=== PATIENT | female | born 1960 | race Native Hawaiian/Other Pacific Islander ===

== ENCOUNTER 2018-04-18 20:35 | Inpatient (IN) | payer OTHER ==
[2018-04-18 20:40] VITALS: BMI 22.4
--- NOTE | 2018-04-18 21:00 | ED PDOC ---
Arrival/HPI - General Chief Complaint: Abdominal Pain Time Seen by Provider: 04/18/18 20:40 Historian: Patient - History of Present Illness Narrative History of Present Illness (Text): 04/18/18 21:00 Yuliya Caicedo is a 57 year old female, whose past medical history includes hypertension and fibroids, who presents to the Emergency department complaining of abdominal distention. Patient states she has been experiencing worsening ascites and jaundice. Patient was referred to the Emergency department by her PMD for further evaluation. Patient also complaining of some bilateral lower extremity swelling. Patient denies any fever, chills, chest pain, shortness of breath, nausea, vomiting, diarrhea, urinary symptoms, back pain, neck pain, headache, dizziness, or any other complaints. Symptom Onset: Gradual Symptom Course: Unchanged Activities at Onset: Light Context: Home Past Medical History - Provider Review Nursing Documentation Reviewed: Yes - Cardiac Hx Cardiac Disorders: Yes (PALPITATIONS) Hx Hypertension: Yes - Musculoskeletal/Rheumatological Hx Falls: No - Genitourinary/Gynecological Hx Genitourinary Disorders: Yes (MYOMECTOMY) - Psychiatric Hx Depression: No Hx Emotional Abuse: No Hx Physical Abuse: No Hx Substance Use: No - Surgical History Other/Comment: Fibroids - Anesthesia Hx Anesthesia: Yes Hx Anesthesia Reactions: No Hx Malignant Hyperthermia: No - Suicidal Assessment Feels Threatened In Home Enviroment: No Family/Social History - Physician Review Nursing Documentation Reviewed: Yes Family/Social History: Unknown Family HX Smoking Status: Never Smoked Hx Alcohol Use: No Hx Substance Use: No Allergies/Home Meds Allergies/Adverse Reactions: Allergies No Known Allergies Allergy (Verified 07/16/16 18:22) Home Medications: Home Meds Medication Instructions Recorded Confirmed Lisinopril [Zestril] 1 tab PO DAILY 07/15/16 04/18/18 Metoprolol Tartrate [Lopressor] 10 mg PO DAILY 07/16/16 04/18/18 Review of Systems - Physician Review All systems were reviewed & negative as marked: Yes - Review of Systems Constitutional: Normal. absent: Fevers Eyes: Normal ENT: Normal Respiratory: Normal. absent: SOB, Cough Cardiovascular: Normal. absent: Chest Pain Gastrointestinal: Other (+ascites) Genitourinary Female: Normal. absent: Dysuria, Frequency, Hematuria, Urine Output Changes Musculoskeletal: Other (+bilateral lower extremity swelling). absent: Back Pain , Neck Pain Skin: Normal. absent: Rash Neurological: Normal. absent: Headache, Dizziness Endocrine: Normal Hemo/Lymphatic: Normal Psychiatric: Normal Physical Exam Vital Signs Reviewed: Yes Vital Signs Temp Pulse Resp BP Pulse Ox 04/19/18 04:07 87 16 117/71 100 04/19/18 02:58 99 H 18 98 04/19/18 00:05 90 18 123/80 98 04/18/18 20:40 98.2 F 77 18 104/69 96 Temperature: Afebrile Blood Pressure: Normal Pulse: Regular Respiratory Rate: Normal Appearance: Positive for: Well-Appearing, Non-Toxic, Comfortable Pain Distress: None Mental Status: Positive for: Alert and Oriented X 3 - Systems Exam Head: Present: Atraumatic, Normocephalic Pupils: Present: PERRL Extroacular Muscles: Present: EOMI Conjunctiva: Present: Normal Mouth: Present: Moist Mucous Membranes Neck: Present: Normal Range of Motion Respiratory/Chest: Present: Clear to Auscultation, Good Air Exchange. No: Respiratory Distress, Accessory Muscle Use Cardiovascular: Present: Regular Rate and Rhythm, Normal S1, S2. No: Murmurs Abdomen: Present: Distention (Ascites). No: Tenderness, Peritoneal Signs Back: Present: Normal Inspection Upper Extremity: Present: Normal Inspection. No: Cyanosis, Edema Lower Extremity: Present: Normal Inspection. No: Edema Neurological: Present: GCS=15, CN II-XII Intact, Speech Normal Skin: Present: Warm, Dry, Normal Color. No: Rashes Psychiatric: Present: Alert, Oriented x 3, Normal Insight, Normal Concentration Medical Decision Making ED Course and Treatment: 04/18/18 21:00 Impression: 57 year old female complaining of ascites and jaundice. Plan: -- EKG -- CXR -- Labs, cardiac enzymes, amylase, lipase, blood cultures -- UA, urine cultures -- Reassess and disposition Prior Visits: Notes and results from previous visits were reviewed. On 07/16/2016, pt was seen in the Emergency department for lower/mid abdominal pain and nausea. Pt was admitted to the hospital for further evaluation. Progress Notes: Reviewed EKG, NSR at [address]-segment elevations or depressions, no T-wave inversions, normal intervals. 04/19/18 22:00 Chest X-ray reviewed, shows no acute processes. 04/19/18 00:[address] Baptiste, who is aware and agrees with plan. Accepts pt in to her service. Pt will be admitted to [facility] for abdominal pain. - Lab Interpretations Microbiology Results: Microbiology Results 04/18/18 21:31 Blood-Venous Blood Culture - Preliminary NO GROWTH AFTER 48 HOURS 04/18/18 21:27 Blood-Venous Blood Culture - Preliminary NO GROWTH AFTER 48 HOURS 04/18/18 22:40 Urine,Clean Catch Urine Culture - Final No Growth (<1,000 CFU/ML) Lab Results: 04/18/18 21:27 04/18/18 21:27 Lab Results 04/18/18 22:40: Urine Color Yellow, Urine Appearance Clear, Urine pH 6.5, Ur Specific [place] <= 1.005, Urine Protein Negative, Urine Glucose (UA) Negative, Urine Ketones Negative, Urine Blood Negative, Urine Nitrate Negative, Urine Bilirubin Negative, Urine Urobilinogen 0.2, Ur Leukocyte Esterase Negative 04/18/18 21:35: Ammonia 56 H 04/18/18 21:27: Sodium 136, Potassium 5.5 H, Chloride 101, Carbon Dioxide 21, Anion Gap 21 H, BUN 6 L, Creatinine 0.9, Est GFR ( Amer) > 60, Est GFR ( Non-Af Amer) > 60, Random Glucose 92, Calcium 9.2, Total Bilirubin 7.7 H, AST 138 H, ALT 41, Alkaline Phosphatase 202 H, Lactate Dehydrogenase 575, Total Creatine Kinase 33 L, Troponin I < 0.01, Total Protein 8.3, Albumin 3.3, Globulin 5.1, Albumin/Globulin Ratio 0.6 L, Amylase 75, Lipase 379 H 04/18/18 21:27: PT 18.8 H, INR 1.63 H, APTT 40.8 H 04/18/18 21:27: WBC 11.3 H D, RBC 3.22 L, Hgb 10.8 L, Hct 29.6 L, MCV 91.9, MCH 33.5, MCHC 36.5, RDW 17.0 H, Plt Count 95 L, MPV 12.0 H, Gran % 69.4 H, Lymph % (Auto) 15.9 L, [place] % (Auto) 7.7 H, Eos % (Auto) 5.8 H, Baso % (Auto) 1.2, Gran # 7.83 H, Lymph # (Auto) 1.8, [place] # (Auto) 0.9 H, Eos # (Auto) 0.7, Baso # ( Auto) 0.14 I have reviewed the lab results: Yes - RAD Interpretation Radiology Orders: 04/18/18 21:11 CHEST PORTABLE [RAD] Stat 04/19/18 00:52 ABD & PELVIS IV CONTRAST ONLY [CT] Stat Tile Sprayer: ED Physician - EKG Interpretation Interpreted by ED Physician: Yes Type: 12 lead EKG - Medication Orders Current Medication Orders: Discontinued Medications Betamethasone/Clotrimazole (Lotrisone) 1 gm TOP BID ANETA Diphenhydramine HCl (Benadryl) 25 mg PO ONCE ONE Stop: 04/19/18 20:59 Last Admin: 04/19/18 21:55 Dose: 25 mg Furosemide (Lasix) 40 mg PO DAILY ANETA Last Admin: 04/20/18 10:59 Dose: 40 mg MAR Blood Pressure Document 04/20/18 10:59 SES (Rec: 04/20/18 11:00 SES [id number]) Blood Pressure Blood Pressure (100/60-150/90) 127/79 Sodium Chloride (Sodium Chloride 0.9%) 1,000 mls @ 100 mls/hr IV .Q10H STA Stop: 04/19/18 11:59 Last Admin: 04/19/18 03:07 Dose: 100 mls/hr eMAR Start Stop Document 04/19/18 03:07 SS (Rec: 04/19/18 03:07 SS [id number]) Intravenous Solution Start Date 04/19/18 Start Time 03:07 Metronidazole (Flagyl) 500 mg in 100 mls @ 100 mls/hr IVPB STAT STA PRN Reason: Protocol Stop: 04/19/18 03:01 Last Admin: 04/19/18 03:07 Dose: 100 mls/hr eMAR Start Stop Document 04/19/18 03:07 SS (Rec: 04/19/18 03:07 SS [id number]) Intravenous Solution Start Date 04/19/18 Start Time 03:07 End Date 04/19/18 End time 04:07 Total Infusion Time 60 Ceftriaxone Sodium (Rocephin 1 Gram Ivpb) 1 gm in 100 mls @ 100 mls/hr IVPB DAILY ANETA PRN Reason: Protocol Stop: 04/23/18 10:59 Last Admin: 04/20/18 13:10 Dose: 100 mls/hr eMAR Start Stop Document 04/20/18 13:10 SES (Rec: 04/20/18 13:10 [id number]) Intravenous Solution Start Date 04/20/18 Start Time 13:10 End Date 04/20/18 End time 14:10 Total Infusion Time 60 Lactulose (Enulose) 20 gm PO ONCE STA Stop: 04/19/18 01:04 Last Admin: 04/19/18 01:41 Dose: 20 gm Ondansetron HCl (Zofran Inj) 4 mg IVP Q6H PRN PRN Reason: Nausea/Vomiting Pantoprazole Sodium (Protonix Inj) 40 mg IVP DAILY [facility] Last Admin: 04/20/18 13:10 Dose: 40 mg IVP Administration Document 04/20/18 13:10 SES (Rec: 04/20/18 13:10 [id number]) Charges for Administration # of IVP Administrations 1 Rifaximin (Xifaxan) 550 mg PO BID ANETA PRN Reason: Protocol Last Admin: 04/20/18 18:02 Dose: 550 mg Thiamine HCl (Vitamin B1 Inj) 100 mg IM DAILY [facility] Last Admin: 04/20/18 11:00 Dose: 100 mg IM Administration Charges Document 04/20/18 11:00 SES (Rec: 04/20/18 11:00 [id number]) Injection Site MAR Injection Site Right Deltoid Charges for Administration # of IM Administrations 1 - Scribe Statement The provider has reviewed the documentation as recorded by the Scribe Deisy Lamas All medical record entries made by the Scribe were at my direction and personally dictated by me. I have reviewed the chart and agree that the record accurately reflects my personal performance of the history, physical exam, medical decision making, and the department course for this patient. I have also personally directed, reviewed, and agree with the discharge instructions and disposition. Disposition/Present on Arrival - Present on Arrival Any Indicators Present on Arrival: No History of DVT/PE: No History of Uncontrolled Diabetes: No Urinary Catheter: No History of Decub. Ulcer: No History Surgical Site Infection Following: None - Disposition Have Diagnosis and Disposition been Completed?: Yes Diagnosis: Abdominal pain, Elevated LFTs Disposition: HOSPITALIZED Disposition Time: 00:30 Condition: FAIR
[2018-04-18 21:33] LABS: BASO # 0.14 K/mm3 (0.0-2.0); BASO % 1.2 % (0.0-3.0); EOS # 0.7 (0.0-0.7); EOS % 5.8 % (1.5-5.0); GRAN # 7.83 (1.4-6.5); GRAN % 69.4 % (50.0-68.0); HEMOGLOBIN 10.8 g/dL (12.0-16.0); LYMPH # 1.8 (1.2-3.4); LYMPH % 15.9 % (22.0-35.0); MEAN CELL VOLUME 91.9 fl (80.0-105.0); MEAN CORPUSCULAR HEMOGLOBIN 33.5 pg (25.0-35.0); MEAN CORPUSCULAR HGB CONC 36.5 g/dl (31.0-37.0); MONO # 0.9 (0.1-0.6); MONO % 7.7 % (1.0-6.0); RBC 3.22 10^6/uL (3.5-6.1); WHITE BLOOD COUNT 11.3 10^3/ul (4.5-11.0)
[2018-04-18 21:43] LABS: INR 1.63 (0.93-1.08); PARTIAL THROMBOPLASTIN TIME 40.8 Seconds (25.1-36.5); PROTHROMBIN TIME 18.8 SECONDS (9.4-12.5)
[2018-04-18 21:52] LABS: ALB/GLOB RATIO 0.6 (1.1-1.8); ALBUMIN 3.3 g/dL (3.0-4.8); ALT/SGPT 41 U/L (7-56); AMYLASE 75 U/L (35-125); AST/SGOT 138 U/L (14-36); BLOOD UREA NITROGEN 6 mg/dL (7-21); CALCIUM 9.2 mg/dL (8.4-10.5); GFR AFRICAN-AMERICAN > 60; GFR NON-AFRICAN AMERICAN > 60; LIPASE 379 U/L (23-300)
[2018-04-18 22:02] LABS: TROPONIN I < 0.01 ng/mL
[2018-04-18 22:49] LABS: PH,URINE 6.5 (4.7-8.0); URINE BILIRUBIN NEGATIVE (NEGATIVE); URINE BLOOD NEGATIVE (NEGATIVE); URINE GLUCOSE (UA) NEGATIVE (NEGATIVE); URINE LEUKOCYTE ESTERASE NEGATIVE Leu/uL (NEGATIVE); URINE PROTEIN NEGATIVE mg/dL (<30 mg/dL); URINE UROBILINOGEN 0.2 E.U./dL (<1 E.U./dL)
[2018-04-18 22:51] LABS: URINE APPEARANCE CLEAR (CLEAR); URINE COLOR YELLOW (YELLOW)
[2018-04-19] MEDS ORDERED: Iohexol 350 MG/100 ML VIAL ONE (00:59)
[2018-04-19] MEDS ORDERED: Sodium Chloride 0.9% 1,000 ML IV STA (02:00)
[2018-04-19] MEDS ORDERED: metroNIDAZOLE IV 500 mg/100 ml 500 MG/100 ML BAG IVPB STA (02:02)
--- NOTE | 2018-04-19 07:27 | RAD ---
HISTORY: abd pain COMPARISON: Portable chest 07/16/2016. FINDINGS: LUNGS: Crowding of the bronchovascular markings in the right greater than left lung bases likely as a function of low pulmonary volume. No definitive alveolitis appreciable bilaterally. PLEURA: No significant pleural effusion identified, no pneumothorax apparent. CARDIOVASCULAR: Normal. OSSEOUS STRUCTURES: No significant abnormalities. VISUALIZED UPPER ABDOMEN: Normal. OTHER FINDINGS: None. IMPRESSION: Crowding of the bronchovascular markings is seen at the right greater than left lung bases likely is a function of diminished pulmonary volume. Clinically correlate further.
--- NOTE | 2018-04-19 09:02 | CT ---
PROCEDURE: CT Abdomen and Pelvis with contrast HISTORY: Abdominal pain COMPARISON: None. TECHNIQUE: CT scan of the abdomen and pelvis was performed after administration of intravenous contrast. Oral contrast was not administered. Coronal and sagittal reformatted images were obtained. Contrast dose: 100 mL Omnipaque 350 Radiation dose: Total exam DLP = 487.73 mGy-cm. This CT exam was performed using one or more of the following dose reduction techniques: Automated exposure control, adjustment of the mA and/or kV according to patient size, and/or use of iterative reconstruction technique. FINDINGS: LOWER THORAX: There is a small right pleural effusion with compressive atelectasis of the lung bases. The visualized left lung is clear. LIVER: Mild hepatomegaly and diffuse fatty infiltration in the liver. No gross lesion or ductal dilatation. GALLBLADDER AND BILE DUCTS: No calcified gallstones. There is layering sludge within the gallbladder. PANCREAS: Normal in size with homogeneous enhancement. No gross lesion or ductal dilatation. SPLEEN: Normal in size. There is redemonstration of a large 4.0 cm calcified mass in the upper pole of the spleen. ADRENALS: No discrete nodule. KIDNEYS AND URETERS: Normal in size with homogeneous enhancement. No hydronephrosis. No solid mass. There are small simple cysts in both kidneys. VASCULATURE: No aortic aneurysm. BOWEL: The small bowel loops are normal in caliber. The colon is decompressed. No bowel dilatation or obstruction APPENDIX: Normal appendix. PERITONEUM: There is moderate abdominal and pelvic ascites. No free air. LYMPH NODES: No enlarged lymph nodes. BLADDER: Partially decompressed. REPRODUCTIVE: The uterus is normal in size. BONES: No acute fracture. Diffuse bone demineralization OTHER FINDINGS: There is a small sliding hiatal hernia. IMPRESSION: 1. Mild hepatomegaly and fatty liver. Moderate abdominal and pelvic ascites. 2. Small right pleural effusion. 3. Redemonstration of known large calcified mass in the upper pole of the spleen. A preliminary report was provided by [employer].
[2018-04-19] MEDS: cefTRIAXone 1 gm 1 GM/100 ML BAG IVPB SCH (10:33)
--- NOTE | 2018-04-19 12:53 | CARD ---
APPROVED REPORT EKG Measurement Heart [id number] <Conclusion> Normal sinus rhythm Small q in lll Normal ECG
[2018-04-19 15:41] LABS: HEPATITIS B SURFACE AG Negative (NEGATIVE)
[2018-04-19 15:47] LABS: HEPATITIS A IGM NEGATIVE (NEGATIVE); HEPATITIS B CORE AB NEGATIVE (NEGATIVE)
[2018-04-19 15:59] LABS: HEPATITIS C ANTIBODY NEGATIVE (NEGATIVE)
[2018-04-19 16:01] LABS: BODY FLUID TYPE PERITONEAL/ASCITES
[2018-04-19 16:12] LABS: BF GROSS APPEARANCE CLEAR (CLEAR)
[2018-04-19 16:13] LABS: BODY FLUID TOTAL COUNT 100 (0-0)
--- NOTE | 2018-04-19 16:19 | US ---
PROCEDURE: Ultrasound guided paracentesis. HISTORY: New onset ascites. Abdominal pain and distension. Needs diagnostic and therapeutic paracentesis PHYSICIAN(S): Jonathan Monet MD. TECHNIQUE: The relative risks and indications for the procedure were explained to the patient and informed written consent obtained. Sonography of the abdomen was performed in a supine position. This revealed a small to moderate amount of non-loculated ascites, greatest in the right lower abdomen. A puncture site was selected and the area was prepped and draped in the usual sterile fashion. 1% Xylocaine was used to anesthetize the skin and soft tissues. A 7 [place] paracentesis catheter was trocared into the right lower abdomenand 1000 cc of clear, straw-colored fluid aspirated. The appropriate labs were sent. IMPRESSION: Ultrasound-guided paracentesis in the right lower abdomen. 1000 Cc of fluid were aspirated. Labs were sent
[2018-04-19] MEDS: Thiamine 100 mg/ml Inj IM SCH (19:24)
--- NOTE | 2018-04-20 00:30 | HP ---
HISTORY OF PRESENT ILLNESS: The patient is 57 years old, came to emergency room because of increasing abdominal girth. She also complained of having poor appetite. Vomits after she eat and not able to eat full meal. After few bites, she feels full. No history of hemoptysis. No hematemesis. No history of diarrhea. Complained of decreased appetite. PAST MEDICAL HISTORY: Significant for, 1. Hypertension. 2. Gastritis. 3. History of fibroid uterus. ALLERGIES: SHE IS NOT ALLERGIC TO ANY MEDICATION. MEDICATIONS AT HOME: She is on metoprolol 10 mg daily, lisinopril 10 mg twice a day. SOCIAL HISTORY: Denies smoking. Does eat that has tobacco in it, chews on that. According to son, she does drink almost everyday. Sometime when he come back from work, he finds mom drunk. PHYSICAL EXAMINATION: GENERAL: She is awake and alert, tremulous. VITAL SIGNS: She is afebrile, pulse 108, respirations 18, blood pressure 125/72. LUNGS: Bilateral fair airflow. No rhonchi or crackle. HEART: S1 and S2 audible. ABDOMEN: Soft, but distended. Positive fluid thrill. EXTREMITIES: Bilateral leg, no edema. LABORATORY EXAM: WBC 11.3, hemoglobin 10.8, hematocrit 39.6, platelet of 95. PT 18.8, INR 1.63. Chemistry: Sodium 136, potassium 5.5, chloride 101, CO2 of 21, BUN 6, creatinine 0.9, blood sugar of 92, her AST 130, ALT 41, alk phos 202, ammonia level is 56, lipase 379. ASSESSMENT: 1. Alcohol withdrawal. 2. Alcoholic hepatitis. 3. Cirrhotic ascites. 4. Cirrhosis of liver. 5. Hypertension. PLAN: We will continue the patient on IV fluids. She is on Rocephin. Start her on thiamine. Start her on liquid diet. The patient has paracentesis done earlier and 1 L fluid was removed. Her ammonia level is also found to be 56 and has been started on lactulose. We will follow up this patient in the a.m. Beryl Baptiste MD
--- NOTE | 2018-04-20 00:43 | CON ---
DATE: 04/19/2018 LOCATION: The patient is in bed. The patient was seen earlier today in 571, bed 2. CHIEF COMPLAINT: Abdominal distention times several days. HISTORY OF PRESENT ILLNESS: This is a 57-year-old female, originally from [place], history of fibroids and hypertension, who initially denied alcohol use; however, admits significant alcohol use, who was admitted with abdominal distention, found to have liver disease. Infectious Disease consultation requested. Review of systems reveals the patient has low-grade fevers. No chills. Mild abdominal discomfort. No nausea or vomiting at this time. No dysuria or frequency. No headaches or blurred vision. PAST MEDICAL HISTORY: Significant for hypertension and fibroids. PAST SURGICAL HISTORY: Significant for myomectomy. ALLERGIES: THE PATIENT HAS NO KNOWN ALLERGIES. MEDICATIONS AT HOME: Reveals the patient to be on Zestril, metoprolol. PHYSICAL EXAMINATION: GENERAL: The patient is in bed. VITAL SIGNS: Temperature of 98, blood pressure is 125/70, respiratory rate of 20, heart rate of 108. HEENT: Examination of HEENT is unremarkable. NECK: Supple. LUNGS: Have decreased breath sounds. HEART: Normal S1 and S2. ABDOMEN: Soft, nontender. Minimal tenderness. No rebound or guarding. It is distended. LABORATORY DATA: Laboratory examination reveals the patient's white count is 11,300 and hemoglobin is noted. Coagulation is elevated. The peritoneal ascitic fluid shows 61 wbc's with 100% polys. Urinalysis is unremarkable. Microbiology is pending. CAT scan is noted. ASSESSMENT AND PLAN: A 57-year-old [place] female, hypertension and fibroids and history of alcohol abuse, now presenting with liver cirrhosis, ascites secondary to alcohol abuse. I doubt spontaneous bacterial peritonitis. We will continue Rocephin pending the paracentesis, Gram-stain and cultures and workup as far as the hepatitis is pending. The patient's CAT scan does show a calcified lesion in the spleen. Workup for that is ordered. Case was discussed with Dr. Baptiste at length. We will follow with you. Donovan Rodriguez MD
[2018-04-20 08:26] LABS: ALB/GLOB RATIO 0.6 (1.1-1.8); ALBUMIN 3.2 g/dL (3.0-4.8); ALT/SGPT 45 U/L (7-56); AST/SGOT 128 U/L (14-36); BLOOD UREA NITROGEN 8 mg/dL (7-21); CALCIUM 9.2 mg/dL (8.4-10.5); GFR AFRICAN-AMERICAN > 60; GFR NON-AFRICAN AMERICAN > 60
[2018-04-20] MEDS ORDERED: Furosemide 40 mg/5 mL Oral Soln UD PO SCH (10:15)
[2018-04-20] MEDS: Thiamine 100 mg/ml Inj IM SCH (11:00)
[2018-04-20] MEDS: cefTRIAXone 1 gm 1 GM/100 ML BAG IVPB SCH (13:10)
[2018-04-20 16:19] VITALS: BP 143/90; PULSE 96; RESP 20; TEMP 98.2; O2SAT 98
--- NOTE | 2018-04-20 16:41 | CON ---
DATE: 04/19/2018 GASTROENTEROLOGY CONSULTATION REQUESTING PHYSICIAN: Beryl Baptiste MD REASON FOR CONSULTATION AND HISTORY OF PRESENT ILLNESS: I have been asked to see this 57-year-old female admitted to the hospital with increasing abdominal girth and mid abdominal pain for several weeks. The patient states that she has had no appetite and gets full after eating. She has had intermittent vomiting over the last several days. She denies any hematemesis or rectal bleeding. The patient was recently noted to be jaundiced. She also admits to drinking alcohol on a daily basis for the last several years. She drinks up to two drinks a day, mostly vodka or gin. Recent CT scan of the abdomen and pelvis performed as an outpatient revealed hepatomegaly with fatty appearing liver and a fine nodularity to the liver border consistent with cirrhosis. There was also ascites without any evidence of thrombus in the portal vein. No mass was seen in the liver. She does have a 4-5 cm mass in the spleen which has been present for over one year. The patient had an endoscopy and colonoscopy approximately five months ago, which revealed multiple benign colon polyps as well as gastritis without any varices in the stomach or esophagus. PAST MEDICAL HISTORY: Notable for hypertension, fibroid uterus, gastritis, small bowel obstruction which resolved with conservative treatment. PAST SURGICAL HISTORY: Notable for myomectomy. SOCIAL HISTORY: She denies cigarette smoking. 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 She consumes alcohol on a daily basis for many years. REVIEW OF SYSTEMS: A 14-point review of systems is notable for increasing abdominal girth, abdominal pain, early satiety and vomiting. MEDICATIONS AT HOME: Include lisinopril and metoprolol. PHYSICAL EXAMINATION GENERAL: Middle-aged female appearing jaundiced, lying in bed, in no acute distress. VITAL SIGNS: Reveal temperature of 97.7, blood pressure 135/71, heart rate is 70. HEENT: Reveals sclerae to be icteric. Conjunctivae pale. NECK: Supple. CHEST: Reveals lungs to be clear. HEART: Reveals regular rate and rhythm. ABDOMEN: Soft, mildly distended with ascites. She does have an enlarged liver which is palpable 3 cm below the right costal margin. EXTREMITIES: Show no edema. There is no evidence of asterixis. LABORATORY DATA: Reveals white blood cell count 11.3, hemoglobin 10.8, platelet count 95,000. Chemistries reveal potassium of 5.4, BUN 8, creatinine 0.9. AST 128, ALT 45, alkaline phosphatase of 193, ammonia 56. Paracentesis results show clear fluid, 144 rbc's, 100 total cell count with 6.6% neutrophils and 93.4% lymphocytes. IMPRESSION: A 57-year-old female with hepatomegaly, ascites, alcohol abuse, jaundice, low platelet count all consistent with decompensated cirrhosis from alcoholism. RECOMMENDATIONS: 1. I will start the patient on Lasix 40 mg once a day. She does have high potassium level, so we will stop Aldactone. 2. We will request a duplex scan of the portal vein to rule out portal vein thrombus. There is no mass seen on CAT scan of the abdomen with IV contrast. 3. We will start the patient on Xifaxan 550 mg p.o. b.i.d. as her serum ammonia level was elevated. 4. Follow liver enzymes. The patient will need referral to a tertiary liver center as she appears to be having deteriorating liver function. Shon Turner MD [facility] # [id number]
--- NOTE | 2018-04-20 17:18 | US ---
PROCEDURE: Portal vein duplex ultrasound. CLINICAL HISTORY: Cirrhosis. Deteriorating liver function. Evaluate for portal vein thrombosis. PHYSICIAN(S): Jonathan Monet M.D. FINDINGS: The visualized liver parenchyma is echogenic and heterogeneous with a nodular contour, consistent with cirrhosis. No obvious parenchymal mass is appreciated on these limited images. The extrahepatic portal vein is patent with hepatopetal flow. No thrombus is noted in the portal vein. The filling defects noted on recent CT scan with contrast are not appreciated on the duplex evaluation. Hepatic artery is patent and hypertrophied. Limited images of the central patent veins are patent. There is a small amount of fluid in the upper abdomen. IMPRESSION: 1. Patent portal vein with hepatopetal flow. The filling defect appreciated on the recent CT scan with contrast is not noted on the duplex evaluation
[2018-04-20] MEDS ORDERED: Clotrimazole/Betamethasone Cream(15 gm) TOP SCH (18:45)
--- NOTE | 2018-04-20 22:52 | PN ---
DATE: 04/20/2018 SUBJECTIVE: The patient is in bed, in no acute distress. Was seen early this morning. No fevers. No chills. PHYSICAL EXAMINATION: VITAL SIGNS: Temperature is 98, blood pressure is 120/70, respiratory rate of 16. HEENT: Examination of HEENT is unremarkable. NECK: Supple. LUNGS: Have decreased breath sounds. HEART: Normal S1 and S2. ABDOMEN: Soft, nontender. LABORATORY DATA: Laboratory examination reveals the patient with white count of 11,300. Chemistries are noted. Urinalysis noted. Ascitic fluid shows 61 wbc's. Serology is negative. Microbiology reveals the blood cultures are no growth. Ascitic cultures are no growth. Urine cultures are no growth. No ova and parasites are seen. Blood cultures, no growth, initial one. Gram-stain to follow in the ascitic fluid. ASSESSMENT AND PLAN: A 57-year-old female with hypertension, fibroid, history of alcohol abuse, who is presenting with liver cirrhosis secondary to alcohol abuse. May be able to discontinue the antibiotics if there is no gastrointestinal bleed. Donovan Rodriguez MD
[2018-04-20 23:23] LABS: TB ANTIGEN MINUS NIL <0.00 IU/mL
[2018-04-21 10:29] LABS: CERULOPLASMIN 23 mg/dL (18-53)
[2018-04-22 22:23] LABS: SOURCE: PLASMA
--- NOTE | 2018-04-23 08:11 | DS ---
HOSPITAL COURSE: The patient is 57 years old, seen and examined, seems to be doing better. Complaining of abdominal discomfort and fullness, has no tremors today. PHYSICAL EXAMINATION: VITAL SIGNS: She is afebrile, pulse 70, respirations 20, blood pressure 135/71. LUNGS: Bilateral fair airflow. No rhonchi or crackle. HEART: S1 and S2 audible. ABDOMEN: Soft,nontender. No rebound. No guarding. Abdominal distention has improved significantly. NEUROLOGICAL: The patient is awake and alert and communicative. EXTREMITIES: Bilateral legs, no edema. LABORATORY EXAM: WBC is , hemoglobin , hematocrit . Today's sodium 139, potassium 5.4, chloride 104, CO2 23, BUN 8, creatinine 0.9, blood sugar of 99, AST 128, ALT 45, alkaline phosphatase 193. Alcohol level is less than 10. RPR nonreactive. HIV test is negative. ASSESSMENT: 1. Cirrhotic ascites. 2. Alcohol dependence. 3. Coagulopathy. 4. Cirrhosis of liver. 5. History of hypertension. PLAN: We will start the patient on Lasix, Protonix, thiamine, Xifaxan. The patient is going for Doppler study to rule out portal vein thrombosis and based on that, if it is negative, she will be discharged today after abdominal Doppler study. She will be discharged home on Lasix 40 daily, Xifaxan 550 twice a day and she will resume her other medications including lisinopril and I will follow up the patient in the office. Beryl Baptiste MD
== END 2018-04-20 19:15 | disposition home or self-care (01) | DRG 433 ==
LOC: ED 20:35 → ERH 04-19 01:29 → 5RSO 04-19 04:28
PROVIDERS: ADMIT Internal Medicine; ATTEND Internal Medicine
PROC: 0W9G3ZZ Drainage of Peritoneal Cavity, Percutaneous Approach (ICD-10-PCS; principal; 2018-04-19 15:00)
DX: K70.31 Alcoholic cirrhosis of liver with ascites (principal); D68.9 Coagulation defect, unspecified; F10.239 Alcohol dependence with withdrawal, unspecified; K70.11 Alcoholic hepatitis with ascites; I10 Essential (primary) hypertension; K29.70 Gastritis, unspecified, without bleeding; D25.9 Leiomyoma of uterus, unspecified; Y90.0 Blood alcohol level of less than 20 mg/100 ml

== ENCOUNTER 2018-05-17 23:55 | Observation (INO) | payer SELFPAY ==
[2018-05-18] VITALS: BMI 22.9
--- NOTE | 2018-05-18 00:25 | ED PDOC ---
Arrival/HPI - General Chief Complaint: Abdominal Pain Time Seen by Provider: 05/18/18 00:10 Historian: Patient - History of Present Illness Narrative History of Present Illness (Text): 05/18/18 00:25 Yuliya Caicedo is a 57 year old female, whose past medical history includes hypertension, gastritis, uterine fibroids, small bowel obstruction, ascites, and alcoholic liver cirrhosis, who presents to the Emergency department complaining of abdominal pain. Patient states she has been experiencing worsening diffuse abdominal pain tonight after eating bread. Son states patient has been non-compliant with her Xifaxan. Patient denies any fever, chills, chest pain, shortness of breath, nausea, vomiting, diarrhea, back pain, neck pain, headache, dizziness, or any other complaints. Symptom Onset: Gradual Symptom Course: Worsening Activities at Onset: Light Context: Home Past Medical History - Provider Review Nursing Documentation Reviewed: Yes - Cardiac Hx Cardiac Disorders: Yes (PALPITATIONS) Hx Hypertension: Yes - Musculoskeletal/Rheumatological Hx Falls: No - Genitourinary/Gynecological Hx Genitourinary Disorders: Yes (MYOMECTOMY) - Psychiatric Hx Depression: No Hx Emotional Abuse: No Hx Physical Abuse: No Hx Substance Use: No - Surgical History Other/Comment: Fibroids - Anesthesia Hx Anesthesia: Yes Hx Anesthesia Reactions: No Hx Malignant Hyperthermia: No - Suicidal Assessment Feels Threatened In Home Enviroment: No Family/Social History - Physician Review Nursing Documentation Reviewed: Yes Family/Social History: Unknown Family HX Smoking Status: Never Smoked Hx Alcohol Use: No Hx Substance Use: No Allergies/Home Meds Allergies/Adverse Reactions: Allergies No Known Allergies Allergy (Verified 07/16/16 18:22) Home Medications: Home Meds Medication Instructions Recorded Confirmed Lisinopril [Zestril] 1 tab PO DAILY 07/15/16 05/18/18 Metoprolol Tartrate [Lopressor] 10 mg PO DAILY 07/16/16 05/18/18 Review of Systems - Physician Review All systems were reviewed & negative as marked: Yes - Review of Systems Constitutional: Normal. absent: Fevers Eyes: Normal ENT: Normal Respiratory: Normal. absent: SOB, Cough Cardiovascular: Normal. absent: Chest Pain Gastrointestinal: Abdominal Pain. absent: Diarrhea Genitourinary Female: Normal Musculoskeletal: Normal Skin: Normal Neurological: Normal Endocrine: Normal Hemo/Lymphatic: Normal Psychiatric: Normal Physical Exam Vital Signs Reviewed: Yes Vital Signs Temp Pulse Resp BP Pulse Ox 05/18/18 05:59 98.2 F 54 L 18 127/68 100 05/18/18 04:35 88 18 132/85 100 05/18/18 03:09 98.5 F 88 16 119/77 100 05/18/18 00:01 98.1 F 85 19 115/73 100 Temperature: Afebrile Blood Pressure: Normal Pulse: Regular Respiratory Rate: Normal Appearance: Positive for: Well-Appearing, Non-Toxic, Comfortable Pain Distress: None Mental Status: Positive for: Alert and Oriented X 3 - Systems Exam Head: Present: Atraumatic, Normocephalic Pupils: Present: PERRL Extroacular Muscles: Present: EOMI Conjunctiva: Present: Normal Mouth: Present: Moist Mucous Membranes Neck: Present: Normal Range of Motion Respiratory/Chest: Present: Clear to Auscultation, Good Air Exchange. No: Respiratory Distress, Accessory Muscle Use Cardiovascular: Present: Regular Rate and Rhythm, Normal S1, S2. No: Murmurs Abdomen: Present: Tenderness (Mild diffuse tenderness). No: Distention, Peritoneal Signs Back: Present: Normal Inspection Upper Extremity: Present: Normal Inspection. No: Cyanosis, Edema Lower Extremity: Present: Normal Inspection. No: Edema Neurological: Present: GCS=15, CN II-XII Intact, Speech Normal Skin: Present: Warm, Dry, Normal Color. No: Rashes Psychiatric: Present: Alert, Oriented x 3, Normal Insight, Normal Concentration Medical Decision Making ED Course and Treatment: 05/18/18 00:25 Impression: 57 year old female complaining of diffuse abdominal pain tonight. Plan: -- CT Abdomen and Pelvis with IV contrast -- EKG -- Chest X-ray -- Labs, lipase, ammonia -- IV fluids -- Morphine -- Zofran -- Reassess and disposition Prior Visits: Notes and results from previous visits were reviewed. On 04/18/2018, pt was seen in the Emergency department for worsening ascites and jaundice. Pt was admitted to the hospital for further evaluation. Progress Notes: 05/18/18 01:48 Reviewed EKG, NSR at 89 bpm. Inferior infarct. Non acute changes. 05/18/18 05:44 CT Abdomen and Pelvis reviewed, shows: 1. Small right pleural effusion. Right lower lobe consolidation and patchy infiltrate and minimal infiltrate at the left lung base. Correlation with clinical data is recommended if pneumonia is clinically suspected. 2. Endstage liver disease with interval progression of the ascites. Indeterminant gallbladder. 3. Multiple indeterminant findings as described could be sequela of hepatocellular disease unless a focal process is clinically suspected. Correlation with internal medicine evaluation and further workup or followup as recommended by patient's clinical data. 05/18/18 06:[address] Baptiste, who is aware and agrees with plan. Accepts pt in to her service. Pt will go to [facility] for abdominal pain. Requests Dr. Rodriguez and Dr. Turner on consult. - Lab Interpretations Lab Results: 05/18/18 00:46 05/18/18 00:46 Lab Results 05/18/18 02:03: Urine Color Yellow, Urine Appearance Clear, Urine pH 6.0, Ur Specific [place] 1.010, Urine Protein Negative, Urine Glucose (UA) Negative, Urine Ketones Negative, Urine Blood Negative, Urine Nitrate Negative, Urine Bilirubin Negative, Urine Urobilinogen 0.2, Ur Leukocyte Esterase Trace H, Urine RBC 0 - 2, Urine WBC 1 - 3, Ur Epithelial Cells 3 - 4, Urine Bacteria Rare 05/18/18 00:46: Ammonia 23 05/18/18 00:46: WBC 13.6 H D, RBC 2.89 L, Hgb 9.1 L, Hct 25.9 L, MCV 89.6, MCH 31.5, MCHC 35.1, RDW 15.2 H, Plt Count 127, MPV 11.9 H 05/18/18 00:46: Sodium 137, Potassium 4.9, Chloride 102, Carbon Dioxide 22, Anion Gap 17, BUN 7, Creatinine 1.0, Est GFR ( Amer) > 60, Est GFR (Non- Af Amer) 57, Random Glucose 140 H, Calcium 9.5, Total Bilirubin 6.4 H, AST 71 H D, ALT 22, Alkaline Phosphatase 183 H, Total Protein 8.9 H, Albumin 3.2, Globulin 5.6, Albumin/Globulin Ratio 0.6 L, Lipase 612 H 05/18/18 00:46: PT 19.6 H, INR 1.70, APTT 40.0 H I have reviewed the lab results: Yes - RAD Interpretation Radiology Orders: 05/18/18 00:25 CHEST PORTABLE [RAD] Stat 05/18/18 00:27 ABD & PELVIS IV CONTRAST ONLY [CT] Stat Gallery Manager: ED Physician, Radiologist - EKG Interpretation Interpreted by ED Physician: Yes Type: 12 lead EKG - Medication Orders Current Medication Orders: Discontinued Medications Sodium Chloride (Sodium Chloride 0.9%) 1,000 mls @ 999 mls/hr IV .Q1H1M STA Stop: 05/18/18 01:34 Last Admin: 05/18/18 01:01 Dose: 999 mls/hr eMAR Start Stop Document 05/18/18 01:01 RG (Rec: 05/18/18 01:15 FIDELIA [id number]) Intravenous Solution Start Date 05/18/18 Start Time 01:01 Ceftriaxone Sodium (Rocephin 1 Gram Ivpb) 1 gm in 100 mls @ 200 mls/hr IV ONCE STA PRN Reason: Protocol Stop: 05/18/18 05:57 Last Admin: 05/18/18 05:56 Dose: 200 mls/hr eMAR Start Stop Document 05/18/18 05:56 RG (Rec: 05/18/18 05:57 [id number][facility] Intravenous Solution Start Date 05/18/18 Start Time 05:56 Metronidazole (Flagyl) 500 mg in 100 mls @ 100 mls/hr IVPB STAT STA PRN Reason: Protocol Stop: 05/18/18 06:27 Morphine Sulfate (Morphine) 2 mg IVP STAT STA Stop: 05/18/18 00:35 Last Admin: 05/18/18 01:11 Dose: 2 mg MAR Pain Assessment Document 05/18/18 01:11 FIDELIA (Rec: 05/18/18 01:11 [id number]) Pain Reassessment Is this a pain reassessment? Yes Location Pain Location Body Site Abdomen Generalized Description Description Constant IVP Administration Document 05/18/18 01:11 FIDELIA (Rec: 05/18/18 01:11 FIDELIA [id number]) Charges for Administration # of IVP Administrations 1 Ondansetron HCl (Zofran Inj) 4 mg IVP ONCE ONE Stop: 05/18/18 00:35 Last Admin: 05/18/18 01:11 Dose: 4 mg IVP Administration Document 05/18/18 01:11 FIDELIA (Rec: 05/18/18 01:11 RG [id number]) Charges for Administration # of IVP Administrations 1 - Scribe Statement The provider has reviewed the documentation as recorded by the Cadeibmackenzie Lamas All medical record entries made by the Cadeibmackenzie were at my direction and personally dictated by me. I have reviewed the chart and agree that the record accurately reflects my personal performance of the history, physical exam, medical decision making, and the department course for this patient. I have also personally directed, reviewed, and agree with the discharge instructions and disposition. Disposition/Present on Arrival - Present on Arrival Any Indicators Present on Arrival: No History of DVT/PE: No History of Uncontrolled Diabetes: No Urinary Catheter: No History of Decub. Ulcer: No History Surgical Site Infection Following: None - Disposition Have Diagnosis and Disposition been Completed?: Yes Diagnosis: Abdominal pain, Leukocytosis Disposition: HOSPITALIZED Disposition Time: 06:00 Patient Plan: Observation Patient Problems: Current Active Problems Problem Status Onset Abdominal pain Acute Leukocytosis Acute Condition: STABLE
[2018-05-18] MEDS ORDERED: Sodium Chloride 0.9% 1,000 ML IV STA ×2 (00:34→06:33)
[2018-05-18] MEDS ORDERED: Morphine 2 mg/ml ISec IVP STA (00:34)
[2018-05-18 01:11] LABS: INR 1.7; PROTHROMBIN TIME 19.6 SECONDS (9.4-12.5)
[2018-05-18 01:15] LABS: HEMOGLOBIN 9.1 g/dL (12.0-16.0); MEAN CELL VOLUME 89.6 fl (80.0-105.0); MEAN CORPUSCULAR HEMOGLOBIN 31.5 pg (25.0-35.0); MEAN CORPUSCULAR HGB CONC 35.1 g/dl (31.0-37.0); MEAN PLATELET VOLUME 11.9 fl (7.0-11.0); RBC 2.89 10^6/uL (3.5-6.1); RED CELL DISTRIBUTION WIDTH 15.2 % (11.5-14.5); WHITE BLOOD COUNT 13.6 10^3/ul (4.5-11.0)
[2018-05-18 01:32] LABS: ALB/GLOB RATIO 0.6 (1.1-1.8); ALBUMIN 3.2 g/dL (3.0-4.8); ALT/SGPT 22 U/L (7-56); AST/SGOT 71 U/L (14-36); BLOOD UREA NITROGEN 7 mg/dL (7-21); CALCIUM 9.5 mg/dL (8.4-10.5); GFR AFRICAN-AMERICAN > 60; GFR NON-AFRICAN AMERICAN 57; LIPASE 612 U/L (23-300)
[2018-05-18] MEDS ORDERED: Iohexol 350 MG/100 ML VIAL ONE (02:09)
[2018-05-18 05:01] LABS: URINE BILIRUBIN NEGATIVE (NEGATIVE); URINE BLOOD NEGATIVE (NEGATIVE); URINE GLUCOSE (UA) NEGATIVE (NEGATIVE); URINE LEUKOCYTE ESTERASE TRACE Leu/uL (NEGATIVE); URINE PROTEIN NEGATIVE mg/dL (<30 mg/dL); URINE UROBILINOGEN 0.2 E.U./dL (<1 E.U./dL)
[2018-05-18 05:03] LABS: URINE APPEARANCE CLEAR (CLEAR); URINE COLOR YELLOW (YELLOW)
[2018-05-18 05:20] LABS: URINE RBC 0 - 2 /hpf (0-2)
[2018-05-18 05:21] LABS: URINE BACTERIA RARE (NEG)
[2018-05-18] MEDS ORDERED: cefTRIAXone 1 gm 1 GM/100 ML BAG IV STA (05:28)
[2018-05-18] MEDS ORDERED: metroNIDAZOLE IV 500 mg/100 ml 500 MG/100 ML BAG IVPB STA (05:28)
--- NOTE | 2018-05-18 08:07 | RAD ---
Date of service: 05/18/2018 HISTORY: abdominal pain COMPARISON: 04/18/2018 FINDINGS: LUNGS: No active pulmonary disease. PLEURA: No significant pleural effusion identified, no pneumothorax apparent. CARDIOVASCULAR: Mild vascular congestion. The heart is normal in size OSSEOUS STRUCTURES: No significant abnormalities. VISUALIZED UPPER ABDOMEN: Normal. OTHER FINDINGS: None. IMPRESSION: Mild vascular congestion
--- NOTE | 2018-05-18 09:19 | CARD ---
APPROVED REPORT Date of service: 05/18/2018 EKG Measurement Heart [id number] <Conclusion> Normal sinus rhythm Inferior infarct, age undetermined Abnormal ECG
--- NOTE | 2018-05-18 09:44 | CT ---
Date of service: 05/18/2018 PROCEDURE: CT Abdomen and Pelvis without intravenous contrast HISTORY: abdominal pain COMPARISON: 07/19/2016. TECHNIQUE: Technique. Contrast dose: Radiation dose: Total exam DLP = mGy-cm. This CT exam was performed using one or more of the following dose reduction techniques: Automated exposure control, adjustment of the mA and/or kV according to patient size, and/or use of iterative reconstruction technique. FINDINGS: LOWER THORAX: Right pleural effusion with minimal atelectasis at the right base. LIVER: Cirrhotic liver with abundant ascites. GALLBLADDER AND BILE DUCTS: Unremarkable. PANCREAS: Unremarkable. No gross lesion or ductal dilatation. SPLEEN: Stable calcified splenic mass measuring 4.5 centimeters. . ADRENALS: Unremarkable. No mass. KIDNEYS AND URETERS: Unremarkable. No hydronephrosis. No solid mass. VASCULATURE: Unremarkable. No aortic aneurysm. BOWEL: Unremarkable. No obstruction. No gross mural thickening. APPENDIX: Unremarkable. Normal appendix. PERITONEUM: Unremarkable. No free fluid. No free air. LYMPH NODES: Unremarkable. No enlarged lymph nodes. BLADDER: Unremarkable. REPRODUCTIVE: Unremarkable. BONES: No acute fracture. OTHER FINDINGS: None. IMPRESSION: Cirrhosis. Ascites. Small right pleural effusion.
--- NOTE | 2018-05-18 12:25 | CON ---
Copied To: Shon Turner MD Attending MD: Shon Turner MD DATE: 05/18/2018 REQUESTING PHYSICIAN: Dr. Baptiste. REASON FOR CONSULT: I have been asked to see this 57-year-old female with recently diagnosed cirrhosis of the liver secondary to alcoholism, history of ascites, history of chronic recurrent abdominal pain who developed abdominal pain yesterday described as mild, which became worse overnight prompting the patient to come to the Emergency Room. The patient was discharged from the hospital approximately one month ago after an admission for similar complaints of abdominal pain. She denies any recent alcohol intake. The patient has been noncompliant with her Xifaxan. She denies any confusion, nausea, vomiting, diarrhea, hematemesis or rectal bleeding. PAST MEDICAL HISTORY: Notable for hypertension, uterine fibroids, gastritis, colon polyps. Note, the patient had an endoscopy and colonoscopy earlier this year. PAST SURGICAL HISTORY: Notable for myomectomy. SOCIAL HISTORY: Patient is an alcoholic, last drink was over one month ago. She denies cigarette smoking. PHYSICAL EXAMINATION: GENERAL: Middle-aged female lying in bed in no acute distress. VITAL SIGNS: Reveal temperature of 98.3, blood pressure 124/79, heart rate 78. HEENT: Reveal sclerae to be icteric. Conjunctivae pink. NECK: Supple. CHEST: Reveal lungs to be clear. HEART: Reveals regular rate and rhythm. ABDOMEN: Distended with ascites. Liver edge is palpable 2 cm below the right costal margin. There is a positive fluid shift. There is no tenderness at this time. EXTREMITIES: Show no edema. There is no asterixis. DATA: Laboratory data reveal white blood cell count 13.6, hemoglobin 9.1, platelet count of 127,000. Chemistries reveal blood sugar 140, total bilirubin 6.4, AST 71, ALT 22, alkaline phosphatase 183, total protein 8.9, lipase of 612. PT/INR is 19.6 and 1.7 with a PTT of 40. IMPRESSION: This is a 57-year-old female with decompensated cirrhosis secondary to alcoholism with ascites and one day of abdominal pain. The patient did have a paracentesis 1 month ago, which was negative for elevated polymorphonuclear cells. However, the patient may have developed spontaneous bacterial peritonitis in the interval. I would treat the patient for spontaneous bacterial peritonitis. RECOMMENDATIONS: 1. Await blood cultures. 2. I will start the patient on Rocephin 1 g daily. 3. Clear liquid diet and advance as tolerated. 4. Xifaxan 550 mg p.o. b.i.d. Shon Turner MD
[2018-05-18] MEDS ORDERED: Pneumococcal 23-Valent Vaccine IM ONE (13:19)
--- NOTE | 2018-05-18 14:56 | CP.PCM.CON ---
<Tena Ryan - Last Filed: 05/18/18 15:05> History of Present Illness - History of Present Illness History of Present Illness: PGY-2 infectious disease consult note for Dr. Crum's service 57 year old female with past medical history of hypertension, gastritis, uterine fibroids, small bowel obstruction, ascites, and alcoholic liver cirrhosis, who presents to the Emergency department complaining of abdominal pain. Patient states her abdominal pain began yesterday after eating some bread. She describes the pain as diffuse crampy pain, not radiating. She states that the pain has improved. She denies any fever, chills, n/v, diarrhea or constipation. Son states patient has been non-compliant with her Xifaxan. Patient was recently in the hospital for abd pain, at that time she had paracentesis that did not show SBP. She denies any alcohol consumption. She denies any sick contacts. Patient denies any fever, chills, chest pain, shortness of breath, nausea, vomiting, diarrhea, back pain, neck pain, headache , dizziness, or any other complaints. PMH: hypertension, gastritis, uterine fibroids, small bowel obstruction, ascites , and alcoholic liver cirrhosis PSH: fibroid surgery social history: denies current alcohol use( former user), denies smoking or illicit drug use allergy: NKDA family history: denies Review of Systems - Review of Systems All systems: reviewed and no additional remarkable complaints except - Constitutional Constitutional: absent: Chills, Fever, Headache - EENT Eyes: absent: Change in Vision Nose/Mouth/Throat: absent: Sore Throat - Cardiovascular Cardiovascular: absent: Chest Pain, Diaphoresis, Dyspnea - Respiratory Respiratory: absent: Cough, Dyspnea - Gastrointestinal Gastrointestinal: Abdominal Pain. absent: Constipation, Diarrhea, Nausea, Vomiting - Genitourinary Genitourinary: absent: Difficulty Urinating, Dysuria - Musculoskeletal Musculoskeletal: absent: Arthralgias, Muscle Weakness - Integumentary Integumentary: Pruritus. absent: Rash, Skin Pain, Skin Ulcer, Sores - Neurological Neurological: absent: Dizziness, Headaches, Syncope, Weakness Past Patient History - Past Social History Smoking Status: Never Smoked - CARDIAC Hx Cardiac Disorders: Yes (PALPITATIONS) Hx Hypertension: Yes - PULMONARY Hx Respiratory Disorders: No - NEUROLOGICAL Hx Neurological Disorder: No - HEENT Hx HEENT Problems: No - RENAL Hx Chronic Kidney Disease: No - ENDOCRINE/METABOLIC Hx Endocrine Disorders: No - HEMATOLOGICAL/ONCOLOGICAL Hx Blood Disorders: No - INTEGUMENTARY Hx Dermatological Problems: Yes (GENERALIZED JAUNDICED) - MUSCULOSKELETAL/RHEUMATOLOGICAL Hx Musculoskeletal Disorders: Yes (RIGHT KNEE PAIN,BACK PAIN) Hx Falls: No - GASTROINTESTINAL Hx Gastrointestinal Disorders: Yes (GASTRITIS,ASCITES-H/O OF TAPPING,BOWEL OBSTRUCTION) Hx Liver Failure: Yes (ALCOHOLIC LIVER CIRRHOSIS) - GENITOURINARY/GYNECOLOGICAL Hx Genitourinary Disorders: Yes (MYOMECTOMY-FIBROID) - PSYCHIATRIC Hx Psychophysiologic Disorder: Yes (H/O ETOH ABUSE. DRANK HALF A LITER OF VODKA FOR 6-7 YRS. QUIT 15 JANUARY 2018) Hx Depression: No Hx Emotional Abuse: No Hx Physical Abuse: No Hx Substance Use: No - SURGICAL HISTORY Hx Surgeries: Yes Other/Comment: Fibroids-MYOMECTOMY - ANESTHESIA Hx Anesthesia: Yes Hx Anesthesia Reactions: No Hx Malignant Hyperthermia: No Meds Allergies/Adverse Reactions: Allergies Allergy/AdvReac Type Severity Reaction Status Date / Time No Known Allergies Allergy Verified 05/18/18 12:42 - Medications Medications: Current Medications Sodium Chloride (Sodium Chloride 0.9%) 1,000 mls @ 100 mls/hr IV .Q10H STA Stop: 05/18/18 16:32 Last Admin: 05/18/18 07:19 Dose: 100 mls/hr Ceftriaxone Sodium (Rocephin 1 Gram Ivpb) 1 gm in 100 mls @ 100 mls/hr IVPB DAILY ANETA PRN Reason: Protocol Rifaximin (Xifaxan) 550 mg PO BID ANETA PRN Reason: Protocol Last Admin: 05/18/18 10:42 Dose: 550 mg Physical Exam - Constitutional Appears: No Acute Distress - Head Exam Head Exam: ATRAUMATIC, NORMOCEPHALIC - Eye Exam Eye Exam: EOMI, Scleral icterus - ENT Exam ENT Exam: Mucous Membranes Moist - Respiratory Exam Respiratory Exam: Clear to Auscultation Bilateral, NORMAL BREATHING PATTERN - Cardiovascular Exam Cardiovascular Exam: REGULAR RHYTHM. absent: Bradycardia, Tachycardia - GI/Abdominal Exam GI & Abdominal Exam: Normal Bowel Sounds, Soft. absent: Tenderness - Extremities Exam Extremities exam: Positive for: normal inspection. Negative for: pedal edema, tenderness - Neurological Exam Neurological exam: Alert, Oriented x3 - Skin Skin Exam: Dry, Intact, Normal Color, Warm Results - Vital Signs Recent Vital Signs: Last Vital Signs Temp 98.3 F 05/18/18 12:44 Pulse 78 05/18/18 12:44 Resp 18 05/18/18 12:44 BP 124/79 05/18/18 12:44 Pulse Ox 99 05/18/18 08:23 - Labs Result Diagrams: 05/18/18 00:46 05/18/18 00:46 Assessment & Plan - Assessment and Plan (Free Text) Assessment: 57 year old female with past medical history of hypertension, gastritis, uterine fibroids, small bowel obstruction, ascites, and alcoholic liver cirrhosis, who presents to the Emergency department complaining of abdominal pain with leukocytosis. Abd CT showed cirrhosis, ascites and small right sided pleural effusion. Patient had paracentesis 1 month ago, at the time did not show SBP, however need to consider SBP. Consider repeat paracentesis. Will treat for SBP, continue ceftriaxone. Will follow up blood cultures and urine cultures. case reviewed and discussed with Dr. Crum <Luis Crum - Last Filed: 05/18/18 16:33> Meds - Medications Medications: Current Medications Ceftriaxone Sodium (Rocephin 1 Gram Ivpb) 1 gm in 100 mls @ 100 mls/hr IVPB DAILY ANETA PRN Reason: Protocol Rifaximin (Xifaxan) 550 mg PO BID ANETA PRN Reason: Protocol Last Admin: 05/18/18 10:42 Dose: 550 mg Results - Vital Signs Recent Vital Signs: Last Vital Signs Temp 98.2 F 05/18/18 14:00 Pulse 81 05/18/18 14:00 Resp 18 05/18/18 14:00 BP 104/65 05/18/18 14:00 Pulse Ox 100 05/18/18 14:00 - Labs Result Diagrams: 05/18/18 00:46 05/18/18 00:46 Assessment & Plan - Assessment and Plan (Free Text) Assessment: Infectious Diseases Attending Physician Attestation and Addendum Patient seen and examined, discussed with certified medical technician assistant. I have the pertinent clinical information, HPI, past medical, social and personal histories , review of systems, physical exam and laboratory information. I agree with the above findings, assessment and plan. In addition, we will continue Rocephin for this patient with possible spontaneous bacterial peritonitis who has alcoholic liver cirrhosis. Would recommend paracentesis if feasible for ascitic fluid analysis. Follow blood cx.
[2018-05-18 21:18] VITALS: O2SAT 98
--- NOTE | 2018-05-18 23:31 | HP ---
Copied To: Beryl Baptiste MD Attending MD: Beryl Baptiste MD HISTORY OF PRESENT ILLNESS: The patient is a 57-year-old, came to emergency room because of intermittent abdominal pain. Complained of feeling nauseous. The patient claimed she has been compliant with medications. She had similar pain 2-3 days ago, but it subsided, but last night pain got worse, so she came to emergency room for further evaluation. Complained of abdominal swelling. PAST MEDICAL HISTORY: She has significant past medical history of: 1. Hypertension. 2. History of gastritis. 3. Colonic polyp. 4. Fibroid. 5. Cirrhosis of liver secondary to alcohol abuse. 6. Significant weight loss. PAST SURGICAL HISTORY: Significant for myomectomy. SOCIAL HISTORY: She drinks alcohol almost on everyday basis, has cut down since last admission. Denies cigarette smoking. PHYSICAL EXAMINATION GENERAL: She is awake, alert, oriented. VITAL SIGNS: She is afebrile, pulse 81, respiration 18, blood pressure 104/65. HEENT: She has pale conjunctivae, icteric sclerae. LUNGS: Bilateral good airflow. No rhonchi or crackle. HEART: S1 and S2 audible. ABDOMEN: Soft, nontender. No rebound, no guarding. She has some fluid, but no significant fluid thrill. EXTREMITIES: Bilateral legs, no edema. LABORATORY DATA: WBC 13.6, hemoglobin 9.1, hematocrit 25.9, platelet of 127. PT 19.6, INR 1.7. Chemistry: Sodium 137, potassium 4.9, chloride 102, CO2 of 22, BUN 7, creatinine 1, blood sugar of 140. AST 71, calcium 9.5, alkaline phosphatase 183. Total protein 8.9, lipase 612. Urinalysis is unremarkable. CT scan of the abdomen and pelvis was done that shows cirrhosis of liver and ascites, small right pleural effusion. ASSESSMENT: 1. Abdominal pain, etiology unknown, questionable spontaneous bacterial peritonitis. 2. Cirrhosis of liver. 3. History of hypertension. 4. History of myomectomy and history of uterine fibroids. PLAN: The patient is being treated for SBP. She is on Rocephin and awaiting blood culture and urine culture and follow up her CBC and electrolyte in a.m. Beryl Baptiste MD [facility] # [id number]
[2018-05-19 07:07] LABS: BASO # 0.07 K/mm3 (0.0-2.0); BASO % 1.2 % (0.0-3.0); EOS # 0.5 (0.0-0.7); EOS % 7.4 % (1.5-5.0); GRAN # 3.57 (1.4-6.5); GRAN % 58.8 % (50.0-68.0); HEMOGLOBIN 7.3 g/dL (12.0-16.0); LYMPH # 1.5 (1.2-3.4); LYMPH % 24.8 % (22.0-35.0); MEAN CELL VOLUME 88.5 fl (80.0-105.0); MEAN CORPUSCULAR HEMOGLOBIN 31.1 pg (25.0-35.0); MEAN CORPUSCULAR HGB CONC 35.1 g/dl (31.0-37.0); MEAN PLATELET VOLUME 10.6 fl (7.0-11.0); MONO # 0.5 (0.1-0.6); MONO % 7.8 % (1.0-6.0); RBC 2.35 10^6/uL (3.5-6.1); RED CELL DISTRIBUTION WIDTH 15.3 % (11.5-14.5); WHITE BLOOD COUNT 6.1 10^3/ul (4.5-11.0)
[2018-05-19 08:01] VITALS: RESP 20
[2018-05-19 09:19] LABS: BASO # 0.06 K/mm3 (0.0-2.0); BASO % 0.8 % (0.0-3.0); EOS # 0.4 (0.0-0.7); EOS % 5.9 % (1.5-5.0); GRAN # 4.66 (1.4-6.5); GRAN % 62.5 % (50.0-68.0); HEMOGLOBIN 8.2 g/dL (12.0-16.0); LYMPH % 26.6 % (22.0-35.0); MEAN CELL VOLUME 89.8 fl (80.0-105.0); MEAN CORPUSCULAR HEMOGLOBIN 30.8 pg (25.0-35.0); MEAN CORPUSCULAR HGB CONC 34.3 g/dl (31.0-37.0); MEAN PLATELET VOLUME 10.8 fl (7.0-11.0); MONO # 0.3 (0.1-0.6); MONO % 4.2 % (1.0-6.0); RBC 2.66 10^6/uL (3.5-6.1); RED CELL DISTRIBUTION WIDTH 15.3 % (11.5-14.5); WHITE BLOOD COUNT 7.5 10^3/ul (4.5-11.0)
[2018-05-19] MEDS ORDERED: Magnesium Oxide 400 mg Tab UD PO SCH (10:00)
[2018-05-19] MEDS ORDERED: cefTRIAXone 1 gm 1 GM/100 ML BAG IVPB SCH (10:00)
--- NOTE | 2018-05-19 10:31 | PN ---
Copied To: Donovan Rodriguez MD Attending MD: Donovan Rodriguez MD DATE: 05/19/2018 SUBJECTIVE: The patient is in bed, in no acute distress, nontoxic. PHYSICAL EXAMINATION: VITAL SIGNS: Temperature is 98, blood pressure is 100/60, respiratory rate of 18. HEENT: Examination of HEENT is unremarkable. NECK: Supple. LUNGS: Have decreased breath sounds. HEART: Normal S1, S2. ABDOMEN: Soft, nontender. LABORATORY DATA: Laboratory examination reveals the white count of 7.5, hemoglobin of 8, platelets of 99. Chemistries are noted. Lipase is 612. Urinalysis is unremarkable. Microbiology reveals the blood cultures are negative. Review of orders reveals the patient to be on ceftriaxone. The patient had a CAT scan of the abdomen and pelvis. Cirrhosis, ascites, small right pleural effusion. ASSESSMENT AND PLAN: A 57-year-old female with past medical history of hypertension, gastritis, uterine fibroids, small bowel obstruction, ascites, alcoholic liver cirrhosis, admitted with abdominal pain and leukocytosis. Concerned about spontaneous bacterial peritonitis, currently on ceftriaxone in this patient who did not have any fevers initially and no tachycardia. No dyspnea. Just the abdominal pain. Did have white count of 13,600, which appears to be improved. No ascitic fluid results. May be able to switch to p.o. Augmentin 875 p.o. b.i.d. Blood cultures are negative. The patient should be on Cipro 750 mg p.o. once weekly for spontaneous bacterial peritonitis prophylaxis. Donovan Rodriguez MD
--- NOTE | 2018-05-19 13:50 | PN ---
Copied To: Shon Turner MD Attending MD: Shon Turner MD DATE: 05/19/2018 SUBJECTIVE: The patient is lying in bed. She feels better. Her abdominal pain is less. She is complaining about her liquid diet. She would like to try solid foods. She denies any nausea, vomiting. She denies any fevers or chills. She denies any rectal bleeding or melena. PHYSICAL EXAMINATION: VITAL SIGNS: Reveal temperature of 98.5, blood pressure 99/66, heart rate of 83. HEENT: Reveal sclerae to be white. Conjunctivae pale. NECK: Supple. CHEST: Reveal lungs to be clear. HEART: Reveals regular rate and rhythm. ABDOMEN: Distended with ascites. EXTREMITIES: Show no edema. LABORATORY DATA: Reveal hemoglobin this morning of 7.3. Repeat hemoglobin is 8.2. Her CBC on admission was 9.1. I suspect that her drop in hemoglobin is partly dilutional. IMPRESSION: 1. Abdominal pain, most likely secondary to spontaneous bacterial peritonitis. 2. Cirrhosis secondary to long-term alcohol use. 3. Anemia, most likely chronic disease. 4. Thrombocytopenia secondary to her cirrhosis. RECOMMENDATIONS: 1. We will advance to a soft vegan diet. 2. Follow serial hematocrits. 3. Continue IV Rocephin. If the patient tolerates diet, she is stable for discharge with outpatient followup. Shon Turner MD
[2018-05-19 15:03] VITALS: PULSE 66
[2018-05-19 15:53] VITALS: BP 115/72; TEMP 98.3
--- NOTE | 2018-05-21 09:22 | DS ---
Copied To: Beryl Baptiste MD Attending MD: Beryl Baptiste MD. HISTORY OF PRESENT ILLNESS: Patient is 67 years old, seen and examined, doing lot better, intermittent abdominal pain, complaining of mild shortness of breath. PHYSICAL EXAMINATION: VITAL SIGNS: She is afebrile, pulse 66, respirations 20, blood pressure 110/68. LUNGS: Bilateral fair airflow. No rhonchi or crackle. HEART: S1 and S2 audible. ABDOMEN: Soft, nontender. No rebound, no guarding. NEUROLOGICAL: She is awake, alert, oriented, communicative, and ambulatory. LABORATORY DATA: WBC 7.5, hemoglobin 8.2, hematocrit 23.9, platelet of 99. Chemistry: Ammonia level is 23. Urinalysis is unremarkable. ASSESSMENT: 1. Doubt spontaneous bacterial peritonitis. 2. Cirrhosis of liver. 3. Symptomatic anemia. PLAN: Patient will receive 1 packed RBCs and she will be given prescription of Xifaxan, nadolol, Lasix, and Aldactone. She will be followed by Dr. Turner as outpatient. She also has appointment with monument stonecutter on 05/22/2018 . Beryl Baptiste MD
== END 2018-05-19 18:01 | disposition home or self-care (01) ==
LOC: ED 23:55 → ERH 05-18 06:00 → 5RNO 05-18 08:31
PROVIDERS: ADMIT Internal Medicine; ATTEND Internal Medicine
DX: K70.31 Alcoholic cirrhosis of liver with ascites (principal); D63.8 Anemia in other chronic diseases classified elsewhere; D69.59 Other secondary thrombocytopenia; F10.20 Alcohol dependence, uncomplicated; I10 Essential (primary) hypertension; J90 Pleural effusion, not elsewhere classified; Z86.010 Personal history of colon polyps; Z91.19 Patient's noncompliance with other medical treatment and regimen
CPT/HCPCS: 36415; 36430; 71045; 74177; 80053; 81001; 82140; 83690; 85025; 85027; 85610; 85730; 86850; 86900; 86920; 87040; 87086; 93005; 96365; 96375; 96376; 99284; G0378; J0696; J1940; J2270; J2405; J7030; P9016; Q9967

== ENCOUNTER 2018-05-22 18:54 | Observation (INO) | payer OTHER ==
--- NOTE | 2018-05-22 19:36 | ED PDOC ---
Arrival/HPI - General Historian: Patient, Family - History of Present Illness Time/Duration: 1 hour Symptom Onset: Sudden Symptom Course: Unchanged, Worsening Quality: Pressure, Stabbing Severity Level: 10 Activities at Onset: Rest Context: Sitting - General Chief Complaint: Abdominal Pain Time Seen by Provider: 05/22/18 18:56 - History of Present Illness Narrative History of Present Illness (Text): 05/22/18 19:30 Patient is a 57 year old female with PMH of cirrhosis (recently discharged for suspected SBP) and HTN who presents to ED with worsening abdominal pain that started an hour ago. She was admitted for a similar complaint last week. She describes the pain as a sharp, burning type pain that is 10/10. She states that her current pain is worse than the prior episode. She saw the consumer advocate today who states that she will be placed on the liver transplant list. (Tevin Yost) Past Medical History - Provider Review Nursing Documentation Reviewed: Yes - Travel History Have you recently traveled outside [place] w/in the past 3 mons?: No - Infectious Disease Hx of Infectious Diseases: None - Cardiac Hx Cardiac Disorders: Yes (PALPITATIONS) Hx Hypertension: Yes - Pulmonary Hx Respiratory Disorders: No - Neurological Hx Neurological Disorder: No - HEENT Hx HEENT Disorder: No - Renal Hx Renal Disorder: No - Endocrine/Metabolic Hx Endocrine Disorders: No - Hematological/Oncological Hx Blood Disorders: No - Integumentary Hx Dermatological Disorder: Yes (GENERALIZED JAUNDICED) - Musculoskeletal/Rheumatological Hx Musculoskeletal Disorders: Yes (RIGHT KNEE PAIN,BACK PAIN) Hx Falls: Yes - Gastrointestinal Hx Gastrointestinal Disorders: Yes (GASTRITIS,ASCITES-H/O OF TAPPING,BOWEL OBSTRUCTION) Hx Liver Failure: Yes (ALCOHOLIC LIVER CIRRHOSIS) - Genitourinary/Gynecological Hx Genitourinary Disorders: Yes (MYOMECTOMY-FIBROID) - Psychiatric Hx Psychophysiologic Disorder: Yes (H/O ETOH ABUSE. DRANK HALF A LITER OF VODKA FOR 6-7 YRS. QUIT 15 JANUARY 2018) Hx Substance Use: No - Surgical History Other/Comment: Fibroids-MYOMECTOMY - Anesthesia Hx Anesthesia: Yes Hx Anesthesia Reactions: No Hx Malignant Hyperthermia: No - Suicidal Assessment Feels Threatened In Home Enviroment: No Family/Social History - Physician Review Nursing Documentation Reviewed: Yes Family/Social History: No Known Family HX Smoking Status: Never Smoked Hx Alcohol Use: Yes (QUIT DRINKING 2 MONS AGO.ANK 1/2 A LITER OF ABDOLUT VODKA ) Hx Substance Use: No Allergies/Home Meds Allergies/Adverse Reactions: Allergies No Known Allergies Allergy (Verified 05/22/18 19:22) Home Medications: Home Meds Medication Instructions Recorded Confirmed Lisinopril [Zestril] 1 tab PO DAILY 07/15/16 05/22/18 Metoprolol Tartrate [Lopressor] 10 mg PO DAILY 07/16/16 05/22/18 Review of Systems - Review of Systems Constitutional: absent: Weight Change, Fevers Eyes: absent: Vision Changes, Photophobia ENT: absent: Sore Throat, Rhinorrhea Respiratory: absent: SOB, Cough Cardiovascular: absent: Chest Pain, FRANCO Gastrointestinal: Abdominal Pain. absent: Diarrhea, Nausea, Vomiting, Hematochezia, Hematemesis Genitourinary Female: absent: Dysuria, Frequency Musculoskeletal: absent: Arthralgias Skin: absent: Rash, Pruritis Neurological: absent: Headache, Dizziness Endocrine: absent: Diaphoresis Hemo/Lymphatic: absent: Adenopathy Psychiatric: absent: Anxiety, Depression Physical Exam Vital Signs Reviewed: Yes Temperature: Afebrile Blood Pressure: Normal Pulse: Regular Respiratory Rate: Normal Appearance: Positive for: Ill-Appearing, Uncomfortable, Other (jaundiced) Pain Distress: Severe Mental Status: Positive for: Alert and Oriented X 3 - Systems Exam Head: Present: Atraumatic, Normocephalic Pupils: Present: PERRL Extroacular Muscles: Present: EOMI Conjunctiva: Present: Icteric Ears: Present: Normal Mouth: Present: Dry Pharnyx: Present: Normal. No: ERYTHEMA, EXUDATE Nose (External): Present: Atraumatic Neck: Present: Normal Range of Motion. No: JVD Respiratory/Chest: Present: Clear to Auscultation. No: Wheezes, Rales, Rhonchi Cardiovascular: Present: Regular Rate and Rhythm, Normal S1, S2. No: Murmurs, Rub, Gallop Abdomen: Present: Tenderness (when patient is thinking or speaking, no tenderness to palpation), Distention. No: Peritoneal Signs, Rebound, Guarding, Mass/Organomegaly Back: Present: Normal Inspection Upper Extremity: Present: Normal Inspection. No: Cyanosis, Edema Lower Extremity: Present: Normal Inspection. No: Edema Neurological: Present: Speech Normal Skin: Present: Warm, Dry Psychiatric: Present: Alert, Oriented x 3 Vital Signs Temp Pulse Resp BP Pulse Ox 05/22/18 19:21 98.1 F 74 18 118/57 L 99 Medical Decision Making ED Course and Treatment: 05/22/18 21:10 Seen and examined with the resident. Our history and physical exam reveals a woman complaining of severe abdominal pain. She was discharged from the hospital 2 days ago after admission for similar complaints. She was seen today by the consumer advocate at [facility] and she will be placed on the liver transplant list.. (Roni Pritchett) 05/22/18 19:41 -Will get basic labs, CBC, CMP, UA -Toradol 30 mg IVP 05/22/18 19:59 -Spoke with Dr. Baptiste who agrees to admission -Will order ammonia level and consults for Dr. Rodriguez and Dr. Turner ([facility]) - Lab Interpretations Lab Results: 05/22/18 20:11 05/22/18 20:11 Lab Results 05/22/18 20:23: Ammonia 30 05/22/18 20:11: WBC 12.3 H D, RBC 3.29 L, Hgb 10.1 L, Hct 29.2 L, MCV 88.8, MCH 30.7, MCHC 34.6, RDW 15.7 H, Plt Count 123, MPV 12.1 H, Gran % 80.9 H, Lymph % ( Auto) 12.7 L, [facility] % (Auto) 3.6, Eos % (Auto) 2.4, Baso % (Auto) 0.4, Gran # 9.90 H, Lymph # (Auto) 1.6, [facility] # (Auto) 0.4, Eos # (Auto) 0.3, Baso # (Auto) 0.05 05/22/18 20:11: Sodium 142, Potassium 5.0, Chloride 107, Carbon Dioxide 22, Anion Gap 18, BUN 6 L, Creatinine 1.0, Est GFR ( Amer) > 60, Est GFR (Non -Af Amer) 57, Random Glucose 159 H, Calcium 9.5, Phosphorus 4.1, Magnesium 1.7, Total Bilirubin 5.6 H, AST 76 H, ALT 22, Alkaline Phosphatase 180 H, Total Protein 9.2 H, Albumin 3.3, Globulin 5.9, Albumin/Globulin Ratio 0.6 L - Medication Orders Current Medication Orders: Ceftriaxone Sodium (Rocephin 1 Gram Ivpb) 1 gm in 100 mls @ 100 mls/hr IVPB DAILY ANETA PRN Reason: Protocol Discontinued Medications Ketorolac Tromethamine (Toradol) 30 mg IVP STAT STA Stop: 05/22/18 19:29 Last Admin: 05/22/18 20:11 Dose: 30 mg MAR Pain Assessment Document 05/22/18 20:11 HI (Rec: 05/22/18 20:15 [place] [id number]) Pain Reassessment Is this a pain reassessment? No Sleep Is patient sleeping during reassessment? No Presence of Pain Presence of Pain Yes Location Pain Location Body Site Abdomen IVP Administration Document 05/22/18 20:11 HI (Rec: 05/22/18 20:15 [email or web address] Charges for Administration # of IVP Administrations 1 Disposition/Present on Arrival - Present on Arrival Any Indicators Present on Arrival: No History of DVT/PE: No History of Uncontrolled Diabetes: No Urinary Catheter: No History of Decub. Ulcer: No History Surgical Site Infection Following: None - Disposition Have Diagnosis and Disposition been Completed?: Yes Disposition Time: 21:41 Patient Plan: Admission - Disposition Diagnosis: Cirrhosis of liver with ascites, High risk for sepsis Disposition: HOSPITALIZED Condition: FAIR
[2018-05-22 19:40] VITALS: BMI 20.9
[2018-05-22 20:21] LABS: BASO # 0.05 K/mm3 (0.0-2.0); BASO % 0.4 % (0.0-3.0); EOS # 0.3 (0.0-0.7); EOS % 2.4 % (1.5-5.0); GRAN # 9.9 (1.4-6.5); GRAN % 80.9 % (50.0-68.0); HEMOGLOBIN 10.1 g/dL (12.0-16.0); LYMPH # 1.6 (1.2-3.4); LYMPH % 12.7 % (22.0-35.0); MEAN CELL VOLUME 88.8 fl (80.0-105.0); MEAN CORPUSCULAR HEMOGLOBIN 30.7 pg (25.0-35.0); MEAN CORPUSCULAR HGB CONC 34.6 g/dl (31.0-37.0); MEAN PLATELET VOLUME 12.1 fl (7.0-11.0); MONO # 0.4 (0.1-0.6); MONO % 3.6 % (1.0-6.0); RBC 3.29 10^6/uL (3.5-6.1); RED CELL DISTRIBUTION WIDTH 15.7 % (11.5-14.5); WHITE BLOOD COUNT 12.3 10^3/ul (4.5-11.0)
[2018-05-22 21:04] LABS: BLOOD UREA NITROGEN 6 mg/dL (7-21); CALCIUM 9.5 mg/dL (8.4-10.5); GFR AFRICAN-AMERICAN > 60; GFR NON-AFRICAN AMERICAN 57
[2018-05-22 21:05] LABS: ALB/GLOB RATIO 0.6 (1.1-1.8); ALBUMIN 3.3 g/dL (3.0-4.8); ALT/SGPT 22 U/L (7-56); AST/SGOT 76 U/L (14-36)
[2018-05-22] MEDS ORDERED: Morphine 2 mg/ml ISec IVP PRN (22:19)
[2018-05-22 23:02] LABS: URINE BILIRUBIN SMALL (NEGATIVE); URINE BLOOD NEGATIVE (NEGATIVE); URINE GLUCOSE (UA) NEGATIVE (NEGATIVE); URINE LEUKOCYTE ESTERASE NEGATIVE Leu/uL (NEGATIVE); URINE PROTEIN NEGATIVE mg/dL (<30 mg/dL); URINE UROBILINOGEN 0.2 E.U./dL (<1 E.U./dL)
[2018-05-22 23:03] LABS: URINE APPEARANCE SL CLOUDY (CLEAR); URINE COLOR DARK YELLOW (YELLOW)
[2018-05-22] MEDS: metroNIDAZOLE IV 500 mg/100 ml 500 MG/100 ML BAG IVPB SCH (23:59)
[2018-05-23] MEDS: metroNIDAZOLE IV 500 mg/100 ml 500 MG/100 ML BAG IVPB SCH ×3 (06:05→21:56)
[2018-05-23] MEDS: Pantoprazole 40 mg EC Tab PO SCH (09:20)
[2018-05-23] MEDS: cefTRIAXone 1 gm 1 GM/100 ML BAG IVPB SCH (09:21)
--- NOTE | 2018-05-23 09:48 | HP ---
Copied To: Beryl Baptiste MD Attending MD: Beryl Baptiste MD HISTORY OF PRESENT ILLNESS: The patient is 57 years old, who was recently discharged after she was admitted for abdominal pain. The patient was recently admitted, was treated for SBP, but she was found to be anemic, was given blood transfusion, did well and was discharged because she has appointment with the making machine operator today, Mauricio , for possible liver transplant, so she saw a making machine operator and was told that she is on . PAST MEDICAL HISTORY: Significant for, 1. Hypertension. 2. Cirrhosis of liver secondary to alcohol abuse. 3. History of fibroid uterus. 4. History of significant weight loss. 5. Gastritis. 6. Anemia, recent blood transfusion. PAST SURGICAL HISTORY: Significant for myomectomy. SOCIAL HISTORY: She drinks, but has not been drinking for the last month she was diagnosed with cirrhosis of liver. She does chew rubio that has tobacco in it. She is . Lives with her . Has 2 grown up children. PHYSICAL EXAMINATION: GENERAL: She is awake, alert, oriented, communicative. VITAL SIGNS: She is afebrile, pulse 74, respirations 18, blood pressure 114/62. LUNGS: Bilateral fair airflow. No rhonchi or crackle. HEART: S1 and S2 audible. ABDOMEN: Soft. Nontender. No rebound. No guarding. NEUROLOGICAL: The patient is awake, alert, oriented, able to communicate. LABORATORY EXAM: WBC is 12.3, hemoglobin 10, hematocrit 29, platelet of 123. Chemistry: Sodium 142, potassium 5, chloride 107, CO2 of 22, BUN , creatinine 1, blood sugar of 159. LFTs are within normal limit. Total bili 5.6, AST 76, ALT 22, alk phos 180. ASSESSMENT: 1. Abdominal pain, etiology still unclear. Empirically treats for spontaneous bacterial peritonitis. 2. Cirrhosis of liver secondary to alcohol abuse. 3. Hypertension. 4. Gastritis. PLAN: We will start the patient on and Rocephin. Start her on Protonix. We will start her on nadolol. GI consult, Dr. Turner and ID consult, Dr. Rodriguez has been consulted.. Beryl Baptiste MD [facility] # [id number]
[2018-05-23] MEDS ORDERED: cefTRIAXone 1 gm 1 GM/100 ML BAG IVPB SCH (10:00)
--- NOTE | 2018-05-23 12:49 | CON ---
Copied To: Shon Turner MD Attending MD: Shon Turner MD DATE: 05/23/2018 REQUESTING PHYSICIAN: Beryl Baptiste MD. HISTORY OF PRESENT ILLNESS: I have been asked to see this 57-year-old Beninese female with a known history of cirrhosis of the liver secondary to long-term alcohol use with multiple [facility] admissions for chronic recurrent abdominal pain. Just recently hospitalized 5 days ago and discharged the following day with recurrent abdominal pain. The patient apparently had an episode of "severe mid abdominal pain yesterday." She denies any fevers or chills. The patient was treated empirically for spontaneous bacterial peritonitis on her last admission; however, she did not take any antibiotics upon discharge from the hospital. She also was not taking her Xifaxan at home. The patient did have paracentesis approximately 6 weeks ago when this did not show any increase in polymorphonuclear cells. She did not have a paracentesis last visit.. She denies any fevers, chills, nausea, vomiting, hematemesis or rectal bleeding. She did have an endoscopy and colonoscopy several months ago, which revealed gastritis. No varices and multiple colon polyps with diverticulosis. Infectious Disease recommended that the patient take oral Augmentin 875 mg twice a day. She did not take this upon discharge from the hospital. The patient was recently referred to [facility], liver transplant center in [place]. She was awaiting an appointment for liver transplant evaluation. PAST MEDICAL HISTORY: As above. She also has a history of hypertension. Again, she has a history of cirrhosis of liver secondary to alcoholism, history of gastritis, colon polyps, anemia, uterine myoma. PAST SURGICAL HISTORY: Notable for myomectomy. SOCIAL HISTORY: The patient used to consume several shots of vodka daily for many years. She states that she has not drank in over a month. The patient chews tobacco. FAMILY HISTORY: Noncontributory. REVIEW OF SYSTEMS: A 14-point review of systems is notable for abdominal pain. MEDICATIONS AT HOME: Include pantoprazole, metoprolol, lisinopril and furosemide. PHYSICAL EXAMINATION: GENERAL: Well-developed female, lying in bed, in no acute distress. VITAL SIGNS: Reveal temperature of 97.7, blood pressure 115/68, heart rate is 69. HEENT: Reveal sclerae to be white. Conjunctivae pink. NECK: Supple. CHEST: Lungs are clear. HEART: Reveals regular rate and rhythm. ABDOMEN: Soft, mildly distended, nontender. She does have an enlarged liver. EXTREMITIES: Show no edema. There is no asterixis. LABORATORY DATA: Reveal white blood cell count 12.3, hemoglobin 10.1, platelet count of 123,000. Chemistries reveal normal electrolytes. Her total bilirubin is down to 5.6 from 6.4 last visit. AST 76, ALT 22, alkaline phosphatase of 122. IMPRESSION: Probable spontaneous bacterial peritonitis, not completely treated on her last visit. The patient did not take oral antibiotics upon discharge from the hospital. She is awaiting an appointment for a liver transplant at [facility] in [place]. RECOMMENDATIONS: 1. Continue IV Rocephin and metronidazole. 2. I will start the patient on lactulose 20 g three times a day as she could not afford Xifaxan. 3. Continue PPI. 4. Advance diet as tolerated. Shon Turner MD : 05/23/2018 10:40:31
--- NOTE | 2018-05-23 15:09 | PN ---
Copied To: Beryl Baptiste MD Attending MD: Beryl Baptiste MD DATE: 05/23/2018 SUBJECTIVE: The patient is 57 years old, came to Emergency Room because of abdominal pain, states she feels better since she has pain medication. She was seen by transplant team, who advised her to be sober for some time and follow with transplant team in [facility]. The patient states when she came home, she had some cereal with tea, and after sometime, she started to have abdominal pain, lead to diarrhea, pain was severe, so she was brought to Emergency Room. PHYSICAL EXAMINATION: GENERAL: Today, she is awake, alert, oriented, communicative. VITAL SIGNS: She is afebrile, pulse 70, respirations 18, blood pressure 115/68. LUNGS: Bilateral fair airflow. No rhonchi or crackle. HEART: S1 and S2 audible. ABDOMEN: Soft. Nontender. No rebound. No guarding. NEUROLOGICAL: The patient is awake, alert, oriented, communicative. LABORATORY DATA: WBC is 12.3, hemoglobin 10, hematocrit 29, platelet of 123. Chemistry: Sodium 142, potassium 5, chloride 107, CO2 of 22, BUN 6, creatinine 1, blood sugar 159. ASSESSMENT: 1. Abdominal pain, etiology unclear yet, doubt spontaneous bacterial peritonitis. 2. History of gastritis. 3. Hypertension. PLAN: Currently, the patient is on nadolol. Complaining of diarrhea, we will cut down her lactulose to twice. Start her on Bentyl p.r.n. for pain. We will follow her CBC and chemistry in a.m. Beryl Baptiste MD
--- NOTE | 2018-05-23 19:17 | CP.PCM.CON ---
History of Present Illness - History of Present Illness History of Present Illness: 57 year old female with PMH of alcoholic liver cirrhosis, history of spontaneous bacterial peritonitis, HTN came in to [facility] complaining of abdominal pain. She was recently admitted for abdominal pain and was being treated for SBP. She denies fever or chills, no nausea or vomiting, no diarrhea, no blurring of vision, no sore throat, no cough or colds, no dysuria. She is noted to have leukocytosis and Infectious Diseases consult is requested to further evaluate and manage. Review of Systems - Review of Systems All systems: reviewed and no additional remarkable complaints except (as per HPI ) Past Patient History - Infectious Disease Hx of Infectious Diseases: None - Past Social History Smoking Status: Never Smoked - CARDIAC Hx Cardiac Disorders: Yes (PALPITATIONS) Hx Hypertension: Yes - PULMONARY Hx Respiratory Disorders: No - NEUROLOGICAL Hx Neurological Disorder: No - HEENT Hx HEENT Problems: No - RENAL Hx Chronic Kidney Disease: No - ENDOCRINE/METABOLIC Hx Endocrine Disorders: No - HEMATOLOGICAL/ONCOLOGICAL Hx Blood Disorders: No - INTEGUMENTARY Hx Dermatological Problems: Yes (GENERALIZED JAUNDICED) - MUSCULOSKELETAL/RHEUMATOLOGICAL Hx Musculoskeletal Disorders: Yes (RIGHT KNEE PAIN,BACK PAIN) Hx Falls: Yes - GASTROINTESTINAL Hx Gastrointestinal Disorders: Yes (GASTRITIS,ASCITES-H/O OF TAPPING,BOWEL OBSTRUCTION) Hx Liver Failure: Yes (ALCOHOLIC LIVER CIRRHOSIS) - GENITOURINARY/GYNECOLOGICAL Hx Genitourinary Disorders: Yes (MYOMECTOMY-FIBROID) - PSYCHIATRIC Hx Psychophysiologic Disorder: Yes (H/O ETOH ABUSE. DRANK HALF A LITER OF VODKA FOR 6-7 YRS. QUIT 15 JANUARY 2018) Hx Substance Use: No - SURGICAL HISTORY Other/Comment: Fibroids-MYOMECTOMY - ANESTHESIA Hx Anesthesia: Yes Hx Anesthesia Reactions: No Hx Malignant Hyperthermia: No Meds Allergies/Adverse Reactions: Allergies Allergy/AdvReac Type Severity Reaction Status Date / Time No Known Allergies Allergy Verified 05/22/18 19:22 Physical Exam - Constitutional Appears: Non-toxic, Chronically Ill - Head Exam Head Exam: NORMAL INSPECTION - ENT Exam ENT Exam: Mucous Membranes Moist - Neck Exam Neck exam: Negative for: Meningismus - Respiratory Exam Respiratory Exam: Decreased Breath Sounds - Cardiovascular Exam Cardiovascular Exam: +S1, +S2 - GI/Abdominal Exam GI & Abdominal Exam: Soft. absent: Tenderness Results - Vital Signs Recent Vital Signs: Last Vital Signs Temp 98.1 F 05/22/18 19:21 Pulse 74 05/22/18 19:21 Resp 18 05/22/18 19:21 BP 118/57 L 05/22/18 19:21 Pulse Ox 99 05/22/18 19:21 - Labs Result Diagrams: 05/22/18 20:11 05/22/18 20:11 Assessment & Plan - Assessment and Plan (Free Text) Plan: Assessment Abdominal pain, R/O SBP alcoholic liver cirrhosis history of spontaneous bacterial peritonitis HTN Plan Started Rocephin pending blood cx; may need paracentesis will monitor clinically
[2018-05-24] MEDS: metroNIDAZOLE IV 500 mg/100 ml 500 MG/100 ML BAG IVPB SCH (05:48)
--- NOTE | 2018-05-24 08:51 | PN ---
Copied To: Shon Turner MD Attending MD: Shon Turner MD DATE: 05/24/2018 SUBJECTIVE: The patient is now complaining of irritable bowel type symptoms with recurrent abdominal pain associated with occasional loose stools as well as formed stools. Her abdominal pain appears to be relieved by bowel movement. She was started on dicyclomine by Dr. Baptiste yesterday. Her abdominal pain is less. OBJECTIVE: VITAL SIGNS: Reveal temperature of 97.6, blood pressure 125/76, heart rate 64. HEENT: Reveal sclerae to be white, sclerae to be icteric. Conjunctivae pink. NECK: Supple. CHEST: Reveal lungs to be clear. HEART: Reveals a regular rate and rhythm. ABDOMEN: Softly distended, nontender. EXTREMITIES: Show no edema. DATA: Laboratory data reveal white blood cell count 12.3, hemoglobin 10.1. Chemistries reveal total bilirubin from yesterday of 5.6, AST 76. IMPRESSION: 1. Cirrhosis secondary to alcohol abuse. 2. Chronic recurrent abdominal pain, rule out spontaneous bacterial peritonitis. The patient also has symptoms to suggest irritable bowel syndrome with frequent bowel movements consisting of loose bowel movements versus formed bowel movements associated with abdominal pain, which is relieved by a bowel movement. She did have a colonoscopy several months ago, which revealed diverticulosis and multiple colon polyps. RECOMMENDATIONS: 1. Continue IV antibiotics. 2. Continue Bentyl as needed. She is stable from a GI standpoint. She should be treated for 14 days with p.o. antibiotics for SBP upon discharge from the hospital. Shon Turner MD
[2018-05-24 08:56] VITALS: BP 114/71; PULSE 72; RESP 18; TEMP 98.1; O2SAT 99
[2018-05-24] MEDS: cefTRIAXone 1 gm 1 GM/100 ML BAG IVPB SCH (09:57)
[2018-05-24] MEDS: Pantoprazole 40 mg EC Tab PO SCH (09:57)
--- NOTE | 2018-05-24 11:49 | CP.PCM.PN ---
Subjective - Date & Time of Evaluation Date of Evaluation: 05/24/18 Time of Evaluation: 10:20 - Subjective Subjective: Comfortable, less abdominal pain, no fevers, not in distress, no nausea. Objective - Vital Signs/Intake and Output Vital Signs (last 24 hours): Temp Pulse Resp BP Pulse Ox 97.6 F 64 20 125/76 100 05/23/18 17:25 05/23/18 17:25 05/23/18 17:25 05/23/18 17:25 05/23/18 17:25 Intake and Output: 05/23/18 05/24/18 18:59 06:59 Intake Total 1420 Balance 1420 - Medications Medications: Current Medications Dicyclomine HCl (Bentyl) 10 mg PO QID PRN PRN Reason: ABDOMAINL Pain, moderate (4-7) Furosemide (Lasix) 40 mg PO DAILY [facility] Last Admin: 05/23/18 09:20 Dose: 40 mg Ceftriaxone Sodium (Rocephin 1 Gram Ivpb) 1 gm in 100 mls @ 100 mls/hr IVPB DAILY [facility] PRN Reason: Protocol Last Admin: 05/23/18 09:21 Dose: 100 mls/hr Metronidazole (Flagyl) 500 mg in 100 mls @ 100 mls/hr IVPB Q8 [facility] PRN Reason: Protocol Last Admin: 05/23/18 13:28 Dose: 100 mls/hr Lactulose (Enulose) 20 gm PO BID [facility] Last Admin: 05/23/18 17:49 Dose: Not Given Lisinopril (Zestril) 20 mg PO DAILY [facility] Last Admin: 05/23/18 09:21 Dose: 20 mg Morphine Sulfate (Morphine) 2 mg IVP Q6H PRN PRN Reason: Pain, moderate (4-7) Nadolol (Corgard) 20 mg PO DAILY [facility] Last Admin: 05/23/18 09:18 Dose: 20 mg Pantoprazole Sodium (Protonix Ec Tab) 40 mg PO DAILY [facility] Last Admin: 05/23/18 09:20 Dose: 40 mg - Constitutional Appears: Chronically Ill - Head Exam Head Exam: NORMAL INSPECTION - Respiratory Exam Respiratory Exam: Decreased Breath Sounds - Cardiovascular Exam Cardiovascular Exam: +S1, +S2 - GI/Abdominal Exam GI & Abdominal Exam: Soft. absent: Tenderness Assessment and Plan - Assessment and Plan (Free Text) Plan: Assessment Abdominal pain, R/O SBP alcoholic liver cirrhosis history of spontaneous bacterial peritonitis HTN Plan on Rocephin day 2 and can be switched to PO Vantin to complete 14 days of therapy with outpatient follow up with PMD
--- NOTE | 2018-05-25 05:51 | DS ---
Copied To: Beryl Baptiste MD Attending MD: Beryl Baptiste MD HISTORY OF PRESENT ILLNESS: The patient is 57 years old who was admitted with intermittent abdominal pain, doing well since she is here. Denies any nausea or vomiting. Eating and tolerating. PHYSICAL EXAMINATION: VITAL SIGNS: Patient is afebrile, pulse 72, respirations 18, blood pressure 114/71. LUNGS: Bilateral fair airflow. No rhonchi or crackle. HEART: S1, S2 audible. ABDOMEN: Soft, nontender. No rebound. No guarding. NEUROLOGICAL: Patient is awake, alert, oriented, communicative. Moves all extremities. LABORATORY EXAM: Ammonia is 30. ASSESSMENT: 1. Cirrhosis of liver secondary to alcohol abuse. 2. Esophageal varices. 3. Questionable spontaneous bacterial peritonitis. 4. History of diverticulosis. 5. Hypertension. 6. Anemia, status post blood transfusion. PLAN: Patient will be discharged today. We will give her Bentyl as needed. Continue her on nadolol. She will be discharged on p.o. antibiotics as recommended by ID. We will reach out to ID and request for recommendation. She will be given Vantin 200 twice a day for 14 days. She will follow up in office. Beryl Baptiste MD
== END 2018-05-24 12:46 | disposition home or self-care (01) ==
LOC: ED 18:54 → ERH 21:07 → 3RSO 22:24
PROVIDERS: ADMIT Internal Medicine; ATTEND Internal Medicine
DX: K70.31 Alcoholic cirrhosis of liver with ascites (principal); I85.10 Secondary esophageal varices without bleeding; G89.29 Other chronic pain; D64.9 Anemia, unspecified; I10 Essential (primary) hypertension; K29.70 Gastritis, unspecified, without bleeding; F10.10 Alcohol abuse, uncomplicated; Z86.010 Personal history of colon polyps
CPT/HCPCS: 36415; 80053; 81003; 82140; 83735; 84100; 85025; 87040; 96374; 99284; G0378; J0696; J1885

== ENCOUNTER 2018-06-06 17:05 | Inpatient (IN) | payer OTHER ==
[2018-06-06 17:13] VITALS: BMI 21.6
[2018-06-06] MEDS ORDERED: Morphine 2 mg/ml ISec IVP STA (17:33)
[2018-06-06] MEDS ORDERED: Sodium Chloride 0.9% 1,000 ML IV STA (17:33)
--- NOTE | 2018-06-06 17:55 | ED PDOC ---
Arrival/HPI - General Chief Complaint: Abdominal Pain Time Seen by Provider: 06/06/18 17:18 Historian: Patient - History of Present Illness Narrative History of Present Illness (Text): 06/06/18 57 year old female whose past medical history includes liver cirrhosis, and Hep C, who presents to the emergency department complaining of generalized abdominal pain. 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 Patient admits to intermittent nausea. She denies taking any medication for her abdominal pain. Of note patient was recently hospitalized on 05/22/18 for similar complaints, where she received blood transfusion. Of note she denies any recent EtOH ingestion. Patient denies fevers, chills, cough, shortness of breath, chest pain, dyspnea on exertion, vomiting, diarrhea, back pain, neck pain, headache, dizziness, or any other complaint. Time/Duration: 4-6 hours Symptom Onset: Sudden Symptom Course: Unchanged Context: Home, Other (after undergoing abdominal MRI earlier today.) Past Medical History - Provider Review Nursing Documentation Reviewed: Yes - Infectious Disease Hx of Infectious Diseases: None - Cardiac Hx Cardiac Disorders: Yes (PALPITATIONS) Hx Hypertension: Yes - Pulmonary Hx Respiratory Disorders: No - Neurological Hx Neurological Disorder: No - HEENT Hx HEENT Disorder: No - Renal Hx Renal Disorder: No - Endocrine/Metabolic Hx Endocrine Disorders: No - Hematological/Oncological Hx Blood Disorders: No - Integumentary Hx Dermatological Disorder: Yes (GENERALIZED JAUNDICED) - Musculoskeletal/Rheumatological Hx Musculoskeletal Disorders: Yes (RIGHT KNEE PAIN,BACK PAIN) Hx Falls: Yes - Gastrointestinal Hx Gastrointestinal Disorders: Yes (GASTRITIS,ASCITES-H/O OF TAPPING,BOWEL OBSTRUCTION) Hx Liver Failure: Yes (ALCOHOLIC LIVER CIRRHOSIS) - Genitourinary/Gynecological Hx Genitourinary Disorders: Yes (MYOMECTOMY-FIBROID) - Psychiatric Hx Psychophysiologic Disorder: Yes (H/O ETOH ABUSE. DRANK HALF A LITER OF VODKA FOR 6-7 YRS. QUIT 15 JANUARY 2018) Hx Substance Use: No - Surgical History Other/Comment: Fibroids-MYOMECTOMY - Anesthesia Hx Anesthesia: Yes Hx Anesthesia Reactions: No Hx Malignant Hyperthermia: No - Suicidal Assessment Feels Threatened In Home Enviroment: No Family/Social History - Physician Review Nursing Documentation Reviewed: Yes Family/Social History: No Known Family HX Smoking Status: Never Smoked Hx Alcohol Use: Yes (QUIT DRINKING 2 MONS AGO.DRANK 1/2 A LITER OF ABDOLUT VODKA ) Hx Substance Use: No Allergies/Home Meds Allergies/Adverse Reactions: Allergies No Known Allergies Allergy (Verified 05/22/18 19:22) Home Medications: Home Meds Medication Instructions Recorded Confirmed Dicyclomine [Bentyl] 1 cap PO Q8H PRN 06/06/18 06/06/18 Magnesium Oxide [Mag-Ox] 1 tab PO DAILY 06/06/18 06/06/18 rifAXIMin [Xifaxan] 1 tab PO BID 06/06/18 06/06/18 Review of Systems - Physician Review All systems were reviewed & negative as marked: Yes - Review of Systems Constitutional: absent: Fevers, Night Sweats Respiratory: absent: SOB, Cough Cardiovascular: absent: Chest Pain, FRANCO Gastrointestinal: Abdominal Pain, Nausea. absent: Diarrhea, Vomiting Musculoskeletal: absent: Back Pain, Neck Pain Neurological: absent: Headache, Dizziness Physical Exam Vital Signs Reviewed: Yes Vital Signs Temp Pulse Resp BP Pulse Ox 06/06/18 18:58 86 17 118/71 100 06/06/18 17:20 87/48 L 06/06/18 17:19 97.7 F 80 20 82/54 L 98 Blood Pressure: Hypotensive Pulse: Regular Respiratory Rate: Normal Appearance: Positive for: Well-Appearing Mental Status: Positive for: Alert and Oriented X 3 - Systems Exam Head: Present: Atraumatic, Normocephalic Pupils: Present: PERRL Extroacular Muscles: Present: EOMI Conjunctiva: Present: Icteric Mouth: Present: Moist Mucous Membranes, Other (poor dentition). No: Normal Teeth Neck: Present: Normal Range of Motion Respiratory/Chest: Present: Clear to Auscultation, Good Air Exchange. No: Respiratory Distress, Accessory Muscle Use Cardiovascular: Present: Regular Rate and Rhythm, Normal S1, S2. No: Murmurs Abdomen: Present: Tenderness (Generalized abdominal pain). No: Distention, Peritoneal Signs, Rebound, Guarding Back: Present: Normal Inspection Upper Extremity: Present: Normal Inspection. No: Cyanosis, Edema Lower Extremity: Present: Normal Inspection. No: Edema Neurological: Present: GCS=15, CN II-XII Intact, Speech Normal Skin: Present: Dry, Other (Jaundice). No: Rashes Psychiatric: Present: Alert, Oriented x 3, Normal Insight, Normal Concentration Medical Decision Making ED Course and Treatment: 06/06/18 17:58 Impression: 57 year old female complaining of several hours of abdominal pain. Differential Diagnosis included but are not limited to: Pancreatitis Spontaneous bacterial peritonitis Colitis Plan: -- EKG -- Chest X-ray -- Labs -- Cardiac enzymes -- Blood work -- Morphine -- IV fluids -- Urinalysis -- Blood culture. -- Reassess and disposition Prior Visits: Notes and results from previous visits were reviewed. Progress Notes: 06/06/18 19:10 Labs revealed leukocytosis with anion gap as well as elevated LFTs. Concern for SBP and will start patient on Rocephin. 06/06/18 19:13 Discussed case with , who is aware of and agrees to admit patient under her service. 06/06/18 EKG shows NSR at 85bpm with PACs and no ST elevations. Interpreted by me. - Lab Interpretations Lab Results: 06/06/18 17:38 06/06/18 17:38 Lab Results 06/06/18 17:38: Ammonia 33 06/06/18 17:38: Sodium 143, Potassium 5.0, Chloride 106, Carbon Dioxide 21, Anion Gap 21 H, BUN 6 L, Creatinine 0.8, Est GFR ( Amer) > 60, Est GFR ( Non-Af Amer) > 60, Random Glucose 114 H, Calcium 10.2, Total Bilirubin 5.0 H, AST 85 H, ALT 28, Alkaline Phosphatase 161 H, Troponin I < 0.01, Total Protein 8.5 H, Albumin 3.2, Globulin 5.3, Albumin/Globulin Ratio 0.6 L, Lipase 952 H 06/06/18 17:38: PT 16.5 H, INR 1.44, APTT 38.8 H 06/06/18 17:38: WBC 11.8 H, RBC 2.86 L, Hgb 8.6 L, Hct 25.2 L, MCV 88.1, MCH 30.1, MCHC 34.1, RDW 16.8 H, Plt Count 114 L, MPV 11.6 H, Gran % 54.9, Lymph % ( Auto) 35.2 H, Barnes % (Auto) 7.1 H, Eos % (Auto) 2.4, Baso % (Auto) 0.4, Gran # 6.48, Lymph # (Auto) 4.2 H, Barnes # (Auto) 0.8 H, Eos # (Auto) 0.3, Baso # (Auto ) 0.05, ESR 110 H I have reviewed the lab results: Yes - RAD Interpretation Narrative RAD Interpretations (Text): 06/06/18 Chest X-ray shows Atelectasis, no infiltrate consolidation seen. Interpreted by me. Radiology Orders: 06/06/18 17:23 CHEST PORTABLE [RAD] Stat Director Of Sleep: ED Physician - EKG Interpretation Interpreted by ED Physician: Yes Type: 12 lead EKG - Medication Orders Current Medication Orders: Meropenem 500 mg/ Sodium (Chloride) 50 mls @ 100 mls/hr IVPB Q12 [facility] PRN Reason: Protocol Stop: 06/06/18 22:29 Morphine Sulfate (Morphine) 2 mg IVP Q4 PRN PRN Reason: Pain, moderate (4-7) Ondansetron HCl (Zofran Inj) 4 mg IVP Q6H PRN PRN Reason: Nausea/Vomiting Pantoprazole Sodium (Protonix Inj) 40 mg IVP DAILY [facility] Rifaximin (Xifaxan) 550 mg PO BID [facility] PRN Reason: Protocol Discontinued Medications Hydromorphone HCl (Dilaudid) 1 mg IVP Q4H PRN PRN Reason: Pain, moderate (4-7) Sodium Chloride (Sodium Chloride 0.9%) 1,000 mls @ 999 mls/hr IV .Q1H1M STA Stop: 06/06/18 18:33 Last Admin: 06/06/18 17:44 Dose: 999 mls/hr eMAR Start Stop Document 06/06/18 17:44 [email or web address] (Rec: 06/06/18 17:44 [email or web address] [id number]) Intravenous Solution Start Date 06/06/18 Start Time 17:44 Ceftriaxone Sodium (Rocephin 1 Gram Ivpb) 1 gm in 100 mls @ 100 mls/hr IVPB STAT STA PRN Reason: Protocol Stop: 06/06/18 20:13 Last Admin: 06/06/18 19:44 Dose: 100 mls/hr eMAR Start Stop Document 06/06/18 19:44 SS (Rec: 06/06/18 19:45 [place] [facility] [id number] Intravenous Solution Start Date 06/06/18 Start Time 19:45 End Date 06/06/18 End time 20:45 Total Infusion Time 60 Morphine Sulfate (Morphine) 2 mg IVP STAT STA Stop: 06/06/18 17:34 Last Admin: 06/06/18 17:45 Dose: 2 mg MAR Pain Assessment Document 06/06/18 17:45 [email or web address] (Rec: 06/06/18 17:45 [email or web address] [id number]) Pain Reassessment Is this a pain reassessment? No Sleep Is patient sleeping during reassessment? No Presence of Pain Presence of Pain No Pain Scale Used Pain Scale Used Numeric Location Pain Location Body Site Abdomen Description Description Constant Intensity of Pain at present 10 Pain Behavior Facial Grimacing Aggravating Factors Changing Position Alleviating Factors/Management Medication Techniques Alleviating Factors Medication IVP Administration Document 06/06/18 17:45 [email or web address] (Rec: 06/06/18 17:45 [email or web address] [id number]) Charges for Administration # of IVP Administrations 1 - Scribe Statement The provider has reviewed the documentation as recorded by the Scribmackenzie Gracia Provider Scribe Attestation: All medical record entries made by the Scribe were at my direction and personally dictated by me. I have reviewed the chart and agree that the record accurately reflects my personal performance of the history, physical exam, medical decision making, and the department course for this patient. I have also personally directed, reviewed, and agree with the discharge instructions and disposition. Disposition/Present on Arrival - Present on Arrival History of DVT/PE: No History of Uncontrolled Diabetes: No Urinary Catheter: No History of Decub. Ulcer: No History Surgical Site Infection Following: None - Disposition
[2018-06-06 18:25] LABS: BASO # 0.05 K/mm3 (0.0-2.0); BASO % 0.4 % (0.0-3.0); EOS # 0.3 (0.0-0.7); EOS % 2.4 % (1.5-5.0); GRAN # 6.48 (1.4-6.5); GRAN % 54.9 % (50.0-68.0); HEMOGLOBIN 8.6 g/dL (12.0-16.0); LYMPH # 4.2 (1.2-3.4); LYMPH % 35.2 % (22.0-35.0); MEAN CELL VOLUME 88.1 fl (80.0-105.0); MEAN CORPUSCULAR HEMOGLOBIN 30.1 pg (25.0-35.0); MEAN CORPUSCULAR HGB CONC 34.1 g/dl (31.0-37.0); MEAN PLATELET VOLUME 11.6 fl (7.0-11.0); MONO # 0.8 (0.1-0.6); MONO % 7.1 % (1.0-6.0); RBC 2.86 10^6/uL (3.5-6.1); RED CELL DISTRIBUTION WIDTH 16.8 % (11.5-14.5); WHITE BLOOD COUNT 11.8 10^3/ul (4.5-11.0)
[2018-06-06 18:34] LABS: INR 1.44; PARTIAL THROMBOPLASTIN TIME 38.8 Seconds (25.1-36.5); PROTHROMBIN TIME 16.5 SECONDS (9.4-12.5)
[2018-06-06 18:50] LABS: ALB/GLOB RATIO 0.6 (1.1-1.8); ALBUMIN 3.2 g/dL (3.0-4.8); ALT/SGPT 28 U/L (7-56); AST/SGOT 85 U/L (14-36); BLOOD UREA NITROGEN 6 mg/dL (7-21); CALCIUM 10.2 mg/dL (8.4-10.5); GFR NON-AFRICAN AMERICAN > 60; LIPASE 952 U/L (23-300)
[2018-06-06 18:52] LABS: TROPONIN I < 0.01 ng/mL
[2018-06-06] MEDS ORDERED: cefTRIAXone 1 gm 1 GM/100 ML BAG IVPB STA (19:14)
[2018-06-06] MEDS ORDERED: HYDROmorphone 2 mg/ml ISec IVP PRN (19:20)
[2018-06-06] MEDS ORDERED: Morphine 2 mg/ml ISec IVP PRN (19:37)
[2018-06-06 19:42] LABS: URINE BILIRUBIN NEGATIVE (NEGATIVE); URINE BLOOD NEGATIVE (NEGATIVE); URINE GLUCOSE (UA) NEGATIVE (NEGATIVE); URINE LEUKOCYTE ESTERASE NEGATIVE Leu/uL (NEGATIVE); URINE PROTEIN NEGATIVE mg/dL (<30 mg/dL); URINE UROBILINOGEN 0.2 E.U./dL (<1 E.U./dL)
[2018-06-06 19:55] LABS: URINE APPEARANCE CLEAR (CLEAR); URINE COLOR YELLOW (YELLOW)
--- NOTE | 2018-06-06 21:48 | HP ---
Copied To: Beryl Baptiste MD Attending MD: Beryl Baptiste MD HISTORY OF PRESENT ILLNESS: The patient is 57 years old, known to me from previous admissions. The patient was recently diagnosed with cirrhosis of liver and she had cirrhotic ascites, has paracentesis done, was referred to neon light installer in [facility], who ordered MRI of the liver. The patient states she had MRI done. After that, she decided to have abdominal pain persistent with feeling of nausea and initially pain was intermittent, but the pain got constant, so she came to emergency room fro further evaluation. Complained of decreased appetite. Complained of feeling bloated. The patient was recently admitted and discharged in early May with similar complaint. At that point, she was anemic and she received one blood transfusion. History of fever. No chills. No diarrhea; however, she does feel bloated. ALLERGIES: SHE IS NOT ALLERGIC TO ANY MEDICATION. PAST MEDICAL HISTORY: Significant for, 1. Cirrhosis of liver secondary to alcohol use. 2. History of hypertension, but lately she has been hypotensive. MEDICATIONS AT HOME: She is on Xifaxan 550 twice a day, Protonix 20 mg daily, nadolol 20 mg daily and she recently she was on Vantin 200 mg twice a day. REVIEW OF SYSTEMS: Significant for abdominal discomfort, nausea and decreased appetite and weight loss. PHYSICAL EXAMINATION: GENERAL: She is awake, alert, oriented, able to communicate. VITAL SIGNS: She is afebrile, pulse 86, respirations 17, blood pressure 118/71. LUNGS: Bilateral fair airflow. No rhonchi or crackle. HEART: S1 and S2 audible. ABDOMEN: Soft. Slight epigastric and periumbilical discomfort on palpation. NEUROLOGICAL: She is awake, alert, oriented, communicative. EXTREMITIES: Bilateral leg, no edema. LABORATORY EXAM: WBC 11.8, hemoglobin 8.6, hematocrit 25.2, platelet 114. PT 16.5, INR 1.44. Chemistry: Sodium 143, potassium 5, chloride 106, CO2 of , BUN 6, creatinine 0.8, blood sugar of 114, total bili 5, AST 85, ALT 28, alk phos is 61, total protein 8.5, lipase is 952. ASSESSMENT: 1. Abdominal pain, rule out spontaneous bacterial peritonitis. 2. Cirrhosis of liver secondary to alcohol use. 3. Leukocytosis. 4. Gastritis. PLAN: We will start the patient on IV antibiotic, keep her n.p.o. We will give her IV fluid. Monitor electrolyte, monitor LFTs and analgesic as needed and antiemetic. Beryl Baptiste MD
[2018-06-06] MEDS ORDERED: Meropenem 500 MG in Sodium Chloride 0.9% 50 ML IVPB SCH (22:00)
[2018-06-07 07:19] LABS: ALB/GLOB RATIO 0.5 (1.1-1.8); ALBUMIN 2.4 g/dL (3.0-4.8); ALT/SGPT 29 U/L (7-56); AST/SGOT 62 U/L (14-36); BLOOD UREA NITROGEN 4 mg/dL (7-21); CALCIUM 9.3 mg/dL (8.4-10.5); GFR NON-AFRICAN AMERICAN > 60
[2018-06-07 08:31] LABS: BASO # 0.03 K/mm3 (0.0-2.0); BASO % 0.5 % (0.0-3.0); EOS # 0.3 (0.0-0.7); GRAN # 3.24 (1.4-6.5); GRAN % 58.3 % (50.0-68.0); HEMOGLOBIN 7.5 g/dL (12.0-16.0); LYMPH # 1.6 (1.2-3.4); LYMPH % 29.4 % (22.0-35.0); MEAN CORPUSCULAR HGB CONC 34.1 g/dl (31.0-37.0); MEAN PLATELET VOLUME 12.3 fl (7.0-11.0); MONO # 0.4 (0.1-0.6); MONO % 6.8 % (1.0-6.0); RBC 2.5 10^6/uL (3.5-6.1); RED CELL DISTRIBUTION WIDTH 17.2 % (11.5-14.5); WHITE BLOOD COUNT 5.6 10^3/ul (4.5-11.0)
--- NOTE | 2018-06-07 09:19 | RAD ---
Date of service: 06/06/2018 HISTORY: sob COMPARISON: 05/18/2018 FINDINGS: LUNGS: No active pulmonary disease. PLEURA: No significant pleural effusion identified, no pneumothorax apparent. CARDIOVASCULAR: Normal. OSSEOUS STRUCTURES: No significant abnormalities. VISUALIZED UPPER ABDOMEN: Normal. OTHER FINDINGS: None. IMPRESSION: No active disease.
[2018-06-07] MEDS: DiphenhydrAMINE 50 mg/ml Inj IVP PRN ×2 (11:39→22:29)
[2018-06-07] MEDS ORDERED: cefTRIAXone 1 gm 1 GM/100 ML BAG IVPB SCH (12:15)
[2018-06-07] MEDS ORDERED: DiphenhydrAMINE 50 mg/ml Inj IVP SCH (14:00)
--- NOTE | 2018-06-07 14:39 | CON ---
Copied To: Shon Turner MD Attending MD: Shon Turner MD DATE: 06/07/2018 REQUESTING PHYSICIAN: Beryl Baptiste MD REASON FOR CONSULT: I have been asked to see this 57-year-old female with multiple hospitalizations over the last 2 months for chronic recurrent abdominal pain with history of alcohol-related cirrhosis of the liver, anemia, who comes to the hospital with same complaints of abdominal pain, bloating, gas, nausea. The patient underwent an MRI of the liver yesterday. She developed mid abdominal pain which became severe, prompting her to come to the emergency room. She denies any nausea, vomiting. She also complains of a lump in her anal area. The patient had an endoscopy and colonoscopy earlier this year which revealed gastritis and multiple colon polyps. She currently denies any melena or rectal bleeding or hematemesis. PAST MEDICAL HISTORY: Notable for cirrhosis of liver secondary to alcoholism, hypertension. SOCIAL HISTORY: She is a former alcoholic. She denies cigarette smoking. FAMILY HISTORY: Noncontributory. REVIEW OF SYSTEMS: A 14-point review of systems is notable for abdominal pain, nausea. PHYSICAL EXAMINATION: GENERAL: A well-developed female appearing slightly icteric, walking around, in bed, in no acute distress. VITAL SIGNS: Reveal temperature of 97.9, blood pressure 112/78, heart rate of 81. HEENT: Reveal sclerae to be white. Conjunctivae pink. NECK: Supple. CHEST: Reveal lungs to be clear. HEART: Reveals regular rate and rhythm. ABDOMEN: Softly distended, nontender. No mass. EXTREMITIES: Show no edema. LABORATORY DATA: Reveal white blood cell of 5.6, hemoglobin 7.5, platelet count of 100,000. Chemistries reveal total bilirubin 3.9, AST 62, ammonia 33, BUN 13, creatinine 0.4. IMPRESSION: A 57-year-old female with alcohol-induced cirrhosis of the liver, chronic recurrent abdominal pain, chronic anemia. Her white blood cell count is normal. She has not had any fevers. I doubt that this is spontaneous bacterial peritonitis. The patient has been having this pain for the last 5 months. I suspect that there is a component of irritable bowel syndrome. RECOMMENDATIONS: 1. Advance diet as tolerated. 2. Continue Bentyl 10 mg every 6 hours as needed for abdominal pain. 3. Continue Xifaxan 550 b.i.d. Shon Turner MD [facility] # [id number]
--- NOTE | 2018-06-07 14:53 | PN ---
Copied To: Beryl Baptiste MD Attending MD: Beryl Baptiste MD DATE: 06/07/2018 SUBJECTIVE: Patient is 57 years old, seen and examined. States her abdominal pain is much better than yesterday, wants to eat. PHYSICAL EXAMINATION: VITAL SIGNS: Patient is afebrile. Pulse 88, respirations 17, blood pressure 111/76. LUNGS: Bilateral fair airflow. No rhonchi or crackle. HEART: S1, S2, audible. ABDOMEN: Soft. Slight epigastric discomfort, but no rebound, no guarding. NEUROLOGIC: She is awake, alert, oriented, communicative. LABORATORY DATA: WBC 5.6, hemoglobin 7.5, hematocrit 22, platelet of 100. Chemistries: Sodium 141, potassium 4, chloride 109, CO2 20, BUN 4, creatinine 0.8, blood sugar of 109, total bili 3.9, AST 62, ALT 29. Urinalysis is unremarkable. ASSESSMENT: 1. Abdominal pain, etiology unknown yet. Rule out spontaneous bacterial peritonitis. 2. Symptomatic anemia. 3. Cirrhosis of the liver secondary to alcohol abuse in the past. PLAN: Patient is currently on Rocephin, continue on diuretics, Benadryl for intermittent itching, continue on Xifaxan and will follow up with CBC and CMP in the morning. Beryl Baptiste MD
--- NOTE | 2018-06-07 16:20 | CP.PCM.CON ---
History of Present Illness - History of Present Illness History of Present Illness: 57 year old female with PMH of alcoholic liver cirrhosis, history of spontaneous bacterial peritonitis, HTN was recently admitted in [facility] for possible SBP and was taking Rocephin and finished her 2 week course of antibiotics with PO Vantin. She saw her oil burner servicer and installer as an outpatient who ordered MRI of the abdomen. The patient underwent it and right after the test, she started having abdominal pain associated with bloatedness, some nausea but no vomiting, no diarrhea, no fever or chills. She also denies headache or dizziness, no chest pain, no SOB, no dysuria, no sore throat, no dysphagia, no cough or rhinorrhea. Infectious Diseases consult is requested further evaluate and manage. Review of Systems - Review of Systems All systems: reviewed and no additional remarkable complaints except (as per HPI ) Past Patient History - Infectious Disease Hx of Infectious Diseases: None - Past Social History Smoking Status: Never Smoked - CARDIAC Hx Cardiac Disorders: Yes (PALPITATIONS) Hx Hypertension: Yes - PULMONARY Hx Respiratory Disorders: No - NEUROLOGICAL Hx Neurological Disorder: No - HEENT Hx HEENT Problems: No - RENAL Hx Chronic Kidney Disease: No - ENDOCRINE/METABOLIC Hx Endocrine Disorders: No - HEMATOLOGICAL/ONCOLOGICAL Hx Blood Disorders: No - INTEGUMENTARY Hx Dermatological Problems: Yes (GENERALIZED JAUNDICED) - MUSCULOSKELETAL/RHEUMATOLOGICAL Hx Musculoskeletal Disorders: Yes (RIGHT KNEE PAIN,BACK PAIN) Hx Falls: Yes - GASTROINTESTINAL Hx Gastrointestinal Disorders: Yes (GASTRITIS,ASCITES-H/O OF TAPPING,BOWEL OBSTRUCTION) Hx Liver Failure: Yes (ALCOHOLIC LIVER CIRRHOSIS) - GENITOURINARY/GYNECOLOGICAL Hx Genitourinary Disorders: Yes (MYOMECTOMY-FIBROID) - PSYCHIATRIC Hx Psychophysiologic Disorder: Yes (H/O ETOH ABUSE. DRANK HALF A LITER OF VODKA FOR 6-7 YRS. QUIT 15 JANUARY 2018) - SURGICAL HISTORY Hx Surgeries: Yes Other/Comment: Fibroids-MYOMECTOMY - ANESTHESIA Hx Anesthesia: Yes Hx Anesthesia Reactions: No Hx Malignant Hyperthermia: No Meds Allergies/Adverse Reactions: Allergies Allergy/AdvReac Type Severity Reaction Status Date / Time No Known Allergies Allergy Verified 05/22/18 19:22 - Medications Medications: Current Medications Dicyclomine HCl (Bentyl) 10 mg PO Q8H PRN PRN Reason: Pain, moderate (4-7) Diphenhydramine HCl (Benadryl) 25 mg IVP Q8 PRN PRN Reason: Itching / Pruritus Last Admin: 06/07/18 11:39 Dose: 25 mg Docusate Sodium (Colace) 100 mg PO BID [facility] Ceftriaxone Sodium (Rocephin 1 Gram Ivpb) 1 gm in 100 mls @ 100 mls/hr IVPB DAILY [facility] PRN Reason: Protocol Morphine Sulfate (Morphine) 2 mg IVP Q4 PRN PRN Reason: Pain, moderate (4-7) Nadolol (Corgard) 20 mg PO DAILY [facility] Ondansetron HCl (Zofran Inj) 4 mg IVP Q6H PRN PRN Reason: Nausea/Vomiting Pantoprazole Sodium (Protonix Inj) 40 mg IVP DAILY [facility] Last Admin: 06/07/18 09:56 Dose: 40 mg Rifaximin (Xifaxan) 550 mg PO BID [facility] PRN Reason: Protocol Last Admin: 06/07/18 09:56 Dose: 550 mg Physical Exam - Constitutional Appears: Chronically Ill - Head Exam Head Exam: NORMAL INSPECTION - Eye Exam Eye Exam: Scleral icterus - ENT Exam ENT Exam: Mucous Membranes Moist - Neck Exam Neck exam: Negative for: Meningismus - Respiratory Exam Respiratory Exam: Decreased Breath Sounds - Cardiovascular Exam Cardiovascular Exam: +S1, +S2 - GI/Abdominal Exam GI & Abdominal Exam: Soft. absent: Distended, Tenderness Results - Vital Signs Recent Vital Signs: Last Vital Signs Temp 98.1 F 06/07/18 12:15 Pulse 85 06/07/18 12:15 Resp 16 06/07/18 12:15 BP 128/72 06/07/18 12:15 Pulse Ox 99 06/07/18 08:22 - Labs Result Diagrams: 06/07/18 06:30 06/07/18 05:30 Labs: Laboratory Results - last 24 hr 06/06/18 06/07/18 06/07/18 19:36 05:30 06:30 WBC 5.6 D RBC 2.50 L Hgb 7.5 L Hct 22.0 L MCV 88.0 MCH 30.0 MCHC 34.1 RDW 17.2 H Plt Count 100 L MPV 12.3 H Gran % 58.3 Lymph % (Auto) 29.4 [place] % (Auto) 6.8 H Eos % (Auto) 5.0 Baso % (Auto) 0.5 Gran # 3.24 Lymph # (Auto) 1.6 [place] # (Auto) 0.4 Eos # (Auto) 0.3 Baso # (Auto) 0.03 Sodium 141 Potassium 4.0 Chloride 109 H Carbon Dioxide 23 Anion Gap 13 BUN 4 L Creatinine 0.8 Est GFR ( Amer) > 60 Est GFR (Non-Af Amer) > 60 Random Glucose 109 Calcium 9.3 Total Bilirubin 3.9 H AST 62 H D ALT 29 Alkaline Phosphatase 114 Total Protein 7.2 Albumin 2.4 L Globulin 4.7 Albumin/Globulin Ratio 0.5 L Urine Color Yellow Urine Appearance Clear Urine pH 7.0 Ur Specific [place] <= 1.005 Urine Protein Negative Urine Glucose (UA) Negative Urine Ketones Negative Urine Blood Negative Urine Nitrate Negative Urine Bilirubin Negative Urine Urobilinogen 0.2 Ur Leukocyte Esterase Negative Blood Type Antibody Screen Crossmatch BBK History Checked 06/07/18 09:30 WBC RBC Hgb Hct MCV MCH MCHC RDW Plt Count MPV Gran % Lymph % (Auto) [place] % (Auto) Eos % (Auto) Baso % (Auto) Gran # Lymph # (Auto) [place] # (Auto) Eos # (Auto) Baso # (Auto) Sodium Potassium Chloride Carbon Dioxide Anion Gap BUN Creatinine Est GFR ( Amer) Est GFR (Non-Af Amer) Random Glucose Calcium Total Bilirubin AST ALT Alkaline Phosphatase Total Protein Albumin Globulin Albumin/Globulin Ratio Urine Color Urine Appearance Urine pH Ur Specific [place] Urine Protein Urine Glucose (UA) Urine Ketones Urine Blood Urine Nitrate Urine Bilirubin Urine Urobilinogen Ur Leukocyte Esterase Blood Type O POSITIVE Antibody Screen Negative Crossmatch See Detail BBK History Checked Patient has bt Assessment & Plan - Assessment and Plan (Free Text) Plan: Assessment Abdominal pain with leukocytosis, consider irritable bowel syndrome, unlikely SBP alcoholic liver cirrhosis history of spontaneous bacterial peritonitis HTN Plan completed 14 days of antibiotics recently for SBP - WBC count has now normalized , no fevers, no abdominal tenderness - will continue to monitor the patient off antibiotics follow up GI evaluation and recommendations
--- NOTE | 2018-06-07 19:29 | CARD ---
APPROVED REPORT Date of service: 06/06/2018 EKG Measurement Heart [id number] <Conclusion> Sinus rhythm with premature atrial complexes Low voltage QRS Inferior infarct, age undetermined Abnormal ECG
[2018-06-08 06:15] VITALS: RESP 16; TEMP 98; O2SAT 98
[2018-06-08 08:40] LABS: BASO # 0.04 K/mm3 (0.0-2.0); BASO % 0.8 % (0.0-3.0); EOS # 0.4 (0.0-0.7); EOS % 9.1 % (1.5-5.0); GRAN # 2.34 (1.4-6.5); GRAN % 48.4 % (50.0-68.0); LYMPH # 1.7 (1.2-3.4); LYMPH % 35.5 % (22.0-35.0); MEAN CELL VOLUME 85.2 fl (80.0-105.0); MEAN CORPUSCULAR HEMOGLOBIN 30.4 pg (25.0-35.0); MEAN CORPUSCULAR HGB CONC 35.7 g/dl (31.0-37.0); MEAN PLATELET VOLUME 11.2 fl (7.0-11.0); MONO # 0.3 (0.1-0.6); MONO % 6.2 % (1.0-6.0); RBC 3.85 10^6/uL (3.5-6.1); RED CELL DISTRIBUTION WIDTH 18.2 % (11.5-14.5); WHITE BLOOD COUNT 4.8 10^3/ul (4.5-11.0)
[2018-06-08 08:45] LABS: HEMOGLOBIN 11.7 g/dL (12.0-16.0)
[2018-06-08 08:51] LABS: ALB/GLOB RATIO 0.6 (1.1-1.8); ALT/SGPT 21 U/L (7-56); AST/SGOT 62 U/L (14-36); BLOOD UREA NITROGEN 7 mg/dL (7-21); CALCIUM 9.6 mg/dL (8.4-10.5); GFR NON-AFRICAN AMERICAN > 60
[2018-06-08 09:39] VITALS: BP 122/81; PULSE 62
[2018-06-08] MEDS ORDERED: Hydrocortisone 2.5% Rectal Cream(30 gm) PR SCH (10:15)
--- NOTE | 2018-06-08 10:57 | PN ---
Copied To: Shon Turner MD Attending MD: Shon Turner MD DATE: 06/08/2018 SUBJECTIVE: The patient is walking around in a room. She denies any further abdominal pain. She denies nausea or vomiting. Her hemorrhoid pain is less. PHYSICAL EXAMINATION: VITAL SIGNS: Reveal temperature of 98, blood pressure 122/81, heart rate 62. HEENT: Reveals sclerae to be white. Conjunctivae pink. NECK: Supple. CHEST: Reveals lungs to be clear. HEART: Reveals regular rate and rhythm. ABDOMEN: Soft, mildly distended with ascites, nontender. EXTREMITIES: Show no edema. LABORATORY DATA: Reveal white blood cell count 4.8, hemoglobin 11.7, PT 16.5, INR 1.44, PTT 38.8. Chemistries reveal total bilirubin of 5.4, AST 62, ALT 21, alk phos 135. IMPRESSION: A 57-year-old female with alcohol-induced cirrhosis of the liver with recurrent abdominal pain. The patient was admitted yesterday. Her abdominal pain is resolved. I suspect that this is secondary to irritable bowel syndrome. There is no fever or leukocytosis to suggest that this is spontaneous bacterial peritonitis. RECOMMENDATIONS: 1. Continue Bentyl 10 mg every 6 hours as needed for abdominal pain. 2. Continue PPI. The patient is stable for discharge from the hospital. Shon Turner MD
--- NOTE | 2018-06-08 13:46 | DS ---
Copied To: Beryl Baptiste MD Attending MD: Beryl Baptiste MD HISTORY OF PRESENT ILLNESS: Patient is a 57-year-old, seen and examined. She came in with abdominal pain. After she had MRI done she has complained of diarrhea intermittently. PHYSICAL EXAMINATION: VITAL SIGNS: She is afebrile. Pulse 62, respirations 16, blood pressure 122/81. LUNGS: Bilateral fair airflow. No rhonchi or crackle. HEART: S1, S2 audible. ABDOMEN: Soft, nontender. No rebound, no guarding. NEUROLOGIC: Patient is awake, alert, oriented, communicative. LABORATORY DATA: WBC is 4.8, hemoglobin 11.7, hematocrit 32.8, platelets of 103. Chemistry: Sodium 140, potassium 3.8, chloride 107, CO2 25, BUN 7, creatinine 0.8, blood sugar of 92. Total bili 5.4. AST 62. ASSESSMENT AND PLAN: 1. Cirrhosis of the liver. 2. Esophageal varices. 3. Symptomatic anemia. 4. Leukocytosis that has improved. 5. Gastritis. So, plan is the patient is clinically stable. Wants to go home. She will be discharged home on Lasix, spironolactone, nadolol and Xifaxan. I will follow up patient in the office in a week or so. Beryl Baptiste MD
--- NOTE | 2018-06-08 17:11 | CP.PCM.PN ---
Subjective - Date & Time of Evaluation Date of Evaluation: 06/08/18 Time of Evaluation: 12:05 - Subjective Subjective: No fevers, not in distress, no abdominal pain. Objective - Vital Signs/Intake and Output Vital Signs (last 24 hours): Temp Pulse Resp BP Pulse Ox 98.1 F 84 16 122/77 99 06/07/18 14:50 06/07/18 14:50 06/07/18 14:50 06/07/18 15:04 06/07/18 08:22 Intake and Output: 06/07/18 06/07/18 06:59 18:59 Intake Total 325 Balance 325 - Medications Medications: Current Medications Dicyclomine HCl (Bentyl) 10 mg PO Q8H PRN PRN Reason: Pain, moderate (4-7) Diphenhydramine HCl (Benadryl) 25 mg IVP Q8 PRN PRN Reason: Itching / Pruritus Last Admin: 06/07/18 11:39 Dose: 25 mg Docusate Sodium (Colace) 100 mg PO BID [facility] Morphine Sulfate (Morphine) 2 mg IVP Q4 PRN PRN Reason: Pain, moderate (4-7) Nadolol (Corgard) 20 mg PO DAILY [facility] Last Admin: 06/07/18 13:48 Dose: 20 mg Ondansetron HCl (Zofran Inj) 4 mg IVP Q6H PRN PRN Reason: Nausea/Vomiting Pantoprazole Sodium (Protonix Inj) 40 mg IVP DAILY [facility] Last Admin: 06/07/18 09:56 Dose: 40 mg Rifaximin (Xifaxan) 550 mg PO BID [facility] PRN Reason: Protocol Last Admin: 06/07/18 09:56 Dose: 550 mg - Labs Labs: 06/07/18 06:30 06/07/18 05:30 PT 16.5 SECONDS (9.4-12.5) H 06/06/18 17:38 INR 1.44 06/06/18 17:38 APTT 38.8 Seconds (25.1-36.5) H 06/06/18 17:38 - Constitutional Appears: Chronically Ill - Head Exam Head Exam: NORMAL INSPECTION - ENT Exam ENT Exam: Mucous Membranes Moist - Neck Exam Neck Exam: absent: Meningismus - Respiratory Exam Respiratory Exam: Decreased Breath Sounds - Cardiovascular Exam Cardiovascular Exam: +S1, +S2 - GI/Abdominal Exam GI & Abdominal Exam: Soft. absent: Tenderness Assessment and Plan - Assessment and Plan (Free Text) Plan: Assessment Abdominal pain with leukocytosis, consider irritable bowel syndrome, unlikely SBP alcoholic liver cirrhosis history of spontaneous bacterial peritonitis HTN Plan completed 14 days of antibiotics recently for SBP - WBC count has now normalized , no fevers, no abdominal tenderness - will continue to monitor the patient off antibiotics
[2018-06-09] MEDS ORDERED: Pantoprazole 40 mg EC Tab PO SCH (07:30)
[2018-06-09] MEDS ORDERED: Furosemide 40 mg/5 mL Oral Soln UD PO SCH (10:00)
== END 2018-06-08 13:53 | disposition home or self-care (01) | DRG 433 ==
LOC: ED 17:05 → ERH 19:16 → 3RNO 21:09
PROVIDERS: ADMIT Internal Medicine; ATTEND Internal Medicine
DX: K70.30 Alcoholic cirrhosis of liver without ascites (principal); I85.10 Secondary esophageal varices without bleeding; F10.20 Alcohol dependence, uncomplicated; I10 Essential (primary) hypertension; K29.70 Gastritis, unspecified, without bleeding; D64.9 Anemia, unspecified; G89.29 Other chronic pain; K64.9 Unspecified hemorrhoids

== ENCOUNTER 2018-06-09 17:34 | Inpatient (IN) | payer OTHER ==
[2018-06-09 17:34] VITALS: BMI 21.6
--- NOTE | 2018-06-09 18:00 | ED PDOC ---
Arrival/HPI - General Chief Complaint: Abdominal Pain Time Seen by Provider: 06/09/18 17:35 - History of Present Illness Narrative History of Present Illness (Text): 06/09/18 17:57 Ms. Caicedo is a 57 year old female with history of HTN and cirrhosis of the liver who presents with diffuse abdominal pain. Patient was discharged yesterday following admission for cirrhosis and esophageal varices. Her PMD Dr. Baptiste told the patient that she will continue to have these pains as a result of cirrhosis until she is able to see a GI specialist outpatient which the patient has not yet done. Her daughter states she has been in and out of the hospital frequently for her symptoms. She is experiencing diffuse abdominal pain that was brought on a few hours ago after she ate some watermelon. The patient states she has had a decreased appetite as well. The patient has been moving her bowels with some diarrhea, but denies blood in the stool, or dark/tarry stools. Pt denies any nausea,vomiting, or constipation. The family states that she was told she got cirrhosis as a result of heavy consumption of tylenol may years ago. They deny any heavy alcohol use or history of hepatitis. Pt denies any headache, dizziness, nausea, vomiting, chest pains, palpitations. Time/Duration: 1-3 hours Symptom Onset: Sudden Symptom Course: Unchanged Activities at Onset: Eating Past Medical History - Provider Review Nursing Documentation Reviewed: Yes - Infectious Disease Hx of Infectious Diseases: None - Cardiac Hx Cardiac Disorders: Yes Hx Hypertension: Yes - Pulmonary Hx Respiratory Disorders: No - Neurological Hx Neurological Disorder: No - HEENT Hx HEENT Disorder: No - Renal Hx Renal Disorder: No - Endocrine/Metabolic Hx Endocrine Disorders: No - Hematological/Oncological Hx Blood Disorders: Yes Hx Cirrhosis: Yes - Integumentary Hx Dermatological Disorder: Yes (GENERALIZED JAUNDICED) - Musculoskeletal/Rheumatological Hx Musculoskeletal Disorders: Yes (RIGHT KNEE PAIN,BACK PAIN) Hx Falls: Yes - Gastrointestinal Hx Gastrointestinal Disorders: Yes (GASTRITIS,ASCITES-H/O OF TAPPING,BOWEL OBSTRUCTION) Hx Liver Failure: Yes (ALCOHOLIC LIVER CIRRHOSIS) - Genitourinary/Gynecological Hx Genitourinary Disorders: Yes (MYOMECTOMY-FIBROID) - Psychiatric Hx Psychophysiologic Disorder: Yes (H/O ETOH ABUSE. DRANK HALF A LITER OF VODKA FOR 6-7 YRS. QUIT 15 JANUARY 2018) Hx Substance Use: No - Surgical History Other/Comment: Fibroids-MYOMECTOMY - Anesthesia Hx Anesthesia: Yes Hx Anesthesia Reactions: No Hx Malignant Hyperthermia: No - Suicidal Assessment Feels Threatened In Home Enviroment: No Family/Social History Family/Social History: No Known Family HX Smoking Status: Never Smoked Hx Alcohol Use: Yes (QUIT DRINKING 2 MONS AGO.DRANK 1/2 A LITER OF ABDOLUT VODKA ) Hx Substance Use: No Allergies/Home Meds Allergies/Adverse Reactions: Allergies No Known Allergies Allergy (Verified 06/09/18 17:45) Home Medications: Home Meds Medication Instructions Recorded Confirmed Dicyclomine [Bentyl] 1 cap PO Q8H PRN 06/06/18 06/09/18 Magnesium Oxide [Mag-Ox] 1 tab PO DAILY 06/06/18 06/09/18 rifAXIMin [Xifaxan] 1 tab PO BID 06/06/18 06/09/18 Review of Systems - Review of Systems Constitutional: Normal. absent: Fatigue, Fevers Eyes: Normal. absent: Vision Changes, Eye Pain ENT: Normal Respiratory: SOB, Cough Cardiovascular: Normal. absent: Chest Pain, Palpitations (+diffuse abdominal pain) Gastrointestinal: Abdominal Pain, Appetite Changes (+decreased appetite), Food Intolerance (+pain following watermelon consumption). absent: Stool Changes, Constipation, Diarrhea, Nausea, Vomiting, Hematochezia, Hematemesis Genitourinary Female: Normal. absent: Dysuria, Frequency Musculoskeletal: Normal. absent: Back Pain, Neck Pain Skin: Normal. absent: Rash, Pruritis Neurological: Normal. absent: Headache, Dizziness Endocrine: Normal. absent: Diaphoresis, Polyuria, Polydipsia Psychiatric: Normal. absent: Anxiety, Depression Physical Exam Vital Signs Reviewed: Yes Vital Signs Temp Pulse Resp BP Pulse Ox 06/09/18 17:43 98.1 F 65 19 102/56 L 100 Temperature: Afebrile Blood Pressure: Normal Pulse: Regular Respiratory Rate: Normal Appearance: Positive for: Ill-Appearing, Uncomfortable Pain Distress: Severe Mental Status: Positive for: Alert and Oriented X 3 - Systems Exam Head: Present: Atraumatic, Normocephalic Pupils: Present: PERRL Extroacular Muscles: Present: EOMI Conjunctiva: Present: Icteric Mouth: Present: Moist Mucous Membranes Nose (External): Present: Atraumatic. No: Abrasion, Contusion Neck: Present: Normal Range of Motion. No: JVD Respiratory/Chest: Present: Clear to Auscultation, Good Air Exchange. No: Respiratory Distress, Accessory Muscle Use Cardiovascular: Present: Regular Rate and Rhythm, Normal S1, S2. No: Murmurs Abdomen: Present: Tenderness (+diffuse tenderness to palpation), Normal Bowel Sounds, Other (+voluntary guarding). No: Distention, Peritoneal Signs, Rebound , Guarding Upper Extremity: Present: Normal Inspection, NORMAL PULSES. No: Cyanosis, Edema Lower Extremity: Present: Normal Inspection, NORMAL PULSES. No: Edema Neurological: Present: GCS=15, CN II-XII Intact, Speech Normal, Motor Func Grossly Intact Skin: Present: Warm, Dry, Normal Color, Other. No: Rashes, Erythematous Psychiatric: Present: Alert, Oriented x 3, Normal Insight Medical Decision Making ED Course and Treatment: 06/09/18 18:31 Abdominal pain with history frequent recent hospitalization for cirrhosis * CBC w dif * CMP * Lipase * Ammonia level * Toradol 30mg IVP stat for abdominal pain * 1L/1 hour fluid bolus - Medication Orders Current Medication Orders: Sodium Chloride (Sodium Chloride 0.9%) 500 mls @ 999 mls/hr IV .Q31M STA Stop: 06/09/18 18:54 Discontinued Medications Ketorolac Tromethamine (Toradol) 30 mg IVP STAT STA Stop: 06/09/18 18:15 Disposition/Present on Arrival - Present on Arrival History of DVT/PE: No History of Uncontrolled Diabetes: No Urinary Catheter: No History of Decub. Ulcer: No History Surgical Site Infection Following: None - Disposition Forms: [place] (Nepali)
[2018-06-09] MEDS ORDERED: Sodium Chloride 0.9% 500 ML IV STA (18:24)
[2018-06-09 18:56] LABS: ALB/GLOB RATIO 0.6 (1.1-1.8); ALBUMIN 3.1 g/dL (3.0-4.8); ALT/SGPT 18 U/L (7-56); AST/SGOT 55 U/L (14-36); BLOOD UREA NITROGEN 7 mg/dL (7-21); CALCIUM 9.6 mg/dL (8.4-10.5); GFR NON-AFRICAN AMERICAN 57; LIPASE 982 U/L (23-300)
[2018-06-09] MEDS ORDERED: Morphine 4 mg/ml ISec IVP STA (18:57)
[2018-06-09] MEDS ORDERED: Iohexol 350 MG/100 ML VIAL ONE (19:09)
[2018-06-09 19:22] LABS: URINE BILIRUBIN NEGATIVE (NEGATIVE); URINE BLOOD NEGATIVE (NEGATIVE); URINE GLUCOSE (UA) NEGATIVE (NEGATIVE); URINE LEUKOCYTE ESTERASE NEGATIVE Leu/uL (NEGATIVE); URINE PROTEIN NEGATIVE mg/dL (<30 mg/dL); URINE UROBILINOGEN 0.2 E.U./dL (<1 E.U./dL)
[2018-06-09 19:23] LABS: BASO # 0.04 K/mm3 (0.0-2.0); BASO % 0.6 % (0.0-3.0); EOS # 0.3 (0.0-0.7); EOS % 4.7 % (1.5-5.0); GRAN # 3.93 (1.4-6.5); GRAN % 61.4 % (50.0-68.0); HEMOGLOBIN 10.3 g/dL (12.0-16.0); LYMPH # 1.7 (1.2-3.4); LYMPH % 26.6 % (22.0-35.0); MEAN CELL VOLUME 85.7 fl (80.0-105.0); MEAN CORPUSCULAR HEMOGLOBIN 29.5 pg (25.0-35.0); MEAN CORPUSCULAR HGB CONC 34.4 g/dl (31.0-37.0); MEAN PLATELET VOLUME 11.3 fl (7.0-11.0); MONO # 0.4 (0.1-0.6); MONO % 6.7 % (1.0-6.0); RBC 3.49 10^6/uL (3.5-6.1); RED CELL DISTRIBUTION WIDTH 18.6 % (11.5-14.5); WHITE BLOOD COUNT 6.4 10^3/ul (4.5-11.0)
[2018-06-09 19:28] LABS: URINE APPEARANCE CLEAR (CLEAR); URINE COLOR YELLOW (YELLOW)
[2018-06-09] MEDS ORDERED: Dextrose 5%/0.45% NS 1,000 ML IV SCH (19:45)
[2018-06-09] MEDS ORDERED: Morphine 5 MG/ML SYRINGE IVP PRN (19:48)
[2018-06-09] MEDS ORDERED: Morphine 2 mg/ml ISec IVP PRN (19:51)
[2018-06-09] MEDS ORDERED: Pneumococcal 23-Valent Vaccine IM ONE (22:59)
[2018-06-09] MEDS: metroNIDAZOLE IV 500 mg/100 ml 500 MG/100 ML BAG IVPB SCH (23:09)
[2018-06-09] MEDS: cefTRIAXone 1 gm 1 GM/100 ML BAG IVPB SCH (23:15)
[2018-06-10 06:42] LABS: BASO # 0.04 K/mm3 (0.0-2.0); BASO % 0.6 % (0.0-3.0); EOS # 0.3 (0.0-0.7); EOS % 4.4 % (1.5-5.0); GRAN # 3.81 (1.4-6.5); GRAN % 60.2 % (50.0-68.0); HEMOGLOBIN 9.7 g/dL (12.0-16.0); LYMPH # 1.8 (1.2-3.4); LYMPH % 28.5 % (22.0-35.0); MEAN CELL VOLUME 86.4 fl (80.0-105.0); MEAN CORPUSCULAR HGB CONC 34.8 g/dl (31.0-37.0); MEAN PLATELET VOLUME 11.9 fl (7.0-11.0); MONO # 0.4 (0.1-0.6); MONO % 6.3 % (1.0-6.0); RBC 3.23 10^6/uL (3.5-6.1); RED CELL DISTRIBUTION WIDTH 18.4 % (11.5-14.5); WHITE BLOOD COUNT 6.3 10^3/ul (4.5-11.0)
[2018-06-10 07:21] LABS: ALB/GLOB RATIO 0.5 (1.1-1.8); ALBUMIN 2.6 g/dL (3.0-4.8); ALT/SGPT 21 U/L (7-56); AMYLASE 94 U/L (35-125); AST/SGOT 47 U/L (14-36); BLOOD UREA NITROGEN 6 mg/dL (7-21); CALCIUM 8.8 mg/dL (8.4-10.5); GFR NON-AFRICAN AMERICAN > 60; LIPASE 396 U/L (23-300)
--- NOTE | 2018-06-10 08:55 | CT ---
Date of service: 06/09/2018 PROCEDURE: CT Abdomen and Pelvis with contrast HISTORY: Abdominal pain h/o of cirrhosis COMPARISON: 05/18/2018. TECHNIQUE: CT scan of the abdomen and pelvis was performed after administration of intravenous contrast. Oral contrast was not administered. Coronal and sagittal reformatted images were obtained. Contrast dose: 100 mL Omnipaque 350 Radiation dose: Total exam DLP = 250.36 mGy-cm. This CT exam was performed using one or more of the following dose reduction techniques: Automated exposure control, adjustment of the mA and/or kV according to patient size, and/or use of iterative reconstruction technique. FINDINGS: LOWER THORAX: The visualized lungs are clear. LIVER: There is redemonstration of mild hepatomegaly with cirrhotic liver. No intrahepatic biliary ductal dilatation. GALLBLADDER AND BILE DUCTS: The gallbladder is distended and there are multiple gallstones. There is small amount of pericholecystic fluid and gallbladder wall enhancement. There is moderate diffuse dilatation of the common bile duct without evidence for choledocholithiasis. PANCREAS: Normal in size with homogeneous enhancement. No gross lesion or ductal dilatation. SPLEEN: Mild splenomegaly. There is a stable large calcified mass in the upper pole of the spleen. . ADRENALS: No discrete nodule. KIDNEYS AND URETERS: Normal in size with homogeneous enhancement. No hydronephrosis. No solid mass. VASCULATURE: No aortic aneurysm. BOWEL: The small bowel loops are normal in caliber. There is diffuse circumferential mural thickening in the colon. There is mild left colonic diverticulosis without CT evidence for acute diverticulitis. APPENDIX: Normal appendix. PERITONEUM: There is small abdominal and pelvic ascites. No free air. LYMPH NODES: Unremarkable. No enlarged lymph nodes. BLADDER: Unremarkable. REPRODUCTIVE: The uterus is normal in size. BONES: No acute fracture. Within normal limits for the patient's age. OTHER FINDINGS: None. IMPRESSION: 1. Distended gallbladder, cholelithiasis, mild gallbladder wall thickening and enhancement with pericholecystic fluid may represent acute calculus cholecystitis in the appropriate clinical setting. 2. Apparent diffuse mural thickening in the colon may represent nonspecific acute infectious/inflammatory colitis. 3. Hepatic cirrhosis. Mild splenomegaly. Moderate abdominal and pelvic ascites. A preliminary report was provided by [facility].
[2018-06-10] MEDS: metroNIDAZOLE IV 500 mg/100 ml 500 MG/100 ML BAG IVPB SCH ×2 (09:08→21:48)
[2018-06-10] MEDS: cefTRIAXone 1 gm 1 GM/100 ML BAG IVPB SCH (09:09)
[2018-06-10] MEDS: Dextrose 5%/0.45% NS 1,000 ML IV SCH ×2 (15:41→18:30)
--- NOTE | 2018-06-10 16:01 | CP.PCM.PCO ---
Physician Communication Note - Physician Communication Note Physician Communication Note: ETOH Pancreatitis/GB asymptomatic/No surgery stefan now
--- NOTE | 2018-06-10 16:54 | CP.PCM.CON ---
<Donovan Parker - Last Filed: 06/10/18 17:09> History of Present Illness - History of Present Illness History of Present Illness: PGY-4 GI Fellow Consult Note Mrs. Caicedo is a 57 yo [place] female with EtOH Cirrhosis (c/b Ascites, possible h/o SBP, h/o HE? as on rifaxamin), Cholelithiasis, HTN presenting with abdominal pain. She reported has abdominal pain all the time since being told that she had cirrhosis per her report. She reports intermittent diffuse abdominal pain, worse in epigastrum, sharp, often triggered by eating. States that she had nausea with decreased alma rosa but denied emesis. She reports formed brown BMs when she has them. States that she had and EGD and Colonoscopy withing the last few months that were reportedly normal. She denied any f/c, diarrhea, bleeding and states that she last drank EtOH about 3 months ago. 12 point ROS negative other than stated above. MHx: See above, HTN, gastritis, uterine fibroids, small bowel obstruction, ascites, and alcoholic liver cirrhosis SurgHx: EGD+CPSY few months ago, "normal" per pt report, fibroid surgery Meds: Reviewed in MAR. FamHx: Denied GI probs SocHx: H/o EtOH abuse (vodka) with last drink 3 months ago, denies tob/ill All: NKDA Past Patient History - Infectious Disease Hx of Infectious Diseases: None - Past Social History Smoking Status: Never Smoked - CARDIAC Hx Cardiac Disorders: Yes Hx Hypertension: Yes - PULMONARY Hx Respiratory Disorders: No - NEUROLOGICAL Hx Neurological Disorder: No - HEENT Hx HEENT Problems: No - RENAL Hx Chronic Kidney Disease: No - ENDOCRINE/METABOLIC Hx Endocrine Disorders: No - HEMATOLOGICAL/ONCOLOGICAL Hx Blood Disorders: Yes Hx Cirrhosis: Yes - INTEGUMENTARY Hx Dermatological Problems: Yes (GENERALIZED JAUNDICED) - MUSCULOSKELETAL/RHEUMATOLOGICAL Hx Musculoskeletal Disorders: Yes (pt denies r knee/back pain) Hx Falls: Yes (not recent) - GASTROINTESTINAL Hx Gastrointestinal Disorders: Yes (GASTRITIS,ASCITES-H/O OF TAPPING,BOWEL OBSTRUCTION) Hx Liver Failure: Yes (ALCOHOLIC LIVER CIRRHOSIS) Other/Comment: ultrasound guided paracentesis to abd 04/19/2018 drained 1000cc fluid - GENITOURINARY/GYNECOLOGICAL Hx Genitourinary Disorders: Yes (MYOMECTOMY-FIBROID) - PSYCHIATRIC Hx Psychophysiologic Disorder: Yes (H/O ETOH ABUSE. DRANK HALF A LITER OF VODKA FOR 6-7 YRS. QUIT 15 JANUARY 2018) Hx Substance Use: No Other/Comment: quit drinking 1/2 liter vodka a day 01/2018 - SURGICAL HISTORY Hx Surgeries: Yes Other/Comment: Fibroids-MYOMECTOMY - ANESTHESIA Hx Anesthesia: Yes Hx Anesthesia Reactions: No Hx Malignant Hyperthermia: No Meds Allergies/Adverse Reactions: Allergies Allergy/AdvReac Type Severity Reaction Status Date / Time No Known Allergies Allergy Verified 06/09/18 17:45 - Medications Medications: Current Medications Ceftriaxone Sodium (Rocephin 1 Gram Ivpb) 1 gm in 100 mls @ 100 mls/hr IVPB DAILY [facility] PRN Reason: Protocol Stop: 06/16/18 23:59 Last Admin: 06/10/18 09:09 Dose: 100 mls/hr Metronidazole (Flagyl) 500 mg in 100 mls @ 100 mls/hr IVPB Q12 [facility] PRN Reason: Protocol Last Admin: 06/10/18 09:08 Dose: 100 mls/hr Dextrose/Sodium Chloride (Dextrose 5%/0.45% Ns 1000 Ml) 1,000 mls @ 125 mls/hr IV .Q8H [facility] Last Admin: 06/10/18 15:41 Dose: 125 mls/hr Morphine Sulfate (Morphine) 2 mg IVP Q6H PRN PRN Reason: Pain, moderate (4-7) Nadolol (Corgard) 20 mg PO DAILY [facility] Last Admin: 06/10/18 09:07 Dose: Not Given Pantoprazole Sodium (Protonix Inj) 40 mg IVP DAILY [facility] Last Admin: 06/10/18 09:10 Dose: 40 mg Rifaximin (Xifaxan) 550 mg PO BID [facility] PRN Reason: Protocol Last Admin: 06/10/18 09:09 Dose: 550 mg Trazodone HCl (Desyrel) 25 mg PO HS PRN PRN Reason: Insomnia Last Admin: 06/09/18 23:10 Dose: 25 mg Physical Exam - Constitutional Appears: No Acute Distress, Chronically Ill - Head Exam Head Exam: ATRAUMATIC, NORMAL INSPECTION - Eye Exam Eye Exam: EOMI. absent: Conjunctival injection, Scleral icterus - ENT Exam ENT Exam: Mucous Membranes Dry, Normal External Ear Exam. absent: Mucous Membranes Moist - Respiratory Exam Respiratory Exam: Clear to Auscultation Bilateral. absent: Accessory Muscle Use , Respiratory Distress - Cardiovascular Exam Cardiovascular Exam: REGULAR RHYTHM, RRR - GI/Abdominal Exam GI & Abdominal Exam: Distended (mildly), Normal Bowel Sounds, Soft, Tenderness ( in epigastrum w/o guarding). absent: Bruit, Diminished Bowel Sounds, Firm, Guarding, Hernia, Organomegaly, Pulsatile Mass, Rigid - Extremities Exam Extremities exam: Positive for: normal inspection, pedal edema (trace) - Neurological Exam Neurological exam: Alert, CN II-XII Intact, Oriented x3 - Psychiatric Exam Psychiatric exam: Normal Affect, Normal Mood - Skin Skin Exam: Normal Color, Warm Results - Vital Signs Recent Vital Signs: Last Vital Signs Temp 98.3 F 06/10/18 14:00 Pulse 70 06/10/18 14:00 Resp 18 06/10/18 14:00 BP 111/73 06/10/18 14:00 Pulse Ox 100 06/10/18 14:00 - Labs Result Diagrams: 06/10/18 06:00 06/10/18 06:00 Labs: Laboratory Results - last 24 hr 06/10/18 06/10/18 06:00 06:00 WBC 6.3 RBC 3.23 L Hgb 9.7 L Hct 27.9 L MCV 86.4 MCH 30.0 MCHC 34.8 RDW 18.4 H Plt Count 92 L MPV 11.9 H Gran % 60.2 Lymph % (Auto) 28.5 Ada % (Auto) 6.3 H Eos % (Auto) 4.4 Baso % (Auto) 0.6 Gran # 3.81 Lymph # (Auto) 1.8 Ada # (Auto) 0.4 Eos # (Auto) 0.3 Baso # (Auto) 0.04 Sodium 137 Potassium 3.9 Chloride 102 Carbon Dioxide 24 Anion Gap 16 BUN 6 L Creatinine 0.9 Est GFR ( Amer) > 60 Est GFR (Non-Af Amer) > 60 Random Glucose 97 Calcium 8.8 Magnesium 1.8 Total Bilirubin 3.6 H AST 47 H ALT 21 Alkaline Phosphatase 111 Total Protein 7.3 Albumin 2.6 L Globulin 4.7 Albumin/Globulin Ratio 0.5 L Amylase 94 Lipase 396 H Assessment & Plan - Assessment and Plan (Free Text) Assessment: 57 yo [place] female with EtOH Cirrhosis and cholelithiasis presenting with acute on chronic abd pain # Abd Pain: Unclear etiology. Recently treated for suspected SBP making that unlikely and is currently on antibiotics. Given her h/o cholelithiasis, this could be biliary colic though liver test non obstructive. Given that lipase was up to 982 with these symptoms, suspect that she had gall stone pancreatitis. Will plan to obtain MRCP to further eval. # EtOH cirrhosis: MELD-Na 13. Sober x 3 months - Ascites: Suspected h/o SBP, on furosemide and spironolactone as OP - HE: Unknown but on rifaxamin as OP - EV: reportedly EGD normal a few months ago, on nadalol - Transplant: was reportedly reffered to [facility] in the past, though MELD-Na not >15 at this time Plan: - MRCP with and without contrast to eval CBP and for PVT - Restarted home furosemide and spironolactone - Checking CONRADO, AMA, Anti-LK and Smooth Mus Ab given not as clear cut EtOH diagnosis though pt does report fair amount of vodka consumption in the past --- Hold further w/u (ceruloplas, Fe studies, etc. for now) Pt seen and examined with Dr. Rhodes; please see his attestation for further recs/changes. <Syed Rhodes V - Last Filed: 06/11/18 00:20> Meds - Medications Medications: Current Medications Furosemide (Lasix) 40 mg PO DAILY [facility] Dextrose/Sodium Chloride (Dextrose 5%/0.45% Ns 1000 Ml) 1,000 mls @ 125 mls/hr IV .Q8H [facility] Last Admin: 06/10/18 18:30 Dose: 125 mls/hr Morphine Sulfate (Morphine) 2 mg IVP Q6H PRN PRN Reason: Pain, moderate (4-7) Nadolol (Corgard) 20 mg PO DAILY [facility] Last Admin: 06/10/18 09:07 Dose: Not Given Pantoprazole Sodium (Protonix Inj) 40 mg IVP DAILY [facility] Last Admin: 06/10/18 09:10 Dose: 40 mg Rifaximin (Xifaxan) 550 mg PO BID [facility] PRN Reason: Protocol Last Admin: 06/10/18 18:03 Dose: 550 mg Spironolactone (Aldactone) 25 mg PO BID [facility] Last Admin: 06/10/18 18:03 Dose: 25 mg Trazodone HCl (Desyrel) 25 mg PO HS PRN PRN Reason: Insomnia Last Admin: 06/09/18 23:10 Dose: 25 mg Results - Vital Signs Recent Vital Signs: Last Vital Signs Temp 98.3 F 06/10/18 14:00 Pulse 70 06/10/18 14:00 Resp 18 06/10/18 14:00 BP 111/73 06/10/18 14:00 Pulse Ox 100 06/10/18 14:00 - Labs Result Diagrams: 06/10/18 06:00 06/10/18 06:00 Labs: Laboratory Results - last 24 hr 06/10/18 06/10/18 06:00 06:00 WBC 6.3 RBC 3.23 L Hgb 9.7 L Hct 27.9 L MCV 86.4 MCH 30.0 MCHC 34.8 RDW 18.4 H Plt Count 92 L MPV 11.9 H Gran % 60.2 Lymph % (Auto) 28.5 Ada % (Auto) 6.3 H Eos % (Auto) 4.4 Baso % (Auto) 0.6 Gran # 3.81 Lymph # (Auto) 1.8 Ada # (Auto) 0.4 Eos # (Auto) 0.3 Baso # (Auto) 0.04 Sodium 137 Potassium 3.9 Chloride 102 Carbon Dioxide 24 Anion Gap 16 BUN 6 L Creatinine 0.9 Est GFR ( Amer) > 60 Est GFR (Non-Af Amer) > 60 Random Glucose 97 Calcium 8.8 Magnesium 1.8 Total Bilirubin 3.6 H AST 47 H ALT 21 Alkaline Phosphatase 111 Total Protein 7.3 Albumin 2.6 L Globulin 4.7 Albumin/Globulin Ratio 0.5 L Amylase 94 Lipase 396 H Attending/Attestation - Attestation I have personally seen and examined this patient.: Yes I have fully participated in the care of the patient.: Yes I have reviewed all pertinent clinical information: Yes Notes (Text): This is an addendum to GI consult report dictated by the GI Fellow.The patient was seen and examined earlier. Medical records, lab studies, imagings were reviewed. Last 24 hours events reviewed. Agreed with the above treatment plan as outlined in GI Fellow 's notes with the addition of the following patient's family was at bedside at the time of examination On examination abdomen soft and mild tenderness present in the ruq area on deep palpation Imaging studies were reviewed Symptomatic gallstones and gallstone pancreatitis is the most likely differential diagnosis to consider Would request MRCP to rule out any CBD stone Cirrhosis probably second to the EtOH would request AFP tumor marker, autoimmune markers Thank you very much for allowing us to participate in the care of the patient 06/11/18 00:16
--- NOTE | 2018-06-10 23:55 | HP ---
Copied To: Beryl Baptiste MD Attending MD: Beryl Baptiste MD HISTORY OF PRESENT ILLNESS: The patient is 57 years old who came to emergency room because of abdominal pain. Patient states she has been having some abdominal discomfort. She ate some rice followed by watermelon she felt pain that got worse. Family brought her to emergency room, complained of nauseous, complained of generalized weakness. No hemoptysis. No hematemesis. No fever or chills. . PAST MEDICAL HISTORY: Significant for; 1. Cirrhosis of liver. 2. History of alcohol abuse. 3. Coagulopathy. 4. History of hypertension. ALLERGIES: SHE IS NOT ALLERGIC TO ANY MEDICATIONS. MEDICATIONS: At home, she is on Xifaxan 550 twice a day. She is on nadolol 20 mg daily, spironolactone 25 twice a day, Protonix 40 daily, Lasix 40 mg daily. SOCIAL HISTORY: Denies smoking; however, she used to drink but quit in before April. PHYSICAL EXAMINATION: GENERAL: Patient is awake, alert, oriented, communicative. VITAL SIGNS: She is afebrile, pulse 80, respirations 20, blood pressure 92/54. LUNGS: Bilateral fair airflow. No rhonchi or crackle. HEART: S1 and S2 audible. ABDOMEN: Soft, nontender. No rebound. No guarding. NEUROLOGICAL: She is awake, alert, oriented, communicative. Able to ambulate. LABORATORY EXAM: WBC 6.3, hemoglobin 9.7, hematocrit 27.9, platelet of 92. Chemistry: Sodium 137, potassium 3.9, chloride 102, CO2 of 24, BUN 6, creatinine 0.9. Blood sugar of 97. Total bili 3.6. AST 47, alk phos 111, albumin 2.6, lipase was 982 yesterday, 396 today. Urine is negative. DIAGNOSTIC DATA: CT scan of the abdomen and pelvis shows cholelithiasis with some element of colitis. PLAN: We will keep patient on metronidazole and she is on Rocephin and Xifaxan. Awaiting GI input. We will follow up her electrolyte. Keep her on clear liquid and followup patient in a.m. Beryl Baptiste MD [facility] # [id number]
[2018-06-11 04:36] LABS: HEMOGLOBIN 9.5 g/dL (12.0-16.0); MEAN CELL VOLUME 84.9 fl (80.0-105.0); MEAN CORPUSCULAR HEMOGLOBIN 29.3 pg (25.0-35.0); MEAN CORPUSCULAR HGB CONC 34.5 g/dl (31.0-37.0); PLATELET COUNT 75 10^3/uL (120.0-450.0); RBC 3.24 10^6/uL (3.5-6.1)
[2018-06-11 04:51] LABS: ALB/GLOB RATIO 0.5 (1.1-1.8); ALBUMIN 2.4 g/dL (3.0-4.8); ALT/SGPT 22 U/L (7-56); AST/SGOT 41 U/L (14-36); BLOOD UREA NITROGEN 3 mg/dL (7-21); CALCIUM 8.7 mg/dL (8.4-10.5); GFR NON-AFRICAN AMERICAN > 60
[2018-06-11 04:56] LABS: WHITE BLOOD COUNT 4.2 10^3/ul (4.5-11.0)
[2018-06-11] MEDS: Dextrose 5%/0.45% NS 1,000 ML IV SCH (09:43)
[2018-06-11] MEDS ORDERED: Gadodiamide 287 MG/ML VIAL (15ML) IV ONE (13:56)
--- NOTE | 2018-06-11 15:25 | PN ---
Copied To: Beryl Baptiste MD Attending MD: Beryl Baptiste MD DATE: 06/11/2018 SUBJECTIVE: The patient is 57 years old, seen and examined, complained of intermittent abdominal discomfort. No nausea or vomiting. PHYSICAL EXAMINATION: VITAL SIGNS: She is afebrile. Pulse 75, respirations 18, blood pressure 126/80. LUNGS: Bilateral fair airflow. No rhonchi or crackle. HEART: S1 and S2 audible. ABDOMEN: Soft, nontender. No rebound, no guarding. NEUROLOGIC: The patient is awake, alert, oriented, communicative. LABORATORY DATA: WBC is 4.2, hemoglobin 9.5, hematocrit 27.5, platelet of 75. Chemistries: Sodium 137, potassium 3.6, chloride 106, CO2 of 23, BUN 3, creatinine 0.7, blood sugar of 124, total bilirubin 3.6. Her AST is 41, ALT is 22. ASSESSMENT: 1. History of cirrhosis liver. 2. Cholelithiasis. 3. History of hypertension, currently running hypotensive. 4. Pneumonia. PLAN: Currently, the patient is on IV fluids for GI rest. She is on spironolactone. She is on nadolol. We will continue her on IV fluids. She is on Lasix, Protonix and Xifaxan. MRCP has been ordered. We will discuss with GI and make further plan. We will follow up electrolytes. Beryl Baptiste MD
--- NOTE | 2018-06-11 15:45 | MRI ---
Date of service: 06/11/2018 PROCEDURE: Magnetic Resonance Cholangiopancreatography HISTORY: Evaluate for CBD stone. Evaluate portal vein. 57 years old woman with history of cirrhosis abdominal pain COMPARISON: None available. TECHNIQUE: Multiplanar, multisequence MR images of the abdomen were obtained, including heavily T2 weighted MRCP images of the biliary system. Rotating maximum intensity projection images of the biliary system were generated. MRI of the abdomen was also obtained before and after IV contrast administration using T1 and T2 sequences in axial and coronal planes. FINDINGS: MRCP: The common bile duct is of a normal caliber. No evidence of choledocholithiasis. No intrahepatic biliary ductal dilatation. LIVER: Cirrhotic manifestation of the liver are again noted. No evidence of enhancing mass lesion. The portal vein is patent. GALLBLADDER: Diffuse gallbladder wall thickening is noted. No definite evidence of large gallstones. SPLEEN: Again noted is with defined mass lesion at the upper portion of the spleen measures 4.8 centimeter in the transverse diameter and 4.7 centimeter in the AP diameter demonstrate no enhancement likely represent benign calcified lesion. PANCREAS: The pancreas is normal in size and shape. The pain pancreatic duct is not dilated. ADRENALS: Unremarkable. KIDNEYS: The kidneys enhance symmetrically. No evidence of hydronephrosis. AORTA: No aneurysm. ASCITES: There is small amount of ascites in the upper abdomen. OTHER FINDINGS: Diffuse wall thickening of the small and large bowel loops noted could be due to edema. The possibility of enteritis or colitis cannot be totally excluded. IMPRESSION: No evidence of choledocholithiasis. No evidence of significant intrahepatic or extrahepatic biliary ductal dilatation. Diffuse gallbladder wall thickening which could be due to soft tissue edema and presence of the ascites. No definite MRI evidence of acute cholecystitis. Stable with defined lesion at the upper pole of the spleen. Diffuse small and large bowel wall thickening which could be due to soft tissue edema. The possibility of enteritis and colitis is not totally excluded.
--- NOTE | 2018-06-11 18:31 | CP.PCM.PN ---
<Aubrey Rodriguez - Last Filed: 06/11/18 18:32> Subjective - Date & Time of Evaluation Date of Evaluation: 06/11/18 Time of Evaluation: 18:31 - Subjective Subjective: GI Progress Note for Dr. Rhodes's Service- Alok, PGY2 Patient seen and assessed at bedside. No acute events overnight. Patient denies any complaints at this time including fevers, chills, headache, chest pain, SOB , abdominal pain, N/V/D/C, changes in urine output or any skin changes. Objective - Vital Signs/Intake and Output Vital Signs (last 24 hours): Temp Pulse Resp BP Pulse Ox 98.3 F 77 18 126/80 97 06/11/18 06:00 06/11/18 06:00 06/11/18 06:00 06/11/18 09:42 06/11/18 06:00 Intake and Output: 06/11/18 06/11/18 06:59 18:59 Intake Total 2460 Balance 2460 - Medications Medications: Current Medications Furosemide (Lasix) 40 mg PO DAILY [facility] Last Admin: 06/11/18 09:42 Dose: 40 mg Dextrose/Sodium Chloride (Dextrose 5%/0.45% Ns 1000 Ml) 1,000 mls @ 125 mls/hr IV .Q8H [facility] Last Admin: 06/11/18 09:43 Dose: 125 mls/hr Lactulose (Enulose) 20 gm PO HS [facility] Morphine Sulfate (Morphine) 2 mg IVP Q6H PRN PRN Reason: Pain, moderate (4-7) Nadolol (Corgard) 20 mg PO DAILY [facility] Last Admin: 06/11/18 09:42 Dose: 20 mg Pantoprazole Sodium (Protonix Inj) 40 mg IVP DAILY [facility] Last Admin: 06/11/18 09:41 Dose: 40 mg Rifaximin (Xifaxan) 550 mg PO BID [facility] PRN Reason: Protocol Last Admin: 06/11/18 17:29 Dose: 550 mg Spironolactone (Aldactone) 100 mg PO DAILY [facility] Trazodone HCl (Desyrel) 25 mg PO HS PRN PRN Reason: Insomnia Last Admin: 06/09/18 23:10 Dose: 25 mg - Labs Labs: 06/11/18 04:00 06/11/18 04:00 - Constitutional Appears: Non-toxic, No Acute Distress - Head Exam Head Exam: ATRAUMATIC, NORMOCEPHALIC - Eye Exam Eye Exam: EOMI, PERRL, Scleral icterus Pupil Exam: NORMAL ACCOMODATION - ENT Exam ENT Exam: Mucous Membranes Moist, Normal Exam - Neck Exam Neck Exam: Full ROM - Respiratory Exam Respiratory Exam: Clear to Ausculation Bilateral, NORMAL BREATHING PATTERN. absent: Accessory Muscle Use, Chest Wall Tenderness, Decreased Breath Sounds, Prolonged Expiratory Phase, Rales, Rhonchi, Wheezes, Respiratory Distress, Stridor - Cardiovascular Exam Cardiovascular Exam: REGULAR RHYTHM, RRR, +S1, +S2. absent: Bradycardia, Tachycardia, Clicks, Diastolic murmur, Gallop, Irregular Rhythm, JVD, Rubs, +S4 , Murmur - GI/Abdominal Exam GI & Abdominal Exam: Distended, Soft, Normal Bowel Sounds. absent: Bruit, Firm , Guarding, Rigid, Tenderness, Hernia, Hyperactive Bowel Sounds, Mass, Pulsatile Mass, Rebound - Extremities Exam Extremities Exam: Full ROM, Normal Capillary Refill, Normal Inspection - Back Exam Back Exam: NORMAL INSPECTION - Neurological Exam Neurological Exam: Alert, Awake, Normal Gait, Oriented x3 - Psychiatric Exam Psychiatric exam: Normal Affect, Normal Mood - Skin Skin Exam: Dry, Intact, Normal Color, Warm Assessment and Plan - Assessment and Plan (Free Text) Assessment: 57 year old [place] female with a past medical history significant for alcoholic liver cirrhosis and cholelithiasis who presented with acute on chronic abdominal pain. Patient to go for MRCP today to r/o cholelithiasis and portal vein thrombosis. Plan: -MRCP today to r/o cholelithiasis and portal vein thrombosis -Increase Aldactone to 100mg daily; Continue Lasix -Started Lactulose 20mg HS -Continue Rifaximin and Nadolol -CONRADO, AMA, Anti-LK and Smooth Mus Ab pending -Hold further workup (ceruloplas, Fe studies, etc) for now -Continue daily PPI -Clear Liquid Diet Patient seen and case discussed with attending, Dr. Rhodes. <Syed Rhodes V - Last Filed: 06/12/18 06:16> Objective - Vital Signs/Intake and Output Vital Signs (last 24 hours): Temp Pulse Resp BP Pulse Ox 98.6 F 70 20 135/83 98 06/11/18 21:49 08/27/18 21:49 06/11/18 21:49 06/11/18 21:49 06/11/18 21:49 Intake and Output: 06/11/18 06/12/18 18:59 06:59 Intake Total 1440 Output Total 0 Balance 1440 - Medications Medications: Current Medications Furosemide (Lasix) 40 mg PO DAILY [facility] Last Admin: 06/11/18 09:42 Dose: 40 mg Dextrose/Sodium Chloride (Dextrose 5%/0.45% Ns 1000 Ml) 1,000 mls @ 125 mls/hr IV .Q8H [facility] Last Admin: 06/11/18 09:43 Dose: 125 mls/hr Lactulose (Enulose) 20 gm PO HS [facility] Last Admin: 06/11/18 21:45 Dose: 20 gm Morphine Sulfate (Morphine) 2 mg IVP Q6H PRN PRN Reason: Pain, moderate (4-7) Nadolol (Corgard) 20 mg PO DAILY [facility] Last Admin: 06/11/18 09:42 Dose: 20 mg Pantoprazole Sodium (Protonix Inj) 40 mg IVP DAILY [facility] Last Admin: 06/11/18 09:41 Dose: 40 mg Rifaximin (Xifaxan) 550 mg PO BID [facility] PRN Reason: Protocol Last Admin: 06/11/18 17:29 Dose: 550 mg Spironolactone (Aldactone) 100 mg PO DAILY [facility] Trazodone HCl (Desyrel) 25 mg PO HS PRN PRN Reason: Insomnia Last Admin: 06/11/18 21:45 Dose: 25 mg - Labs Labs: 06/11/18 04:00 06/11/18 04:00 Attending/Attestation - Attestation I have personally seen and examined this patient.: Yes I have fully participated in the care of the patient.: Yes I have reviewed all pertinent clinical information, including history, physical exam and plan: Yes
[2018-06-12 07:08] LABS: HEMOGLOBIN 10.2 g/dL (12.0-16.0); INR 1.66; MEAN CELL VOLUME 86.2 fl (80.0-105.0); MEAN CORPUSCULAR HEMOGLOBIN 29.3 pg (25.0-35.0); PARTIAL THROMBOPLASTIN TIME 39.8 Seconds (25.1-36.5); PLATELET COUNT 86 10^3/uL (120.0-450.0); PROTHROMBIN TIME 19.3 SECONDS (9.4-12.5); RBC 3.48 10^6/uL (3.5-6.1); RED CELL DISTRIBUTION WIDTH 18.3 % (11.5-14.5); WHITE BLOOD COUNT 5.3 10^3/ul (4.5-11.0)
[2018-06-12 07:28] LABS: ALB/GLOB RATIO 0.5 (1.1-1.8); ALBUMIN 2.7 g/dL (3.0-4.8); ALT/SGPT 16 U/L (7-56); AST/SGOT 44 U/L (14-36); BLOOD UREA NITROGEN 4 mg/dL (7-21); CALCIUM 9.2 mg/dL (8.4-10.5); GFR NON-AFRICAN AMERICAN > 60
[2018-06-12] MEDS ORDERED: Potassium Chloride 20 mEq/15 ml LIQ UD PO ONE (07:53)
[2018-06-12 14:55] VITALS: BP 106/67; PULSE 63; RESP 18; TEMP 98.1; O2SAT 99
--- NOTE | 2018-06-12 14:58 | CP.PCM.PN ---
<Aubrey Rodriguez - Last Filed: 06/12/18 20:03> Subjective - Date & Time of Evaluation Date of Evaluation: 06/12/18 Time of Evaluation: 14:52 - Subjective Subjective: GI Progress Note for Dr. Rhodes's Service- Alok, PGY2 Patient seen and assessed at bedside. No acute events overnight. Patient reports that she is tolerating her diet well and is having no dysphagia or dyspepsia with solid PO intake. Patient denies any complaints at this time including fevers, chills, headache, chest pain, SOB, abdominal pain, N/V/D/C, changes in urine output or any skin changes. Objective - Vital Signs/Intake and Output Vital Signs (last 24 hours): Temp Pulse Resp BP Pulse Ox 98.4 F 68 20 109/74 97 06/12/18 06:00 06/12/18 06:00 06/12/18 06:00 06/12/18 11:05 06/12/18 06:00 Intake and Output: 06/12/18 06/12/18 06:59 18:59 Intake Total 1440 Output Total 0 Balance 1440 - Medications Medications: Current Medications Furosemide (Lasix) 40 mg PO DAILY [facility] Last Admin: 06/12/18 11:05 Dose: 40 mg Dextrose/Sodium Chloride (Dextrose 5%/0.45% Ns 1000 Ml) 1,000 mls @ 125 mls/hr IV .Q8H [facility] Last Admin: 06/11/18 09:43 Dose: 125 mls/hr Lactulose (Enulose) 20 gm PO HS [facility] Last Admin: 06/11/18 21:45 Dose: 20 gm Morphine Sulfate (Morphine) 2 mg IVP Q6H PRN PRN Reason: Pain, moderate (4-7) Nadolol (Corgard) 20 mg PO DAILY [facility] Last Admin: 06/12/18 11:06 Dose: 20 mg Pantoprazole Sodium (Protonix Inj) 40 mg IVP DAILY [facility] Last Admin: 06/12/18 11:06 Dose: 40 mg Rifaximin (Xifaxan) 550 mg PO BID [facility] PRN Reason: Protocol Last Admin: 06/12/18 11:05 Dose: 550 mg Spironolactone (Aldactone) 100 mg PO DAILY [facility] Last Admin: 06/12/18 11:06 Dose: 100 mg Trazodone HCl (Desyrel) 25 mg PO HS PRN PRN Reason: Insomnia Last Admin: 06/11/18 21:45 Dose: 25 mg Ursodiol (Actigall) 300 mg PO BID [facility] - Labs Labs: 06/12/18 06:00 06/12/18 06:00 PT 19.3 SECONDS (9.4-12.5) H 06/12/18 06:00 INR 1.66 06/12/18 06:00 APTT 39.8 Seconds (25.1-36.5) H 06/12/18 06:00 - Constitutional Appears: Non-toxic, No Acute Distress - Head Exam Head Exam: ATRAUMATIC, NORMOCEPHALIC - Eye Exam Eye Exam: EOMI, Scleral icterus. absent: Normal appearance - ENT Exam ENT Exam: Mucous Membranes Moist - Neck Exam Neck Exam: Full ROM - Respiratory Exam Respiratory Exam: Clear to Ausculation Bilateral, NORMAL BREATHING PATTERN. absent: Accessory Muscle Use, Chest Wall Tenderness, Decreased Breath Sounds, Prolonged Expiratory Phase, Rales, Rhonchi, Wheezes, Respiratory Distress, Stridor - Cardiovascular Exam Cardiovascular Exam: REGULAR RHYTHM, RRR, +S1, +S2. absent: Bradycardia, Tachycardia, Clicks, Diastolic murmur, Gallop, Irregular Rhythm, JVD, Rubs, +S4 , Murmur - GI/Abdominal Exam GI & Abdominal Exam: Soft, Normal Bowel Sounds. absent: Bruit, Firm, Guarding, Rigid, Tenderness, Diminished Bowel Sounds, Hernia, Hyperactive Bowel Sounds, Hypoactive Bowel Sounds, Mass, Pulsatile Mass, Rebound - Extremities Exam Extremities Exam: Normal Inspection - Neurological Exam Neurological Exam: Alert, Awake, Oriented x3 - Psychiatric Exam Psychiatric exam: Normal Affect, Normal Mood - Skin Skin Exam: Dry, Intact, Normal Color, Warm Assessment and Plan - Assessment and Plan (Free Text) Assessment: 57 year old [place] female with a past medical history significant for alcoholic liver cirrhosis and cholelithiasis who presented with acute on chronic abdominal pain. Patient had MRCP that showed no cholelithiasis/ choledocolithiasis or portal vein thrombosis; see full report for further details. Patient to undergo EGD tomorrow (06/13) to assess for esophageal/ gastric varices. Plan: -Patient to undergo EGD tomorrow (06/13) to assess for esophageal/gastric varices -MRCP showed no cholelithiasis/choledocolithiasis or portal vein thrombosis; see full report for further details -Continue Lasix, Aldactone, Lactulose, Rifaximin and Nadolol -CONRADO, AMA, Anti-LK and Smooth Mus Ab pending -Continue daily PPI -Diarrhea Management Diet Patient seen and case discussed with attending, Dr. Rhodes. <Syed Rhodes V - Last Filed: 06/12/18 23:45> Objective - Vital Signs/Intake and Output Vital Signs (last 24 hours): Temp Pulse Resp BP Pulse Ox 98.1 F 63 18 106/67 99 06/12/18 14:00 06/12/18 14:00 06/12/18 14:00 06/12/18 14:00 06/12/18 14:00 - Labs Labs: 06/12/18 06:00 06/12/18 06:00 PT 19.3 SECONDS (9.4-12.5) H 06/12/18 06:00 INR 1.66 06/12/18 06:00 APTT 39.8 Seconds (25.1-36.5) H 06/12/18 06:00 Attending/Attestation - Attestation I have personally seen and examined this patient.: Yes I have fully participated in the care of the patient.: Yes I have reviewed all pertinent clinical information, including history, physical exam and plan: Yes
--- NOTE | 2018-06-13 14:54 | DS ---
Copied To: Beryl Baptiste MD Attending MD: Beryl Baptiste MD HISTORY OF PRESENT ILLNESS: The patient is 57 years old. Seen and examined. She is sitting in chair. Seems to be comfortable. Off and on gets abdominal discomfort. No nausea. Tolerating the soft diet. PHYSICAL EXAMINATION: VITAL SIGNS: She is afebrile, pulse 63, respirations 18, blood pressure 106/67. HEENT: Eyes: Sclerae icteric and pale conjunctivae. LUNGS: Bilateral fair airflow. No rhonchi or crackle. HEART: S1 and S2 audible. ABDOMEN: Soft, nontender. No rebound. No guarding. NEUROLOGICAL: Patient is awake, alert, oriented, able to communicate, ambulatory. LABORATORY EXAM: WBC is 5.3, hemoglobin 10.2, hematocrit 30, platelet 86. Chemistry: Sodium 139, potassium 3.4, chloride 103, CO2 26, BUN 4, creatinine 0.8. Blood sugar of 115. Total bili is 4.1. AST 44. Patient has had endoscopy done in 11/2017. She was found to have gastritis and venous congestion probably secondary to cirrhosis of liver and she was found to have H. pylori gastritis, for that she was treated by Dr. Turner. She also had colonoscopy, had multiple polyps but they were noncancerous. ASSESSMENT AND PLAN: 1. Cirrhosis of liver. 2. Ascites. 3. Questionable acute cholecystitis. 4. History of hypertension, currently running hypotensive. 5. Thrombocytopenia. So, plan is the patient will be discharged today. She will be given Aldactone, nadolol. Discontinue her IV fluid and she was advised to follow up with Dr. Rhodes as outpatient and follow with liver transplant team. Beryl Baptiste MD
== END 2018-06-12 21:45 | disposition home or self-care (01) | DRG 434 ==
LOC: ED 17:34 → ERH 19:58 → 5RSO 21:26 → 5RNO 06-10 14:55
PROVIDERS: ADMIT Internal Medicine; ATTEND Internal Medicine
DX: K70.31 Alcoholic cirrhosis of liver with ascites (principal); I10 Essential (primary) hypertension; G89.29 Other chronic pain; F10.10 Alcohol abuse, uncomplicated

== ENCOUNTER 2018-06-17 16:16 | Emergency (ER) | payer BC, OTHER ==
[2018-06-17 16:22] VITALS: BMI 23.6
[2018-06-17 16:33] VITALS: RESP 18
[2018-06-17] MEDS ORDERED: Morphine 4 mg/ml ISec IVP STA (16:45)
[2018-06-17] MEDS ORDERED: Sodium Chloride 0.9% 500 ML IV STA (16:45)
--- NOTE | 2018-06-17 17:02 | ED PDOC ---
Arrival/HPI - General Chief Complaint: Abdominal Pain Time Seen by Provider: 06/17/18 16:23 Historian: Patient - History of Present Illness Narrative History of Present Illness (Text): 06/17/18 16:55 57 year old female, whose past medical history includes hypertension and cirrhosis of the liver, who presents to the ED c/o upper abdominal pain that generalized this morning. Patient states the pain is similar to previous visists. She is currently following up with a GI doctor. Patient is also following up with he neighborhood coordinator in [place]. Patient is currently on the transplant list. Patient denies any fever, chills, chest pain, SOB, nausea, vomiting, diarrhea, urinary symptoms, or any other complaints. PMD was Peeryakelin Turner Liver specialist Dr. Michelle ([facility]) Time/Duration: Other (today) Symptom Onset: Gradual Symptom Course: Unchanged Activities at Onset: Light Context: Home Past Medical History - Provider Review Nursing Documentation Reviewed: Yes - Infectious Disease Hx of Infectious Diseases: None - Reproductive Menopause: Yes - Cardiac Hx Cardiac Disorders: Yes - Pulmonary Hx Respiratory Disorders: No - Neurological Hx Neurological Disorder: No - HEENT Hx HEENT Disorder: No - Renal Hx Renal Disorder: No - Endocrine/Metabolic Hx Endocrine Disorders: No - Hematological/Oncological Hx Blood Disorders: Yes - Integumentary Hx Dermatological Disorder: Yes (GENERALIZED JAUNDICED) - Musculoskeletal/Rheumatological Hx Musculoskeletal Disorders: Yes (pt denies r knee/back pain) Hx Falls: Yes (not recent) - Gastrointestinal Hx Gastrointestinal Disorders: Yes (GASTRITIS,ASCITES-H/O OF TAPPING,BOWEL OBSTRUCTION) Hx Liver Failure: Yes (ALCOHOLIC LIVER CIRRHOSIS) - Genitourinary/Gynecological Hx Genitourinary Disorders: Yes (MYOMECTOMY-FIBROID) - Psychiatric Hx Psychophysiologic Disorder: Yes (H/O ETOH ABUSE. DRANK HALF A LITER OF VODKA FOR 6-7 YRS. QUIT 15 JANUARY 2018) Hx Substance Use: No - Surgical History Other/Comment: Fibroids-MYOMECTOMY - Anesthesia Hx Anesthesia: Yes Hx Anesthesia Reactions: No Hx Malignant Hyperthermia: No - Suicidal Assessment Feels Threatened In Home Enviroment: No Family/Social History - Physician Review Nursing Documentation Reviewed: Yes Family/Social History: Unknown Family HX Smoking Status: Never Smoked Hx Alcohol Use: Yes (quit 01/15/2018) Hx Substance Use: No Allergies/Home Meds Allergies/Adverse Reactions: Allergies No Known Allergies Allergy (Verified 06/09/18 17:45) Home Medications: Home Meds Medication Instructions Recorded Confirmed Dicyclomine [Bentyl] 1 cap PO Q8H PRN 06/06/18 06/17/18 Magnesium Oxide [Mag-Ox] 1 tab PO DAILY 06/06/18 06/17/18 rifAXIMin [Xifaxan] 1 tab PO BID 06/06/18 06/17/18 Review of Systems - Physician Review All systems were reviewed & negative as marked: Yes - Review of Systems Constitutional: Normal Eyes: Normal ENT: Normal Respiratory: Normal. absent: SOB, Cough Cardiovascular: Normal. absent: Chest Pain Gastrointestinal: Abdominal Pain (upper abdominal pain). absent: Diarrhea, Nausea, Vomiting Genitourinary Female: Normal. absent: Dysuria, Frequency Musculoskeletal: Normal. absent: Back Pain, Neck Pain Skin: Normal. absent: Rash Neurological: Normal. absent: Headache, Dizziness Endocrine: Normal Hemo/Lymphatic: Normal Psychiatric: Normal Physical Exam Vital Signs Reviewed: Yes Vital Signs Temp Pulse Resp BP Pulse Ox 06/17/18 21:30 97.8 F 75 18 106/67 100 06/17/18 19:03 75 18 111/64 100 06/17/18 16:22 98.2 F 82 18 109/67 100 Temperature: Afebrile Blood Pressure: Normal Pulse: Regular Respiratory Rate: Normal Appearance: Positive for: Well-Appearing, Non-Toxic, Comfortable Pain Distress: Moderate Mental Status: Positive for: Alert and Oriented X 3 - Systems Exam Head: Present: Atraumatic, Normocephalic Pupils: Present: PERRL Extroacular Muscles: Present: EOMI Conjunctiva: Present: Normal. No: Icteric Mouth: Present: Dry Neck: Present: Normal Range of Motion Respiratory/Chest: Present: Clear to Auscultation, Good Air Exchange. No: Respiratory Distress, Accessory Muscle Use Cardiovascular: Present: Regular Rate and Rhythm, Normal S1, S2. No: Murmurs Abdomen: Present: Tenderness (+mild to moderate upper abdominal tenderness). No : Distention, Peritoneal Signs, Rebound, Guarding, Mass/Organomegaly Back: Present: Normal Inspection. No: CVA Tenderness Upper Extremity: Present: Normal Inspection. No: Cyanosis, Edema Lower Extremity: Present: Normal Inspection. No: Edema Neurological: Present: GCS=15, CN II-XII Intact, Speech Normal Skin: Present: Warm, Dry, Normal Color, Other (no jaundice). No: Rashes Psychiatric: Present: Alert, Oriented x 3, Normal Insight, Normal Concentration Medical Decision Making ED Course and Treatment: 06/17/18 17:05 Previous medical records reviewed, patient was seen in this emergency room on for similar abdominal pain, it was suspected that she had spontaneous bacterial peritonitis, at that time she was admitted. During that admission she had a elevated white count of 12.3, her ammonia level was 30, and she was subsequently discharged with a prescription for Vantin to take for 14 days. Patient then returned to this emergency room on 06/09/2018, after being discharged from her last hospitalization. She was then readmitted for similar abdominal pain, during that admission she had a normal white count, her lipase was 982, and her total bilirubin was 4.5. She then had a CAT scan of her abdomen and pelvis with contrast which showed gallstones, mild gallbladder wall thickening with pericholecystic fluid and nonspecific mural thickening in the colon which may represent nonspecific acute infectious or inflammatory colitis, hepatic cirrhosis, mild splenomegaly, moderate abdominal and pelvic ascites. During her admission an MRCP was done which showed no evidence of choledocholithiasis, +diffuse gallbladder wall thickening which could be due to soft tissue edema in presence of ascites. Surgery was in consult that who recommended no surgery, and patient was then discharged. Impression: 57 year old female presents to the ED c/o upper abdominal pain that generalized this morning. Plan: -- Labs -- CXR -- Pepcid -- Morphine -- Zofran -- Sodium Chloride -- Urine Culture -- UA Progress Notes: CXR : NAD, as read by PA On re-evaluation, patient still c/o pain to the upper abdomen, she is in mild painful distress. Abdomen still soft, not distended, with mild upper abdominal tenderness, no rebound, no guarding. Patient medicated with toradol 30 mg IV. Labs reviewed : Wbc wnl, Hgb is stable, T bili 3.8, AST 53 / ALT 18, Ammonia 30 , Lipase 648, UA (-). Case discussed with Dr. Hodges, she recommends consult to medical service, as she is no longer the patient's pmd. Case d/w Dr. Downs, recommends outpatient f/u as the patient had a full GI workup done already, she can f/u in her office in 2 days. Case d/w Dr. Rhodes (who was involved in the patient's care during her last admission), he states that the patient ultimately had gallstone pancreatitis during her last admission and that surgery was consulted. He had a full discussion with the surgeon who felt that the patient will not do well if she had a cholecystectomy due to her history of cirrhosis with ascities. He states that the patient was made esquivel of all of this. As a GI doctor, he recommends that the patient seek consultation at [facility] and see a neighborhood coordinator. On second re-evaluation, the patient is pain free. She feels much improved and has no abdominal pain, CP, SOB or nausea at this time. She is smiling and in good spirits. On further questioning, the patient admits that she admits seeing the GI doctor and the surgeon who advised her that she is not a good candidate for surgery and to f/u with a specialist in [place] in [place], however she has been trying to call the office to set up an appointment. Patient verbalize understanding of her diagnosis and that she was advised to f/u with Dr. Downs and liver specialist at [place]. She feels comfortable with with plan and is in agreement. - Lab Interpretations Lab Results: 06/17/18 17:28 06/17/18 17:28 Lab Results 06/17/18 18:52: Ammonia 30 06/17/18 18:00: Urine Color Yellow, Urine Appearance Clear, Urine pH 7.0, Ur Specific [place] <= 1.005, Urine Protein Negative, Urine Glucose (UA) Negative, Urine Ketones Negative, Urine Blood Negative, Urine Nitrate Negative, Urine Bilirubin Negative, Urine Urobilinogen 0.2, Ur Leukocyte Esterase Negative 06/17/18 17:28: Sodium 137, Potassium 4.2, Chloride 99, Carbon Dioxide 27, Anion Gap 15, BUN 6 L, Creatinine 0.9, Est GFR ( Amer) > 60, Est GFR (Non -Af Amer) > 60, Random Glucose 132 H, Calcium 9.6, Magnesium 1.7, Total Bilirubin 3.8 H, AST 53 H D, ALT 18, Alkaline Phosphatase 137 H D, Total Protein 8.0, Albumin 3.0, Globulin 5.0, Albumin/Globulin Ratio 0.6 L, Lipase 648 H 06/17/18 17:28: PT 16.7 H, INR 1.45, APTT 37.8 H 06/17/18 17:28: WBC 8.4 D, RBC 3.32 L, Hgb 9.8 L, Hct 28.4 L, MCV 85.5, MCH 29.5, MCHC 34.5, RDW 18.3 H, Plt Count 86 L, MPV 11.5 H, Gran % 71.5 H, Lymph % (Auto) 17.6 L, [place] % (Auto) 6.9 H, Eos % (Auto) 3.4, Baso % (Auto) 0.6, Gran # 6.01, Lymph # (Auto) 1.5, [place] # (Auto) 0.6, Eos # (Auto) 0.3, Baso # (Auto) 0.05 - RAD Interpretation Radiology Orders: 06/17/18 16:45 CHEST PORTABLE [RAD] Stat - Medication Orders Current Medication Orders: Discontinued Medications Famotidine (Pepcid) 20 mg IVP STAT STA Stop: 06/17/18 16:46 Last Admin: 06/17/18 17:31 Dose: 20 mg IVP Administration Document 06/17/18 17:31 [email or web address] (Rec: 06/17/18 17:31 [email or web address] [id number]) Charges for Administration # of IVP Administrations 1 Sodium Chloride (Sodium Chloride 0.9%) 500 mls @ 1,000 mls/hr IV .Q30M STA Stop: 06/17/18 17:14 Last Admin: 06/17/18 17:30 Dose: 1,000 mls/hr eMAR Start Stop Document 06/17/18 17:30 [email or web address] (Rec: 06/17/18 17:31 [email or web address] [id number]) Intravenous Solution Start Date 06/17/18 Start Time 17:31 End Date 06/17/18 Ketorolac Tromethamine (Toradol) 30 mg IVP STAT STA Stop: 06/17/18 19:13 Last Admin: 06/17/18 19:39 Dose: 30 mg MAR Pain Assessment Document 06/17/18 19:39 RG (Rec: 06/17/18 19:39 RG [id number]) Pain Reassessment Is this a pain reassessment? Yes Presence of Pain Presence of Pain Yes Pain Scale Used Pain Scale Used Numeric Location Pain Location Body Site Abdomen Description Description Intermittent IVP Administration Document 06/17/18 19:39 RG (Rec: 06/17/18 19:39 RG [id number]) Charges for Administration # of IVP Administrations 1 Morphine Sulfate (Morphine) 4 mg IVP STAT STA Stop: 06/17/18 16:46 Last Admin: 06/17/18 17:31 Dose: 4 mg MAR Pain Assessment Document 06/17/18 17:31 [email or web address] (Rec: 06/17/18 17:32 [email or web address] [id number]) Pain Reassessment Is this a pain reassessment? No Sleep Is patient sleeping during reassessment? No Presence of Pain Presence of Pain Yes Pain Scale Used Pain Scale Used Numeric Location Pain Location Body Site Abdomen Description Description Constant Intensity of Pain at present 7 Pain Behavior Facial Grimacing Aggravating Factors Changing Position Alleviating Factors/Management Medication Techniques Alleviating Factors Medication IVP Administration Document 06/17/18 17:31 [email or web address] (Rec: 06/17/18 17:32 [email or web address] [id number]) Charges for Administration # of IVP Administrations 1 Ondansetron HCl (Zofran Inj) 4 mg IVP STAT STA Stop: 06/17/18 16:46 Last Admin: 06/17/18 17:31 Dose: 4 mg IVP Administration Document 06/17/18 17:31 [email or web address] (Rec: 06/17/18 17:31 [email or web address] [id number]) Charges for Administration # of IVP Administrations 1 - PA / HORTICULTURAL WORKER / Resident Statement MD/DO has reviewed & agrees with the documentation as recorded. - Scribe Statement The provider has reviewed the documentation as recorded by the Scribe Delfina Comer All medical record entries made by the Scribe were at my direction and personally dictated by me. I have reviewed the chart and agree that the record accurately reflects my personal performance of the history, physical exam, medical decision making, and the department course for this patient. I have also personally directed, reviewed, and agree with the discharge instructions and disposition. Disposition/Present on Arrival - Present on Arrival Any Indicators Present on Arrival: No History of DVT/PE: No History of Uncontrolled Diabetes: No Urinary Catheter: No History of Decub. Ulcer: No History Surgical Site Infection Following: None - Disposition Have Diagnosis and Disposition been Completed?: Yes Diagnosis: Abdominal pain, Cirrhosis of liver with ascites, Biliary colic, Chronic pancreatitis Disposition: HOME/ ROUTINE Disposition Time: 22:30 Patient Plan: Discharge Patient Problems: Current Active Problems Problem Status Onset Abdominal pain Acute Cirrhosis of liver with ascites Acute Biliary colic Acute Chronic pancreatitis Acute Condition: STABLE Discharge Instructions (ExitCare): Gallstones, Cirrhosis, Chronic Pancreatitis , Acute Abdomen (Belly Pain) Additional Instructions: Thank you for letting us take care of you today. You were treated for abdominal pain, biliary colic, chronic pancreatitis. The emergency medical care you received today was directed at your acute symptoms. If you were prescribed any medication, please fill it and take as directed. It may take several days for your symptoms to resolve. Return to the Emergency Department if your symptoms worsen, do not improve, or if you have any other problems. Please contact your GI doctor at [facility] in [place] in 2 days for re- evaluation and follow up. Bring any paperwork you were given at discharge with you along with any medications you are taking to your follow up visit. Our treatment cannot replace ongoing medical care by a primary care provider (PCP) outside of the emergency department. Thank you for allowing the [facility] team to be part of your care today. Prescriptions: Meloxicam [Mobic] 15 mg PO DAILY #20 tab Forms: [employer] (Thai)
[2018-06-17 18:00] LABS: BASO # 0.05 K/mm3 (0.0-2.0); BASO % 0.6 % (0.0-3.0); EOS # 0.3 (0.0-0.7); EOS % 3.4 % (1.5-5.0); GRAN # 6.01 (1.4-6.5); GRAN % 71.5 % (50.0-68.0); HEMOGLOBIN 9.8 g/dL (12.0-16.0); LYMPH # 1.5 (1.2-3.4); LYMPH % 17.6 % (22.0-35.0); MEAN CELL VOLUME 85.5 fl (80.0-105.0); MEAN CORPUSCULAR HEMOGLOBIN 29.5 pg (25.0-35.0); MEAN CORPUSCULAR HGB CONC 34.5 g/dl (31.0-37.0); MEAN PLATELET VOLUME 11.5 fl (7.0-11.0); MONO # 0.6 (0.1-0.6); MONO % 6.9 % (1.0-6.0); RBC 3.32 10^6/uL (3.5-6.1); RED CELL DISTRIBUTION WIDTH 18.3 % (11.5-14.5); WHITE BLOOD COUNT 8.4 10^3/ul (4.5-11.0)
[2018-06-17 18:07] LABS: INR 1.45; PARTIAL THROMBOPLASTIN TIME 37.8 Seconds (25.1-36.5); PROTHROMBIN TIME 16.7 SECONDS (9.4-12.5)
[2018-06-17 18:14] LABS: ALB/GLOB RATIO 0.6 (1.1-1.8); ALT/SGPT 18 U/L (7-56); AST/SGOT 53 U/L (14-36); BLOOD UREA NITROGEN 6 mg/dL (7-21); CALCIUM 9.6 mg/dL (8.4-10.5); GFR NON-AFRICAN AMERICAN > 60; LIPASE 648 U/L (23-300)
[2018-06-17 18:40] LABS: URINE APPEARANCE CLEAR (CLEAR); URINE BILIRUBIN NEGATIVE (NEGATIVE); URINE BLOOD NEGATIVE (NEGATIVE); URINE COLOR YELLOW (YELLOW); URINE GLUCOSE (UA) NEGATIVE (NEGATIVE); URINE LEUKOCYTE ESTERASE NEGATIVE Leu/uL (NEGATIVE); URINE PROTEIN NEGATIVE mg/dL (<30 mg/dL); URINE UROBILINOGEN 0.2 E.U./dL (<1 E.U./dL)
[2018-06-17 21:44] VITALS: TEMP 97.8
[2018-06-18 00:42] VITALS: BP 102/66; PULSE 71; O2SAT 98
--- NOTE | 2018-06-18 12:10 | RAD ---
Date of service: 06/17/2018 HISTORY: upper abd pain COMPARISON: Comparison is made with 06/06/2018 FINDINGS: LUNGS: No active pulmonary disease. PLEURA: No significant pleural effusion identified, no pneumothorax apparent. CARDIOVASCULAR: Normal. OSSEOUS STRUCTURES: No significant abnormalities. VISUALIZED UPPER ABDOMEN: Normal. OTHER FINDINGS: There is round rim calcification in noted at the left upper abdomen likely represent a calcified lesions seen in the spleen in the previous exam. IMPRESSION: No evidence of acute pulmonary disease.
== END 2018-06-17 23:07 | disposition home or self-care (01) ==
LOC: ED 16:16
DX: K74.60 Unspecified cirrhosis of liver (principal); K86.1 Other chronic pancreatitis; K80.50 Calculus of bile duct without cholangitis or cholecystitis without obstruction; R18.8 Other ascites; R10.10 Upper abdominal pain, unspecified; I10 Essential (primary) hypertension
CPT/HCPCS: 71045; 80053; 81003; 82140; 83690; 83735; 85025; 85610; 85730; 87086; 96374; 96375; 99284; J1885; J2270; J2405; J7040

== ENCOUNTER 2018-06-29 14:29 | Observation (INO) | payer BC ==
[2018-06-29 14:41] VITALS: BMI 18.8
--- NOTE | 2018-06-29 15:17 | ED PDOC ---
Arrival/HPI - General Chief Complaint: High Blood Pressure Time Seen by Provider: 06/29/18 15:01 Historian: Patient, Family - History of Present Illness Narrative History of Present Illness (Text): 06/29/18 57 yo female PMHx: cirrhosis with ascites that has thoracentesis in past, biliary colic, chronic pancreatitis, hypertension PSHx: myomectomy, recent EGD All: NKDA come in accompanied by family member for evaluation of " shaky, my feet and stomach burning, feeling dizzy" gradually developed since last night. As per family, BP was checked this AM at home and it was high. Pt admits, took all her medication this AM. Pt sts, " since this Am was drinking a lot of water and my stomach feels little better". At present time, pt appears tremolos, AOO#3, slightly anxious. Pt is awaiting for liver transplant, under spec evaluation at [facility]. Otherwise, pt denies fever, chills, headache, visual changes, focal deficits, neck pain, CP, SOB, dyspnea, palpitation, diaphoreis, vomiting, diarrhea, back pain, UTI sx. Past Medical History - Provider Review Nursing Documentation Reviewed: Yes - Travel History Have you recently traveled outside [place] w/in the past 3 mons?: No - Infectious Disease Hx of Infectious Diseases: None - Tetanus Immunization Tetanus Immunization: Unknown - Cardiac Hx Cardiac Disorders: Yes - Pulmonary Hx Respiratory Disorders: No - Neurological Hx Neurological Disorder: No - HEENT Hx HEENT Disorder: No - Renal Hx Renal Disorder: No - Endocrine/Metabolic Hx Endocrine Disorders: No - Hematological/Oncological Hx Blood Disorders: Yes - Integumentary Hx Dermatological Disorder: Yes (GENERALIZED JAUNDICED) - Musculoskeletal/Rheumatological Hx Musculoskeletal Disorders: Yes (pt denies r knee/back pain) Hx Falls: Yes (not recent) - Gastrointestinal Hx Gastrointestinal Disorders: Yes (GASTRITIS,ASCITES-H/O OF TAPPING,BOWEL OBSTRUCTION) Hx Liver Failure: Yes (ALCOHOLIC LIVER CIRRHOSIS) - Genitourinary/Gynecological Hx Genitourinary Disorders: Yes (MYOMECTOMY-FIBROID) - Psychiatric Hx Psychophysiologic Disorder: Yes (H/O ETOH ABUSE. DRANK HALF A LITER OF VODKA FOR 6-7 YRS. QUIT 15 JANUARY 2018) Hx Substance Use: No - Surgical History Other/Comment: Fibroids-MYOMECTOMY - Anesthesia Hx Anesthesia: Yes Hx Anesthesia Reactions: No Hx Malignant Hyperthermia: No - Suicidal Assessment Feels Threatened In Home Enviroment: No Family/Social History - Physician Review Nursing Documentation Reviewed: Yes Family/Social History: No Known Family HX Smoking Status: Never Smoked Hx Alcohol Use: Yes (daily ETOH Quit January 2018) Hx Substance Use: No Allergies/Home Meds Allergies/Adverse Reactions: Allergies No Known Allergies Allergy (Verified 06/21/18 20:21) Home Medications: Home Meds Medication Instructions Recorded Confirmed Dicyclomine [Bentyl] 1 cap PO Q8H PRN 06/06/18 06/29/18 Magnesium Oxide [Mag-Ox] 1 tab PO DAILY 06/06/18 06/29/18 rifAXIMin [Xifaxan] 1 tab PO BID 06/06/18 06/29/18 Review of Systems - Review of Systems Constitutional: Normal Eyes: Normal ENT: Normal Respiratory: Normal Cardiovascular: Normal Gastrointestinal: Abdominal Pain. absent: Diarrhea, Nausea, Vomiting, Hematemesis Genitourinary Female: Normal Musculoskeletal: Normal Skin: Normal Neurological: Dizziness Endocrine: Normal Hemo/Lymphatic: Normal Psychiatric: Normal Physical Exam Vital Signs Reviewed: Yes Vital Signs Temp Pulse Resp BP Pulse Ox 06/29/18 18:00 98.3 F 101 H 19 97 06/29/18 16:00 98.2 F 99 H 19 129/80 99 06/29/18 14:45 97.9 F 107 H 18 123/81 100 Temperature: Afebrile Blood Pressure: Normal Pulse: Tachycardic Respiratory Rate: Normal Appearance: Positive for: Non-Toxic, Ill-Appearing Mental Status: Positive for: Alert and Oriented X 3, Agitated (slight anxious) - Systems Exam Pupils: Present: PERRL Extroacular Muscles: Present: EOMI Conjunctiva: Present: Injected Ears: Present: NORMAL TM Mouth: Present: Moist Mucous Membranes, Normal Lips. No: Drooling Neck: Present: Trachea Midline. No: JVD, Bruit Respiratory/Chest: Present: Clear to Auscultation, Good Air Exchange. No: Respiratory Distress, Accessory Muscle Use Cardiovascular: Present: Regular Rate and Rhythm, Normal S1, S2. No: Murmurs Abdomen: No: Tenderness, Distention, Peritoneal Signs, Rebound, Guarding Back: No: CVA Tenderness Upper Extremity: Present: Normal Inspection, Normal ROM, NORMAL PULSES, Neurovascularly Intact. No: Deformity Lower Extremity: Present: Normal Inspection, NORMAL PULSES, Normal ROM, Neurovascularly Intact. No: Edema, CALF TENDERNESS, Tenderness, Swelling, Deformity Neurological: Present: GCS=15, Speech Normal, Motor Func Grossly Intact, Normal Sensory Function, Norm Deep Tendon Reflexes Skin: Present: Warm, Dry, Normal Color. No: Rashes Psychiatric: Present: Alert, Oriented x 3, Normal Insight, Normal Concentration Medical Decision Making ED Course and Treatment: 06/29/18 Pt remained significantly unchanged while in ED. Still c/o mild epigastric pain. case discussed with ED attending , blood work review and admission recommend. case discussed with Hospitalist and admission arranged to med/surg with Dx: Hyponatremia, hypomagnesimia, hx of cirrhosis, pancreatitis - Lab Interpretations Lab Results: 06/29/18 16:20 06/29/18 16:20 Lab Results 06/29/18 16:20: Ammonia 23 06/29/18 16:20: Urine Color Light yellow, Urine Appearance Clear, Urine pH 7.0, Ur Specific [place] <= 1.005, Urine Protein Negative, Urine Glucose (UA) Negative, Urine Ketones Negative, Urine Blood Negative, Urine Nitrate Negative, Urine Bilirubin Negative, Urine Urobilinogen 0.2, Ur Leukocyte Esterase Negative 06/29/18 16:20: Sodium 129 L, Potassium 4.2, Chloride 92 L, Carbon Dioxide 25, Anion Gap 17, BUN 8, Creatinine 1.0, Est GFR ( Amer) > 60, Est GFR (Non- Af Amer) 57, Random Glucose 112 H, Calcium 9.9, Magnesium 1.5 L, Total Bilirubin 4.2 H, AST 57 H D, ALT 10, Alkaline Phosphatase 116, Lactate Dehydrogenase 457, Total Creatine Kinase 59, Troponin I 0.01, Total Protein 9.3 H, Albumin 3.7, Globulin 5.6, Albumin/Globulin Ratio 0.7 L, Amylase 106 06/29/18 16:20: PT 15.7 H, INR 1.37, APTT 36.5 06/29/18 16:20: WBC 6.1 D, RBC 3.36 L, Hgb 10.0 L, Hct 28.5 L, MCV 84.8, MCH 29.8, MCHC 35.1, RDW 18.5 H, Plt Count 121, MPV 10.7, Gran % 58.9, Lymph % (Auto ) 29.9, Edwards % (Auto) 7.3 H, Eos % (Auto) 3.1, Baso % (Auto) 0.8, Gran # 3.61, Lymph # (Auto) 1.8, Edwards # (Auto) 0.5, Eos # (Auto) 0.2, Baso # (Auto) 0.05 - RAD Interpretation Radiology Orders: 06/29/18 15:18 CHEST PORTABLE [RAD] Stat (-) acute findings Forepart Rounder: Radiologist - EKG Interpretation EKG Interpretation (Text): 06/29/18 17:06 SR@92/min, NAD, single PAC, no acute ST-T changes. Interpreted by ED Physician: Yes - Medication Orders Current Medication Orders: Discontinued Medications Famotidine (Pepcid) 20 mg IVP STAT STA Stop: 06/29/18 15:21 Last Admin: 06/29/18 16:40 Dose: 20 mg IVP Administration Document 06/29/18 16:40 [email or web address] (Rec: 06/29/18 17:58 [email or web address] [id number]) Charges for Administration # of IVP Administrations 1 Sodium Chloride (Sodium Chloride 0.9%) 1,000 mls @ 999 mls/hr IV .Q1H1M STA Stop: 06/29/18 16:19 Last Admin: 06/29/18 16:40 Dose: 999 mls/hr eMAR Start Stop Document 06/29/18 16:40 [email or web address] (Rec: 06/29/18 17:58 [email or web address] [id number]) Intravenous Solution Start Date 06/29/18 Start Time 17:58 Lorazepam (Ativan) 0.5 mg IVP ONCE ONE PRN Reason: Protocol Stop: 06/29/18 18:16 Last Admin: 06/29/18 18:52 Dose: 0.5 mg IVP Administration Document 06/29/18 18:52 [email or web address] (Rec: 06/29/18 18:52 [email or web address] [id number]) Charges for Administration # of IVP Administrations 1 Ondansetron HCl (Zofran Inj) 4 mg IVP ONCE ONE Stop: 06/29/18 15:21 Last Admin: 06/29/18 16:40 Dose: 4 mg IVP Administration Document 06/29/18 16:40 [email or web address] (Rec: 06/29/18 17:58 [email or web address] [id number]) Charges for Administration # of IVP Administrations 1 Disposition/Present on Arrival - Present on Arrival Any Indicators Present on Arrival: No History of DVT/PE: No History of Uncontrolled Diabetes: No Urinary Catheter: No History of Decub. Ulcer: No History Surgical Site Infection Following: None - Disposition Have Diagnosis and Disposition been Completed?: Yes Diagnosis: Abdominal pain, Hyponatremia, Hypomagnesemia, Cirrhosis Disposition: HOSPITALIZED Disposition Time: 17:17 Patient Plan: Admission Condition: STABLE Forms: Kinetic ([place])
[2018-06-29] MEDS ORDERED: Sodium Chloride 0.9% 1,000 ML IV STA (15:19)
--- NOTE | 2018-06-29 15:40 | RAD ---
Date of service: 06/29/2018 HISTORY: dizziness COMPARISON: Comparison is made with 06/22/2018 FINDINGS: LUNGS: No evidence of new infiltrate or consolidation in the lungs. PLEURA: No significant pleural effusion identified, no pneumothorax apparent. CARDIOVASCULAR: Normal. OSSEOUS STRUCTURES: No significant abnormalities. VISUALIZED UPPER ABDOMEN: Normal. OTHER FINDINGS: Round calcified structure noted at the left upper abdomen of unclear etiology. IMPRESSION: No significant interval change.
[2018-06-29 16:45] LABS: BASO # 0.05 K/mm3 (0.0-2.0); BASO % 0.8 % (0.0-3.0); EOS # 0.2 (0.0-0.7); EOS % 3.1 % (1.5-5.0); GRAN # 3.61 (1.4-6.5); GRAN % 58.9 % (50.0-68.0); LYMPH # 1.8 (1.2-3.4); LYMPH % 29.9 % (22.0-35.0); MEAN CELL VOLUME 84.8 fl (80.0-105.0); MEAN CORPUSCULAR HEMOGLOBIN 29.8 pg (25.0-35.0); MEAN CORPUSCULAR HGB CONC 35.1 g/dl (31.0-37.0); MEAN PLATELET VOLUME 10.7 fl (7.0-11.0); MONO # 0.5 (0.1-0.6); MONO % 7.3 % (1.0-6.0); RBC 3.36 10^6/uL (3.5-6.1); RED CELL DISTRIBUTION WIDTH 18.5 % (11.5-14.5); WHITE BLOOD COUNT 6.1 10^3/ul (4.5-11.0)
[2018-06-29 16:47] LABS: URINE APPEARANCE CLEAR (CLEAR); URINE BILIRUBIN NEGATIVE (NEGATIVE); URINE BLOOD NEGATIVE (NEGATIVE); URINE COLOR LIGHT YELLOW (YELLOW); URINE GLUCOSE (UA) NEGATIVE (NEGATIVE); URINE LEUKOCYTE ESTERASE NEGATIVE Leu/uL (NEGATIVE); URINE PROTEIN NEGATIVE mg/dL (<30 mg/dL); URINE UROBILINOGEN 0.2 E.U./dL (<1 E.U./dL)
[2018-06-29 16:54] LABS: INR 1.37; PARTIAL THROMBOPLASTIN TIME 36.5 Seconds (25.1-36.5); PROTHROMBIN TIME 15.7 SECONDS (9.4-12.5)
[2018-06-29 17:04] LABS: ALB/GLOB RATIO 0.7 (1.1-1.8); ALBUMIN 3.7 g/dL (3.0-4.8); ALT/SGPT 10 U/L (7-56); AMYLASE 106 U/L (35-125); AST/SGOT 57 U/L (14-36); BLOOD UREA NITROGEN 8 mg/dL (7-21); CALCIUM 9.9 mg/dL (8.4-10.5); GFR NON-AFRICAN AMERICAN 57
[2018-06-29 17:08] LABS: TROPONIN I 0.01 ng/mL
--- NOTE | 2018-06-29 20:44 | CP.PCM.HP ---
History of Present Illness - History of Present Illness History of Present Illness: Julianna Bradford, PGY-1 H&P for Hospitalist Service This is a 57 year old female with PMH of HTN, liver cirrhosis 2/2 alcohol abuse and history of SBP presenting to the ED tonight for leg cramping and burning as well as epigastric burning that began two days ago. Patient states that she has had these symptoms for some time but have become more frequent. Patient admits to drinking several glasses of water per day for epigastric burning. Patient was recently discharged on 06/22/18 for similar symptoms. Patient states she is compliant with her medications and her last drink was 3 months ago. She was recently seen at [facility] for liver transplant workup and is awaiting further recommendations. She currently denies CP, SOB, fevers, chills, nausea, vomiting, hematemesis, hematochezia, back pain, urinary complaints, diarrhea, constipation, numbness, tingling, swelling, recent travel, recent sickness and recent lifestyle change. 12 point ROS noted here, otherwise unremarkable. In ED, patient given 1L NS, zofran, ativan and pepcid. Patient noted to have hyponatremia and hypomagnesia. Ammonia, lipase and Troponin WNL. CXR showed no significant interval change. Patient will be admitted to [facility]. PMD: denies PMH: as above SH: denies tobacco and drugs. admits to approx 10 year heavy drinking history, quit 3 months ago Sx: fibroid removal FH: mom and dad had heart disease Allergies: NKDA Present on Admission - Present on Admission Any Indicators Present on Admission: No Past Patient History - Infectious Disease Hx of Infectious Diseases: None - Tetanus Immunizations Tetanus Immunization: Unknown - Past Social History Smoking Status: Never Smoked - CARDIAC Hx Cardiac Disorders: Yes - PULMONARY Hx Respiratory Disorders: No - NEUROLOGICAL Hx Neurological Disorder: No - HEENT Hx HEENT Problems: No - RENAL Hx Chronic Kidney Disease: No - ENDOCRINE/METABOLIC Hx Endocrine Disorders: No - HEMATOLOGICAL/ONCOLOGICAL Hx Blood Disorders: Yes - INTEGUMENTARY Hx Dermatological Problems: Yes (GENERALIZED JAUNDICED) - MUSCULOSKELETAL/RHEUMATOLOGICAL Hx Musculoskeletal Disorders: Yes (pt denies r knee/back pain) Hx Falls: Yes (not recent) - GASTROINTESTINAL Hx Gastrointestinal Disorders: Yes (GASTRITIS,ASCITES-H/O OF TAPPING,BOWEL OBSTRUCTION) Hx Liver Failure: Yes (ALCOHOLIC LIVER CIRRHOSIS) - GENITOURINARY/GYNECOLOGICAL Hx Genitourinary Disorders: Yes (MYOMECTOMY-FIBROID) - PSYCHIATRIC Hx Psychophysiologic Disorder: Yes (H/O ETOH ABUSE. DRANK HALF A LITER OF VODKA FOR 6-7 YRS. QUIT 15 JANUARY 2018) Hx Substance Use: No - SURGICAL HISTORY Other/Comment: Fibroids-MYOMECTOMY - ANESTHESIA Hx Anesthesia: Yes Hx Anesthesia Reactions: No Hx Malignant Hyperthermia: No Meds Allergies/Adverse Reactions: Allergies Allergy/AdvReac Type Severity Reaction Status Date / Time No Known Allergies Allergy Verified 06/21/18 20:21 Physical Exam - Constitutional Appears: No Acute Distress - Head Exam Head Exam: ATRAUMATIC, NORMAL INSPECTION - Eye Exam Eye Exam: EOMI, Scleral icterus Pupil Exam: PERRL - ENT Exam ENT Exam: Mucous Membranes Moist - Respiratory Exam Respiratory Exam: Clear to Auscultation Bilateral. absent: Respiratory Distress - Cardiovascular Exam Cardiovascular Exam: REGULAR RHYTHM, +S1, +S2 - GI/Abdominal Exam GI & Abdominal Exam: Distended, Normal Bowel Sounds. absent: Firm, Guarding Additional comments: RUQ and LUQ tenderness appreciated - Extremities Exam Extremities exam: Positive for: normal inspection. Negative for: calf tenderness, joint swelling - Back Exam Back exam: NORMAL INSPECTION - Neurological Exam Neurological exam: Alert, Oriented x3 - Skin Skin Exam: Pallor, Warm Additional comments: jaundice Results - Vital Signs Recent Vital Signs: Last Vital Signs Temp 98.3 F 06/29/18 18:00 Pulse 92 H 06/29/18 20:14 Resp 17 06/29/18 20:14 BP 125/73 06/29/18 20:14 Pulse Ox 96 06/29/18 20:14 - Labs Result Diagrams: 06/29/18 16:20 06/29/18 16:20 Assessment & Plan - Assessment and Plan (Free Text) Assessment: This is a 57 year old female with PMH of HTN, liver cirrhosis 2/2 alcohol abuse and history of SBP presenting to the hospital for management of leg cramping/ burning and epigastric burning likely 2/2 electrolyte abnormalities and liver cirrhosis. Patient will be treated for electrolyte abnormalities and recommend follow up with [facility] for treatment of cirrhosis. Will be monitored on medsurg. Plan: Liver Cirrhosis 2/2 alcohol abuse -per patient, diagnosed 3 months ago -currrently awaiting liver transplant from [facility] -elevated LFT's, at baseline from previous admission -NH4 WNL -given thiamine, folic acid -continue home lisinopril, rifaximin, nadolol, sprinolactone -Abd US 06/22 showed cholelithiasis, no evidence of acute cholecystitis -MRCP 06/11 showed no evidence of choledocholithiasis, intra/extra hepatic biliary dilation. Diffuse gallbladder thickening could be due to ascites. Stable lesion in the upper pole of spleen. Diffuse small and larhe bowel thickening, possibility of enteritis and colitis not excluded. -Abd CT 06/09 showed distended gallbladder may represent acute calculus cholecystitis, hepatic cirrhosis, mild splenomegaly and moderate abdominal and pelvic ascites -paracentesis on 04/19 removed 1L of fluid, positive for mesothelial cells and lymphocytes, negative for malignant cells Hyponatremia -Sodium of 129 on admission -TSH/T4 pending -NS @ 60cc -will monitor Hypomagnesemia -MG 1.5 on admission -given MgOx 400mg -will monitor Normocytic Anemia -Hg 10 on admission, stable from baseline. MCV WNL -will monitor Hx HTN -BP normotensive -on home lisinopril and sprinolactone PPX with protonix and heparin Patient seen and case discussed with attending, Dr. Viridiana Bradford, PGY-1
[2018-06-29] MEDS ORDERED: Sodium Chloride 0.9% 1,000 ML IV SCH (20:45)
[2018-06-29] MEDS ORDERED: Magnesium Oxide 400 mg Tab UD PO STA (20:48)
[2018-06-29] MEDS ORDERED: DiphenhydrAMINE 50 mg/ml Inj IVP STA (22:12)
[2018-06-29 22:25] LABS: T4 16.4 ug/dL (5.5-11.0)
[2018-06-30] MEDS ORDERED: Pantoprazole 20 mg EC Tab PO SCH (06:00)
[2018-06-30 08:09] LABS: BASO # 0.05 K/mm3 (0.0-2.0); BASO % 1.1 % (0.0-3.0); EOS # 0.2 (0.0-0.7); EOS % 4.9 % (1.5-5.0); GRAN # 2.25 (1.4-6.5); GRAN % 48.4 % (50.0-68.0); HEMOGLOBIN 8.1 g/dL (12.0-16.0); LYMPH # 1.8 (1.2-3.4); LYMPH % 38.1 % (22.0-35.0); MEAN CELL VOLUME 85.8 fl (80.0-105.0); MEAN CORPUSCULAR HEMOGLOBIN 29.5 pg (25.0-35.0); MEAN CORPUSCULAR HGB CONC 34.3 g/dl (31.0-37.0); MEAN PLATELET VOLUME 10.5 fl (7.0-11.0); MONO # 0.4 (0.1-0.6); MONO % 7.5 % (1.0-6.0); RBC 2.75 10^6/uL (3.5-6.1); RED CELL DISTRIBUTION WIDTH 19.2 % (11.5-14.5); WHITE BLOOD COUNT 4.7 10^3/ul (4.5-11.0)
--- NOTE | 2018-06-30 08:16 | CP.PCM.PN ---
Objective - Vital Signs/Intake and Output Vital Signs (last 24 hours): Temp Pulse Resp BP Pulse Ox 98 F 66 18 122/76 100 06/29/18 22:28 06/29/18 22:28 06/29/18 22:28 06/29/18 22:28 06/29/18 20:21 - Medications Medications: Current Medications Dicyclomine HCl (Bentyl) 10 mg PO Q8H PRN PRN Reason: Pain, moderate (4-7) Last Admin: 06/29/18 22:54 Dose: 10 mg Folic Acid (Folic Acid) 1 mg PO DAILY [facility] Heparin Sodium (Porcine) (Heparin) 5,000 units SC Q12 ANETA PRN Reason: Protocol Sodium Chloride (Sodium Chloride 0.9%) 1,000 mls @ 60 mls/hr IV .[id number] [facility] Last Admin: 06/29/18 22:00 Dose: 60 mls/hr Lisinopril (Zestril) 20 mg PO DAILY [facility] Magnesium Oxide (Mag-Ox) 400 mg PO DAILY [facility] Meloxicam (Mobic) 15 mg PO DAILY ANETA Nadolol (Corgard) 20 mg PO DAILY [facility] Pantoprazole Sodium (Protonix Ec Tab) 40 mg PO DAILY ANETA Rifaximin (Xifaxan) 550 mg PO BID [facility] PRN Reason: Protocol Spironolactone (Aldactone) 25 mg PO BID ANETA Thiamine HCl (Vitamin B1 Tab) 100 mg PO DAILY ANETA Trazodone HCl (Desyrel) 50 mg PO HS [facility] Last Admin: 06/29/18 22:55 Dose: 50 mg - Labs Labs: PT 15.7 SECONDS (9.4-12.5) H 06/29/18 16:20 INR 1.37 06/29/18 16:20 APTT 36.5 Seconds (25.1-36.5) 06/29/18 16:20
[2018-06-30 08:28] LABS: ALB/GLOB RATIO 0.6 (1.1-1.8); ALBUMIN 2.7 g/dL (3.0-4.8); ALT/SGPT 17 U/L (7-56); AST/SGOT 45 U/L (14-36); BLOOD UREA NITROGEN 6 mg/dL (7-21); CALCIUM 8.9 mg/dL (8.4-10.5); GFR NON-AFRICAN AMERICAN 57
[2018-06-30 08:58] VITALS: BP 103/65; PULSE 83; RESP 19; TEMP 98; O2SAT 99
[2018-06-30 09:17] LABS: FREE T4 3.82 ng/dL (0.78-2.19)
--- NOTE | 2018-06-30 09:41 | CARD ---
APPROVED REPORT Date of service: 06/29/2018 EKG Measurement Heart [id number] <Conclusion> Sinus rhythm with premature atrial complexes Low voltage QRS Cannot rule out Anterior infarct, age undetermined Abnormal ECG
[2018-06-30] MEDS ORDERED: Magnesium Oxide 400 mg Tab UD PO SCH ×2 (10:00)
[2018-06-30] MEDS ORDERED: Pantoprazole 40 mg EC Tab PO SCH (10:00)
--- NOTE | 2018-06-30 15:13 | CP.PCM.DIS ---
<Eliud Blackwood - Last Filed: 06/30/18 20:58> Provider - Provider Date of Admission: 06/29/18 19:01 Attending physician: Gal Hollis MD Time Spent in preparation of Discharge (in minutes): 45 Hospital Course - Lab Results Lab Results: Most Recent Lab Values WBC 4.7 10^3/ul (4.5-11.0) D 06/30/18 07:00 RBC 2.75 10^6/uL (3.5-6.1) L 06/30/18 07:00 Hgb 8.1 g/dL (12.0-16.0) L 06/30/18 07:00 Hct 23.6 % (36.0-48.0) L 06/30/18 07:00 MCV 85.8 fl (80.0-105.0) 06/30/18 07:00 MCH 29.5 pg (25.0-35.0) 06/30/18 07:00 MCHC 34.3 g/dl (31.0-37.0) 06/30/18 07:00 RDW 19.2 % (11.5-14.5) H 06/30/18 07:00 Plt Count 82 10^3/uL (120.0-450.0) L 06/30/18 07:00 MPV 10.5 fl (7.0-11.0) 06/30/18 07:00 Gran % 48.4 % (50.0-68.0) L 06/30/18 07:00 Lymph % (Auto) 38.1 % (22.0-35.0) H 06/30/18 07:00 Braxton % (Auto) 7.5 % (1.0-6.0) H 06/30/18 07:00 Eos % (Auto) 4.9 % (1.5-5.0) 06/30/18 07:00 Baso % (Auto) 1.1 % (0.0-3.0) 06/30/18 07:00 Gran # 2.25 (1.4-6.5) 06/30/18 07:00 Lymph # (Auto) 1.8 (1.2-3.4) 06/30/18 07:00 Braxton # (Auto) 0.4 (0.1-0.6) 06/30/18 07:00 Eos # (Auto) 0.2 (0.0-0.7) 06/30/18 07:00 Baso # (Auto) 0.05 K/mm3 (0.0-2.0) 06/30/18 07:00 PT 15.7 SECONDS (9.4-12.5) H 06/29/18 16:20 INR 1.37 06/29/18 16:20 APTT 36.5 Seconds (25.1-36.5) 06/29/18 16:20 Sodium 133 mmol/L (132-148) 06/30/18 07:00 Potassium 3.6 mmol/L (3.6-5.0) 06/30/18 07:00 Chloride 103 mmol/L (98-107) 06/30/18 07:00 Carbon Dioxide 24 mmol/L (21-33) 06/30/18 07:00 Anion Gap 10 (10-20) 06/30/18 07:00 BUN 6 mg/dL (7-21) L 06/30/18 07:00 Creatinine 1.0 mg/dl (0.7-1.2) 06/30/18 07:00 Est GFR ( Amer) > 60 06/30/18 07:00 Est GFR (Non-Af Amer) 57 06/30/18 07:00 Random Glucose 105 mg/dL (70-110) 06/30/18 07:00 Calcium 8.9 mg/dL (8.4-10.5) 06/30/18 07:00 Phosphorus 3.1 mg/dL (2.5-4.5) 06/30/18 07:00 Magnesium 1.7 mg/dL (1.7-2.2) 06/30/18 07:00 Total Bilirubin 3.0 mg/dL (0.2-1.3) H 06/30/18 07:00 AST 45 U/L (14-36) H D 06/30/18 07:00 ALT 17 U/L (7-56) 06/30/18 07:00 Alkaline Phosphatase 90 U/L (38-126) 06/30/18 07:00 Ammonia 23 umol/L (9-33) 06/29/18 16:20 Lactate Dehydrogenase 457 U/L (333-699) 06/29/18 16:20 Total Creatine Kinase 59 U/L (35-230) 06/29/18 16:20 Troponin I 0.01 ng/mL 06/29/18 16:20 Total Protein 7.1 g/dL (5.8-8.3) 06/30/18 07:00 Albumin 2.7 g/dL (3.0-4.8) L 06/30/18 07:00 Globulin 4.4 gm/dL 06/30/18 07:00 Albumin/Globulin Ratio 0.6 (1.1-1.8) L 06/30/18 07:00 Amylase 106 U/L (35-125) 06/29/18 16:20 Free T4 3.82 ng/dL (0.78-2.19) H 06/30/18 08:00 Thyroxine (T4) 16.4 ug/dL (5.5-11.0) H 06/29/18 16:11 TSH 3rd Generation < 0.02 mIU/mL (0.46-4.68) L 06/30/18 08:00 Urine Color Light yellow (YELLOW) 06/29/18 16:20 Urine Appearance Clear (CLEAR) 06/29/18 16:20 Urine pH 7.0 (4.7-8.0) 06/29/18 16:20 Ur Specific Sacul <= 1.005 (1.005-1.035) 06/29/18 16:20 Urine Protein Negative mg/dL (<30 mg/dL) 06/29/18 16:20 Urine Glucose (UA) Negative mg/dL (NEGATIVE) 06/29/18 16:20 Urine Ketones Negative mg/dL (NEGATIVE) 06/29/18 16:20 Urine Blood Negative (NEGATIVE) 06/29/18 16:20 Urine Nitrate Negative (NEGATIVE) 06/29/18 16:20 Urine Bilirubin Negative (NEGATIVE) 06/29/18 16:20 Urine Urobilinogen 0.2 E.U./dL (<1 E.U./dL) 06/29/18 16:20 Ur Leukocyte Esterase Negative Kanu/uL (NEGATIVE) 06/29/18 16:20 - Hospital Course Hospital Course: Hospital course: 57 year old female with PMH of HTN, liver cirrhosis 2/2 alcohol abuse and history of SBP presenting to the ED tonight for leg cramping and burning as well as epigastric burning that began two days ago. ED, patient given 1L NS, zofran, ativan and pepcid. Patient noted to have hyponatremia and hypomagnesia. Ammonia, lipase and Troponin WNL. CXR showed no significant interval change. Patient will be admitted to [facility]. Electrolytes repleted. Patient was medically stabilized and was ready to go home. On discharge: -Please follow up with your PMD within one week of discharge to make an appointment -Please resume your home medications as prescribed -Please follow up with Dr Garza(individual small group instructor) at [phone] regarding your thyroid test -Please start taking medication Tapazol twice a day till you see Dr Garza -Please return to the emergency department if symptoms reoccur Discharge Exam - Head Exam Head Exam: ATRAUMATIC, NORMAL INSPECTION Discharge Plan - Discharge Medications Prescriptions: methIMAzole [Tapazole] 10 mg PO BID #30 tab - Follow Up Plan Condition: STABLE Disposition: HOME/ ROUTINE Instructions: Acute Abdomen (Belly Pain), Adult (DC), Hyponatremia (DC) Additional Instructions: -Please follow up with your PMD within one week of discharge to make an appointment -Please resume your home medications as prescribed -Please follow up with Dr Garza(individual small group instructor) at [phone] regarding your thyroid test -Please start taking medication Tapazol twice a day till you see Dr Garza -Please return to the emergency department if symptoms reoccur <Gal Hollis - Last Filed: 07/01/18 08:41> Provider - Provider Date of Admission: 06/29/18 19:01 Attending physician: Gal Hollis MD Hospital Course - Lab Results Lab Results: Most Recent Lab Values WBC 4.7 10^3/ul (4.5-11.0) D 06/30/18 07:00 RBC 2.75 10^6/uL (3.5-6.1) L 06/30/18 07:00 Hgb 8.1 g/dL (12.0-16.0) L 06/30/18 07:00 Hct 23.6 % (36.0-48.0) L 06/30/18 07:00 MCV 85.8 fl (80.0-105.0) 06/30/18 07:00 MCH 29.5 pg (25.0-35.0) 06/30/18 07:00 MCHC 34.3 g/dl (31.0-37.0) 06/30/18 07:00 RDW 19.2 % (11.5-14.5) H 06/30/18 07:00 Plt Count 82 10^3/uL (120.0-450.0) L 06/30/18 07:00 MPV 10.5 fl (7.0-11.0) 06/30/18 07:00 Gran % 48.4 % (50.0-68.0) L 06/30/18 07:00 Lymph % (Auto) 38.1 % (22.0-35.0) H 06/30/18 07:00 Braxton % (Auto) 7.5 % (1.0-6.0) H 06/30/18 07:00 Eos % (Auto) 4.9 % (1.5-5.0) 06/30/18 07:00 Baso % (Auto) 1.1 % (0.0-3.0) 06/30/18 07:00 Gran # 2.25 (1.4-6.5) 06/30/18 07:00 Lymph # (Auto) 1.8 (1.2-3.4) 06/30/18 07:00 Braxton # (Auto) 0.4 (0.1-0.6) 06/30/18 07:00 Eos # (Auto) 0.2 (0.0-0.7) 06/30/18 07:00 Baso # (Auto) 0.05 K/mm3 (0.0-2.0) 06/30/18 07:00 PT 15.7 SECONDS (9.4-12.5) H 06/29/18 16:20 INR 1.37 06/29/18 16:20 APTT 36.5 Seconds (25.1-36.5) 06/29/18 16:20 Sodium 133 mmol/L (132-148) 06/30/18 07:00 Potassium 3.6 mmol/L (3.6-5.0) 06/30/18 07:00 Chloride 103 mmol/L (98-107) 06/30/18 07:00 Carbon Dioxide 24 mmol/L (21-33) 06/30/18 07:00 Anion Gap 10 (10-20) 06/30/18 07:00 BUN 6 mg/dL (7-21) L 06/30/18 07:00 Creatinine 1.0 mg/dl (0.7-1.2) 06/30/18 07:00 Est GFR ( Amer) > 60 06/30/18 07:00 Est GFR (Non-Af Amer) 57 06/30/18 07:00 Random Glucose 105 mg/dL (70-110) 06/30/18 07:00 Calcium 8.9 mg/dL (8.4-10.5) 06/30/18 07:00 Phosphorus 3.1 mg/dL (2.5-4.5) 06/30/18 07:00 Magnesium 1.7 mg/dL (1.7-2.2) 06/30/18 07:00 Total Bilirubin 3.0 mg/dL (0.2-1.3) H 06/30/18 07:00 AST 45 U/L (14-36) H D 06/30/18 07:00 ALT 17 U/L (7-56) 06/30/18 07:00 Alkaline Phosphatase 90 U/L (38-126) 06/30/18 07:00 Ammonia 23 umol/L (9-33) 06/29/18 16:20 Lactate Dehydrogenase 457 U/L (333-699) 06/29/18 16:20 Total Creatine Kinase 59 U/L (35-230) 06/29/18 16:20 Troponin I 0.01 ng/mL 06/29/18 16:20 Total Protein 7.1 g/dL (5.8-8.3) 06/30/18 07:00 Albumin 2.7 g/dL (3.0-4.8) L 06/30/18 07:00 Globulin 4.4 gm/dL 06/30/18 07:00 Albumin/Globulin Ratio 0.6 (1.1-1.8) L 06/30/18 07:00 Amylase 106 U/L (35-125) 06/29/18 16:20 Free T4 3.82 ng/dL (0.78-2.19) H 06/30/18 08:00 Thyroxine (T4) 16.4 ug/dL (5.5-11.0) H 06/29/18 16:11 TSH 3rd Generation < 0.02 mIU/mL (0.46-4.68) L 06/30/18 08:00 Urine Color Light yellow (YELLOW) 06/29/18 16:20 Urine Appearance Clear (CLEAR) 06/29/18 16:20 Urine pH 7.0 (4.7-8.0) 06/29/18 16:20 Ur Specific Sacul <= 1.005 (1.005-1.035) 06/29/18 16:20 Urine Protein Negative mg/dL (<30 mg/dL) 06/29/18 16:20 Urine Glucose (UA) Negative mg/dL (NEGATIVE) 06/29/18 16:20 Urine Ketones Negative mg/dL (NEGATIVE) 06/29/18 16:20 Urine Blood Negative (NEGATIVE) 06/29/18 16:20 Urine Nitrate Negative (NEGATIVE) 06/29/18 16:20 Urine Bilirubin Negative (NEGATIVE) 06/29/18 16:20 Urine Urobilinogen 0.2 E.U./dL (<1 E.U./dL) 06/29/18 16:20 Ur Leukocyte Esterase Negative Aknu/uL (NEGATIVE) 06/29/18 16:20 Discharge Exam - Head Exam Head Exam: NORMAL INSPECTION - Eye Exam Eye Exam: EOMI - ENT Exam ENT Exam: Normal Exam - Respiratory Exam Respiratory Exam: Clear to PA & Lateral - Cardiovascular Exam Cardiovascular Exam: REGULAR RHYTHM, +S1, +S2 - GI/Abdominal Exam GI & Abdominal Exam: Normal Bowel Sounds, Soft. absent: Distended, Tenderness - Extremities Exam Extremities exam: full ROM - Neurological Exam Neurological exam: Alert, Oriented x3 Attending/Attestation - Attestation I have personally seen and examined this patient.: Yes I have fully participated in the care of the patient.: Yes I have reviewed all pertinent clinical information, including history, physical exam and plan: Yes Notes (Text): 06/30/18 57 year old female with past medical history of hypertension and cirrhossis who presented with leg cramping and abdominal discomfort. She was found to have hyponatremia which improved with fluids and hypomagnesemia which was repleted. She was also found to have possible hyperthyroidism with elevated Free T4 and low TSH. She was evaluated by endocrinology who started methimazole. Patient is discharged home to follow up at [facility] next week. Follow up with individual small group instructor. Gal Hollis MD Hospitalist.
--- NOTE | 2018-06-30 15:24 | CON ---
DATE: 06/30/2018 ENDOCRINOLOGY CONSULT LOCATION: In room 370. HISTORY OF PRESENT ILLNESS: This is a 57-year-old female with known history of alcoholic liver cirrhosis, presenting here with severe lower extremity cramping, supervening nausea, dyspepsia, upper abdominal pain, and is now being referred for endocrine evaluation of abnormal thyroid function studies and hyponatremia. PAST MEDICAL HISTORY: As mentioned above. History of alcoholic liver cirrhosis, awaiting a liver transplant at [facility] in [place]. She has also concomitant ascites with previous thoracentesis procedures undertaken, history of chronic pancreatitis with previous admissions for the same. Also, history of hypertension and dyslipidemia. PAST SURGICAL HISTORY: She has a previous myomectomy as noted from underlying uterine fibroids. FAMILY HISTORY: Positive for hypertension and heart disease. SOCIAL HISTORY: The patient admits to chronic alcoholism and quit a few months ago. No other known substance use. Also, she has a very supportive family otherwise. REVIEW OF SYSTEMS: As mentioned above. Admits to generalized body weakness with easy fatigability and tiredness and suboptimal energy level. Also admits to recent bouts of dizziness and lightheadedness, worse on the day of admission with bifrontal headaches as noted. No chest pains or palpitations, but admits to progressive shortness of breath especially on exertion. Her oral intake is quite variable with nausea, dyspepsia, upper abdominal pain, and bloatedness as noted. Also admits to episodic bouts of diarrhea, constipation. Also admits to lower extremity paresthesias and recently occurring painful cramping as mentioned. PHYSICAL EXAMINATION: GENERAL: This is an average built female, in no apparent distress. VITAL SIGNS: Blood pressure of 140/80, pulse of 100 beats per minute and regular, temperature 98, respirations 20. Height is 5.5, weight is 113 pounds. HEENT: Head: Normocephalic. Eyes: Anicteric with pink conjunctivae. Funduscopy not possible at this time. Ears, nose, and throat: Otherwise normal. NECK: It shows nodular thyromegaly which is firm and nontender with no overt palpable thyroid nodules or bruits, nor any cervical adenopathy noted. CARDIOPULMONARY: Adynamic precordium. S1 and S2, rapid and regular. LUNGS: Show scattered rhonchi. ABDOMEN: Distended with positive bowel sounds. EXTREMITIES: No peripheral edema. Pulses are +2 bilaterally. LABORATORY DATA: Her hemoglobin is 8.1, hematocrit of 24, WBC 4.7, MCV 85, and platelets 82,000. Chemistry showed a BUN of 6. Sodium 133, potassium 3.6, chloride 103, CO2 of 24. Glucose 105. Creatinine 1. Her total T4 is 16.4 with a free T4 of 3.82 and TSH of 0.02, done twice. 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 She also has hyponatremia related to syndrome of inappropriate antidiuretic hormone secretion from underlying alcoholic liver cirrhosis as noted. However, also with the concomitant liver cirrhosis and expected increased thyroxine binding globulin, would expect slightly higher than normal thyroxine levels as expected. PLAN OF MANAGEMENT: We will obtain a comprehensive thyroid hormonal profile to include thyroid antibodies, i.e. the thyroid stimulating immunoglobulin which will confirm the presence of Graves disease and also thyroid peroxidase antibody and thyroglobulin antibodies as ordered. We will also initiate medical therapy with thiourea's, i.e. Tapazole given as 10 mg p.o. t.i.d. to start this morning as ordered. We will obtain a thyroid ultrasound electively either with this admission or on the outpatient to document any underlying nodular goiter accordingly. The therapeutic options for management of hyperthyroidism have been discussed with the patient at bedside. We will follow and advise accordingly. Kimberly Lynch MD
== END 2018-06-30 17:36 | disposition home or self-care (01) ==
LOC: ED 14:29 → ERH 19:01 → 3RSO 21:10
PROVIDERS: ADMIT Internal Medicine; ATTEND Internal Medicine
DX: E22.2 Syndrome of inappropriate secretion of antidiuretic hormone (principal); E83.42 Hypomagnesemia; E05.00 Thyrotoxicosis with diffuse goiter without thyrotoxic crisis or storm; E06.3 Autoimmune thyroiditis; K70.30 Alcoholic cirrhosis of liver without ascites; E78.5 Hyperlipidemia, unspecified; F10.21 Alcohol dependence, in remission; I10 Essential (primary) hypertension; K86.1 Other chronic pancreatitis
CPT/HCPCS: 36415; 71045; 80053; 81003; 82140; 82150; 82550; 83615; 83735; 84100; 84436; 84439; 84443; 84484; 85025; 85610; 85730; 93005; 96372; 96374; 96375; 99284; G0378; J1200; J1644; J2060; J2405; J7030

== ENCOUNTER 2018-07-04 20:50 | Emergency (ER) | payer BC ==
[2018-07-04 20:50] VITALS: BMI 18.8
[2018-07-04 21:47] VITALS: BP 102/63; RESP 18; TEMP 98
[2018-07-04 22:37] LABS: BASO # 0.02 K/mm3 (0.0-2.0); BASO % 0.2 % (0.0-3.0); EOS # 0.2 (0.0-0.7); EOS % 2.9 % (1.5-5.0); GRAN # 6.05 (1.4-6.5); GRAN % 73.6 % (50.0-68.0); HEMOGLOBIN 9.1 g/dL (12.0-16.0); LYMPH # 1.5 (1.2-3.4); LYMPH % 18.1 % (22.0-35.0); MEAN CELL VOLUME 86.5 fl (80.0-105.0); MEAN CORPUSCULAR HGB CONC 34.7 g/dl (31.0-37.0); MEAN PLATELET VOLUME 11.5 fl (7.0-11.0); MONO # 0.4 (0.1-0.6); MONO % 5.2 % (1.0-6.0); RBC 3.03 10^6/uL (3.5-6.1); RED CELL DISTRIBUTION WIDTH 19.2 % (11.5-14.5); WHITE BLOOD COUNT 8.2 10^3/ul (4.5-11.0)
[2018-07-04 22:42] LABS: ALB/GLOB RATIO 0.7 (1.1-1.8); ALBUMIN 3.4 g/dL (3.0-4.8); ALT/SGPT 13 U/L (7-56); AMYLASE 119 U/L (35-125); AST/SGOT 44 U/L (14-36); BLOOD UREA NITROGEN 9 mg/dL (7-21); GFR NON-AFRICAN AMERICAN 46; LIPASE 429 U/L (23-300)
[2018-07-04 22:50] LABS: TROPONIN I < 0.01 ng/mL
[2018-07-04 22:55] LABS: INR 1.31; PARTIAL THROMBOPLASTIN TIME 36.4 Seconds (25.1-36.5)
[2018-07-04] MEDS ORDERED: Sodium Chloride 0.9% 1,000 ML IV STA (23:02)
[2018-07-04 23:20] LABS: URINE BILIRUBIN NEGATIVE (NEGATIVE); URINE BLOOD NEGATIVE (NEGATIVE); URINE GLUCOSE (UA) NEGATIVE (NEGATIVE); URINE LEUKOCYTE ESTERASE NEGATIVE Leu/uL (NEGATIVE); URINE PROTEIN NEGATIVE mg/dL (<30 mg/dL); URINE UROBILINOGEN 0.2 E.U./dL (<1 E.U./dL)
[2018-07-04 23:26] LABS: URINE APPEARANCE CLEAR (CLEAR); URINE COLOR YELLOW (YELLOW)
--- NOTE | 2018-07-05 00:45 | ED PDOC ---
Arrival/HPI - General Chief Complaint: Abdominal Pain Time Seen by Provider: 07/04/18 22:02 Historian: Patient - History of Present Illness Narrative History of Present Illness (Text): 07/05/18 00:54 57yo female with pmhx of cirrhosis with ascites s/p thoracentesis in the past, biliary colic, chronic pancreatitis, hypertension present to ED with complaint of burning, cramping epigastric pain and leg cramps. The daughter by the bedside reports chronic history of this pain. states the pain is usually relieved with Tramadol, it only resolved temporary this evening and came back. She otherwise denies fever, chills, nausea, vomiting, diarrhea, constipation, chest pain, palpitation, any other complaint. Past Medical History - Provider Review Nursing Documentation Reviewed: Yes - Infectious Disease Hx of Infectious Diseases: None - Tetanus Immunization Tetanus Immunization: Unknown - Cardiac Hx Cardiac Disorders: Yes - Pulmonary Hx Respiratory Disorders: No - Neurological Hx Neurological Disorder: No - HEENT Hx HEENT Disorder: No - Renal Hx Renal Disorder: No - Endocrine/Metabolic Hx Endocrine Disorders: No - Hematological/Oncological Hx Blood Disorders: Yes - Integumentary Hx Dermatological Disorder: Yes (GENERALIZED JAUNDICED) - Musculoskeletal/Rheumatological Hx Musculoskeletal Disorders: Yes (pt denies r knee/back pain) Hx Falls: Yes (not recent) - Gastrointestinal Hx Gastrointestinal Disorders: Yes (GASTRITIS,ASCITES-H/O OF TAPPING,BOWEL OBSTRUCTION) Hx Liver Failure: Yes (ALCOHOLIC LIVER CIRRHOSIS) - Genitourinary/Gynecological Hx Genitourinary Disorders: Yes (MYOMECTOMY-FIBROID) - Psychiatric Hx Psychophysiologic Disorder: Yes (H/O ETOH ABUSE. DRANK HALF A LITER OF VODKA FOR 6-7 YRS. QUIT 15 JANUARY 2018) Hx Substance Use: No - Surgical History Other/Comment: Fibroids-MYOMECTOMY - Anesthesia Hx Anesthesia: Yes Hx Anesthesia Reactions: No Hx Malignant Hyperthermia: No - Suicidal Assessment Feels Threatened In Home Enviroment: No Family/Social History - Physician Review Nursing Documentation Reviewed: Yes Family/Social History: Unknown Family HX Smoking Status: Never Smoked Hx Alcohol Use: Yes (daily ETOH Quit January 2018) Hx Substance Use: No Allergies/Home Meds Allergies/Adverse Reactions: Allergies No Known Allergies Allergy (Verified 06/21/18 20:21) Home Medications: Home Meds Medication Instructions Recorded Confirmed Magnesium Oxide [Mag-Ox] 1 tab PO DAILY 06/06/18 07/04/18 rifAXIMin [Xifaxan] 1 tab PO BID 06/06/18 07/04/18 Review of Systems - Physician Review All systems were reviewed & negative as marked: Yes - Review of Systems Constitutional: Normal Eyes: Normal ENT: Normal Respiratory: Normal Cardiovascular: Normal Gastrointestinal: Abdominal Pain. absent: Constipation, Diarrhea, Nausea, Vomiting, Hematochezia, Hematemesis Genitourinary Female: Normal Musculoskeletal: Arthralgias (Leg cramps) Skin: Normal Neurological: Normal Endocrine: Normal Hemo/Lymphatic: Normal Psychiatric: Normal Physical Exam Vital Signs Reviewed: Yes Vital Signs Temp Pulse Resp BP Pulse Ox 07/04/18 21:47 98.0 F 78 18 102/63 100 Temperature: Afebrile Blood Pressure: Normal Pulse: Regular Respiratory Rate: Normal Appearance: Positive for: Well-Appearing, Non-Toxic, Comfortable Pain Distress: None Mental Status: Positive for: Alert and Oriented X 3 - Systems Exam Head: Present: Atraumatic, Normocephalic Pupils: Present: PERRL Extroacular Muscles: Present: EOMI Conjunctiva: Present: Normal Mouth: Present: Moist Mucous Membranes Neck: Present: Normal Range of Motion Respiratory/Chest: Present: Clear to Auscultation, Good Air Exchange. No: Respiratory Distress, Accessory Muscle Use Cardiovascular: Present: Regular Rate and Rhythm, Normal S1, S2. No: Murmurs Abdomen: Present: Normal Bowel Sounds (Hyperactive BS), Other (Soft). No: Tenderness, Distention, Peritoneal Signs, Rebound, Guarding, McBurney's Point Tender, Rovsing's Sign Present Back: Present: Normal Inspection Upper Extremity: Present: Normal Inspection. No: Cyanosis, Edema Lower Extremity: Present: Normal Inspection, NORMAL PULSES, Normal ROM, Neurovascularly Intact. No: Edema, CALF TENDERNESS, Tenderness Neurological: Present: GCS=15, CN II-XII Intact, Speech Normal Skin: Present: Warm, Dry, Normal Color. No: Rashes Psychiatric: Present: Alert, Oriented x 3, Normal Insight, Normal Concentration Medical Decision Making ED Course and Treatment: 07/05/18 00:59 57yo female with h/o cirrhosis, chronic pancreatitis present with complaint of burning/crampy epigastric pain and leg crams since this evening. The daughter by the bedside reports chronic history of this pain. Review of her chart show that she was seen here on 06/18 for same complaint and was discharged on 06/30/18. Labs EGK Pepcid, 1L NS On re evaluation pt continued to complain of pain and Valium and Ativan was given. EKG NSR @70bpm On another reevaluation she reported that her pain resolved. Her lab was nonspecific, much better compare to her previous labs. Result was DW both patient and her children. Pt's pain is likely secondary to gastritis. She was DC home with jorge. She have a GI and was advised to f/u with the GI. TRT ED for any worsening symptoms. - Lab Interpretations Lab Results: 07/04/18 22:18 07/04/18 22:18 Lab Results 07/04/18 23:08: Urine Color Yellow, Urine Appearance Clear, Urine pH 6.0, Ur Specific [place] 1.010, Urine Protein Negative, Urine Glucose (UA) Negative, Urine Ketones Negative, Urine Blood Negative, Urine Nitrate Negative, Urine Bilirubin Negative, Urine Urobilinogen 0.2, Ur Leukocyte Esterase Negative 07/04/18 22:18: Sodium 133, Potassium 5.0, Chloride 100, Carbon Dioxide 24, Anion Gap 13, BUN 9, Creatinine 1.2, Est GFR ( Amer) 56, Est GFR (Non-Af Amer) 46, Random Glucose 139 H, Calcium 10.0, Total Bilirubin 2.6 H, AST 44 H, ALT 13, Alkaline Phosphatase 100, Lactate Dehydrogenase 377, Total Creatine Kinase 49, Troponin I < 0.01, Total Protein 8.2, Albumin 3.4, Globulin 4.9, Albumin/Globulin Ratio 0.7 L, Amylase 119, Lipase 429 H 07/04/18 22:18: PT 15.0 H, INR 1.31, APTT 36.4 07/04/18 22:18: WBC 8.2 D, RBC 3.03 L, Hgb 9.1 L, Hct 26.2 L, MCV 86.5, MCH 30.0, MCHC 34.7, RDW 19.2 H, Plt Count 136, MPV 11.5 H, Gran % 73.6 H, Lymph % ( Auto) 18.1 L, [place] % (Auto) 5.2, Eos % (Auto) 2.9, Baso % (Auto) 0.2, Gran # 6.05, Lymph # (Auto) 1.5, [place] # (Auto) 0.4, Eos # (Auto) 0.2, Baso # (Auto) 0.02 - Medication Orders Current Medication Orders: Discontinued Medications Diazepam (Valium) 5 mg PO ONCE ONE PRN Reason: Protocol Stop: 07/04/18 23:36 Last Admin: 07/04/18 23:44 Dose: 5 mg Famotidine (Pepcid) 20 mg IVP STAT STA Stop: 07/04/18 23:03 Last Admin: 07/04/18 23:38 Dose: 20 mg IVP Administration Document 07/04/18 23:38 SS (Rec: 07/04/18 23:38 SS [id number]) Charges for Administration # of IVP Administrations 1 Sodium Chloride (Sodium Chloride 0.9%) 1,000 mls @ 999 mls/hr IV .Q1H1M STA Stop: 07/05/18 00:02 Last Admin: 07/04/18 23:38 Dose: 999 mls/hr eMAR Start Stop Document 07/04/18 23:38 SS (Rec: 07/04/18 23:38 [id number] Intravenous Solution Start Date 07/04/18 Start Time 23:38 Lorazepam (Ativan) 0.5 mg IVP ONCE ONE PRN Reason: Protocol Stop: 07/05/18 00:01 Last Admin: 07/05/18 00:06 Dose: 0.5 mg IVP Administration Document 07/05/18 00:06 SS (Rec: 07/05/18 00:06 [id number] Charges for Administration # of IVP Administrations 1 Disposition/Present on Arrival - Present on Arrival Any Indicators Present on Arrival: No History of DVT/PE: No History of Uncontrolled Diabetes: No Urinary Catheter: No History of Decub. Ulcer: No History Surgical Site Infection Following: None - Disposition Have Diagnosis and Disposition been Completed?: Yes Diagnosis: Abdominal pain Disposition: HOME/ ROUTINE Disposition Time: 00:45 Patient Plan: Discharge Patient Problems: Current Active Problems Problem Status Onset Abdominal pain Acute Condition: STABLE Discharge Instructions (ExitCare): Acute Abdomen (Belly Pain), Adult (DC) Additional Instructions: Follow up with your Doctor/Greaser Operator Return to ED for new symptoms Prescriptions: Dicyclomine [Bentyl] 20 mg PO BID #10 tab Referrals: Linda Baker MD [Medical Doctor] - Follow up with primary Forms: NeighborMD (Salvadorean)
[2018-07-05 01:09] VITALS: PULSE 88; O2SAT 99
--- NOTE | 2018-07-05 21:33 | CARD ---
APPROVED REPORT Date of service: 07/04/2018 EKG Measurement Heart [id number] <Conclusion> Normal sinus rhythm Cannot rule out Anterior infarct, age undetermined Abnormal ECG
== END 2018-07-05 01:08 | disposition home or self-care (01) ==
LOC: ED 20:50
DX: R10.9 Unspecified abdominal pain (principal); I10 Essential (primary) hypertension; K74.60 Unspecified cirrhosis of liver
CPT/HCPCS: 80053; 81003; 82150; 82550; 83615; 83690; 84484; 85025; 85610; 85730; 93005; 96374; 96375; 99283; J2060; J7030

== ENCOUNTER 2018-07-20 04:19 | Emergency (ER) | payer BC ==
[2018-07-20 04:30] VITALS: BMI 21.6
[2018-07-20] MEDS ORDERED: Alum-Mag Hydrox-Simethicone Susp (30 mL) PO STA (05:08)
--- NOTE | 2018-07-20 05:09 | ED PDOC ---
Arrival/HPI - General Chief Complaint: Abdominal Pain Time Seen by Provider: 07/20/18 04:47 Historian: Patient - History of Present Illness Narrative History of Present Illness (Text): 07/20/18 05:05 A 57year old female, whose past medical history includes liver cirrhosis and hypertension, GERD presents to the emergency department with a complaint of abdominal pain. The patient notes that her current pain feel similar to past abdominal pain episodes related to her previous GERD. She states that the pain became wore at around 2:30 am and decided to come into the emergency department for further evaluation and pain relief. PT notes that she was here 3 weeks prior and has the same exact symptoms as previous. The patient's son notes that they bring the patient into the emergency department when she begins to experience th e abdominal pain so she can get pain relief. The patient denies fevers, chills, headache, dizziness, chest pain, shortness of breath, dyspnea on exertion, cough, sore throat, nausea, vomiting, diarrhea, back pain, neck pain, urinary/bowel changes, dysuria, urgency or frequency, trauma/injury, or any other complaints. PMD: Dr. Baker Gastroenterolgoy: Dr. Turner 07/20/18 14:10 Time/Duration: Prior to Arrival Symptom Onset: Sudden Symptom Course: Unchanged Activities at Onset: Rest, Light Context: Home Past Medical History - Provider Review Nursing Documentation Reviewed: Yes - Infectious Disease Hx of Infectious Diseases: None - Tetanus Immunization Tetanus Immunization: Unknown - Cardiac Hx Cardiac Disorders: Yes - Pulmonary Hx Respiratory Disorders: No - Neurological Hx Neurological Disorder: No - HEENT Hx HEENT Disorder: No - Renal Hx Renal Disorder: No - Endocrine/Metabolic Hx Endocrine Disorders: No - Hematological/Oncological Hx Blood Disorders: Yes - Integumentary Hx Dermatological Disorder: Yes (GENERALIZED JAUNDICED) - Musculoskeletal/Rheumatological Hx Musculoskeletal Disorders: Yes (pt denies r knee/back pain) Hx Falls: Yes (not recent) - Gastrointestinal Hx Gastrointestinal Disorders: Yes (GASTRITIS,ASCITES-H/O OF TAPPING,BOWEL OBST RUCTION) Hx Liver Failure: Yes (ALCOHOLIC LIVER CIRRHOSIS) - Genitourinary/Gynecological Hx Genitourinary Disorders: Yes (MYOMECTOMY-FIBROID) - Psychiatric Hx Psychophysiologic Disorder: Yes (H/O ETOH ABUSE. DRANK HALF A LITER OF VODKA FOR 6-7 YRS. QUIT 15 JANUARY 2018) Hx Substance Use: No - Surgical History Other/Comment: Fibroids-MYOMECTOMY - Anesthesia Hx Anesthesia: Yes Hx Anesthesia Reactions: No Hx Malignant Hyperthermia: No - Suicidal Assessment Feels Threatened In Home Enviroment: No Family/Social History - Physician Review Nursing Documentation Reviewed: Yes Family/Social History: No Known Family HX Smoking Status: Never Smoked Hx Alcohol Use: Yes (daily ETOH Quit January 2018) Hx Substance Use: No Allergies/Home Meds Allergies/Adverse Reactions: Allergies No Known Allergies Allergy (Verified 07/20/18 04:30) Home Medications: Home Meds Medication Instructions Recorded Confirmed RX: Magnesium Oxide [Mag-Ox] 1 tab PO DAILY 06/06/18 07/20/18 RX: traMADol [Ultram] 25 mg PO BID 07/20/18 07/20/18 rifAXIMin [Xifaxan] 550 mg PO BID 07/20/18 07/20/18 Review of Systems - Physician Review All systems were reviewed & negative as marked: Yes - Review of Systems Constitutional: absent: Fevers ENT: absent: Sore Throat Respiratory: absent: SOB, Cough Cardiovascular: absent: Chest Pain, FRANCO Gastrointestinal: Abdominal Pain. absent: Stool Changes, Constipation, Diarrhea, Nausea, Vomiting, Appetite Changes, Hematochezia, Hematemesis, Anorexia, Food Intolerance Genitourinary Female: absent: Dysuria, Frequency, Hematuria, Urine Output Changes Musculoskeletal: absent: Back Pain, Neck Pain Skin: absent: Rash Neurological: absent: Headache, Dizziness Endocrine: absent: Diaphoresis Physical Exam Vital Signs Reviewed: Yes Temperature: Afebrile Blood Pressure: Normal Pulse: Regular Respiratory Rate: Normal Appearance: Positive for: Well-Appearing, Non-Toxic, Comfortable Pain Distress: None Mental Status: Positive for: Alert and Oriented X 3 - Systems Exam Head: Present: Atraumatic, Normocephalic Pupils: Present: PERRL Extroacular Muscles: Present: EOMI Conjunctiva: Present: Normal Mouth: Present: Moist Mucous Membranes Neck: Present: Normal Range of Motion Respiratory/Chest: Present: Clear to Auscultation, Good Air Exchange. No: Respiratory Distress, Accessory Muscle Use Cardiovascular: Present: Regular Rate and Rhythm, Normal S1, S2. No: Murmurs Abdomen: Present: Tenderness (epigastric tenderness). No: Distention, Peritoneal Signs, Rebound, Guarding, McBurney's Point Tender, Rovsing's Sign Present Back: Present: Normal Inspection Upper Extremity: Present: Normal Inspection. No: Cyanosis, Edema Lower Extremity: Present: Normal Inspection. No: Edema Neurological: Present: GCS=15, CN II-XII Intact, Speech Normal Skin: Present: Warm, Dry, Normal Color. No: Rashes Psychiatric: Present: Alert, Oriented x 3, Normal Insight, Normal Concentration Medical Decision Making ED Course and Treatment: 07/20/18 05:11 Impression: A 57 year old female presents to the emergency department with a complaint of abdominal pain. Well appearing, states pain feels exactly like previous GERD like symptoms. No SOB. Non-distended abdomen, non-diffusely tender, only epigastric tenderness. No trauma. NO chills or night sweats. Pt notes she has been taking all her home medications. No asterixis or jaundice on my exam. Given previous GERD, and pt notes symptoms exactly like previous- will seek basic labs and RX as per previous providers plan. Plan: -- Labs -- Valium, Maalox, and IV Fluids -- Reassess and disposition Prior Visits: Notes and results from previous visits were reviewed. Progress Notes: 07/20/18 05:12 labs unremarkable. No dysuria, urgency or frequency noted by pt. No suprapubic abd pain. No CVAT. 07/20/18 06:56 pt notes pain greatly improved, pt in NAD, tolerating solids, clear for d/c given return indications and followup - Lab Interpretations I have reviewed the lab results: Yes - Scribe Statement The provider has reviewed the documentation as recorded by the Cadeibmackenzie Gonsalez Provider Scribe Attestation: All medical record entries made by the Scribe were at my direction and personally dictated by me. I have reviewed the chart and agree that the record accurately reflects my personal performance of the history, physical exam, medical decision making, and the department course for this patient. I have also personally directed, reviewed, and agree with the discharge instructions and disposition. Disposition/Present on Arrival - Present on Arrival Any Indicators Present on Arrival: No History of DVT/PE: No History of Uncontrolled Diabetes: No Urinary Catheter: No History of Decub. Ulcer: No History Surgical Site Infection Following: None - Disposition Have Diagnosis and Disposition been Completed?: Yes Diagnosis: Gastritis Disposition: HOME/ ROUTINE Disposition Time: 06:54 Patient Problems: Current Active Problems Problem Status Onset Gastritis Acute Condition: GOOD Discharge Instructions (ExitCare): Gastritis Additional Instructions: JEAN MARIE CONDE, thank you for letting us take care of you today. Your provider was Chepe Yu and you were treated for stomach pain. The emergency medical care you received today was directed at your acute symptoms. If you were prescribed any medication, please fill it and take as directed. It may take several days for your symptoms to resolve. Return to the Emergency Department if your symptoms worsen, do not improve, or if you have any other problems. Please contact your doctor or call one of the physicians/clinics you have been referred to that are listed on the Patient Visit Information form that is included in your discharge packet. Bring any paperwork you were given at discharge with you along with any medications you are taking to your follow up visit. Our treatment cannot replace ongoing medical care by a primary care provider outside of the emergency department. Thank you for allowing the [facility] team to be part of your care today. If you had an X-Ray or CT scan: A Radiologist will review the ED reading if any change in treatment is needed we will contact you. If you had a blood, urine, or wound culture: It will take several days for the results, if any change in treatment is needed we will contact you. If you had an STI test: It will take 48 hours for the results. Please call after 1 week if you have not heard back. Prescriptions: Famotidine [Pepcid] 20 mg PO Q12H PRN 5 Days #10 tab PRN Reason: other Referrals: Linda Baker MD [Primary Care Provider] - Follow up with primary Abdi Verduzco MD [Staff Provider] - Follow up with primary Forms: [employer] ([employer])
[2018-07-20 05:11] VITALS: BP 127/71; PULSE 76; RESP 16; TEMP 97.7; O2SAT 95
[2018-07-20] MEDS ORDERED: Sodium Chloride 0.9% 1,000 ML IV SCH (05:15)
[2018-07-20 05:17] LABS: BASO # 0.07 K/mm3 (0.0-2.0); EOS # 0.4 (0.0-0.7); EOS % 6.4 % (1.5-5.0); GRAN # 3.42 (1.4-6.5); GRAN % 49.9 % (50.0-68.0); HEMOGLOBIN 9.3 g/dL (12.0-16.0); LYMPH # 2.5 (1.2-3.4); MEAN CELL VOLUME 88.1 fl (80.0-105.0); MEAN CORPUSCULAR HEMOGLOBIN 29.8 pg (25.0-35.0); MEAN CORPUSCULAR HGB CONC 33.8 g/dl (31.0-37.0); MEAN PLATELET VOLUME 11.3 fl (7.0-11.0); MONO # 0.5 (0.1-0.6); MONO % 6.7 % (1.0-6.0); RBC 3.12 10^6/uL (3.5-6.1); RED CELL DISTRIBUTION WIDTH 18.5 % (11.5-14.5); WHITE BLOOD COUNT 6.9 10^3/ul (4.5-11.0)
[2018-07-20 05:45] LABS: ALB/GLOB RATIO 0.7 (1.1-1.8); ALBUMIN 3.5 g/dL (3.0-4.8); ALT/SGPT 22 U/L (7-56); AST/SGOT 44 U/L (14-36); BLOOD UREA NITROGEN 12 mg/dL (7-21); CALCIUM 9.8 mg/dL (8.4-10.5); GFR NON-AFRICAN AMERICAN 51; LIPASE 620 U/L (23-300)
== END 2018-07-20 06:50 | disposition home or self-care (01) ==
LOC: ED 04:19
DX: K29.70 Gastritis, unspecified, without bleeding (principal); I10 Essential (primary) hypertension
CPT/HCPCS: 80053; 83690; 83735; 85025; 96374; 99283; J2060; J7030

== ENCOUNTER 2018-09-05 23:40 | Observation (INO) | payer BC ==
[2018-09-06 00:11] VITALS: TEMP 98.3
--- NOTE | 2018-09-06 00:15 | ED PDOC ---
Arrival/HPI - General Chief Complaint: Abdominal Pain Time Seen by Provider: 09/06/18 00:08 Historian: Patient - History of Present Illness Narrative History of Present Illness (Text): 09/06/18 00:13 Yuliya Caicedo is a 57 year old female, whose past medical history includes hypertension and liver cirrhosis secondary to alcohol abuse and spontaneous bacterial peritonitis, who presents to the Emergency department complaining of abdominal pain. Patient states she has been experiencing upper abdominal pain since this afternoon. Patient states she took pain medication at home, with no significant improvement. Patient also complaining of itching and cramping to bilateral lower extremities. Patient denies any fever, chills, chest pain, shortness of breath, nausea, vomiting, diarrhea, urinary symptoms, back pain, neck pain, headache, dizziness, or any other complaints. Symptom Onset: Gradual Symptom Course: Unchanged Activities at Onset: Light Context: Home Past Medical History - Provider Review Nursing Documentation Reviewed: Yes - Infectious Disease Hx of Infectious Diseases: None - Tetanus Immunization Tetanus Immunization: Unknown - Cardiac Hx Cardiac Disorders: Yes - Pulmonary Hx Respiratory Disorders: No - Neurological Hx Neurological Disorder: No - HEENT Hx HEENT Disorder: No - Renal Hx Renal Disorder: No - Endocrine/Metabolic Hx Endocrine Disorders: No - Hematological/Oncological Hx Blood Disorders: Yes - Integumentary Hx Dermatological Disorder: Yes (GENERALIZED JAUNDICED) - Musculoskeletal/Rheumatological Hx Musculoskeletal Disorders: Yes (pt denies r knee/back pain) Hx Falls: Yes (not recent) - Gastrointestinal Hx Gastrointestinal Disorders: Yes (GASTRITIS,ASCITES-H/O OF TAPPING,BOWEL OBSTRUCTION) Hx Liver Failure: Yes (ALCOHOLIC LIVER CIRRHOSIS) - Genitourinary/Gynecological Hx Genitourinary Disorders: Yes (MYOMECTOMY-FIBROID) - Psychiatric Hx Psychophysiologic Disorder: Yes (H/O ETOH ABUSE. DRANK HALF A LITER OF VODKA FOR 6-7 YRS. QUIT 15 JANUARY 2018) Hx Substance Use: No - Surgical History Other/Comment: Fibroids-MYOMECTOMY - Anesthesia Hx Anesthesia: Yes Hx Anesthesia Reactions: No Hx Malignant Hyperthermia: No - Suicidal Assessment Feels Threatened In Home Enviroment: No Family/Social History - Physician Review Nursing Documentation Reviewed: Yes Family/Social History: Unknown Family HX Smoking Status: Never Smoked Hx Alcohol Use: Yes (daily ETOH Quit January 2018) Hx Substance Use: No Allergies/Home Meds Allergies/Adverse Reactions: Allergies No Known Allergies Allergy (Verified 09/06/18 00:06) Home Medications: Home Meds Medication Instructions Recorded Confirmed Magnesium Oxide [Mag-Ox] 1 tab PO DAILY 06/06/18 09/06/18 rifAXIMin [Xifaxan] 550 mg PO BID 07/20/18 09/06/18 traMADol [Ultram] 25 mg PO BID 07/20/18 09/06/18 Review of Systems - Physician Review All systems were reviewed & negative as marked: Yes - Review of Systems Constitutional: Normal. absent: Fevers Eyes: Normal ENT: Normal Respiratory: Normal. absent: SOB, Cough Cardiovascular: Normal. absent: Chest Pain Gastrointestinal: Abdominal Pain. absent: Diarrhea Genitourinary Female: Normal. absent: Dysuria, Frequency, Hematuria, Urine Output Changes Musculoskeletal: Normal. absent: Back Pain, Neck Pain Skin: Pruritis. absent: Rash Neurological: Normal. absent: Headache, Dizziness Endocrine: Normal Hemo/Lymphatic: Normal Psychiatric: Normal Physical Exam Vital Signs Reviewed: Yes Vital Signs Temp Pulse Resp BP Pulse Ox 09/06/18 00:11 98.3 F 75 18 126/78 98 Temperature: Afebrile Blood Pressure: Normal Pulse: Regular Respiratory Rate: Normal Appearance: Positive for: Well-Appearing, Non-Toxic, Comfortable Pain Distress: None Mental Status: Positive for: Alert and Oriented X 3 - Systems Exam Head: Present: Atraumatic, Normocephalic Pupils: Present: PERRL Extroacular Muscles: Present: EOMI Conjunctiva: Present: Normal Mouth: Present: Moist Mucous Membranes Neck: Present: Normal Range of Motion Respiratory/Chest: Present: Clear to Auscultation, Good Air Exchange. No: Respiratory Distress, Accessory Muscle Use Cardiovascular: Present: Regular Rate and Rhythm, Normal S1, S2. No: Murmurs Abdomen: No: Tenderness, Distention (No ascites), Peritoneal Signs Back: Present: Normal Inspection Upper Extremity: Present: Normal Inspection. No: Cyanosis, Edema Lower Extremity: Present: Normal Inspection. No: Edema Neurological: Present: GCS=15, CN II-XII Intact, Speech Normal Skin: Present: Warm, Dry. No: Rashes, Normal Color (Mild jaundice) Psychiatric: Present: Alert, Oriented x 3, Normal Insight, Normal Concentration Medical Decision Making ED Course and Treatment: 09/06/18 00:13 Impression: 57 year old female complaining of upper abdominal pain. Plan: -- CT Abdomen and Pelvis w/o contrast -- EKG -- Labs, cardiac enzymes, amylase, lipase, blood cultures -- Urinalysis, urine cultures -- IV fluids -- Zofran -- Benadryl -- Reassess and disposition Prior Visits: Notes and results from previous visits were reviewed. Progress Notes: Reviewed EKG, NSR at [address] bpm[address] Non-specific ST/T changes. 09/06/18 02:35 CT Abdomen and Pelvis reviewed, shows: Mild amount of fecal residue is noted in the large bowels. Uncomplicated colonic diverticulosis. Fluid-filled stomach. The visualized lung bases are unremarkable. Normal unenhanced liver. Cholelithiasis and nondilated extrahepatic biliary system. 4.2x2.2 cm peripherally calcified benign cyst of the spleen. Normal unenhanced spleen. Normal pancreas. Normal bilateral adrenal glands. Normal size of the right kidney. There is no right renal mass. There are no right renal calculi. There is no right hydronephrosis. Normal visualized right ureter. Normal size of the left kidney. There is no left renal mass. There are no left renal calculi. There is no left hydronephrosis. Normal visualized left ureter. Normal visualized stomach. Normal small intestine. Uncomplicated colonic diverticulosis. Mild amount of fecal residue in the large bowels. The appendix is visualized and appears normal. There is no demonstrated peritoneal fluid. Normal abdominal aorta. Normal inferior vena cava. Normal retroperitoneum. Normal urinary bladder. There is no pelvic mass lesion or lymphadenopathy. There is no pelvic fluid. Normal abdominal wall. Mild diffuse spondylosis. IMPRESSION: Cholelithiasis. Gastroparesis. Mild diffuse thickening of the bladder. Beingn chronic cyst of the spleen. Uncomplicated colonic diverticulosis. Mild amount of fecal residue in the large bowels. Electronically signed on Sep 06, 2018 2:47:09 AM EST by: Jw Webb M.D., Certified by CHARMAINE, MSK, Neuroradiology 09/06/18 02:[address] Whitmore, who is aware and agrees with plan. Accepts pt in to her service. - Lab Interpretations I have reviewed the lab results: Yes - RAD Interpretation [employer] Crm Developer: Radiologist - EKG Interpretation Interpreted by ED Physician: Yes Type: 12 lead EKG - Scribe Statement The provider has reviewed the documentation as recorded by the Cadeibmackenzie Lamas Provider Scribe Attestation: All medical record entries made by the Scribe were at my direction and personally dictated by me. I have reviewed the chart and agree that the record accurately reflects my personal performance of the history, physical exam, medical decision making, and the department course for this patient. I have also personally directed, reviewed, and agree with the discharge instructions and disposition. Disposition/Present on Arrival - Present on Arrival Any Indicators Present on Arrival: No History of DVT/PE: No History of Uncontrolled Diabetes: No Urinary Catheter: No History of Decub. Ulcer: No History Surgical Site Infection Following: None - Disposition Have Diagnosis and Disposition been Completed?: Yes Diagnosis: Abdominal pain Disposition: HOSPITALIZED Disposition Time: 02:55 Condition: FAIR
[2018-09-06] MEDS ORDERED: Sodium Chloride 0.9% 1,000 ML IV STA ×2 (00:17→03:09)
[2018-09-06] MEDS ORDERED: Morphine 2 mg/ml ISec IVP STA (00:17)
[2018-09-06] MEDS ORDERED: DiphenhydrAMINE 50 mg/ml Inj IVP ONE (00:29)
[2018-09-06 00:46] LABS: BASO # 0.05 K/mm3 (0.0-2.0); BASO % 0.9 % (0.0-3.0); EOS # 0.3 (0.0-0.7); EOS % 5.5 % (1.5-5.0); GRAN # 2.57 (1.4-6.5); GRAN % 47.6 % (50.0-68.0); LYMPH # 2.1 (1.2-3.4); LYMPH % 38.6 % (22.0-35.0); MEAN CELL VOLUME 90.6 fl (80.0-105.0); MEAN CORPUSCULAR HEMOGLOBIN 30.2 pg (25.0-35.0); MEAN CORPUSCULAR HGB CONC 33.3 g/dl (31.0-37.0); MEAN PLATELET VOLUME 11.3 fl (7.0-11.0); MONO # 0.4 (0.1-0.6); MONO % 7.4 % (1.0-6.0); RBC 3.31 10^6/uL (3.5-6.1); RED CELL DISTRIBUTION WIDTH 16.2 % (11.5-14.5); WHITE BLOOD COUNT 5.4 10^3/uL (4.5-11.0)
[2018-09-06 00:50] LABS: INR 1.2; PARTIAL THROMBOPLASTIN TIME 38.7 Seconds (25.1-36.5); PROTHROMBIN TIME 13.7 SECONDS (9.4-12.5)
[2018-09-06 00:50] LABS: URINE BILIRUBIN NEGATIVE (NEGATIVE); URINE BLOOD NEGATIVE (NEGATIVE); URINE GLUCOSE (UA) NEGATIVE (NEGATIVE); URINE LEUKOCYTE ESTERASE SMALL Leu/uL (NEGATIVE); URINE PROTEIN TRACE mg/dL (<30 mg/dL); URINE UROBILINOGEN 0.2 E.U./dL (<1 E.U./dL)
[2018-09-06 00:52] LABS: ALB/GLOB RATIO 0.8 (1.1-1.8); ALBUMIN 3.8 g/dL (3.0-4.8); ALT/SGPT 22 U/L (7-56); AMYLASE 108 U/L (35-125); AST/SGOT 41 U/L (14-36); BLOOD UREA NITROGEN 12 mg/dL (7-21); CALCIUM 10.2 mg/dL (8.4-10.5); GFR NON-AFRICAN AMERICAN 57; LIPASE 514 U/L (23-300)
[2018-09-06 00:57] LABS: URINE APPEARANCE SL CLOUDY (CLEAR); URINE COLOR YELLOW (YELLOW)
[2018-09-06 01:03] LABS: TROPONIN I < 0.01 ng/mL
[2018-09-06 01:03] LABS: URINE RBC NEGATIVE /hpf (0-2)
[2018-09-06 01:04] LABS: URINE BACTERIA FEW (NEG)
[2018-09-06] MEDS ORDERED: Morphine 2 mg/ml ISec IVP PRN (03:10)
[2018-09-06] MEDS ORDERED: Pneumococcal 23-Valent Vaccine IM ONE (04:26)
[2018-09-06] MEDS ORDERED: Influenza Vaccine 60 mcg/0.5 mL SYR (4YR UP) IM ONE (04:26)
[2018-09-06 05:20] VITALS: RESP 20
--- NOTE | 2018-09-06 08:10 | CP.PCM.CON ---
<Jorje Milton - Last Filed: 09/06/18 12:17> History of Present Illness - History of Present Illness History of Present Illness: GI Fellow PGY4, Consult note. Yuliya Caicedo, 57F, presenting with abdominal pain. Abdominal pain is recurrent, burning, moderate in severity and located in the epigastric area. She was unable to tell me if anything made the pain better or worse. Food did not seem related. She has been taking her medications regularly. Denies using acid suppressive medications. w/u revealed anemia, abnormal liver tests, colonic stool on CT. No significant ascites. MHx: As above. HTN, gastritis, uterine fibroids, small bowel obstruction, ascites, and alcoholic liver cirrhosis SurgHx: EGD+CPSY few months ago, "normal" per pt report, fibroid surgery Meds: Reviewed in DEC. 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 Past Patient History - Infectious Disease Hx of Infectious Diseases: None - Tetanus Immunizations Tetanus Immunization: Unknown - Past Social History Smoking Status: Never Smoked - CARDIAC Hx Cardiac Disorders: Yes - PULMONARY Hx Respiratory Disorders: No - NEUROLOGICAL Hx Neurological Disorder: No - HEENT Hx HEENT Problems: No - RENAL Hx Chronic Kidney Disease: No - ENDOCRINE/METABOLIC Hx Endocrine Disorders: No - HEMATOLOGICAL/ONCOLOGICAL Hx Blood Disorders: Yes Other/Comment: blood transfusion - INTEGUMENTARY Hx Dermatological Problems: Yes (GENERALIZED JAUNDICED) - MUSCULOSKELETAL/RHEUMATOLOGICAL Hx Falls: No - GASTROINTESTINAL Hx Gastrointestinal Disorders: Yes (GASTRITIS,ASCITES-H/O OF TAPPING,BOWEL OBSTRUCTION) Hx Liver Failure: Yes (ALCOHOLIC LIVER CIRRHOSIS) - GENITOURINARY/GYNECOLOGICAL Hx Genitourinary Disorders: Yes (MYOMECTOMY-FIBROID) - PSYCHIATRIC Hx Psychophysiologic Disorder: Yes (H/O ETOH ABUSE. DRANK HALF A LITER OF VODKA FOR 6-7 YRS. QUIT 15 JANUARY 2018) Hx Depression: Yes - SURGICAL HISTORY Other/Comment: Fibroids-MYOMECTOMY - ANESTHESIA Hx Anesthesia: Yes Hx Anesthesia Reactions: No Hx Malignant Hyperthermia: No Meds Allergies/Adverse Reactions: Allergies Allergy/AdvReac Type Severity Reaction Status Date / Time No Known Allergies Allergy Verified 09/06/18 00:06 - Medications Medications: Current Medications Sodium Chloride (Sodium Chloride 0.9%) 1,000 mls @ 100 mls/hr IV .Q10H STA Stop: 09/06/18 10:16 Last Admin: 09/06/18 00:37 Dose: 100 mls/hr Sodium Chloride (Sodium Chloride 0.9%) 1,000 mls @ 100 mls/hr IV .Q10H STA Stop: 09/06/18 13:08 Last Admin: 09/06/18 03:42 Dose: 100 mls/hr Morphine Sulfate (Morphine) 2 mg IVP Q4H PRN PRN Reason: Pain, moderate (4-7) Ondansetron HCl (Zofran Inj) 4 mg IVP Q6H PRN PRN Reason: Nausea/Vomiting Physical Exam - Constitutional Appears: Non-toxic, No Acute Distress, Chronically Ill - Head Exam Head Exam: NORMAL INSPECTION, NORMOCEPHALIC - Eye Exam Eye Exam: EOMI, Normal appearance - ENT Exam ENT Exam: Mucous Membranes Dry - Respiratory Exam Respiratory Exam: Clear to Auscultation Bilateral, NORMAL BREATHING PATTERN - Cardiovascular Exam Cardiovascular Exam: REGULAR RHYTHM, +S1, +S2 - GI/Abdominal Exam GI & Abdominal Exam: Normal Bowel Sounds, Soft, Tenderness - Extremities Exam Extremities exam: Positive for: normal inspection - Neurological Exam Neurological exam: Alert, CN II-XII Intact, Oriented x3 - Psychiatric Exam Psychiatric exam: Normal Affect, Normal Mood - Skin Skin Exam: Dry, Normal Color Results - Vital Signs Recent Vital Signs: Last Vital Signs Temp 98.3 F 09/06/18 06:00 Pulse 69 09/06/18 06:00 Resp 20 09/06/18 06:00 BP 136/84 09/06/18 06:00 Pulse Ox 99 09/06/18 06:00 - Labs Result Diagrams: 09/06/18 00:28 09/06/18 00:28 Labs: Laboratory Results - last 24 hr 09/06/18 09/06/18 09/06/18 00:17 00:28 00:28 WBC 5.4 RBC 3.31 L Hgb 10.0 L Hct 30.0 L MCV 90.6 MCH 30.2 MCHC 33.3 RDW 16.2 H Plt Count 121 MPV 11.3 H Gran % 47.6 L Lymph % (Auto) 38.6 H [place] % (Auto) 7.4 H Eos % (Auto) 5.5 H Baso % (Auto) 0.9 Gran # 2.57 Lymph # (Auto) 2.1 [place] # (Auto) 0.4 Eos # (Auto) 0.3 Baso # (Auto) 0.05 PT 13.7 H INR 1.20 APTT 38.7 H Sodium Potassium Chloride Carbon Dioxide Anion Gap BUN Creatinine Est GFR ( Amer) Est GFR (Non-Af Amer) Random Glucose Calcium Total Bilirubin AST ALT Alkaline Phosphatase Lactate Dehydrogenase Total Creatine Kinase Troponin I Total Protein Albumin Globulin Albumin/Globulin Ratio Amylase Lipase Urine Color Yellow Urine Appearance Sl cloudy Urine pH 7.0 Ur Specific [place] 1.015 Urine Protein Trace H Urine Glucose (UA) Negative Urine Ketones Negative Urine Blood Negative Urine Nitrate Negative Urine Bilirubin Negative Urine Urobilinogen 0.2 Ur Leukocyte Esterase Small H Urine RBC Negative Urine WBC 1 - 3 Ur Epithelial Cells 4 - 5 Urine Bacteria Few 09/06/18 00:28 WBC RBC Hgb Hct MCV MCH MCHC RDW Plt Count MPV Gran % Lymph % (Auto) [place] % (Auto) Eos % (Auto) Baso % (Auto) Gran # Lymph # (Auto) [place] # (Auto) Eos # (Auto) Baso # (Auto) PT INR APTT Sodium 139 Potassium 4.5 Chloride 106 Carbon Dioxide 25 Anion Gap 12 BUN 12 Creatinine 1.0 Est GFR ( Amer) > 60 Est GFR (Non-Af Amer) 57 Random Glucose 127 H Calcium 10.2 Total Bilirubin 1.6 H AST 41 H ALT 22 Alkaline Phosphatase 99 Lactate Dehydrogenase 396 Total Creatine Kinase 43 Troponin I < 0.01 Total Protein 8.3 Albumin 3.8 Globulin 4.5 Albumin/Globulin Ratio 0.8 L Amylase 108 Lipase 514 H Urine Color Urine Appearance Urine pH Ur Specific [place] Urine Protein Urine Glucose (UA) Urine Ketones Urine Blood Urine Nitrate Urine Bilirubin Urine Urobilinogen Ur Leukocyte Esterase Urine RBC Urine WBC Ur Epithelial Cells Urine Bacteria Assessment & Plan - Assessment and Plan (Free Text) Assessment: #Abdominal pain #Alcoholic Cirrhosis - Home Lasix, spironolactone, beta corona #Constipation #Hx of symptomatic gallstones PLAN: - MELD 10 - Child Lorenzana 6, class A. - Recommend U/S GB. - Start PPI, Maalox for dyspepsia symptoms - Give lactulose for constipation - Recommend holding lasix for now as she is dehydrated. Monitor IVF, avoid fluid overload. Consider restarting diuretic meds at a lower dose tomorrow. - Start CLD - Consider surgical consult if not improving, and likely gallstone related pain. - Date & Time Date: 09/06/18 Time: 11:18 <Syed Rhodes V - Last Filed: 09/07/18 00:01> Results - Vital Signs Recent Vital Signs: Last Vital Signs Temp 98.3 F 09/06/18 14:00 Pulse 70 09/06/18 14:00 Resp 20 09/06/18 14:00 BP 114/65 09/06/18 14:00 Pulse Ox 97 09/06/18 14:00 - Labs Result Diagrams: 09/06/18 00:28 09/06/18 00:28 Labs: Laboratory Results - last 24 hr 09/06/18 09/06/18 09/06/18 00:17 00:28 00:28 WBC 5.4 RBC 3.31 L Hgb 10.0 L Hct 30.0 L MCV 90.6 MCH 30.2 MCHC 33.3 RDW 16.2 H Plt Count 121 MPV 11.3 H Gran % 47.6 L Lymph % (Auto) 38.6 H [place] % (Auto) 7.4 H Eos % (Auto) 5.5 H Baso % (Auto) 0.9 Gran # 2.57 Lymph # (Auto) 2.1 [place] # (Auto) 0.4 Eos # (Auto) 0.3 Baso # (Auto) 0.05 PT 13.7 H INR 1.20 APTT 38.7 H Sodium Potassium Chloride Carbon Dioxide Anion Gap BUN Creatinine Est GFR ( Amer) Est GFR (Non-Af Amer) Random Glucose Calcium Total Bilirubin AST ALT Alkaline Phosphatase Lactate Dehydrogenase Total Creatine Kinase Troponin I Total Protein Albumin Globulin Albumin/Globulin Ratio Amylase Lipase Urine Color Yellow Urine Appearance Sl cloudy Urine pH 7.0 Ur Specific [place] 1.015 Urine Protein Trace H Urine Glucose (UA) Negative Urine Ketones Negative Urine Blood Negative Urine Nitrate Negative Urine Bilirubin Negative Urine Urobilinogen 0.2 Ur Leukocyte Esterase Small H Urine RBC Negative Urine WBC 1 - 3 Ur Epithelial Cells 4 - 5 Urine Bacteria Few 09/06/18 00:28 WBC RBC Hgb Hct MCV MCH MCHC RDW Plt Count MPV Gran % Lymph % (Auto) [place] % (Auto) Eos % (Auto) Baso % (Auto) Gran # Lymph # (Auto) [place] # (Auto) Eos # (Auto) Baso # (Auto) PT INR APTT Sodium 139 Potassium 4.5 Chloride 106 Carbon Dioxide 25 Anion Gap 12 BUN 12 Creatinine 1.0 Est GFR ( Amer) > 60 Est GFR (Non-Af Amer) 57 Random Glucose 127 H Calcium 10.2 Total Bilirubin 1.6 H AST 41 H ALT 22 Alkaline Phosphatase 99 Lactate Dehydrogenase 396 Total Creatine Kinase 43 Troponin I < 0.01 Total Protein 8.3 Albumin 3.8 Globulin 4.5 Albumin/Globulin Ratio 0.8 L Amylase 108 Lipase 514 H Urine Color Urine Appearance Urine pH Ur Specific [place] Urine Protein Urine Glucose (UA) Urine Ketones Urine Blood Urine Nitrate Urine Bilirubin Urine Urobilinogen Ur Leukocyte Esterase Urine RBC Urine WBC Ur Epithelial Cells Urine Bacteria Attending/Attestation - Attestation I have personally seen and examined this patient.: Yes I have fully participated in the care of the patient.: Yes I have reviewed all pertinent clinical information: Yes
--- NOTE | 2018-09-06 09:54 | HP ---
DATE OF EXAM: 09/06/2018 HISTORY OF PRESENT ILLNESS: Ms. Caicedo is 57-year-old female presented to the ED with upper abdominal pain. She has history of cirrhosis of liver secondary to alcohol abuse. History of spontaneous bacterial peritonitis in the past. Denies any bleeding. No hematemesis. No nausea, no vomiting. CT scan of the abdomen, pelvis done in the ER showed cholelithiasis, gallbladder thickening. Diverticulosis. No acute pathology identified. She has history of jaundice in the past. Bilirubin elevated to 1.6. She also has a history of chronic anemia, hemoglobin 10. No bleeding from any site. PAST MEDICAL HISTORY: Alcoholic cirrhosis. Bacterial peritonitis. History of jaundice in the past. PAST SURGICAL HISTORY: Myomectomy for fibroid. PERSONAL HISTORY: Heavy drinker, drinks half a liter of vodka every day for past 7 years. Never smoked. FAMILY HISTORY: Noncontributory. ALLERGIES: NO KNOWN DRUG ALLERGIES. HOME MEDICATIONS: Magnesium, Xifaxan 550 mg p.o. twice daily, Ultram 25 mg p.o. twice daily. REVIEW OF SYSTEMS: As per HPI. Rest of 12-point review of systems reviewed negative. PHYSICAL EXAMINATION: GENERAL: Comfortable in bed, in no acute distress. VITAL SIGNS: Temperature 98.3, heart rate 75 per minute, respiratory rate 18 per minute, blood pressure 126/78, heart rate is 98 per minute. HEENT: Pallor positive. NECK: No lymphadenopathy. CHEST: Air entry present equal bilaterally. No added sounds. CARDIOVASCULAR: S1, S2 normal. No murmur. No gallop. ABDOMEN: Soft, nontender. No ascites. No peritoneal signs. EXTREMITIES: No edema. NEUROLOGIC: Alert, oriented x3. No focal sensory motor deficit. SKIN: No petechiae. No rash. Mild jaundice. TRAIN ATTENDANT: No focal sensory motor deficit. Alert, oriented x3. LABORATORY DATA: Sodium 39, potassium 4.5, chloride 106, BUN 12, creatinine 1, calcium 10.2, bilirubin 1.6, AST 41, ALT 22, amylase 108, lipase 5.4. White count 5.4, hemoglobin 10, hematocrit 30, platelets 121,000. Granulocyte 47%, lymphocyte 38%, monocyte 7%, eosinophil 5%. Coags, INR 1.2, PT 13.7, PTT 38.7. UA, small leukocyte esterase. PLAN: She will be admitted to the hospital. We will keep her n.p.o. GI evaluation with Dr. Carmelo angel. IV fluid at 100 mL an hour, sodium chloride, Zofran every 4 hours p.r.n. for abdominal pain, morphine 2 mg IV every [address] abdomen and pelvis unremarkable except diverticulosis, cholelithiasis, gallbladder thickening. No fever. Pancreatic enzymes, mildly elevated lipase at 514. We will monitor the pancreatic enzyme. She has anemia, hemoglobin of 10. We will do the iron studies, B12, folate level. We will watch for alcohol withdrawal. Whit Whitmore MD
[2018-09-06] MEDS ORDERED: DiphenhydrAMINE 12.5 mg/5 ml LIQ UD (5 ml) PO PRN (10:39)
[2018-09-06] MEDS ORDERED: Alum-Mag Hydrox-Simethicone Susp (30 mL) PO ONE (11:11)
--- NOTE | 2018-09-06 12:21 | CT ---
Date of service: 09/06/2018 PROCEDURE: CT Abdomen and Pelvis without intravenous contrast HISTORY: abd pain COMPARISON: 06/09/2018 TECHNIQUE: Without contrast.. Contrast dose: Radiation dose: Total exam DLP = 265.82 mGy-cm. This CT exam was performed using one or more of the following dose reduction techniques: Automated exposure control, adjustment of the mA and/or kV according to patient size, and/or use of iterative reconstruction technique. FINDINGS: LOWER THORAX: Unremarkable. LIVER: Unremarkable. No gross lesion or ductal dilatation. GALLBLADDER AND BILE DUCTS: Small gallstone. No distention or gallbladder wall thickening. PANCREAS: Unremarkable. No gross lesion or ductal dilatation. SPLEEN: There is a 5 cm calcification in the spleen. This is unchanged ADRENALS: Unremarkable. No mass. KIDNEYS AND URETERS: Unremarkable. No hydronephrosis. No solid mass. VASCULATURE: Unremarkable. No aortic aneurysm. No aortic atherosclerotic calcification or mural plaque present. BOWEL: Unremarkable. No obstruction. No gross mural thickening. Moderate gastric distention. APPENDIX: Unremarkable. Normal appendix. PERITONEUM: Unremarkable. No free fluid. No free air. LYMPH NODES: Unremarkable. No enlarged lymph nodes. BLADDER: Unremarkable. REPRODUCTIVE: Unremarkable. BONES: No acute fracture. OTHER FINDINGS: The report concurs with the preliminary [facility] report IMPRESSION: No acute intra-abdominal findings.
[2018-09-06 15:11] VITALS: BP 114/65; PULSE 70; O2SAT 97
[2018-09-07] MEDS ORDERED: Pantoprazole 20 mg EC Tab PO SCH (06:00)
--- NOTE | 2018-09-07 08:13 | CARD ---
APPROVED REPORT Date of service: 09/06/2018 EKG Measurement Heart [id number] <Conclusion> Normal sinus rhythm RVCD No change
== END 2018-09-06 18:13 | disposition home or self-care (01) ==
LOC: ED 23:40 → ERH 09-06 03:08 → 5RNO 09-06 04:05
PROVIDERS: ADMIT Internal Medicine Medical Oncology; ATTEND Internal Medicine Medical Oncology
DX: R10.13 Epigastric pain (principal); K70.30 Alcoholic cirrhosis of liver without ascites; D64.9 Anemia, unspecified; D73.4 Cyst of spleen; I10 Essential (primary) hypertension; K29.70 Gastritis, unspecified, without bleeding; K80.20 Calculus of gallbladder without cholecystitis without obstruction; F10.10 Alcohol abuse, uncomplicated; K59.00 Constipation, unspecified
CPT/HCPCS: 74176; 80053; 81001; 82150; 82550; 83615; 83690; 84484; 85025; 85610; 85730; 87040; 87086; 93005; 96374; 96375; 96376; 99284; G0378; J1200; J2270; J2405; J7030

== ENCOUNTER 2018-10-05 10:29 | Observation (INO) | payer SELFPAY ==
[2018-10-05 10:32] VITALS: BMI 20.7
[2018-10-05] MEDS ORDERED: DiphenhydrAMINE 50 mg/ml Inj IVP STA (10:53)
--- NOTE | 2018-10-05 11:02 | ED PDOC ---
Arrival/HPI - General Chief Complaint: Abdominal Pain Time Seen by Provider: 10/05/18 10:33 Historian: Patient - History of Present Illness Narrative History of Present Illness (Text): 10/05/18 10:54 57yo female with pmhx of hypertension, Liver failure bib EMS with complaint of diffuse constant burning abdominal pain x 2days. States the pain stopped yesterday after taking unknown analgesic. States the pain started again today. Did not take her pain medication today. Also report itching and usually takes Benadryl, but didn't take it today. States she sees a specialist at [facility] and saw him 2weeks ago. Denies nausea, vomiting, diarrhea, constipation, fever, chills, chest pain, SOB, diaphoresis, sick contact, any other complaint. Past Medical History - Provider Review Nursing Documentation Reviewed: Yes - Infectious Disease Hx of Infectious Diseases: None - Tetanus Immunization Tetanus Immunization: Unknown - Reproductive Menopause: No - Cardiac Hx Cardiac Disorders: Yes - Pulmonary Hx Respiratory Disorders: No - Neurological Hx Neurological Disorder: No - HEENT Hx HEENT Disorder: No - Renal Hx Renal Disorder: No - Endocrine/Metabolic Hx Endocrine Disorders: No - Hematological/Oncological Hx Blood Disorders: Yes - Integumentary Hx Dermatological Disorder: Yes (GENERALIZED JAUNDICED) - Musculoskeletal/Rheumatological Hx Musculoskeletal Disorders: Yes (pt denies r knee/back pain) Hx Falls: Yes (not recent) - Gastrointestinal Hx Gastrointestinal Disorders: Yes (GASTRITIS,ASCITES-H/O OF TAPPING,BOWEL OBSTRUCTION) Hx Liver Failure: Yes (ALCOHOLIC LIVER CIRRHOSIS) - Genitourinary/Gynecological Hx Genitourinary Disorders: Yes (MYOMECTOMY-FIBROID) - Psychiatric Hx Psychophysiologic Disorder: Yes (H/O ETOH ABUSE. DRANK HALF A LITER OF VODKA FOR 6-7 YRS. QUIT 15 JANUARY 2018) Hx Substance Use: No - Surgical History Other/Comment: Fibroids-MYOMECTOMY - Anesthesia Hx Anesthesia: Yes Hx Anesthesia Reactions: No Hx Malignant Hyperthermia: No - Suicidal Assessment Feels Threatened In Home Enviroment: No Family/Social History - Physician Review Nursing Documentation Reviewed: Yes Family/Social History: Unknown Family HX Smoking Status: Never Smoked Hx Alcohol Use: Yes (daily ETOH Quit January 2018) Hx Substance Use: No Allergies/Home Meds Allergies/Adverse Reactions: Allergies No Known Allergies Allergy (Verified 09/06/18 00:06) Home Medications: Home Meds Medication Instructions Recorded Confirmed RX: Magnesium Oxide [Mag-Ox] 1 tab PO DAILY 06/06/18 09/06/18 RX: rifAXIMin [Xifaxan] 550 mg PO BID 07/20/18 09/06/18 RX: traMADol [Ultram] 25 mg PO BID 07/20/18 09/06/18 Review of Systems - Physician Review All systems were reviewed & negative as marked: Yes - Review of Systems Constitutional: Normal Eyes: Normal ENT: Normal Respiratory: Normal Cardiovascular: Normal Gastrointestinal: Abdominal Pain. absent: Constipation, Diarrhea, Nausea, Vomiting, Hematochezia, Hematemesis Genitourinary Female: Normal Musculoskeletal: Normal Skin: Pruritis. absent: Rash Neurological: Normal Endocrine: Normal Hemo/Lymphatic: Normal Psychiatric: Normal Physical Exam Vital Signs Reviewed: Yes Temperature: Afebrile Blood Pressure: Normal Pulse: Regular Respiratory Rate: Normal Appearance: Positive for: Well-Appearing, Non-Toxic, Comfortable Pain Distress: None Mental Status: Positive for: Alert and Oriented X 3 - Systems Exam Head: Present: Atraumatic, Normocephalic Pupils: Present: PERRL Extroacular Muscles: Present: EOMI Conjunctiva: Present: Normal Mouth: Present: Moist Mucous Membranes Neck: Present: Normal Range of Motion Respiratory/Chest: Present: Clear to Auscultation, Good Air Exchange. No: Respiratory Distress, Accessory Muscle Use Cardiovascular: Present: Regular Rate and Rhythm, Normal S1, S2. No: Murmurs Abdomen: Present: Tenderness (Epigastric tenderness), Normal Bowel Sounds, Other (Soft). No: Distention, Peritoneal Signs, Rebound, Guarding, McBurney's Point Tender, Rovsing's Sign Present Back: Present: Normal Inspection Upper Extremity: Present: Normal Inspection. No: Cyanosis, Edema Lower Extremity: Present: Normal Inspection. No: Edema Neurological: Present: GCS=15, CN II-XII Intact, Speech Normal Skin: Present: Warm, Dry, Normal Color, Other (No excoriations noted). No: Rashes Psychiatric: Present: Alert, Oriented x 3, Normal Insight, Normal Concentration Medical Decision Making ED Course and Treatment: 10/05/18 15:52 57yo female in ED for abdominal pain and pruritus x 2days. Labs 1L NS, Pepcid, Benadryl Abdominal/pelvic CT EKG CXR Labs was reviewed mild AST and lipase elevation which both improved from patient's previous labs EKG sinus gage @ 58bpm. N-stemi Abdominal/Pelvic CT IMPRESSION: Interval appearance of mild intrahepatic and extrahepatic biliary ductal dilatation since the previous exam. Gallstone and mild to moderate gallbladder wall thickening. No definite CT evidence of acute cholecystitis. If clinically warranted further evaluation by ultrasound or MRCP may be obtained. Otherwise no significant interval changes noted since the prior study. On re evaluation pt continue to complain of abdominal pain and itching. She will be admitted secondary to her history of hepatic failure, above finding and persistent pain. Case was DW Dr. Keane and she accepted pt for admission - RAD Interpretation Radiology Orders: 10/05/18 10:52 ABD & PELVIS IV CONTRAST ONLY [CT] Stat Disposition/Present on Arrival - Present on Arrival Any Indicators Present on Arrival: No History of DVT/PE: No History of Uncontrolled Diabetes: No Urinary Catheter: No History of Decub. Ulcer: No History Surgical Site Infection Following: None - Disposition Have Diagnosis and Disposition been Completed?: Yes Diagnosis: Liver failure, Cholelithiasis Disposition: HOSPITALIZED Disposition Time: 14:50 Patient Plan: Admission Patient Problems: Current Active Problems Problem Status Onset Cholelithiasis Acute Liver failure Acute Condition: FAIR
[2018-10-05 11:47] LABS: ALB/GLOB RATIO 0.9 (1.1-1.8); ALBUMIN 4.2 g/dL (3.0-4.8); AMYLASE 115 U/L (35-125); BLOOD UREA NITROGEN 10 mg/dL (7-21); CALCIUM 10.4 mg/dL (8.4-10.5); GFR NON-AFRICAN AMERICAN 51; LIPASE 312 U/L (23-300)
[2018-10-05 11:48] LABS: ALT/SGPT 19 U/L (7-56); AST/SGOT 45 U/L (14-36)
[2018-10-05 11:49] LABS: URINE BILIRUBIN NEGATIVE (NEGATIVE); URINE BLOOD NEGATIVE (NEGATIVE); URINE GLUCOSE (UA) NEGATIVE (NEGATIVE); URINE LEUKOCYTE ESTERASE TRACE Leu/uL (NEGATIVE); URINE PROTEIN NEGATIVE mg/dL (<30 mg/dL); URINE UROBILINOGEN 0.2 E.U./dL (<1 E.U./dL)
[2018-10-05 11:50] LABS: INR 1.16; PARTIAL THROMBOPLASTIN TIME 37.7 Seconds (25.1-36.5); PROTHROMBIN TIME 13.4 SECONDS (9.4-12.5)
[2018-10-05 11:51] LABS: BASO # 0.06 K/mm3 (0.0-2.0); BASO % 1.1 % (0.0-3.0); EOS # 0.4 (0.0-0.7); EOS % 6.4 % (1.5-5.0); GRAN # 2.66 (1.4-6.5); GRAN % 46.9 % (50.0-68.0); HEMOGLOBIN 10.9 g/dL (12.0-16.0); LYMPH # 2.1 (1.2-3.4); LYMPH % 37.8 % (22.0-35.0); MEAN CELL VOLUME 88.4 fl (80.0-105.0); MEAN CORPUSCULAR HEMOGLOBIN 29.3 pg (25.0-35.0); MEAN CORPUSCULAR HGB CONC 33.1 g/dl (31.0-37.0); MEAN PLATELET VOLUME 11.2 fl (7.0-11.0); MONO # 0.4 (0.1-0.6); MONO % 7.8 % (1.0-6.0); RBC 3.72 10^6/uL (3.5-6.1); RED CELL DISTRIBUTION WIDTH 15.5 % (11.5-14.5); WHITE BLOOD COUNT 5.7 10^3/uL (4.5-11.0)
[2018-10-05 11:55] LABS: URINE APPEARANCE SL CLOUDY (CLEAR); URINE COLOR YELLOW (YELLOW)
[2018-10-05 11:58] LABS: TROPONIN I < 0.01 ng/mL
[2018-10-05 12:10] LABS: URINE RBC NEGATIVE /hpf (0-2); URINE WBC 0 - 2 /hpf (0-6)
[2018-10-05] MEDS ORDERED: Iohexol 300 100 ML IJ ONE (13:18)
--- NOTE | 2018-10-05 14:35 | CT ---
Date of service: 10/05/2018 PROCEDURE: CT Abdomen and Pelvis with contrast HISTORY: abdominal pain COMPARISON: Comparison is made to the previous study dated 09/06/2018 TECHNIQUE: Contrast dose: 100 mL of Omnipaque 300 intravenously. Axial and reformatted coronal and sagittal CT images of the abdomen and pelvis were obtained after IV contrast administration. Radiation dose: Total exam DLP = 272.99 mGy-cm. This CT exam was performed using one or more of the following dose reduction techniques: Automated exposure control, adjustment of the mA and/or kV according to patient size, and/or use of iterative reconstruction technique. FINDINGS: LOWER THORAX: Unremarkable. LIVER: The liver is mildly enlarged and heterogeneous. GALLBLADDER AND BILE DUCTS: Gallstone is again noted. There [id number] diffuse gallbladder wall thickening. There is mild intrahepatic and extrahepatic biliary ductal dilatation noted new compared to the previous exam. PANCREAS: Unremarkable. No gross lesion or ductal dilatation. SPLEEN: The spleen is normal in size. Again seen is calcified lesion adjacent to the splenic hilum. ADRENALS: Unremarkable. No mass. KIDNEYS AND URETERS: Unremarkable. No hydronephrosis. No solid mass. VASCULATURE: Unremarkable. No aortic aneurysm. No aortic atherosclerotic calcification or mural plaque present. BOWEL: Unremarkable. No obstruction. No gross mural thickening. APPENDIX: There is no evidence of acute appendicitis. PERITONEUM: Unremarkable. No free fluid. No free air. LYMPH NODES: Unremarkable. No enlarged lymph nodes. BLADDER: Unremarkable. REPRODUCTIVE: Unremarkable. BONES: No acute fracture. OTHER FINDINGS: None. IMPRESSION: Interval appearance of mild intrahepatic and extrahepatic biliary ductal dilatation since the previous exam. Gallstone and mild to moderate gallbladder wall thickening. No definite CT evidence of acute cholecystitis. If clinically warranted further evaluation by ultrasound or MRCP may be obtained. Otherwise no significant interval changes noted since the prior study.
--- NOTE | 2018-10-05 16:19 | CARD ---
APPROVED REPORT Date of service: 10/05/2018 EKG Measurement Heart [id number] <Conclusion> Sinus bradycardia RVCD Q in lll LVH by voltage
--- NOTE | 2018-10-05 16:52 | CP.PCM.HP ---
<Julianna Bradford - Last Filed: 10/05/18 17:30> History of Present Illness - History of Present Illness History of Present Illness: Julianna Bradford, PGY1 Hospital H&P This is a 57 year old female with PMH of former alcohol abuse, alcoholic liver cirrhosis on liver transplant list, hx of SBP and HTN presenting to the ED for one day history of abdominal pain. Pain is located in the epigastric region, rated 6/10 at worst, started gradually, constant, radiated to the RUQ and LUQ denies any alleviating or exacerbating factors and denies any associated symptoms. She took an unknown pain medication that did help with pain. She says current symptoms are similar to previous admission last month. She follows up at [facility] for liver cirrhosis and last visited two weeks ago. She is compliant with her medications. Last BM was yesterday afternoon. She denies CP, SOB, fevers, headaches, back pain, nausea, vomiting, chills, diarrhea, constipation, urinary complaints, numbness, tingling, swelling, recent travel, sickness, trauma and lifestyle changes including diet and weight. 12 point ROS noted here, otherwise unremarkable. PMD: [facility] PMH: former alcohol abuse, alcoholic liver cirrhosis on liver transplant list, hx of SBP and HTN SH: denies tobacco and drugs. admits to approx 10 year heavy drinking history, quit 3 months ago Sx: fibroid removal FH: mom and dad had heart disease Allergies: NKDA Meds: per patient's hand writtend medication list: xifaxan 550mg BID, sprinolactone 25mg, furosemide 40mg, mag-oxide 400mg, nadolol 20mg, folic acid 1mg, pantoprazole 40mg, colace, trazodone 50mg, benadryl 25mg Present on Admission - Present on Admission Any Indicators Present on Admission: No Past Patient History - Infectious Disease Hx of Infectious Diseases: None - Tetanus Immunizations Tetanus Immunization: Unknown - Past Social History Smoking Status: Never Smoked - CARDIAC Hx Cardiac Disorders: Yes - PULMONARY Hx Respiratory Disorders: No - NEUROLOGICAL Hx Neurological Disorder: No - HEENT Hx HEENT Problems: No - RENAL Hx Chronic Kidney Disease: No - ENDOCRINE/METABOLIC Hx Endocrine Disorders: No - HEMATOLOGICAL/ONCOLOGICAL Hx Blood Disorders: Yes - INTEGUMENTARY Hx Dermatological Problems: Yes (GENERALIZED JAUNDICED) - MUSCULOSKELETAL/RHEUMATOLOGICAL Hx Musculoskeletal Disorders: Yes (pt denies r knee/back pain) Hx Falls: Yes (not recent) - GASTROINTESTINAL Hx Gastrointestinal Disorders: Yes (GASTRITIS,ASCITES-H/O OF TAPPING,BOWEL OBSTRUCTION) Hx Liver Failure: Yes (ALCOHOLIC LIVER CIRRHOSIS) - GENITOURINARY/GYNECOLOGICAL Hx Genitourinary Disorders: Yes (MYOMECTOMY-FIBROID) - PSYCHIATRIC Hx Psychophysiologic Disorder: Yes (H/O ETOH ABUSE. DRANK HALF A LITER OF VODKA FOR 6-7 YRS. QUIT 15 JANUARY 2018) Hx Substance Use: No - SURGICAL HISTORY Other/Comment: Fibroids-MYOMECTOMY - ANESTHESIA Hx Anesthesia: Yes Hx Anesthesia Reactions: No Hx Malignant Hyperthermia: No Meds Allergies/Adverse Reactions: Allergies Allergy/AdvReac Type Severity Reaction Status Date / Time No Known Allergies Allergy Verified 10/05/18 19:35 Physical Exam - Additional Findings Additional findings: - Constitutional Appears: No Acute Distress - Head Exam Head Exam: ATRAUMATIC, NORMAL INSPECTION - Eye Exam Eye Exam: EOMI, Scleral icterus Pupil Exam: PERRL - ENT Exam ENT Exam: Mucous Membranes Moist - Respiratory Exam Respiratory Exam: Clear to Auscultation Bilateral. absent: Respiratory Distress - Cardiovascular Exam Cardiovascular Exam: REGULAR RHYTHM, +S1, +S2 - GI/Abdominal Exam GI & Abdominal Exam: Distended, Normal Bowel Sounds. absent: Firm, Guarding Additional comments: epigastric tenderness. Tolbert, rovsing, obturator signs negative - Extremities Exam Extremities exam: Positive for: normal inspection. Negative for: calf tenderness, joint swelling - Back Exam Back exam: NORMAL INSPECTION. CVA negative on right and left - Neurological Exam Neurological exam: Alert, Oriented x3 Results - Vital Signs Recent Vital Signs: Last Vital Signs Temp 98.3 F 10/05/18 15:44 Pulse 79 10/05/18 15:44 Resp 16 10/05/18 15:44 BP 105/62 10/05/18 15:44 Pulse Ox 99 10/05/18 15:44 - Labs Result Diagrams: 10/05/18 10:50 10/05/18 10:50 Labs: Laboratory Results - last 24 hr 10/05/18 10/05/18 10/05/18 10:50 10:50 10:50 WBC 5.7 RBC 3.72 Hgb 10.9 L Hct 32.9 L MCV 88.4 MCH 29.3 MCHC 33.1 RDW 15.5 H Plt Count 122 MPV 11.2 H Gran % 46.9 L Lymph % (Auto) 37.8 H [place] % (Auto) 7.8 H Eos % (Auto) 6.4 H Baso % (Auto) 1.1 Gran # 2.66 Lymph # (Auto) 2.1 [place] # (Auto) 0.4 Eos # (Auto) 0.4 Baso # (Auto) 0.06 PT 13.4 H INR 1.16 APTT 37.7 H Sodium Potassium Chloride Carbon Dioxide Anion Gap BUN Creatinine Est GFR ( Amer) Est GFR (Non-Af Amer) Random Glucose Calcium Total Bilirubin AST ALT Alkaline Phosphatase Lactate Dehydrogenase Total Creatine Kinase Troponin I Total Protein Albumin Globulin Albumin/Globulin Ratio Amylase Lipase Urine Color Yellow Urine Appearance Sl cloudy Urine pH 7.0 Ur Specific [place] 1.015 Urine Protein Negative Urine Glucose (UA) Negative Urine Ketones Negative Urine Blood Negative Urine Nitrate Negative Urine Bilirubin Negative Urine Urobilinogen 0.2 Ur Leukocyte Esterase Trace H Urine RBC Negative Urine WBC 0 - 2 10/05/18 10:50 WBC RBC Hgb Hct MCV MCH MCHC RDW Plt Count MPV Gran % Lymph % (Auto) [place] % (Auto) Eos % (Auto) Baso % (Auto) Gran # Lymph # (Auto) [place] # (Auto) Eos # (Auto) Baso # (Auto) PT INR APTT Sodium 134 Potassium 4.8 Chloride 99 Carbon Dioxide 27 Anion Gap 13 BUN 10 Creatinine 1.1 Est GFR ( Amer) > 60 Est GFR (Non-Af Amer) 51 Random Glucose 104 Calcium 10.4 Total Bilirubin 1.8 H AST 45 H ALT 19 Alkaline Phosphatase 83 Lactate Dehydrogenase 479 Total Creatine Kinase 46 Troponin I < 0.01 Total Protein 8.7 H Albumin 4.2 Globulin 4.6 Albumin/Globulin Ratio 0.9 L Amylase 115 Lipase 312 H Urine Color Urine Appearance Urine pH Ur Specific [place] Urine Protein Urine Glucose (UA) Urine Ketones Urine Blood Urine Nitrate Urine Bilirubin Urine Urobilinogen Ur Leukocyte Esterase Urine RBC Urine WBC Assessment & Plan - Assessment and Plan (Free Text) Assessment: This is a 57 year old female with PMH of former alcohol abuse, alcoholic liver cirrhosis on liver transplant list, hx of SBP and HTN presenting to the ED for one day history of abdominal pain. Plan: Abdominal pain -uncertain etiology -consider liver cirrhosis vs gastritis vs cholilithiasis -CTAP showed interval appearance of mild intra and extrahepatic biliary ductal dilation since previous exam. Gallstone and mild gallbladder wall thickening, no definite evidence of acute cholecystitis -will further investigate with Abdominal US -will consider HIDA, MRCP if ultrasound is positive -CXR shows no acute disease, f/u official read -elevated T Bili, AST, lipase. At baseline -liquid diet -continue home meds: nadolol, spirinolactone, furosemide, rifaximin, folic acid -MRCP 06/10/18: no evidence of intra/extra hepatic biliary dilation. Diffuse gallbladder wall thickening. Diffuse small and large bowel thickening which could be soft tissue edema -Had outpatient EGD done on 06/13/18 -GI on consult, Dr. Verduzco ?Hyperthyroidism -TSH, T4 pending Former alcohol use -UDS pending -alcohol level pending PPX with SCD and pepcid Patient seen and case discussed with attending, Dr. Hollis <Gal Hollis - Last Filed: 10/06/18 07:04> Results - Vital Signs Recent Vital Signs: Last Vital Signs Temp 98.1 F 10/06/18 06:00 Pulse 73 10/06/18 06:00 Resp 20 10/06/18 06:00 BP 107/66 10/06/18 06:00 Pulse Ox 100 10/06/18 06:00 - Labs Result Diagrams: 10/05/18 10:50 10/05/18 10:50 Labs: Laboratory Results - last 24 hr 10/05/18 10/05/18 10/05/18 10:50 10:50 10:50 WBC 5.7 RBC 3.72 Hgb 10.9 L Hct 32.9 L MCV 88.4 MCH 29.3 MCHC 33.1 RDW 15.5 H Plt Count 122 MPV 11.2 H Gran % 46.9 L Lymph % (Auto) 37.8 H [place] % (Auto) 7.8 H Eos % (Auto) 6.4 H Baso % (Auto) 1.1 Gran # 2.66 Lymph # (Auto) 2.1 [place] # (Auto) 0.4 Eos # (Auto) 0.4 Baso # (Auto) 0.06 PT 13.4 H INR 1.16 APTT 37.7 H Sodium Potassium Chloride Carbon Dioxide Anion Gap BUN Creatinine Est GFR ( Amer) Est GFR (Non-Af Amer) Random Glucose Calcium Total Bilirubin AST ALT Alkaline Phosphatase Lactate Dehydrogenase Total Creatine Kinase Troponin I Total Protein Albumin Globulin Albumin/Globulin Ratio Amylase Lipase Urine Color Yellow Urine Appearance Sl cloudy Urine pH 7.0 Ur Specific [place] 1.015 Urine Protein Negative Urine Glucose (UA) Negative Urine Ketones Negative Urine Blood Negative Urine Nitrate Negative Urine Bilirubin Negative Urine Urobilinogen 0.2 Ur Leukocyte Esterase Trace H Urine RBC Negative Urine WBC 0 - 2 Urine Opiates Screen Urine Methadone Screen Ur Barbiturates Screen Ur Phencyclidine Scrn Ur Amphetamines Screen U Benzodiazepines Scrn U Oth Cocaine Metabols U Cannabinoids Screen Alcohol, Quantitative 10/05/18 10/05/18 10/05/18 10:50 16:00 16:52 WBC RBC Hgb Hct MCV MCH MCHC RDW Plt Count MPV Gran % Lymph % (Auto) [place] % (Auto) Eos % (Auto) Baso % (Auto) Gran # Lymph # (Auto) [place] # (Auto) Eos # (Auto) Baso # (Auto) PT INR APTT Sodium 134 Potassium 4.8 Chloride 99 Carbon Dioxide 27 Anion Gap 13 BUN 10 Creatinine 1.1 Est GFR ( Amer) > 60 Est GFR (Non-Af Amer) 51 Random Glucose 104 Calcium 10.4 Total Bilirubin 1.8 H AST 45 H ALT 19 Alkaline Phosphatase 83 Lactate Dehydrogenase 479 Total Creatine Kinase 46 Troponin I < 0.01 Total Protein 8.7 H Albumin 4.2 Globulin 4.6 Albumin/Globulin Ratio 0.9 L Amylase 115 Lipase 312 H Urine Color Urine Appearance Urine pH Ur Specific [place] Urine Protein Urine Glucose (UA) Urine Ketones Urine Blood Urine Nitrate Urine Bilirubin Urine Urobilinogen Ur Leukocyte Esterase Urine RBC Urine WBC Urine Opiates Screen Negative Urine Methadone Screen Negative Ur Barbiturates Screen Negative Ur Phencyclidine Scrn Negative Ur Amphetamines Screen Negative U Benzodiazepines Scrn Negative U Oth Cocaine Metabols Negative U Cannabinoids Screen Negative Alcohol, Quantitative < 10 Attending/Attestation - Attestation I have personally seen and examined this patient.: Yes I have fully participated in the care of the patient.: Yes I have reviewed all pertinent clinical information: Yes Notes (Text): 10/05/18 57 year old female with past medical history of former alcohol abuse, alcohol liver disease and hyperthyroidism who presents with complaint of abdominal pain. CT abd/pelvis showed mild intra and extrahepatic biliary ductal dilation and gallstonees. Slightly elevated TB and AST. US abdomen is ordered. Continue with liquid diet for now. GI evaluation is requested. Continue with protonix. Patient was recently diagnosed with hyperthyroidism but noncompliant with medication. TFTs are ordered. is at bedside and questions were answered. Gal Hollis MD Hospitalist.
[2018-10-05 17:23] LABS: BARBITURATES, UR NEGATIVE (NEGATIVE); BENZODIAZEPINES, UR NEGATIVE (NEGATIVE); OPIATES, UR NEGATIVE (NEGATIVE); PHENCYCLIDINE, UR NEGATIVE (NEGATIVE)
--- NOTE | 2018-10-05 17:33 | RAD ---
Date of service: 10/05/2018 HISTORY: Admission. COMPARISON: Comparison chest dated 06/29/2018 FINDINGS: LUNGS: Minimal bibasilar atelectasis. PLEURA: No significant pleural effusion identified, no pneumothorax apparent. CARDIOVASCULAR: No aortic atherosclerotic calcification present. Mild cardiomegaly.. No pulmonary vascular congestion. OSSEOUS STRUCTURES: No significant abnormalities. VISUALIZED UPPER ABDOMEN: Normal. OTHER FINDINGS: None. IMPRESSION: Minimal bibasilar atelectasis
[2018-10-05] MEDS ORDERED: DiphenhydrAMINE 50 mg/ml Inj IVP PRN (19:17)
[2018-10-05 21:34] VITALS: TEMP 98.1
[2018-10-05] MEDS ORDERED: Influenza Vaccine 60 mcg/0.5 mL SYR (4YR UP) IM ONE (21:38)
[2018-10-05] MEDS ORDERED: Pneumococcal 23-Valent Vaccine IM ONE (21:38)
[2018-10-06 06:43] VITALS: BP 107/66; PULSE 73; RESP 20; O2SAT 100
--- NOTE | 2018-10-06 07:07 | CP.PCM.PN ---
Subjective - Date & Time of Evaluation Date of Evaluation: 10/06/18 Time of Evaluation: 07:07 - Subjective Subjective: Resident Progress Note for Hospitalist Service Objective - Vital Signs/Intake and Output Vital Signs (last 24 hours): Temp Pulse Resp BP Pulse Ox 98.1 F 73 20 107/66 100 10/06/18 06:00 10/06/18 06:00 10/06/18 06:00 10/06/18 06:00 10/06/18 06:00 - Medications Medications: Current Medications Diphenhydramine HCl (Benadryl) 25 mg IVP Q6 PRN PRN Reason: Itching / Pruritus Last Admin: 10/05/18 19:58 Dose: 25 mg Famotidine (Pepcid) 20 mg IVP DAILY [facility] Folic Acid (Folic Acid) 1 mg PO DAILY [facility] Furosemide (Lasix) 40 mg PO DAILY [facility] Magnesium Oxide (Mag-Ox) 400 mg PO DAILY [facility] Nadolol (Corgard) 20 mg PO DAILY [facility] Rifaximin (Xifaxan) 550 mg PO BID [facility]; Protocol Spironolactone (Aldactone) 25 mg PO BID [facility] Tramadol HCl (Ultram) 25 mg PO Q6 PRN PRN Reason: Pain, severe (8-10) Last Admin: 10/05/18 19:58 Dose: 25 mg Trazodone HCl (Desyrel) 50 mg PO HS [facility] Last Admin: 10/05/18 21:32 Dose: 50 mg - Labs Labs: 10/05/18 10:50 10/05/18 10:50 PT 13.4 SECONDS (9.4-12.5) H 10/05/18 10:50 INR 1.16 10/05/18 10:50 APTT 37.7 Seconds (25.1-36.5) H 10/05/18 10:50
[2018-10-06 07:12] LABS: BASO # 0.03 K/mm3 (0.0-2.0); BASO % 0.6 % (0.0-3.0); EOS # 0.3 (0.0-0.7); EOS % 5.8 % (1.5-5.0); GRAN # 2.21 (1.4-6.5); GRAN % 41.7 % (50.0-68.0); HEMOGLOBIN 10.5 g/dL (12.0-16.0); LYMPH # 2.5 (1.2-3.4); LYMPH % 46.4 % (22.0-35.0); MEAN CELL VOLUME 88.1 fl (80.0-105.0); MEAN CORPUSCULAR HEMOGLOBIN 29.2 pg (25.0-35.0); MEAN CORPUSCULAR HGB CONC 33.1 g/dl (31.0-37.0); MEAN PLATELET VOLUME 11.6 fl (7.0-11.0); MONO # 0.3 (0.1-0.6); MONO % 5.5 % (1.0-6.0); RBC 3.6 10^6/uL (3.5-6.1); RED CELL DISTRIBUTION WIDTH 15.5 % (11.5-14.5); WHITE BLOOD COUNT 5.3 10^3/uL (4.5-11.0)
[2018-10-06 07:32] LABS: FREE T4 1.92 ng/dL (0.78-2.19)
[2018-10-06 07:41] LABS: ALB/GLOB RATIO 0.8 (1.1-1.8); ALBUMIN 3.3 g/dL (3.0-4.8)
[2018-10-06] MEDS ORDERED: Magnesium Oxide 400 mg Tab UD PO SCH (10:00)
--- NOTE | 2018-10-06 10:21 | CP.PCM.CON ---
<Donovan Parker - Last Filed: 10/06/18 10:23> History of Present Illness - History of Present Illness History of Present Illness: PGY-4 GI Fellow Consult Note Mrs. Caicedo is a 57 yo Portuguese female with EtOH Cirrhosis (c/b Ascites, possible h/o SBP, h/o HE? as on rifaxamin), h/o EtOH abuse (sober ~ 6 months), Cholelithiasis, HTN presenting with abdominal pain. She reportedly has abdomina l pain all the time since being told that she had cirrhosis but states that she was having some episodes for frequently than normal; therefore she presented for evaluation. She reports intermittent diffuse abdominal pain, worse in epigastrum, sharp, previosuly triggered by eating but not this time around. She states that she likes to eat fatty food. She reports formed brown BMs when she has them. States that she had and EGD and Colonoscopy within the last few months that were reportedly normal. She denied any f/c, diarrhea, bleeding nor change in bowel habits. Since admission, she states her symptoms have improved and that she is interested in possible DC later if able. 12 point ROS negative other than stated above. MHx: See above SurgHx: EGD+CPSY few months ago, "normal" per pt report, fibroid surgery Meds: Reviewed in [facility] FamHx: Denied GI problems SocHx: H/o EtOH abuse (vodka) with last drink 6 months ago, denies tob/ill All: NKDA Past Patient History - Infectious Disease Hx of Infectious Diseases: None - Tetanus Immunizations Tetanus Immunization: Unknown - Past Social History Smoking Status: Never Smoked - CARDIAC Hx Cardiac Disorders: Yes Hx Hypertension: Yes - PULMONARY Hx Respiratory Disorders: No - NEUROLOGICAL Hx Neurological Disorder: No - HEENT Hx HEENT Problems: No - RENAL Hx Chronic Kidney Disease: No - ENDOCRINE/METABOLIC Hx Endocrine Disorders: No - HEMATOLOGICAL/ONCOLOGICAL Hx Blood Disorders: Yes Hx Cirrhosis: Yes - INTEGUMENTARY Hx Dermatological Problems: Yes (GENERALIZED JAUNDICED) - MUSCULOSKELETAL/RHEUMATOLOGICAL Hx Musculoskeletal Disorders: Yes (pt denies r knee/back pain) Hx Falls: Yes (not recent) - GASTROINTESTINAL Hx Gastrointestinal Disorders: Yes (GASTRITIS,ASCITES-H/O OF TAPPING,BOWEL OBSTRUCTION) Hx Liver Failure: Yes (ALCOHOLIC LIVER CIRRHOSIS) - GENITOURINARY/GYNECOLOGICAL Hx Genitourinary Disorders: Yes (MYOMECTOMY-FIBROID) - PSYCHIATRIC Hx Psychophysiologic Disorder: Yes (H/O ETOH ABUSE. DRANK HALF A LITER OF VODKA FOR 6-7 YRS. QUIT 15 JANUARY 2018) Hx Substance Use: No - SURGICAL HISTORY Other/Comment: Fibroids-MYOMECTOMY - ANESTHESIA Hx Anesthesia: Yes Hx Anesthesia Reactions: No Hx Malignant Hyperthermia: No Meds Allergies/Adverse Reactions: Allergies Allergy/AdvReac Type Severity Reaction Status Date / Time No Known Allergies Allergy Verified 10/05/18 19:35 - Medications Medications: Current Medications Diphenhydramine HCl (Benadryl) 25 mg IVP Q6 PRN PRN Reason: Itching / Pruritus Last Admin: 10/05/18 19:58 Dose: 25 mg Famotidine (Pepcid) 20 mg IVP DAILY [facility] Last Admin: 10/06/18 09:48 Dose: 20 mg Folic Acid (Folic Acid) 1 mg PO DAILY [facility] Last Admin: 10/06/18 09:47 Dose: 1 mg Furosemide (Lasix) 40 mg PO DAILY [facility] Last Admin: 10/06/18 09:47 Dose: 40 mg Magnesium Oxide (Mag-Ox) 400 mg PO DAILY [facility] Last Admin: 10/06/18 09:47 Dose: 400 mg Nadolol (Corgard) 20 mg PO DAILY [facility] Last Admin: 10/06/18 09:46 Dose: 20 mg Rifaximin (Xifaxan) 550 mg PO BID [facility]; Protocol Last Admin: 10/06/18 09:48 Dose: 550 mg Spironolactone (Aldactone) 25 mg PO BID [facility] Last Admin: 10/06/18 09:45 Dose: 25 mg Tramadol HCl (Ultram) 25 mg PO Q6 PRN PRN Reason: Pain, severe (8-10) Last Admin: 10/05/18 19:58 Dose: 25 mg Trazodone HCl (Desyrel) 50 mg PO [facility] Last Admin: 10/05/18 21:32 Dose: 50 mg Physical Exam - Constitutional Appears: Well, No Acute Distress - Head Exam Head Exam: ATRAUMATIC, NORMAL INSPECTION - Eye Exam Eye Exam: EOMI. absent: Scleral icterus - ENT Exam ENT Exam: Mucous Membranes Moist. absent: Mucous Membranes Dry - Respiratory Exam Respiratory Exam: Clear to Auscultation Bilateral. absent: Accessory Muscle Use, Respiratory Distress - Cardiovascular Exam Cardiovascular Exam: REGULAR RHYTHM, RRR - GI/Abdominal Exam GI & Abdominal Exam: Normal Bowel Sounds, Soft. absent: Bruit, Diminished Bowel Sounds, Distended, Firm, Guarding, Hernia, Mass, Organomegaly, Pulsatile Mass, Rebound, Rigid, Tenderness - Rectal Exam Rectal Exam: Deferred - Extremities Exam Extremities exam: Positive for: normal inspection. Negative for: pedal edema - Neurological Exam Neurological exam: Alert, CN II-XII Intact - Psychiatric Exam Psychiatric exam: Normal Affect, Normal Mood - Skin Skin Exam: Dry, Normal Color Results - Vital Signs Recent Vital Signs: Last Vital Signs Temp 98.1 F 10/06/18 06:00 Pulse 73 10/06/18 09:46 Resp 20 10/06/18 06:00 BP 107/66 10/06/18 09:47 Pulse Ox 100 10/06/18 06:00 - Labs Result Diagrams: 10/06/18 06:00 10/06/18 06:00 Labs: Laboratory Results - last 24 hr 10/05/18 10/05/18 10/05/18 10:50 10:50 10:50 WBC 5.7 RBC 3.72 Hgb 10.9 L Hct 32.9 L MCV 88.4 MCH 29.3 MCHC 33.1 RDW 15.5 H Plt Count 122 MPV 11.2 H Gran % 46.9 L Lymph % (Auto) 37.8 H Cata[place] % (Auto) 7.8 H Eos % (Auto) 6.4 H Baso % (Auto) 1.1 Gran # 2.66 Lymph # (Auto) 2.1 Cataño # (Auto) 0.4 Eos # (Auto) 0.4 Baso # (Auto) 0.06 PT 13.4 H INR 1.16 APTT 37.7 H Sodium Potassium Chloride Carbon Dioxide Anion Gap BUN Creatinine Est GFR ( Amer) Est GFR (Non-Af Amer) Random Glucose Calcium Phosphorus Magnesium Total Bilirubin AST ALT Alkaline Phosphatase Lactate Dehydrogenase Total Creatine Kinase Troponin I Total Protein Albumin Globulin Albumin/Globulin Ratio Amylase Lipase Free T4 TSH 3rd Generation Urine Color Yellow Urine Appearance Sl cloudy Urine pH 7.0 Ur Specific Bartlett 1.015 Urine Protein Negative Urine Glucose (UA) Negative Urine Ketones Negative Urine Blood Negative Urine Nitrate Negative Urine Bilirubin Negative Urine Urobilinogen 0.2 Ur Leukocyte Esterase Trace H Urine RBC Negative Urine WBC 0 - 2 Urine Opiates Screen Urine Methadone Screen Ur Barbiturates Screen Ur Phencyclidine Scrn Ur Amphetamines Screen U Benzodiazepines Scrn U Oth Cocaine Metabols U Cannabinoids Screen Alcohol, Quantitative 10/05/18 10/05/18 10/05/18 10:50 16:00 16:52 WBC RBC Hgb Hct MCV MCH MCHC RDW Plt Count MPV Gran % Lymph % (Auto) Cata[place] % (Auto) Eos % (Auto) Baso % (Auto) Gran # Lymph # (Auto) Cata[place] # (Auto) Eos # (Auto) Baso # (Auto) PT INR APTT Sodium 134 Potassium 4.8 Chloride 99 Carbon Dioxide 27 Anion Gap 13 BUN 10 Creatinine 1.1 Est GFR ( Amer) > 60 Est GFR (Non-Af Amer) 51 Random Glucose 104 Calcium 10.4 Phosphorus Magnesium Total Bilirubin 1.8 H AST 45 H ALT 19 Alkaline Phosphatase 83 Lactate Dehydrogenase 479 Total Creatine Kinase 46 Troponin I < 0.01 Total Protein 8.7 H Albumin 4.2 Globulin 4.6 Albumin/Globulin Ratio 0.9 L Amylase 115 Lipase 312 H Free T4 TSH 3rd Generation Urine Color Urine Appearance Urine pH Ur Specific Bart[place] Urine Protein Urine Glucose (UA) Urine Ketones Urine Blood Urine Nitrate Urine Bilirubin Urine Urobilinogen Ur Leukocyte Esterase Urine RBC Urine WBC Urine Opiates Screen Negative Urine Methadone Screen Negative Ur Barbiturates Screen Negative Ur Phencyclidine Scrn Negative Ur Amphetamines Screen Negative U Benzodiazepines Scrn Negative U Oth Cocaine Metabols Negative U Cannabinoids Screen Negative Alcohol, Quantitative < 10 10/06/18 10/06/18 10/06/18 06:00 06:00 06:00 WBC 5.3 RBC 3.60 Hgb 10.5 L Hct 31.7 L MCV 88.1 MCH 29.2 MCHC 33.1 RDW 15.5 H Plt Count 102 L MPV 11.6 H Gran % 41.7 L Lymph % (Auto) 46.4 H Cata[place] % (Auto) 5.5 Eos % (Auto) 5.8 H Baso % (Auto) 0.6 Gran # 2.21 Lymph # (Auto) 2.5 Cata[place] # (Auto) 0.3 Eos # (Auto) 0.3 Baso # (Auto) 0.03 PT INR APTT Sodium 136 Potassium 4.0 Chloride 103 Carbon Dioxide 27 Anion Gap 10 BUN 10 Creatinine 1.2 Est GFR ( Amer) 56 Est GFR (Non-Af Amer) 46 Random Glucose 93 Calcium 10.0 Phosphorus 4.2 Magnesium 1.8 Total Bilirubin 1.4 H AST 36 ALT 20 Alkaline Phosphatase 80 Lactate Dehydrogenase Total Creatine Kinase Troponin I Total Protein 7.5 Albumin 3.3 Globulin 4.2 Albumin/Globulin Ratio 0.8 L Amylase Lipase Free T4 1.92 TSH 3rd Generation 0.19 L Urine Color Urine Appearance Urine pH Ur Specific Bartlett Urine Protein Urine Glucose (UA) Urine Ketones Urine Blood Urine Nitrate Urine Bilirubin Urine Urobilinogen Ur Leukocyte Esterase Urine RBC Urine WBC Urine Opiates Screen Urine Methadone Screen Ur Barbiturates Screen Ur Phencyclidine Scrn Ur Amphetamines Screen U Benzodiazepines Scrn U Oth Cocaine Metabols U Cannabinoids Screen Alcohol, Quantitative Assessment & Plan - Assessment and Plan (Free Text) Assessment: 57 yo Portuguese female with EtOH Cirrhosis and cholelithiasis presenting with acute on chronic abd pain # Abd Pain: Unclear etiology. Chronic issue for patient, but reassuringly already feeling better. Some reported intra+extra hep bilary dilation reported on CT, but liver tests better than prior and symptoms already improved. Recent MRCP 06/10/18 without biliary dilation when liver tests were worse at that time. Wonder if related to chronic pancreatitis given chronic elevatation of lipase in setting of h/o EtOH abuse; no signs of panc calcifications on CT but EUS would be more sensitive. # EtOH cirrhosis: MELD-Na 15. Follows with [facility] Hepatology for possible Transplant - Ascites: Suspected h/o SBP, on furosemide and spironolactone as OP - HE: Unknown but on rifaxamin as OP - EV: reportedly EGD normal a few months ago, on nadalol Plan: - F/u Abd US - Recommend Low Fat, Low Na diet - Cont diuretics, BB - Supportive care - Pt to f/u with [facility] in Oct 2018 for ongoing cirrhosis/transplant treatment and eval Pt seen and examined with Dr. Verduzco; please see his attestation for further recs/changes. <Abdi Verduzco - Last Filed: 10/06/18 10:44> Meds - Medications Medications: Current Medications Famotidine (Pepcid) 20 mg IVP DAILY [facility] Last Admin: 10/06/18 09:48 Dose: 20 mg Folic Acid (Folic Acid) 1 mg PO DAILY [facility] Last Admin: 10/06/18 09:47 Dose: 1 mg Furosemide (Lasix) 40 mg PO DAILY [facility] Last Admin: 10/06/18 09:47 Dose: 40 mg Magnesium Oxide (Mag-Ox) 400 mg PO DAILY [facility] Last Admin: 10/06/18 09:47 Dose: 400 mg Nadolol (Corgard) 20 mg PO DAILY [facility] Last Admin: 10/06/18 09:46 Dose: 20 mg Rifaximin (Xifaxan) 550 mg PO BID [facility]; Protocol Last Admin: 10/06/18 09:48 Dose: 550 mg Spironolactone (Aldactone) 25 mg PO BID [facility] Last Admin: 10/06/18 09:45 Dose: 25 mg Tramadol HCl (Ultram) 25 mg PO Q6 PRN PRN Reason: Pain, severe (8-10) Last Admin: 10/05/18 19:58 Dose: 25 mg Trazodone HCl (Desyrel) 50 mg PO HS [facility] Last Admin: 10/05/18 21:32 Dose: 50 mg Results - Vital Signs Recent Vital Signs: Last Vital Signs Temp 98.1 F 10/06/18 06:00 Pulse 73 10/06/18 09:46 Resp 20 10/06/18 06:00 BP 107/66 10/06/18 09:47 Pulse Ox 100 10/06/18 06:00 - Labs Result Diagrams: 10/06/18 06:00 10/06/18 06:00 Labs: Laboratory Results - last 24 hr 10/05/18 10/05/18 10/05/18 10:50 10:50 10:50 WBC 5.7 RBC 3.72 Hgb 10.9 L Hct 32.9 L MCV 88.4 MCH 29.3 MCHC 33.1 RDW 15.5 H Plt Count 122 MPV 11.2 H Gran % 46.9 L Lymph % (Auto) 37.8 H Cata[place] % (Auto) 7.8 H Eos % (Auto) 6.4 H Baso % (Auto) 1.1 Gran # 2.66 Lymph # (Auto) 2.1 Cata[place] # (Auto) 0.4 Eos # (Auto) 0.4 Baso # (Auto) 0.06 PT 13.4 H INR 1.16 APTT 37.7 H Sodium Potassium Chloride Carbon Dioxide Anion Gap BUN Creatinine Est GFR ( Amer) Est GFR (Non-Af Amer) Random Glucose Calcium Phosphorus Magnesium Total Bilirubin AST ALT Alkaline Phosphatase Lactate Dehydrogenase Total Creatine Kinase Troponin I Total Protein Albumin Globulin Albumin/Globulin Ratio Amylase Lipase Free T4 TSH 3rd Generation Urine Color Yellow Urine Appearance Sl cloudy Urine pH 7.0 Ur Specific Bartlett 1.015 Urine Protein Negative Urine Glucose (UA) Negative Urine Ketones Negative Urine Blood Negative Urine Nitrate Negative Urine Bilirubin Negative Urine Urobilinogen 0.2 Ur Leukocyte Esterase Trace H Urine RBC Negative Urine WBC 0 - 2 Urine Opiates Screen Urine Methadone Screen Ur Barbiturates Screen Ur Phencyclidine Scrn Ur Amphetamines Screen U Benzodiazepines Scrn U Oth Cocaine Metabols U Cannabinoids Screen Alcohol, Quantitative 10/05/18 10/05/18 10/05/18 10:50 16:00 16:52 WBC RBC Hgb Hct MCV MCH MCHC RDW Plt Count MPV Gran % Lymph % (Auto) Cata[place] % (Auto) Eos % (Auto) Baso % (Auto) Gran # Lymph # (Auto) [place]ata[place] # (Auto) Eos # (Auto) Baso # (Auto) PT INR APTT Sodium 134 Potassium 4.8 Chloride 99 Carbon Dioxide 27 Anion Gap 13 BUN 10 Creatinine 1.1 Est GFR ( Amer) > 60 Est GFR (Non-Af Amer) 51 Random Glucose 104 Calcium 10.4 Phosphorus Magnesium Total Bilirubin 1.8 H AST 45 H ALT 19 Alkaline Phosphatase 83 Lactate Dehydrogenase 479 Total Creatine Kinase 46 Troponin I < 0.01 Total Protein 8.7 H Albumin 4.2 Globulin 4.6 Albumin/Globulin Ratio 0.9 L Amylase 115 Lipase 312 H Free T4 TSH 3rd Generation Urine Color Urine Appearance Urine pH Ur Specific [place] Urine Protein Urine Glucose (UA) Urine Ketones Urine Blood Urine Nitrate Urine Bilirubin Urine Urobilinogen Ur Leukocyte Esterase Urine RBC Urine WBC Urine Opiates Screen Negative Urine Methadone Screen Negative Ur Barbiturates Screen Negative Ur Phencyclidine Scrn Negative Ur Amphetamines Screen Negative U Benzodiazepines Scrn Negative U Oth Cocaine Metabols Negative U Cannabinoids Screen Negative Alcohol, Quantitative < 10 10/06/18 10/06/18 10/06/18 06:00 06:00 06:00 WBC 5.3 RBC 3.60 Hgb 10.5 L Hct 31.7 L MCV 88.1 MCH 29.2 MCHC 33.1 RDW 15.5 H Plt Count 102 L MPV 11.6 H Gran % 41.7 L Lymph % (Auto) 46.4 H Cata[place] % (Auto) 5.5 Eos % (Auto) 5.8 H Baso % (Auto) 0.6 Gran # 2.21 Lymph # (Auto) 2.5 Cata[place] # (Auto) 0.3 Eos # (Auto) 0.3 Baso # (Auto) 0.03 PT INR APTT Sodium 136 Potassium 4.0 Chloride 103 Carbon Dioxide 27 Anion Gap 10 BUN 10 Creatinine 1.2 Est GFR ( Amer) 56 Est GFR (Non-Af Amer) 46 Random Glucose 93 Calcium 10.0 Phosphorus 4.2 Magnesium 1.8 Total Bilirubin 1.4 H AST 36 ALT 20 Alkaline Phosphatase 80 Lactate Dehydrogenase Total Creatine Kinase Troponin I Total Protein 7.5 Albumin 3.3 Globulin 4.2 Albumin/Globulin Ratio 0.8 L Amylase Lipase Free T4 1.92 TSH 3rd Generation 0.19 L Urine Color Urine Appearance Urine pH Ur Specific [place] Urine Protein Urine Glucose (UA) Urine Ketones Urine Blood Urine Nitrate Urine Bilirubin Urine Urobilinogen Ur Leukocyte Esterase Urine RBC Urine WBC Urine Opiates Screen Urine Methadone Screen Ur Barbiturates Screen Ur Phencyclidine Scrn Ur Amphetamines Screen U Benzodiazepines Scrn U Oth Cocaine Metabols U Cannabinoids Screen Alcohol, Quantitative Attending/Attestation - Attestation I have personally seen and examined this patient.: Yes I have fully participated in the care of the patient.: Yes I have reviewed all pertinent clinical information: Yes Notes (Text): 10/06/18 10:38 I have seen and examined patient with GI fellow. Agree with above documentation with the following additions. In brief, this is a 57 year old female with history of decompensated ETOH cirrhosis, HTN, cholelith[facility]. She reports diffuse right and left sided pain which was progressively getting worse over the past 3 days. Pain seemed to be worse following meal consumption, particularly fatty food. She otherwise denies nausea, vomiting, fever/chills, weight loss, rectal bleeding, or change in bowel habits. She supposedly has not consumed ETOH in over 6 months and routinely follows at [facility] liver clinic. Review of vitals from today are normal. Decompensated ETOH cirrhosis - MELD [address] imaging reviewed by me showing cholelithiasis, thickened GB wall, with non- specific billiary dilation (similar to CT finding from prior admission) - Advance diet to low fat as tolerated, possible component of chronic pancreatitis - Follow up abdominal US imaging - LFTs stable, continue to monitor - Continue with diuretic therapy, monitor electrolytes - Continue with lactulose/xifaxan therapy for HE prevention - Consider surgical evaluation if abdominal pain persists in setting of cholelithiasis - No further planned GI intervention at this time, patient has scheduled liver clinic follow up in [place] in October. Will sign off case, please reconsult as necessary, thank you.
--- NOTE | 2018-10-06 10:50 | US ---
Date of service: 10/06/2018 HISTORY: evaluate of biliary ductal dilation COMPARISON: 06/22/2018 abdominal ultrasound. Common duct on the prior study 7.3 mm. [address] abdomen and pelvis TECHNIQUE: Sonographic evaluation of the abdomen. FINDINGS: LIVER: Measures 13 cm. Patent portal vein. Portal venous flow: Hepatopetal. Unremarkable echogenicity of the liver parenchyma. No mass. No intrahepatic bile duct dilatation. GALLBLADDER: Cholelithiasis. Negative study for gallbladder wall thickening, pericholecystic fluid, sonographic Tolbert's sign. COMMON BILE DUCT: Measures 4.8 mm. No stones. No dilatation. PANCREAS: Unremarkable as visualized. No mass. No ductal dilatation. RIGHT KIDNEY: Measures 4.4 x 9.9cm. Normal echogenicity. No calculus, mass, or hydronephrosis. LEFT KIDNEY: Measures 5.7 x 10.4cm. Normal echogenicity. No calculus, mass, or hydronephrosis.Incidental finding(s): Simple cyst upper pole 10 mm. SPLEEN: Nonvisualization previously identified calcified splenic mass normal size spleen. AORTA: No aneurysmal dilatation. IVC: Unremarkable. OTHER FINDINGS: None. IMPRESSION: Normal common duct in its entirety, as visualized. No common or intrahepatic bile duct dilatation. Cholelithiasis. No sonographic evidence of acute cholecystitis. Additional benign and/or incidental findings described above.
--- NOTE | 2018-10-06 11:37 | CP.PCM.DIS ---
<MalloryCtcaden L - Last Filed: 10/06/18 20:43> Provider - Provider Date of Admission: 10/05/18 14:52 Attending physician: Gal Hollis MD Primary care physician: Linda Baker MD Consults: none Time Spent in preparation of Discharge (in minutes): 35 Diagnosis - Discharge Diagnosis (1) Abdominal pain Status: Acute Priority: Medium (2) Cholelithiasis Status: Acute (3) Cirrhosis Status: Acute Hospital Course - Lab Results Lab Results: Micro Results 10/05/18 10:50 Blood-Venous Blood Culture - Preliminary NO GROWTH AFTER 24 HOURS Most Recent Lab Values WBC 5.3 10^3/uL (4.5-11.0) 10/06/18 06:00 RBC 3.60 10^6/uL (3.5-6.1) 10/06/18 06:00 Hgb 10.5 g/dL (12.0-16.0) L 10/06/18 06:00 Hct 31.7 % (36.0-48.0) L 10/06/18 06:00 MCV 88.1 fl (80.0-105.0) 10/06/18 06:00 MCH 29.2 pg (25.0-35.0) 10/06/18 06:00 MCHC 33.1 g/dl (31.0-37.0) 10/06/18 06:00 RDW 15.5 % (11.5-14.5) H 10/06/18 06:00 Plt Count 102 10^3/uL (120.0-450.0) L 10/06/18 06:00 MPV 11.6 fl (7.0-11.0) H 10/06/18 06:00 Gran % 41.7 % (50.0-68.0) L 10/06/18 06:00 Lymph % (Auto) 46.4 % (22.0-35.0) H 10/06/18 06:00 [place] % (Auto) 5.5 % (1.0-6.0) 10/06/18 06:00 Eos % (Auto) 5.8 % (1.5-5.0) H 10/06/18 06:00 Baso % (Auto) 0.6 % (0.0-3.0) 10/06/18 06:00 Gran # 2.21 (1.4-6.5) 10/06/18 06:00 Lymph # (Auto) 2.5 (1.2-3.4) 10/06/18 06:00 [place] # (Auto) 0.3 (0.1-0.6) 10/06/18 06:00 Eos # (Auto) 0.3 (0.0-0.7) 10/06/18 06:00 Baso # (Auto) 0.03 K/mm3 (0.0-2.0) 10/06/18 06:00 PT 13.4 SECONDS (9.4-12.5) H 10/05/18 10:50 INR 1.16 10/05/18 10:50 APTT 37.7 Seconds (25.1-36.5) H 10/05/18 10:50 Sodium 136 mmol/L (132-148) 10/06/18 06:00 Potassium 4.0 mmol/L (3.6-5.0) 10/06/18 06:00 Chloride 103 mmol/L (98-107) 10/06/18 06:00 Carbon Dioxide 27 mmol/L (21-33) 10/06/18 06:00 Anion Gap 10 (10-20) 10/06/18 06:00 BUN 10 mg/dL (7-21) 10/06/18 06:00 Creatinine 1.2 mg/dl (0.7-1.2) 10/06/18 06:00 Est GFR ( Amer) 56 10/06/18 06:00 Est GFR (Non-Af Amer) 46 10/06/18 06:00 Random Glucose 93 mg/dL (70-110) 10/06/18 06:00 Calcium 10.0 mg/dL (8.4-10.5) 10/06/18 06:00 Phosphorus 4.2 mg/dL (2.5-4.5) 10/06/18 06:00 Magnesium 1.8 mg/dL (1.7-2.2) 10/06/18 06:00 Total Bilirubin 1.4 mg/dL (0.2-1.3) H 10/06/18 06:00 AST 36 U/L (14-36) 10/06/18 06:00 ALT 20 U/L (7-56) 10/06/18 06:00 Alkaline Phosphatase 80 U/L (38-126) 10/06/18 06:00 Lactate Dehydrogenase 479 U/L (333-699) 10/05/18 10:50 Total Creatine Kinase 46 U/L (35-230) 10/05/18 10:50 Troponin I < 0.01 ng/mL 10/05/18 10:50 Total Protein 7.5 g/dL (5.8-8.3) 10/06/18 06:00 Albumin 3.3 g/dL (3.0-4.8) 10/06/18 06:00 Globulin 4.2 gm/dL 10/06/18 06:00 Albumin/Globulin Ratio 0.8 (1.1-1.8) L 10/06/18 06:00 Amylase 115 U/L (35-125) 10/05/18 10:50 Lipase 312 U/L (23-300) H 10/05/18 10:50 Free T4 1.92 ng/dL (0.78-2.19) 10/06/18 06:00 TSH 3rd Generation 0.19 mIU/mL (0.46-4.68) L 10/06/18 06:00 Urine Color Yellow (YELLOW) 10/05/18 10:50 Urine Appearance Sl cloudy (CLEAR) 10/05/18 10:50 Urine pH 7.0 (4.7-8.0) 10/05/18 10:50 Ur Specific [place] 1.015 (1.005-1.035) 10/05/18 10:50 Urine Protein Negative mg/dL (<30 mg/dL) 10/05/18 10:50 Urine Glucose (UA) Negative mg/dL (NEGATIVE) 10/05/18 10:50 Urine Ketones Negative mg/dL (NEGATIVE) 10/05/18 10:50 Urine Blood Negative (NEGATIVE) 10/05/18 10:50 Urine Nitrate Negative (NEGATIVE) 10/05/18 10:50 Urine Bilirubin Negative (NEGATIVE) 10/05/18 10:50 Urine Urobilinogen 0.2 E.U./dL (<1 E.U./dL) 10/05/18 10:50 Ur Leukocyte Esterase Trace Kanu/uL (NEGATIVE) H 10/05/18 10:50 Urine RBC Negative /hpf (0-2) 10/05/18 10:50 Urine WBC 0 - 2 /hpf (0-6) 10/05/18 10:50 Urine Opiates Screen Negative (NEGATIVE) 10/05/18 16:52 Urine Methadone Screen Negative (NEGATIVE) 10/05/18 16:52 Ur Barbiturates Screen Negative (NEGATIVE) 10/05/18 16:52 Ur Phencyclidine Scrn Negative (NEGATIVE) 10/05/18 16:52 Ur Amphetamines Screen Negative (NEGATIVE) 10/05/18 16:52 U Benzodiazepines Scrn Negative (NEGATIVE) 10/05/18 16:52 U Oth Cocaine Metabols Negative (NEGATIVE) 10/05/18 16:52 U Cannabinoids Screen Negative (NEGATIVE) 10/05/18 16:52 Alcohol, Quantitative < 10 mg/dL (0-10) 10/05/18 16:00 - Hospital Course Hospital Course: On admission: This is a 57 year old female with PMH of former alcohol abuse, alcoholic liver cirrhosis on liver transplant list, hx of SBP and HTN presenting to the ED for one day history of abdominal pain. Pain is located in the epigastric region, rated 6/10 at worst, started gradually, constant, radiated to the RUQ and LUQ denies any alleviating or exacerbating factors and denies any associated symptoms. She took an unknown pain medication that did help with pain. She says current symptoms are similar to previous admission last month. She follows up at [facility] for liver cirrhosis and last visited two weeks ago. She is compliant with her medications. Last BM was yesterday afternoon. She denies CP, SOB, fevers, headaches, back pain, nausea, vomiting, chills, diarrhea, constipation, urinary complaints, numbness, tingling, swelling, recent travel, sickness, trauma and lifestyle changes including diet and weight. 12 point ROS noted here, otherwise unremarkable. During hospital stay: CT abd/pelvis showed moderate gallbladder thickening. Patient was given benadryl and kept NPO. Abdominal ultrasound imaging showed normal common duct in its entirety, no common or intrahepatic bile duct dilatation, cholelithiasis with no evidence of acute cholecystitis. GI was consulted who recommended advancing diet to low fat as tolerated. Blood cultures were negative. Amylase was 115 and lipase was elevated at 312. T.bili was elevated at 1.8 -> 1.4. TSH was 0.19 (low) and Free T4 was 1.92. Patient was optimized for discharge. Please see EMR for full summary. - Date & Time of H&P Date of H&P: 10/05/18 Time of H&P: 16:42 Discharge Exam - Additional Findings Additional findings: - Constitutional Appears: Well, No Acute Distress - Head Exam Head Exam: ATRAUMATIC, NORMAL INSPECTION - Eye Exam Eye Exam: EOMI. absent: Scleral icterus - ENT Exam ENT Exam: Mucous Membranes Moist. absent: Mucous Membranes Dry - Respiratory Exam Respiratory Exam: Clear to Auscultation Bilateral. absent: Accessory Muscle Use, Respiratory Distress - Cardiovascular Exam Cardiovascular Exam: REGULAR RHYTHM, RRR - GI/Abdominal Exam GI & Abdominal Exam: Normal Bowel Sounds, Soft. absent: Bruit, Diminished Bowel Sounds, Distended, Firm, Guarding, Hernia, Mass, Organomegaly, Pulsatile Mass, Rebound, Rigid, Tenderness - Rectal Exam Rectal Exam: Deferred - Extremities Exam Extremities exam: Positive for: normal inspection. Negative for: pedal edema - Neurological Exam Neurological exam: Alert, CN II-XII Intact - Psychiatric Exam Psychiatric exam: Normal Affect, Normal Mood - Skin Skin Exam: Dry, Normal Color Discharge Plan - Follow Up Plan Condition: FAIR Disposition: HOME/ ROUTINE Patient education suggested?: Yes Instructions: Low Cholesterol, Saturated Fat, and Trans Fat Diet , Acute Liver Failure (DC) Additional Instructions: Please follow up with your primary medical doctor Dr. Baker within one week. You have been given a referral to annual campaign manager Dr. Kimberly Lynch. Please follow up with Dr. Lynch regarding your hyperthyroidism. Also follow up at liver clinic in [place] in October. Please follow a low fat diet. Resume your home medications as prescribed. Return to ED if symptoms return or worsen. Referrals: Kimberly Lynch MD [Medical Doctor] - Linda Baker MD [Primary Care Provider] - <Gal Hollis - Last Filed: 10/07/18 07:36> Provider - Provider Date of Admission: 10/05/18 14:52 Attending physician: Gal Hollis MD Primary care physician: Linda Baker MD Hospital Course - Lab Results Lab Results: Micro Results 10/05/18 16:52 Urine,Clean Catch Urine Culture - Preliminary Gram Positive Cocci 10/05/18 11:00 Blood-Venous Blood Culture - Preliminary NO GROWTH AFTER 24 HOURS 10/05/18 10:50 Blood-Venous Blood Culture - Preliminary NO GROWTH AFTER 24 HOURS Most Recent Lab Values WBC 5.3 10^3/uL (4.5-11.0) 10/06/18 06:00 RBC 3.60 10^6/uL (3.5-6.1) 10/06/18 06:00 Hgb 10.5 g/dL (12.0-16.0) L 10/06/18 06:00 Hct 31.7 % (36.0-48.0) L 10/06/18 06:00 MCV 88.1 fl (80.0-105.0) 10/06/18 06:00 MCH 29.2 pg (25.0-35.0) 10/06/18 06:00 MCHC 33.1 g/dl (31.0-37.0) 10/06/18 06:00 RDW 15.5 % (11.5-14.5) H 10/06/18 06:00 Plt Count 102 10^3/uL (120.0-450.0) L 10/06/18 06:00 MPV 11.6 fl (7.0-11.0) H 10/06/18 06:00 Gran % 41.7 % (50.0-68.0) L 10/06/18 06:00 Lymph % (Auto) 46.4 % (22.0-35.0) H 10/06/18 06:00 [place] % (Auto) 5.5 % (1.0-6.0) 10/06/18 06:00 Eos % (Auto) 5.8 % (1.5-5.0) H 10/06/18 06:00 Baso % (Auto) 0.6 % (0.0-3.0) 10/06/18 06:00 Gran # 2.21 (1.4-6.5) 10/06/18 06:00 Lymph # (Auto) 2.5 (1.2-3.4) 10/06/18 06:00 [place] # (Auto) 0.3 (0.1-0.6) 10/06/18 06:00 Eos # (Auto) 0.3 (0.0-0.7) 10/06/18 06:00 Baso # (Auto) 0.03 K/mm3 (0.0-2.0) 10/06/18 06:00 PT 13.4 SECONDS (9.4-12.5) H 10/05/18 10:50 INR 1.16 10/05/18 10:50 APTT 37.7 Seconds (25.1-36.5) H 10/05/18 10:50 Sodium 136 mmol/L (132-148) 10/06/18 06:00 Potassium 4.0 mmol/L (3.6-5.0) 10/06/18 06:00 Chloride 103 mmol/L (98-107) 10/06/18 06:00 Carbon Dioxide 27 mmol/L (21-33) 10/06/18 06:00 Anion Gap 10 (10-20) 10/06/18 06:00 BUN 10 mg/dL (7-21) 10/06/18 06:00 Creatinine 1.2 mg/dl (0.7-1.2) 10/06/18 06:00 Est GFR ( Amer) 56 10/06/18 06:00 Est GFR (Non-Af Amer) 46 10/06/18 06:00 Random Glucose 93 mg/dL (70-110) 10/06/18 06:00 Calcium 10.0 mg/dL (8.4-10.5) 10/06/18 06:00 Phosphorus 4.2 mg/dL (2.5-4.5) 10/06/18 06:00 Magnesium 1.8 mg/dL (1.7-2.2) 10/06/18 06:00 Total Bilirubin 1.4 mg/dL (0.2-1.3) H 10/06/18 06:00 AST 36 U/L (14-36) 10/06/18 06:00 ALT 20 U/L (7-56) 10/06/18 06:00 Alkaline Phosphatase 80 U/L (38-126) 10/06/18 06:00 Lactate Dehydrogenase 479 U/L (333-699) 10/05/18 10:50 Total Creatine Kinase 46 U/L (35-230) 10/05/18 10:50 Troponin I < 0.01 ng/mL 10/05/18 10:50 Total Protein 7.5 g/dL (5.8-8.3) 10/06/18 06:00 Albumin 3.3 g/dL (3.0-4.8) 10/06/18 06:00 Globulin 4.2 gm/dL 10/06/18 06:00 Albumin/Globulin Ratio 0.8 (1.1-1.8) L 10/06/18 06:00 Amylase 115 U/L (35-125) 10/05/18 10:50 Lipase 312 U/L (23-300) H 10/05/18 10:50 Free T4 1.92 ng/dL (0.78-2.19) 10/06/18 06:00 TSH 3rd Generation 0.19 mIU/mL (0.46-4.68) L 10/06/18 06:00 Urine Color Yellow (YELLOW) 10/05/18 10:50 Urine Appearance Sl cloudy (CLEAR) 10/05/18 10:50 Urine pH 7.0 (4.7-8.0) 10/05/18 10:50 Ur Specific [place] 1.015 (1.005-1.035) 10/05/18 10:50 Urine Protein Negative mg/dL (<30 mg/dL) 10/05/18 10:50 Urine Glucose (UA) Negative mg/dL (NEGATIVE) 10/05/18 10:50 Urine Ketones Negative mg/dL (NEGATIVE) 10/05/18 10:50 Urine Blood Negative (NEGATIVE) 10/05/18 10:50 Urine Nitrate Negative (NEGATIVE) 10/05/18 10:50 Urine Bilirubin Negative (NEGATIVE) 10/05/18 10:50 Urine Urobilinogen 0.2 E.U./dL (<1 E.U./dL) 10/05/18 10:50 Ur Leukocyte Esterase Trace Kanu/uL (NEGATIVE) H 10/05/18 10:50 Urine RBC Negative /hpf (0-2) 10/05/18 10:50 Urine WBC 0 - 2 /hpf (0-6) 10/05/18 10:50 Urine Opiates Screen Negative (NEGATIVE) 10/05/18 16:52 Urine Methadone Screen Negative (NEGATIVE) 10/05/18 16:52 Ur Barbiturates Screen Negative (NEGATIVE) 10/05/18 16:52 Ur Phencyclidine Scrn Negative (NEGATIVE) 10/05/18 16:52 Ur Amphetamines Screen Negative (NEGATIVE) 10/05/18 16:52 U Benzodiazepines Scrn Negative (NEGATIVE) 10/05/18 16:52 U Oth Cocaine Metabols Negative (NEGATIVE) 10/05/18 16:52 U Cannabinoids Screen Negative (NEGATIVE) 10/05/18 16:52 Alcohol, Quantitative < 10 mg/dL (0-10) 10/05/18 16:00 Attending/Attestation - Attestation I have personally seen and examined this patient.: Yes I have fully participated in the care of the patient.: Yes I have reviewed all pertinent clinical information, including history, physical exam and plan: Yes Notes (Text): 10/06/18 57 year old female with past medical history of former alcohol abuse, alcohol liver disease and hyperthyroidism who presented with complaint of abdominal pain. CT abd/pelvis showed mild intra and extrahepatic biliary ductal dilation and gallstones. Abdominal ultrasound showed only gallstones. Her diet was advanced which she tolerated. She was seen by GI who recommended outpatient follow up; she has appointment next month with her GI specialist. Patient was recently diagnosed with hyperthyroidism but noncompliant with medication. TFTs suggestive of subclinical hyperthyroidism. Recommended outpatient follow up with annual campaign manager and repeating TFTs 4-6 weeks. Patient is discharged home to follow up at [facility], [place]. Follow up with GI and annual campaign manager. Gal Hollis MD Hospitalist.
== END 2018-10-06 13:58 | disposition home or self-care (01) ==
LOC: ED 10:29 → ERH 14:52 → 3RSO 16:57
PROVIDERS: ADMIT Hospitalist; ATTEND Internal Medicine
DX: K80.20 Calculus of gallbladder without cholecystitis without obstruction (principal); K70.30 Alcoholic cirrhosis of liver without ascites; E05.90 Thyrotoxicosis, unspecified without thyrotoxic crisis or storm; I10 Essential (primary) hypertension; K72.90 Hepatic failure, unspecified without coma; G89.29 Other chronic pain; Z76.82 Awaiting organ transplant status; Z91.14 Patient's other noncompliance with medication regimen
CPT/HCPCS: 36415; 71045; 74177; 76700; 80053; 81001; 82150; 82550; 83615; 83690; 83735; 84100; 84439; 84443; 84484; 85025; 85610; 85730; 87040; 87086; 87181; 93005; 96374; 99284; G0378; G0480; J1200; Q9967

== ENCOUNTER 2018-10-30 22:40 | Emergency (ER) | payer SELFPAY ==
[2018-10-30 22:40] VITALS: BMI 20.7
[2018-10-30 22:47] VITALS: PULSE 70
[2018-10-30 23:05] VITALS: RESP 18
--- NOTE | 2018-10-30 23:10 | ED PDOC ---
Arrival/HPI - General Chief Complaint: Abdominal Pain Time Seen by Provider: 10/30/18 22:44 - History of Present Illness Narrative History of Present Illness (Text): 10/30/18 23:09 Yuliya Caicedo is a 57 year old female, whose past medical history includes hyp ertension and liver cirrhosis secondary to alcohol abuse and spontaneous bacterial peritonitis, who presents to the Emergency department complaining of abdominal pain. Patient states she has been experiencing mid to upper abdominal pain today with associated generalized weakness and dizziness. Patient states she has experienced similar symptoms in the past. Patient denies any fever, chills, chest pain, shortness of breath, nausea, vomiting, back pain, neck pain, headache, or any other complaints. Past Medical History - Provider Review Nursing Documentation Reviewed: Yes - Infectious Disease Hx of Infectious Diseases: None - Tetanus Immunization Tetanus Immunization: Unknown - Reproductive Menopause: No - Cardiac Hx Cardiac Disorders: Yes Hx Hypertension: Yes - Pulmonary Hx Respiratory Disorders: No - Neurological Hx Neurological Disorder: No - HEENT Hx HEENT Disorder: No - Renal Hx Renal Disorder: No - Endocrine/Metabolic Hx Endocrine Disorders: No - Hematological/Oncological Hx Blood Disorders: Yes Hx Cirrhosis: Yes - Integumentary Hx Dermatological Disorder: Yes (GENERALIZED JAUNDICED) - Musculoskeletal/Rheumatological Hx Musculoskeletal Disorders: Yes (pt denies r knee/back pain) Hx Falls: Yes (not recent) - Gastrointestinal Hx Gastrointestinal Disorders: Yes (GASTRITIS,ASCITES-H/O OF TAPPING,BOWEL OBSTRUCTION) Hx Liver Failure: Yes (ALCOHOLIC LIVER CIRRHOSIS) - Genitourinary/Gynecological Hx Genitourinary Disorders: Yes (MYOMECTOMY-FIBROID) - Psychiatric Hx Psychophysiologic Disorder: Yes (H/O ETOH ABUSE. DRANK HALF A LITER OF VODKA FOR 6-7 YRS. QUIT 15 JANUARY 2018) Hx Substance Use: No - Surgical History Other/Comment: Fibroids-MYOMECTOMY - Anesthesia Hx Anesthesia: Yes Hx Anesthesia Reactions: No Hx Malignant Hyperthermia: No - Suicidal Assessment Feels Threatened In Home Enviroment: No Family/Social History - Physician Review Nursing Documentation Reviewed: Yes Family/Social History: Unknown Family HX Smoking Status: Never Smoked Hx Alcohol Use: Yes (ETOH ABUSE USED TO DRINK DAILY VODKA 1/2 A LITER. FOR 6-7 YRS.LAST DRINK 8M) Hx Substance Use: No Allergies/Home Meds Allergies/Adverse Reactions: Allergies No Known Allergies Allergy (Verified 10/30/18 22:43) Home Medications: Home Meds Medication Instructions Recorded Confirmed Magnesium Oxide [Mag-Ox] 1 tab PO DAILY 06/06/18 10/30/18 rifAXIMin [Xifaxan] 550 mg PO BID 07/20/18 10/30/18 traMADol [Ultram] 25 mg PO BID 07/20/18 10/30/18 Docusate [Colace] 100 mg PO DAILY 10/30/18 10/30/18 Review of Systems - Physician Review All systems were reviewed & negative as marked: Yes - Review of Systems Constitutional: Other (+generalized weakness). absent: Fevers Eyes: Normal ENT: Normal Respiratory: Normal. absent: SOB, Cough Cardiovascular: Normal. absent: Chest Pain Gastrointestinal: Abdominal Pain Genitourinary Female: Normal. absent: Dysuria, Frequency, Hematuria, Urine Output Changes Musculoskeletal: Normal. absent: Back Pain, Neck Pain Skin: Normal. absent: Rash Neurological: Dizziness Endocrine: Normal Hemo/Lymphatic: Normal Psychiatric: Normal Physical Exam Vital Signs Reviewed: Yes Vital Signs Temp Pulse Resp BP Pulse Ox 10/30/18 23:02 98.1 F 70 18 130/73 99 10/30/18 22:45 98.4 F 70 16 129/75 98 Temperature: Afebrile Blood Pressure: Normal Pulse: Regular Respiratory Rate: Normal Appearance: Positive for: Well-Appearing, Non-Toxic, Comfortable Pain Distress: None Mental Status: Positive for: Alert and Oriented X 3 - Systems Exam Head: Present: Atraumatic, Normocephalic Pupils: Present: PERRL Extroacular Muscles: Present: EOMI Conjunctiva: Present: Normal Mouth: Present: Moist Mucous Membranes Neck: Present: Normal Range of Motion Respiratory/Chest: Present: Clear to Auscultation, Good Air Exchange. No: Respiratory Distress, Accessory Muscle Use Cardiovascular: Present: Regular Rate and Rhythm, Normal S1, S2. No: Murmurs Abdomen: No: Tenderness, Distention, Peritoneal Signs Back: Present: Normal Inspection Upper Extremity: Present: Normal Inspection. No: Cyanosis, Edema Lower Extremity: Present: Normal Inspection. No: Edema Neurological: Present: GCS=15, CN II-XII Intact, Speech Normal Skin: Present: Warm, Dry, Normal Color. No: Rashes Psychiatric: Present: Alert, Oriented x 3, Normal Insight, Normal Concentration Medical Decision Making ED Course and Treatment: 10/30/18 23:10 Impression: 57 year old female complaining of upper to mid abdominal pain, dizziness, and generalized weakness. Plan: -- EKG -- Chest X-ray -- Labs, cardiac enzymes, amylase, lipase, blood cultures -- Urinalysis -- IV fluids -- Zofran -- Benadryl -- Morphine -- Reassess and disposition Prior Visits: Notes and results from previous visits were reviewed. Progress Notes: Reviewed EKG, NSR at [address] bpm[address] Non-specific ST/T wave changes. 10/31/18 01:54 CT Abdomen and Pelvis: 5.2 x 4.7 cm benign chronic calcified cyst of the spleen. Mild cardiomegaly. Bilateral basilar atelectatic pulmonary changes. Cholelithiasis without acute cholecystitis. Changes of pelvic congestion syndrome more on the left side. Normal unenhanced liver. Normal extrahepatic biliary system. Normal unenhanced spleen. Normal pancreas. Normal bilateral adrenal glands. Normal size of the right kidney. There is no right renal mass. There are no right renal calculi. There is no right hydronephrosis. Normal visualized right ureter. Normal size of the left kidney. There is no left renal mass. There are no left renal calculi. There is no left hydronephrosis. Normal visualized left ureter. Normal visualized stomach. Normal small intestine. Normal colon. The appendix is visualized and appears normal. There is no demonstrated peritoneal fluid. Normal abdominal aorta. Normal inferior vena cava. Normal retroperitoneum. Normal urinary bladder. There is no pelvic mass lesion or lymphadenopathy. There is no pelvic fluid. Normal abdominal wall. Moderate diffuse spondylosis. IMPRESSION: Mild constipation. Cholelithiasis without acute cholecystitis. 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 Unchanged. Electronically signed on Oct 31, 2018 1:47:32 AM EST by: Jw Webb M.D., Certified by ANTONIO MONTANO, Neuroradiology 10/31/18 02:05 On re-evaluation, patient feels better and is in no acute distress. I have discussed the results and plan with the patient, who expresses understanding. Patient in agreement with plan to be discharged home. Patient is stable for discharge. Patient was instructed to follow up with physician or return if sympt oms worsen or new concerning symptoms arise. - Lab Interpretations I have reviewed the lab results: Yes - RAD Interpretation Coping Machine Operator: Radiologist - EKG Interpretation Interpreted by ED Physician: Yes Type: 12 lead EKG - Scribe Statement The provider has reviewed the documentation as recorded by the Jeffery Lamas Provider Scribe Attestation: All medical record entries made by the Scribe were at my direction and personally dictated by me. I have reviewed the chart and agree that the record accurately reflects my personal performance of the history, physical exam, medical decision making, and the department course for this patient. I have also personally directed, reviewed, and agree with the discharge instructions and disposition. Disposition/Present on Arrival - Present on Arrival History of DVT/PE: No History of Uncontrolled Diabetes: No Urinary Catheter: No History of Decub. Ulcer: No History Surgical Site Infection Following: None - Disposition Diagnosis: Abdominal pain Disposition: HOME/ ROUTINE Disposition Time: 02:05 Patient Problems: Current Active Problems Problem Status Onset Abdominal pain Acute Condition: GOOD Discharge Instructions (ExitCare): Acute Abdomen (Belly Pain), Adult (DC) Referrals: Linda Baker MD [Primary Care Provider] - Follow up with primary Forms: [employer] (German)
[2018-10-30] MEDS ORDERED: Sodium Chloride 0.9% 1,000 ML IV STA (23:12)
[2018-10-30] MEDS ORDERED: Morphine 2 mg/ml ISec IVP STA (23:12)
[2018-10-30] MEDS ORDERED: DiphenhydrAMINE 50 mg/ml Inj IVP ONE (23:13)
[2018-10-30 23:33] LABS: BASO # 0.04 K/mm3 (0.0-2.0); BASO % 0.6 % (0.0-3.0); EOS # 0.4 (0.0-0.7); EOS % 6.7 % (1.5-5.0); GRAN # 3.06 (1.4-6.5); GRAN % 48.7 % (50.0-68.0); HEMOGLOBIN 10.7 g/dL (12.0-16.0); LYMPH # 2.4 (1.2-3.4); LYMPH % 38.3 % (22.0-35.0); MEAN CELL VOLUME 88.9 fl (80.0-105.0); MEAN CORPUSCULAR HEMOGLOBIN 29.6 pg (25.0-35.0); MEAN CORPUSCULAR HGB CONC 33.3 g/dl (31.0-37.0); MEAN PLATELET VOLUME 11.4 fl (7.0-11.0); MONO # 0.4 (0.1-0.6); MONO % 5.7 % (1.0-6.0); RBC 3.61 10^6/uL (3.5-6.1); RED CELL DISTRIBUTION WIDTH 15.5 % (11.5-14.5); WHITE BLOOD COUNT 6.3 10^3/uL (4.5-11.0)
[2018-10-30 23:41] LABS: ALB/GLOB RATIO 0.9 (1.1-1.8); ALBUMIN 3.9 g/dL (3.0-4.8); ALT/SGPT 23 U/L (7-56); AMYLASE 104 U/L (35-125); AST/SGOT 35 U/L (14-36); BLOOD UREA NITROGEN 11 mg/dL (7-21); CALCIUM 10.1 mg/dL (8.4-10.5); GFR NON-AFRICAN AMERICAN 57; INR 1.21; LIPASE 358 U/L (23-300); PARTIAL THROMBOPLASTIN TIME 37.3 Seconds (25.1-36.5); PROTHROMBIN TIME 13.8 SECONDS (9.4-12.5)
[2018-10-30 23:52] LABS: TROPONIN I < 0.01 ng/mL
[2018-10-31 01:24] VITALS: BP 127/52; O2SAT 97
[2018-10-31 01:36] LABS: URINE BILIRUBIN NEGATIVE (NEGATIVE); URINE BLOOD NEGATIVE (NEGATIVE); URINE GLUCOSE (UA) NEGATIVE (NEGATIVE); URINE LEUKOCYTE ESTERASE NEGATIVE Leu/uL (NEGATIVE); URINE PROTEIN NEGATIVE mg/dL (<30 mg/dL); URINE UROBILINOGEN 0.2 E.U./dL (<1 E.U./dL)
[2018-10-31 01:37] LABS: URINE APPEARANCE CLEAR (CLEAR); URINE COLOR YELLOW (YELLOW)
[2018-10-31 03:15] VITALS: TEMP 98.2
--- NOTE | 2018-10-31 09:53 | CARD ---
APPROVED REPORT Date of service: 10/30/2018 EKG Measurement Heart [id number] <Conclusion> Normal sinus rhythm Possible Left atrial enlargement RVCD
--- NOTE | 2018-10-31 14:09 | CT ---
Date of service: 10/31/2018 PROCEDURE: CT Abdomen and Pelvis without intravenous contrast HISTORY: abd pain COMPARISON: 10/05/2018 TECHNIQUE: Technique. Contrast dose: Radiation dose: Total exam DLP = 278.92 mGy-cm. This CT exam was performed using one or more of the following dose reduction techniques: Automated exposure control, adjustment of the mA and/or kV according to patient size, and/or use of iterative reconstruction technique. FINDINGS: LOWER THORAX: Unremarkable. LIVER: Unremarkable. No gross lesion or ductal dilatation. GALLBLADDER AND BILE DUCTS: Cholelithiasis. PANCREAS: Unremarkable. No gross lesion or ductal dilatation. SPLEEN: Stable calcified cystic lesion in the splenic hilum. ADRENALS: Unremarkable. No mass. KIDNEYS AND URETERS: Unremarkable. No hydronephrosis. No solid mass. VASCULATURE: Unremarkable. No aortic aneurysm. No aortic atherosclerotic calcification or mural plaque present. BOWEL: Unremarkable. No obstruction. No gross mural thickening. APPENDIX: Unremarkable. Normal appendix. PERITONEUM: Unremarkable. No free fluid. No free air. LYMPH NODES: Unremarkable. No enlarged lymph nodes. BLADDER: Unremarkable. REPRODUCTIVE: Unremarkable. BONES: No acute fracture. OTHER FINDINGS: None. IMPRESSION: Cholelithiasis.Stable calcified cystic lesion in the splenic hilum.
== END 2018-10-31 02:20 | disposition home or self-care (01) ==
LOC: ED 22:40
DX: R10.9 Unspecified abdominal pain (principal); I10 Essential (primary) hypertension
CPT/HCPCS: 74176; 80053; 81003; 82150; 82550; 83615; 83690; 84484; 85025; 85610; 85730; 87040; 93005; 96374; 96375; 99284; J1200; J2270; J2405; J7030

== ENCOUNTER 2018-11-05 23:54 | Emergency (ER) | payer OTHER ==
[2018-11-06 00:43] VITALS: BMI 21.8
[2018-11-06 01:02] VITALS: O2SAT 100
[2018-11-06] MEDS ORDERED: Sodium Chloride 0.9% 1,000 ML IV STA (01:17)
[2018-11-06] MEDS ORDERED: Morphine 2 mg/ml ISec IVP STA (01:17)
[2018-11-06] MEDS ORDERED: DiphenhydrAMINE 50 mg/ml Inj IVP STA (01:17)
--- NOTE | 2018-11-06 01:23 | ED PDOC ---
Arrival/HPI - General Chief Complaint: Abdominal Pain Time Seen by Provider: 11/06/18 01:07 Historian: Patient - History of Present Illness Narrative History of Present Illness (Text): 11/06/18 01:20 57 year old female, whose past medical history includes hypertension and liver cirrhosis secondary to alcohol abuse and spontaneous bacterial peritonitis, presents to the Emergency department complaining of abdominal pain. Patient states she has been experiencing mid to upper abdominal pain today with associated skin itchiness. Patient informs symptoms are consistent with her liver failure. Patient also informs of a right sided headache in the back of her head, also consistent with her usual hepatic symptoms. Patient states she is out of her medication for pain, and came to the emergency department because it was too painful. Patient denies any fever, chills, chest pain, shortness of breath, nausea, vomiting, back pain, or any other complaints. Time/Duration: Prior to Arrival Symptom Onset: Gradual Symptom Course: Unchanged Quality: Pressure Activities at Onset: Light Context: Home Past Medical History - Provider Review Nursing Documentation Reviewed: Yes - Infectious Disease Hx of Infectious Diseases: None - Tetanus Immunization Tetanus Immunization: Unknown - Cardiac Hx Cardiac Disorders: Yes Hx Hypertension: Yes - Pulmonary Hx Respiratory Disorders: No - Neurological Hx Neurological Disorder: No - HEENT Hx HEENT Disorder: No - Renal Hx Renal Disorder: No - Endocrine/Metabolic Hx Endocrine Disorders: No - Hematological/Oncological Hx Blood Disorders: Yes Hx Cirrhosis: Yes - Integumentary Hx Dermatological Disorder: Yes (GENERALIZED JAUNDICED) - Musculoskeletal/Rheumatological Hx Musculoskeletal Disorders: Yes (pt denies r knee/back pain) Hx Falls: Yes (not recent) - Gastrointestinal Hx Gastrointestinal Disorders: Yes (GASTRITIS,ASCITES-H/O OF TAPPING,BOWEL OBSTRUCTION) Hx Liver Failure: Yes (ALCOHOLIC LIVER CIRRHOSIS) - Genitourinary/Gynecological Hx Genitourinary Disorders: Yes (MYOMECTOMY-FIBROID) - Psychiatric Hx Psychophysiologic Disorder: Yes (H/O ETOH ABUSE. DRANK HALF A LITER OF VODKA FOR 6-7 YRS. QUIT 15 JANUARY 2018) Hx Substance Use: No - Surgical History Other/Comment: Fibroids-MYOMECTOMY - Anesthesia Hx Anesthesia: Yes Hx Anesthesia Reactions: No Hx Malignant Hyperthermia: No - Suicidal Assessment Feels Threatened In Home Enviroment: No Family/Social History - Physician Review Nursing Documentation Reviewed: Yes Family/Social History: No Known Family HX Smoking Status: Never Smoked Hx Alcohol Use: Yes (ETOH ABUSE USED TO DRINK DAILY VODKA 1/2 A LITER. FOR 6-7 YRS.LAST DRINK 8M) Hx Substance Use: No Allergies/Home Meds Allergies/Adverse Reactions: Allergies No Known Allergies Allergy (Verified 10/30/18 22:43) Home Medications: Home Meds Medication Instructions Recorded Confirmed Magnesium Oxide [Mag-Ox] 1 tab PO DAILY 06/06/18 11/06/18 rifAXIMin [Xifaxan] 550 mg PO BID 07/20/18 11/06/18 traMADol [Ultram] 25 mg PO BID 07/20/18 11/06/18 Docusate [Colace] 100 mg PO DAILY 10/30/18 11/06/18 Review of Systems - Physician Review All systems were reviewed & negative as marked: Yes - Review of Systems Constitutional: absent: Fevers Cardiovascular: absent: Chest Pain Physical Exam Vital Signs Reviewed: Yes Vital Signs Temp Pulse Resp BP Pulse Ox 11/06/18 00:30 98.4 F 76 16 143/84 100 Temperature: Afebrile Blood Pressure: Normal Pulse: Regular Respiratory Rate: Normal Appearance: Positive for: Well-Appearing, Non-Toxic, Comfortable Pain Distress: None Mental Status: Positive for: Alert and Oriented X 3 - Systems Exam Head: Present: Atraumatic, Normocephalic Pupils: Present: PERRL Extroacular Muscles: Present: EOMI Conjunctiva: Present: Normal Mouth: Present: Moist Mucous Membranes Neck: Present: Normal Range of Motion Respiratory/Chest: Present: Clear to Auscultation, Good Air Exchange. No: Respiratory Distress, Accessory Muscle Use Cardiovascular: Present: Regular Rate and Rhythm, Normal S1, S2. No: Murmurs Abdomen: No: Tenderness, Distention, Peritoneal Signs Back: Present: Normal Inspection Upper Extremity: Present: Normal Inspection. No: Cyanosis, Edema Lower Extremity: Present: Normal Inspection. No: Edema Neurological: Present: GCS=15, CN II-XII Intact, Speech Normal Skin: Present: Warm, Dry, Normal Color. No: Rashes Psychiatric: Present: Alert, Oriented x 3, Normal Insight, Normal Concentration Medical Decision Making ED Course and Treatment: 11/06/18 01:24 Impression: 57 year old female presents with abdominal pain Plan: -- CMP, Lipase -- CBC -- Benadryl -- Morphine -- Zofran -- Reassess and disposition Prior Visits: Notes and results from previous visits were reviewed. Progress Notes: States she can see her doctor tomorrow for pain medication refill. Otherwise, feels better at this time and labs unremarkable. - Medication Orders Current Medication Orders: Diphenhydramine HCl (Benadryl) 25 mg IVP STAT STA Stop: 11/06/18 01:18 Sodium Chloride (Sodium Chloride 0.9%) 1,000 mls @ 999 mls/hr IV .Q1H1M STA Stop: 11/06/18 02:17 Morphine Sulfate (Morphine) 2 mg IVP STAT STA Stop: 11/06/18 01:18 Ondansetron HCl (Zofran Inj) 8 mg IVP STAT STA Stop: 11/06/18 01:18 - Scribe Statement The provider has reviewed the documentation as recorded by the Cadeibmackenzie Lindsey Provider Scribe Attestation: All medical record entries made by the Scribe were at my direction and personally dictated by me. I have reviewed the chart and agree that the record accurately reflects my personal performance of the history, physical exam, medical decision making, and the department course for this patient. I have also personally directed, reviewed, and agree with the discharge instructions and disposition. Disposition/Present on Arrival - Present on Arrival Any Indicators Present on Arrival: No History of DVT/PE: No History of Uncontrolled Diabetes: No Urinary Catheter: No History of Decub. Ulcer: No History Surgical Site Infection Following: None - Disposition Have Diagnosis and Disposition been Completed?: Yes Diagnosis: Liver failure Disposition: HOME/ ROUTINE Disposition Time: 03:12 Patient Plan: Discharge Condition: STABLE Discharge Instructions (ExitCare): Cirrhosis Referrals: Linda Baker MD [Primary Care Provider] - Follow up with primary Forms: [employer] (Uzbek)
[2018-11-06 02:20] LABS: BASO # 0.05 K/mm3 (0.0-2.0); BASO % 0.8 % (0.0-3.0); EOS # 0.4 (0.0-0.7); EOS % 5.5 % (1.5-5.0); GRAN # 2.95 (1.4-6.5); HEMOGLOBIN 11.2 g/dL (12.0-16.0); LYMPH # 2.6 (1.2-3.4); LYMPH % 40.2 % (22.0-35.0); MEAN CELL VOLUME 89.7 fl (80.0-105.0); MEAN CORPUSCULAR HEMOGLOBIN 29.5 pg (25.0-35.0); MEAN CORPUSCULAR HGB CONC 32.8 g/dl (31.0-37.0); MEAN PLATELET VOLUME 11.9 fl (7.0-11.0); MONO # 0.6 (0.1-0.6); MONO % 8.5 % (1.0-6.0); RBC 3.8 10^6/uL (3.5-6.1); RED CELL DISTRIBUTION WIDTH 15.6 % (11.5-14.5); WHITE BLOOD COUNT 6.6 10^3/uL (4.5-11.0)
[2018-11-06 02:33] LABS: INR 1.18; PARTIAL THROMBOPLASTIN TIME 37.2 Seconds (25.1-36.5); PROTHROMBIN TIME 13.5 SECONDS (9.4-12.5)
[2018-11-06 03:08] LABS: ALB/GLOB RATIO 0.9 (1.1-1.8); ALBUMIN 3.9 g/dL (3.0-4.8); ALT/SGPT 20 U/L (7-56); AST/SGOT 43 U/L (14-36); BLOOD UREA NITROGEN 12 mg/dL (7-21); CALCIUM 10.4 mg/dL (8.4-10.5); GFR NON-AFRICAN AMERICAN 51; LIPASE 447 U/L (23-300)
[2018-11-06 03:11] VITALS: BP 109/69; PULSE 77; RESP 18; TEMP 98.1
--- NOTE | 2018-11-06 23:37 | CARD ---
APPROVED REPORT Date of service: 11/06/2018 EKG Measurement Heart [id number] <Conclusion> Normal sinus rhythm Possible Left atrial enlargement Slow R wave progression V1-3 Borderline ECG
== END 2018-11-06 03:35 | disposition home or self-care (01) ==
LOC: ED 23:54
DX: K72.90 Hepatic failure, unspecified without coma (principal); I10 Essential (primary) hypertension
CPT/HCPCS: 80053; 83690; 85025; 85610; 85730; 93005; 96374; 96375; 99283; J1200; J2270; J2405; J7030

== ENCOUNTER 2018-11-06 21:26 | Emergency (ER) | payer OTHER ==
[2018-11-06 22:27] VITALS: BP 131/86; PULSE 70; RESP 18; TEMP 97.8; O2SAT 97; BMI 21.4
[2018-11-06] MEDS ORDERED: Morphine 2 mg/ml ISec IVP STA (22:27)
[2018-11-06] MEDS ORDERED: DiphenhydrAMINE 50 mg/ml Inj IVP STA (22:27)
--- NOTE | 2018-11-06 22:29 | ED PDOC ---
Arrival/HPI - General Chief Complaint: Abdominal Pain Time Seen by Provider: 11/06/18 22:10 - History of Present Illness Narrative History of Present Illness (Text): 57 year old female, whose past medical history includes hypertension and liver cirrhosis secondary to alcohol abuse and spontaneous bacterial peritonitis, presents to the Emergency department complaining of abdominal pain. Patient states she has been experiencing mid to upper abdominal pain today with associated skin itchiness. Patient informs symptoms are consistent with her liver failure. Patient states she is out of her medication for pain, and came to the emergency department. She was here yesterday for same and now has primary care appointment tomorrow. Patient denies any fever, chills, chest pain, shortness of breath, nausea, vomiting, back pain, or any other complaints. Past Medical History - Infectious Disease Hx of Infectious Diseases: None - Tetanus Immunization Tetanus Immunization: Unknown - Cardiac Hx Cardiac Disorders: Yes Hx Hypertension: Yes - Pulmonary Hx Respiratory Disorders: No - Neurological Hx Neurological Disorder: No - HEENT Hx HEENT Disorder: No - Renal Hx Renal Disorder: No - Endocrine/Metabolic Hx Endocrine Disorders: No - Hematological/Oncological Hx Blood Disorders: Yes Hx Cirrhosis: Yes - Integumentary Hx Dermatological Disorder: Yes (GENERALIZED JAUNDICED) - Musculoskeletal/Rheumatological Hx Musculoskeletal Disorders: Yes (pt denies r knee/back pain) Hx Falls: Yes (not recent) - Gastrointestinal Hx Gastrointestinal Disorders: Yes (GASTRITIS,ASCITES-H/O OF TAPPING,BOWEL OBSTRUCTION) Hx Liver Failure: Yes (ALCOHOLIC LIVER CIRRHOSIS) - Genitourinary/Gynecological Hx Genitourinary Disorders: Yes (MYOMECTOMY-FIBROID) - Psychiatric Hx Psychophysiologic Disorder: Yes (H/O ETOH ABUSE. DRANK HALF A LITER OF VODKA FOR 6-7 YRS. QUIT 15 JANUARY 2018) Hx Substance Use: No - Surgical History Other/Comment: Fibroids-MYOMECTOMY - Anesthesia Hx Anesthesia: Yes Hx Anesthesia Reactions: No Hx Malignant Hyperthermia: No - Suicidal Assessment Feels Threatened In Home Enviroment: No Family/Social History Family/Social History: No Known Family HX Smoking Status: Never Smoked Hx Alcohol Use: Yes (ETOH ABUSE USED TO DRINK DAILY VODKA 1/2 A LITER. FOR 6-7 YRS.LAST DRINK 8M) Hx Substance Use: No Allergies/Home Meds Allergies/Adverse Reactions: Allergies No Known Allergies Allergy (Verified 11/06/18 22:09) Home Medications: Home Meds Medication Instructions Recorded Confirmed Magnesium Oxide [Mag-Ox] 1 tab PO DAILY 06/06/18 11/06/18 rifAXIMin [Xifaxan] 550 mg PO BID 07/20/18 11/06/18 traMADol [Ultram] 25 mg PO BID 07/20/18 11/06/18 Docusate [Colace] 100 mg PO DAILY 10/30/18 11/06/18 Review of Systems - Physician Review All systems were reviewed & negative as marked: Yes - Review of Systems Constitutional: absent: Fevers Respiratory: absent: SOB Physical Exam - Physical Exam Narrative Physical Exam (Text): Head: Present: Atraumatic, Normocephalic Pupils: Present: PERRL Extroacular Muscles: Present: EOMI Conjunctiva: Present: Normal Mouth: Present: Moist Mucous Membranes Neck: Present: Normal Range of Motion Respiratory/Chest: Present: Clear to Auscultation, Good Air Exchange. No: Respiratory Distress, Accessory Muscle Use Cardiovascular: Present: Regular Rate and Rhythm, Normal S1, S2. No: Murmurs Abdomen: No: Tenderness, Distention, Peritoneal Signs Back: Present: Normal Inspection Upper Extremity: Present: Normal Inspection. No: Cyanosis, Edema Lower Extremity: Present: Normal Inspection. No: Edema Neurological: Present: GCS=15, CN II-XII Intact, Speech Normal Skin: Present: Warm, Dry, Normal Color. No: Rashes Psychiatric: Present: Alert, Oriented x 3, Normal Insight, Normal Concentration Vital Signs Temp Pulse Resp BP Pulse Ox 11/06/18 22:05 97.8 F 70 18 131/86 97 Medical Decision Making ED Course and Treatment: Keep appointment for tomorrow and advised to see primary care for prescription refills prior to running out. - Medication Orders Current Medication Orders: Diphenhydramine HCl (Benadryl) 25 mg IVP STAT STA Stop: 11/06/18 22:28 Morphine Sulfate (Morphine) 2 mg IVP STAT STA Stop: 11/06/18 22:28 Ondansetron HCl (Zofran Inj) 8 mg IVP STAT STA Stop: 11/06/18 22:28 Disposition/Present on Arrival - Present on Arrival Any Indicators Present on Arrival: No History of DVT/PE: No History of Uncontrolled Diabetes: No Urinary Catheter: No History of Decub. Ulcer: No History Surgical Site Infection Following: None - Disposition Have Diagnosis and Disposition been Completed?: Yes Diagnosis: Liver failure Disposition: HOME/ ROUTINE Disposition Time: 22:30 Patient Plan: Discharge Condition: STABLE Discharge Instructions (ExitCare): Cirrhosis Forms: [employer] (Divehi)
== END 2018-11-06 23:10 | disposition home or self-care (01) ==
LOC: ED 21:26
DX: K72.90 Hepatic failure, unspecified without coma (principal)
CPT/HCPCS: 96374; 96375; 99282; J1200; J2270; J2405

== ENCOUNTER 2018-11-29 22:51 | Emergency (ER) | payer OTHER ==
[2018-11-29 22:51] VITALS: BMI 21.4
[2018-11-29 23:10] VITALS: RESP 16; O2SAT 98
[2018-11-29] MEDS ORDERED: DiphenhydrAMINE 50 mg/ml Inj IVP STA (23:22)
[2018-11-29] MEDS ORDERED: Sodium Chloride 0.9% 500 ML IV STA (23:23)
--- NOTE | 2018-11-29 23:35 | ED PDOC ---
Arrival/HPI - General Chief Complaint: Abdominal Pain Time Seen by Provider: 11/29/18 23:10 Historian: Patient - History of Present Illness Narrative History of Present Illness (Text): 11/29/18 23:32 58 year old female, whose past medical history includes hypertension and liver cirrhosis secondary to alcohol abuse, presents to the Emergency department complaining of abdominal pain. Patient states she has been experiencing mid to upper abdominal pain today with associated skin itchiness. Patient informs symptoms are consistent with her liver failure. Patient denies any fever, chills, chest pain, shortness of breath, nausea, vomiting, back pain, or any other complaints. Time/Duration: Prior to Arrival Symptom Onset: Gradual Symptom Course: Unchanged Quality: Pressure Activities at Onset: Light Context: Home Past Medical History - Provider Review Nursing Documentation Reviewed: Yes - Infectious Disease Hx of Infectious Diseases: None - Tetanus Immunization Tetanus Immunization: Unknown - Cardiac Hx Cardiac Disorders: Yes Hx Hypertension: Yes - Pulmonary Hx Respiratory Disorders: No - Neurological Hx Neurological Disorder: No - HEENT Hx HEENT Disorder: No - Renal Hx Renal Disorder: No - Endocrine/Metabolic Hx Endocrine Disorders: No - Hematological/Oncological Hx Blood Disorders: Yes Hx Cirrhosis: Yes - Integumentary Hx Dermatological Disorder: Yes (GENERALIZED JAUNDICED) - Musculoskeletal/Rheumatological Hx Musculoskeletal Disorders: Yes (pt denies r knee/back pain) Hx Falls: Yes (not recent) - Gastrointestinal Hx Gastrointestinal Disorders: Yes (GASTRITIS,ASCITES-H/O OF TAPPING,BOWEL OBSTRUCTION) Hx Liver Failure: Yes (ALCOHOLIC LIVER CIRRHOSIS) - Genitourinary/Gynecological Hx Genitourinary Disorders: Yes (MYOMECTOMY-FIBROID) - Psychiatric Hx Psychophysiologic Disorder: Yes (H/O ETOH ABUSE. DRANK HALF A LITER OF VODKA FOR 6-7 YRS. QUIT 15 JANUARY 2018) Hx Substance Use: No - Surgical History Other/Comment: Fibroids-MYOMECTOMY - Anesthesia Hx Anesthesia: Yes Hx Anesthesia Reactions: No Hx Malignant Hyperthermia: No - Suicidal Assessment Feels Threatened In Home Enviroment: No Family/Social History - Physician Review Nursing Documentation Reviewed: Yes Family/Social History: No Known Family HX Smoking Status: Never Smoked Hx Alcohol Use: Yes (ETOH ABUSE USED TO DRINK DAILY VODKA 1/2 A LITER. FOR 6-7 YRS.LAST DRINK 8M) Hx Substance Use: No Allergies/Home Meds Allergies/Adverse Reactions: Allergies No Known Allergies Allergy (Verified 11/29/18 23:10) Home Medications: Home Meds Medication Instructions Recorded Confirmed RX: Magnesium Oxide [Mag-Ox] 1 tab PO DAILY 06/06/18 11/29/18 RX: rifAXIMin [Xifaxan] 550 mg PO BID 07/20/18 11/29/18 RX: traMADol [Ultram] 25 mg PO BID 07/20/18 11/29/18 Docusate [Colace] 100 mg PO DAILY 10/30/18 11/29/18 Review of Systems - Physician Review All systems were reviewed & negative as marked: Yes - Review of Systems Constitutional: absent: Fevers, Night Sweats Respiratory: absent: SOB, Cough Cardiovascular: absent: Chest Pain Gastrointestinal: Abdominal Pain. absent: Nausea, Vomiting Musculoskeletal: absent: Back Pain, Neck Pain Neurological: absent: Headache, Dizziness Physical Exam Vital Signs Reviewed: Yes Vital Signs Temp Pulse Resp BP Pulse Ox 11/29/18 23:08 98.6 F 71 16 118/78 98 Temperature: Afebrile Blood Pressure: Normal Pulse: Regular Respiratory Rate: Normal Appearance: Positive for: Well-Appearing, Non-Toxic, Comfortable Pain Distress: None Mental Status: Positive for: Alert and Oriented X 3 - Systems Exam Head: Present: Atraumatic, Normocephalic Pupils: Present: PERRL Extroacular Muscles: Present: EOMI Conjunctiva: Present: Normal Mouth: Present: Moist Mucous Membranes Neck: Present: Normal Range of Motion Respiratory/Chest: Present: Clear to Auscultation, Good Air Exchange. No: Respiratory Distress, Accessory Muscle Use Cardiovascular: Present: Regular Rate and Rhythm, Normal S1, S2. No: Murmurs Abdomen: Present: Tenderness (epigastric tenderness). No: Distention, Peritoneal Signs Back: Present: Normal Inspection Upper Extremity: Present: Normal Inspection. No: Cyanosis, Edema Lower Extremity: Present: Normal Inspection. No: Edema Neurological: Present: GCS=15, CN II-XII Intact, Speech Normal Skin: Present: Warm, Dry, Normal Color. No: Rashes Psychiatric: Present: Alert, Oriented x 3, Normal Insight, Normal Concentration Medical Decision Making ED Course and Treatment: 11/29/18 23:38 Impression: 58 year old female presents with abdominal pain. h/o of chronic pancreatitis Plan: -- Labs -- Benadryl -- Protonix -- Urinalysis -- Reassess and disposition Prior Visits: Notes and results from previous visits were reviewed Progress Notes: 11/30/18 01:05 Patient is sleeping comfortably, no acute distress. Patient states she is feeling better. Lipase is at patient's baseline. h/o of chronic pancreatitis abd soft no ttp. asking specifically for dc. advise strict return preacutiosn 11/30/18 01:35 - Medication Orders Current Medication Orders: Sodium Chloride (Sodium Chloride 0.9%) 500 mls @ 999 mls/hr IV .Q31M STA Stop: 11/29/18 23:53 Discontinued Medications Diphenhydramine HCl (Benadryl) 50 mg IVP STAT STA Stop: 11/29/18 23:23 Pantoprazole Sodium (Protonix Inj) 40 mg IVP STAT STA Stop: 11/29/18 23:23 - Scribe Statement The provider has reviewed the documentation as recorded by the Jeffery Lindsey Provider Scribe Attestation: All medical record entries made by the Cadeibmackenzie were at my direction and personally dictated by me. I have reviewed the chart and agree that the record accurately reflects my personal performance of the history, physical exam, medical decision making, and the department course for this patient. I have also personally directed, reviewed, and agree with the discharge instructions and disposition. Disposition/Present on Arrival - Present on Arrival Any Indicators Present on Arrival: No History of DVT/PE: No History of Uncontrolled Diabetes: No Urinary Catheter: No History of Decub. Ulcer: No History Surgical Site Infection Following: None - Disposition Have Diagnosis and Disposition been Completed?: Yes Diagnosis: Abdominal pain, Elevated lipase Disposition: HOME/ ROUTINE Disposition Time: 23:00 Patient Problems: Current Active Problems Problem Status Onset Abdominal pain Acute Elevated lipase Acute Condition: STABLE Discharge Instructions (ExitCare): Chronic Pancreatitis, Pancreatitis (DC), Acute Abdomen (Belly Pain) Additional Instructions: return to any emergency room with worsening. please discuss your lab tests with your doctor/clinic. return to any emergency room with worsening. Referrals: [facility] [Outside] - [place] up with primary [facility] [place] - Follow up with primary Linda Baker MD [Primary Care Provider] - Follow up with primary Forms: [employer] (Mongolian)
[2018-11-30 00:25] LABS: BASO # 0.04 K/mm3 (0.0-2.0); BASO % 0.6 % (0.0-3.0); EOS # 0.4 (0.0-0.7); EOS % 5.2 % (1.5-5.0); HEMOGLOBIN 11.5 g/dL (12.0-16.0); LYMPH # 2.6 (1.2-3.4); LYMPH % 38.8 % (22.0-35.0); MEAN CELL VOLUME 89.7 fl (80.0-105.0); MEAN CORPUSCULAR HEMOGLOBIN 29.6 pg (25.0-35.0); MEAN PLATELET VOLUME 12.5 fl (7.0-11.0); MONO # 0.5 (0.1-0.6); MONO % 7.3 % (1.0-6.0); RBC 3.88 10^6/uL (3.5-6.1); RED CELL DISTRIBUTION WIDTH 15.2 % (11.5-14.5); WHITE BLOOD COUNT 6.7 10^3/uL (4.5-11.0)
[2018-11-30 00:30] LABS: INR 1.16; PARTIAL THROMBOPLASTIN TIME 41.4 Seconds (26.9-38.3); PROTHROMBIN TIME 12.9 SECONDS (9.4-12.5)
[2018-11-30 00:59] LABS: ALB/GLOB RATIO 0.9 (1.1-1.8); ALT/SGPT < 6 U/L (7-56); AST/SGOT 40 U/L (14-36); BILIRUBIN,DIRECT 0.6 mg/dL (0.0-0.4); BLOOD UREA NITROGEN 13 mg/dL (7-21); CALCIUM 10.1 mg/dL (8.4-10.5); GFR NON-AFRICAN AMERICAN 46; LIPASE 553 U/L (23-300)
[2018-11-30 01:54] VITALS: BP 132/66; PULSE 78; TEMP 97.8
== END 2018-11-30 01:52 | disposition home or self-care (01) ==
LOC: ED 22:51
DX: R10.9 Unspecified abdominal pain (principal); R74.8 Abnormal levels of other serum enzymes; I10 Essential (primary) hypertension
CPT/HCPCS: 80053; 82248; 83690; 83735; 85025; 85610; 85730; 96374; 96375; 99282; C9113; J1200; J7040

== ENCOUNTER 2019-01-08 16:35 | Observation (INO) | payer MEDICAID, OTHER ==
[2019-01-08 16:45] VITALS: BMI 22.9
[2019-01-08] MEDS ORDERED: Sodium Chloride 0.9% 500 ML IV STA (17:50)
[2019-01-08] MEDS ORDERED: DiphenhydrAMINE 50 mg/ml Inj IVP STA (17:50)
[2019-01-08] MEDS ORDERED: Morphine 2 mg/ml ISec IVP STA ×2 (17:50→20:59)
[2019-01-08 18:03] LABS: BASO # 0.04 K/mm3 (0.0-2.0); BASO % 0.7 % (0.0-3.0); EOS # 0.4 (0.0-0.7); EOS % 5.9 % (1.5-5.0); LYMPH # 1.9 (1.2-3.4); LYMPH % 31.6 % (22.0-35.0); MEAN CELL VOLUME 90.3 fl (80.0-105.0); MEAN CORPUSCULAR HEMOGLOBIN 29.8 pg (25.0-35.0); MEAN PLATELET VOLUME 11.5 fl (7.0-11.0); MONO # 0.5 (0.1-0.6); MONO % 8.3 % (1.0-6.0); RBC 4.03 10^6/uL (3.5-6.1); RED CELL DISTRIBUTION WIDTH 14.9 % (11.5-14.5); WHITE BLOOD COUNT 6.1 10^3/uL (4.5-11.0)
[2019-01-08 18:18] LABS: ALB/GLOB RATIO 0.8 (1.1-1.8); ALBUMIN 3.8 g/dL (3.0-4.8); ALT/SGPT 6 U/L (7-56); AST/SGOT 36 U/L (14-36); BLOOD UREA NITROGEN 7 mg/dL (7-21); CALCIUM 10.4 mg/dL (8.4-10.5); GFR NON-AFRICAN AMERICAN > 60; LIPASE 263 U/L (23-300)
[2019-01-08 18:28] LABS: TROPONIN I < 0.01 ng/mL
--- NOTE | 2019-01-08 18:47 | RAD ---
Date of service: 01/08/2019 HISTORY: abd pain COMPARISON: 10/05/2018. FINDINGS: LUNGS: No active pulmonary disease. PLEURA: No significant pleural effusion identified, no pneumothorax apparent. CARDIOVASCULAR: No atherosclerotic calcification present Normal. OSSEOUS STRUCTURES: No significant abnormalities. VISUALIZED UPPER ABDOMEN: Normal. OTHER FINDINGS: None. IMPRESSION: No active disease. No significant interval change compared to the prior examination(s).
--- NOTE | 2019-01-08 18:49 | ED PDOC ---
Arrival/HPI - General Chief Complaint: Abdominal Pain Time Seen by Provider: 01/08/19 16:42 Historian: Patient - History of Present Illness Narrative History of Present Illness (Text): 01/08/19 18:46 58-year-old female with a history of cirrhosis secondary to alcohol abuse presents today with worsening right upper quadrant and epigastric abdominal pain that started yesterday. Patient states the pain is similar to her normal pain. Patient states she usually takes tramadol for pain with improvement. Patient states she took tramadol today but the pain is not improving. She denies nausea/vomiting. No chest pain or shortness of breath. No fevers or chills. No dizziness or weakness. Patient states the pain is sharp and achy and located in the right upper quadrant of the abdomen. Patient denies back pain. Patient states she has follow-up scheduled next month with her liver doctor. Patient states she has been alcohol free for the past year. Pt states she also has a slight headache. pt states she frequently gets headaches. pt states headache is the same as usual. no photophobia, slow onset, located frontal. No other complaints Past Medical History - Provider Review Nursing Documentation Reviewed: Yes - Travel History Have you recently traveled outside [place] w/in the past 3 mons?: No - Infectious Disease Hx of Infectious Diseases: None - Tetanus Immunization Tetanus Immunization: Unknown - Cardiac Hx Cardiac Disorders: Yes Hx Hypertension: Yes - Pulmonary Hx Respiratory Disorders: No - Neurological Hx Neurological Disorder: No - HEENT Hx HEENT Disorder: No - Renal Hx Renal Disorder: No - Endocrine/Metabolic Hx Endocrine Disorders: No - Hematological/Oncological Hx Blood Disorders: Yes Hx Cirrhosis: Yes - Integumentary Hx Dermatological Disorder: Yes (GENERALIZED JAUNDICED) - Musculoskeletal/Rheumatological Hx Musculoskeletal Disorders: Yes (pt denies r knee/back pain) Hx Falls: Yes (not recent) - Gastrointestinal Hx Gastrointestinal Disorders: Yes (GASTRITIS,ASCITES-H/O OF TAPPING,BOWEL OBSTRUCTION) Hx Liver Failure: Yes (ALCOHOLIC LIVER CIRRHOSIS) - Genitourinary/Gynecological Hx Genitourinary Disorders: Yes (MYOMECTOMY-FIBROID) - Psychiatric Hx Psychophysiologic Disorder: Yes (H/O ETOH ABUSE. DRANK HALF A LITER OF VODKA FOR 6-7 YRS. QUIT 15 JANUARY 2018) Hx Substance Use: No - Surgical History Other/Comment: Fibroids-MYOMECTOMY - Anesthesia Hx Anesthesia: Yes Hx Anesthesia Reactions: No Hx Malignant Hyperthermia: No - Suicidal Assessment Feels Threatened In Home Enviroment: No Family/Social History - Physician Review Nursing Documentation Reviewed: Yes Family/Social History: Unknown Family HX Smoking Status: Never Smoked Hx Alcohol Use: Yes (ETOH ABUSE USED TO DRINK DAILY VODKA 1/2 A LITER. FOR 6-7 YRS.LAST DRINK 8M) Hx Substance Use: No Allergies/Home Meds Allergies/Adverse Reactions: Allergies No Known Allergies Allergy (Verified 11/29/18 23:10) Home Medications: Home Meds Medication Instructions Recorded Confirmed Magnesium Oxide [Mag-Ox] 1 tab PO DAILY 06/06/18 11/29/18 rifAXIMin [Xifaxan] 550 mg PO BID 07/20/18 11/29/18 traMADol [Ultram] 25 mg PO BID 07/20/18 11/29/18 Docusate [Colace] 100 mg PO DAILY 10/30/18 11/29/18 Review of Systems - Review of Systems Constitutional: absent: Fatigue, Fevers Respiratory: absent: SOB, Cough Cardiovascular: absent: Chest Pain, Palpitations Gastrointestinal: Abdominal Pain. absent: Constipation, Diarrhea, Nausea, Vomiting Genitourinary Female: absent: Dysuria, Frequency, Hematuria Musculoskeletal: absent: Arthralgias, Back Pain, Neck Pain Skin: absent: Rash, Pruritis Neurological: Headache. absent: Dizziness Psychiatric: absent: Anxiety, Depression Physical Exam Vital Signs Reviewed: Yes Vital Signs Temp Pulse Resp BP Pulse Ox 01/08/19 16:45 98.5 F 68 18 126/78 99 Temperature: Afebrile Blood Pressure: Normal Pulse: Regular Respiratory Rate: Normal Appearance: Positive for: Well-Appearing, Non-Toxic, Comfortable Pain Distress: None Mental Status: Positive for: Alert and Oriented X 3 - Systems Exam Head: Present: Atraumatic Conjunctiva: Present: Icteric Mouth: Present: Moist Mucous Membranes Nose (External): Present: Atraumatic Nose (Internal): Present: Normal Inspection Neck: Present: Normal Range of Motion Respiratory/Chest: Present: Clear to Auscultation, Good Air Exchange. No: Respiratory Distress, Accessory Muscle Use Cardiovascular: Present: Regular Rate and Rhythm, Normal S1, S2. No: Murmurs Abdomen: Present: Tenderness (+ ruq tenderness; minimal epigastric tenderness), Normal Bowel Sounds. No: Distention, Peritoneal Signs, Rebound, Guarding Back: Present: Normal Inspection. No: CVA Tenderness, Midline Tenderness, Paraspinal Tenderness Upper Extremity: Present: Normal ROM Lower Extremity: Present: Normal ROM. No: Edema Neurological: Present: GCS=15, Speech Normal Skin: Present: Warm, Dry, Normal Color. No: Rashes Psychiatric: Present: Alert, Oriented x 3 Medical Decision Making ED Course and Treatment: 01/08/19 18:52 58-year-old female with abdominal pain history of liver cirrhosis secondary to alcohol abuse CBC: Within normal limits CMP: Glucose 122 Lipase 263 Troponin within normal limits UA; wnl patient given Protonix, morphine and Benadryl. And normal saline EKG shows normal sinus rhythm at 72 bpm normal axis no ST elevations QTC 459. Abdominal ultrasound:COMMENTS: The liver is of increased echogenicity without evidence of mass measuring 15 cm. Right hepatic lobe cyst measures 1.5 x 1.49 x 1.43 cm. There is no intra or extrahepatic biliary ductal dilatation. The common bile duct measures 4.19 mm. The gallbladder shows a gallstone measuring 0.89 cm. The gallbladder wall thickness measures 4.44 mm. There is no abdominal ascites. The visualized portions of abdominal aorta and inferior vena cava present no abnormalities. The visualized portions of the pancreas are unremarkable. The spleen is of uni form echo texture and does not appear enlarged measuring 10.43 cm. Complex lesion is seen posterior to the spleen measuring 4.61 x 4.26 x 4.45 cm containing echogenic foci compatible with calcifications. The right kidney measures 7.23 x 3.64 x 3.12 cm and the left kidney measures 8.95 x 4.3 x 4.3 cm. Trace left hydronephrosis. IMPRESSION: 1. Fatty liver with right hepatic lobe cyst. 2. Complex lesion is seen posterior to the spleen. 3. Trace left hydronephrosis. 4. Follow up with CT is recommended. Electronically signed on Jan 08, 2019 8:36:09 PM EDT by: Handy Mccabe M.D., DAXA Certified By ABR & CBCCT Fellowship Trained MRI and CT Specialist CAT scan of the abdomen and pelvis:FINDINGS: LUNG BASES: The lung bases appear clear. No pleural effusions are seen. LIVER: A 1.6 cm cyst is identified in the right hepatic lobe. GALLBLADDER AND BILE DUCTS: A 5.2 mm solitary cholelith is noted within the gallbladder. Subtle pericholecystic edema is noted which could be compatible with some acute cholecystitis. No biliary ductal dilatation is evident. PANCREAS: Unremarkable. SPLEEN: Along the anteromedial pole of the spleen there is demonstration of a 4.8 x 5.1 cm heterogeneous collection having a calcific rim and internal calcifications. This is thought likely consistent with an old splenic hemorrhage or hemorrhagic cyst. ADRENAL GLANDS: Unremarkable. KIDNEYS, URETERS, AND BLADDER: The kidneys appear within normal limits. There is no hydronephrosis or hydroureter. No urinary calculi are seen. The urinary bladder appeared normal in size and configuration. STOMACH AND BOWEL: Unremarkable appearance of the stomach. No evidence of bowel obstruction.No evidence suggesting enteritis or colitis. APPENDIX: No evidence of acute appendicitis on CT examination. PERITONEUM: No free fluid. No free air. LYMPH NODES: No lymphadenopathy is evident. REPRODUCTIVE: Periuterine varices are identified; more prevalent on the left. The possibility of pelvic congestion syndrome should be considered. VASCULATURE: No evidence of abdominal aortic aneurysm. Minor atherosclerotic vascular plaquing is noted. BONES: No aggressive appearing osseous lesion. No acute osseous pathology evident. IMPRESSION: 1. A solitary 5.2 mm cholelith is noted within the gallbladder with associated pericholecystic edema suspicious for acute cholecystitis. 2. 5.1 cm heterogeneous partially calcified lesion along the anteromedial upper spleen. This is thought likely compatible with an old calcified splenic hemorrhage or hemorrhagic cyst. 3. Periuterine varices; more pronounced on the left. The possibility of pelvic congestion syndrome should be considered. 4. 1.6 cm cyst in the right hepatic lobe. Electronically signed on Jan 08, 2019 8:39:41 PM EDT by: Handy Mccabe M.D., DAXA Certified By ABR & CBCCT Fellowship Trained MRI and CT Specialist pt started on rocephin and flagyl for acute cholecystitis case discussed with dr. awan; accepts admission impression; abdominal pain, cholecystitis admit med/surg with surgical consult. - Lab Interpretations Lab Results: Troponin I < 0.01 ng/mL 01/08/19 17:55 Total Bilirubin 1.0 mg/dL (0.2-1.3) 01/08/19 17:55 AST 36 U/L (14-36) 01/08/19 17:55 ALT 6 U/L (7-56) L 01/08/19 17:55 Alkaline Phosphatase 101 U/L (38-126) 01/08/19 17:55 Total Protein 8.4 g/dL (5.8-8.3) H 01/08/19 17:55 Albumin 3.8 g/dL (3.0-4.8) 01/08/19 17:55 Globulin 4.6 gm/dL 01/08/19 17:55 Albumin/Globulin Ratio 0.8 (1.1-1.8) L 01/08/19 17:55 Lipase 263 U/L (23-300) 01/08/19 17:55 - RAD Interpretation Radiology Orders: 01/08/19 17:34 ABDOMEN COMPLETE [US] Stat 01/08/19 17:41 CHEST PORTABLE [RAD] Stat 01/08/19 18:45 ABD & PELVIS IV CONTRAST ONLY [CT] Stat - Medication Orders Current Medication Orders: Discontinued Medications Diphenhydramine HCl (Benadryl) 25 mg IVP STAT STA Stop: 01/08/19 17:51 Last Admin: 01/08/19 17:56 Dose: 25 mg IVP Administration Document 01/08/19 17:56 [facility] (Rec: 01/08/19 17:57 [id number] Charges for Administration # of IVP Administrations 1 Sodium Chloride (Sodium Chloride 0.9%) 500 mls @ 999 mls/hr IV .Q31M STA Stop: 01/08/19 18:20 Last Admin: 01/08/19 17:58 Dose: 999 mls/hr eMAR Start Stop Document 01/08/19 17:58 [facility] (Rec: 01/08/19 17:58 [id number]) Intravenous Solution Start Date 01/08/19 Start Time 17:50 End Date 01/08/19 End time 18:20 Total Infusion Time 30 Morphine Sulfate (Morphine) 2 mg IVP STAT STA Stop: 01/08/19 17:51 Last Admin: 01/08/19 17:56 Dose: 2 mg MAR Pain Assessment Document 01/08/19 17:56 [facility] (Rec: 01/08/19 17:56 [id number] Pain Reassessment Is this a pain reassessment? No Sleep Is patient sleeping during reassessment? No Presence of Pain Presence of Pain Yes IVP Administration Document 01/08/19 17:56 [facility] (Rec: 01/08/19 17:56 [id number] Charges for Administration # of IVP Administrations 1 Pantoprazole Sodium (Protonix Inj) 40 mg IVP STAT STA Stop: 01/08/19 17:50 Last Admin: 01/08/19 17:56 Dose: 40 mg IVP Administration Document 01/08/19 17:56 [facility] (Rec: 01/08/19 17:56 [id number]) Charges for Administration # of IVP Administrations 1 Disposition/Present on Arrival - Present on Arrival Any Indicators Present on Arrival: No History of DVT/PE: No History of Uncontrolled Diabetes: No Urinary Catheter: No History of Decub. Ulcer: No History Surgical Site Infection Following: None - Disposition Have Diagnosis and Disposition been Completed?: Yes Diagnosis: Cholecystitis Disposition: HOSPITALIZED Disposition Time: 21:00 Patient Plan: Admission Patient Problems: Current Active Problems Problem Status Onset Cholecystitis Acute Condition: FAIR Forms: [employer] (Swedish)
[2019-01-08] MEDS ORDERED: Iohexol 350 MG/100 ML VIAL ONE (18:56)
--- NOTE | 2019-01-08 19:11 | CARD ---
APPROVED REPORT Date of service: 01/08/2019 EKG Measurement Heart [id number] <Conclusion> Normal sinus rhythm Possible Left atrial enlargement Cannot rule out Anterior infarct, age undetermined Abnormal ECG
[2019-01-08 20:14] LABS: URINE APPEARANCE CLEAR (CLEAR); URINE BILIRUBIN NEGATIVE (NEGATIVE); URINE BLOOD NEGATIVE (NEGATIVE); URINE COLOR STRAW (YELLOW); URINE GLUCOSE (UA) NEGATIVE (NEGATIVE); URINE LEUKOCYTE ESTERASE NEGATIVE Leu/uL (NEGATIVE); URINE PROTEIN NEGATIVE mg/dL (<30 mg/dL); URINE UROBILINOGEN 0.2 E.U./dL (<1 E.U./dL)
[2019-01-08] MEDS ORDERED: metroNIDAZOLE IV 500 mg/100 ml 500 MG/100 ML BAG IVPB STA (20:59)
[2019-01-08] MEDS ORDERED: cefTRIAXone 1 gm 1 GM/100 ML BAG IVPB STA (20:59)
--- NOTE | 2019-01-08 21:53 | CP.PCM.HP ---
<Dionicio Rosenbergophe - Last Filed: 01/09/19 02:11> History of Present Illness - History of Present Illness History of Present Illness: Dr Rosenberg H&P 58F PMH of former alcohol abuse, alcoholic liver cirrhosis on liver transplant list, hx of SBP and HTN presenting to the ED for two day history of abdominal pain. Pain is located in the right upper epigastric region, rated 6/10 at worst, started gradually, constant, radiated to the RUQ and LUQ denies any alleviating or exacerbating factors and denies any associated symptoms. She takes Tramadol which helps with pain. She says current symptoms are similar to previous admission last month. Pt says this pain is persistent and is her baseline, she came in today becuase it usually lasts one day and she got concerned that it lasted two days this time. She follows up at [facility] with Dr Parker for liver cirrhosis and last visited one month ago. She was told she is a candidate for liver transplant but is unable to elaborate further on the matter. She is compliant with her medications. Last BM was this morning, normal character. ROS: Pos: RUQ pain (chronic), hx of ETOH abuse, Neg: CP, SOB, fevers, headaches, back pain, nausea, vomiting, chills, diarrhea, constipation, urinary complaints, numbness, tingling, swelling, recent travel, sickness, trauma 12 point ROS noted here, otherwise unremarkable. PMD: [facility] clinic Dr Baker, GI: Dr Praker PMH: former alcohol abuse, alcoholic liver cirrhosis on liver transplant list, hx of SBP and HTN SH: denies tobacco and drugs. admits to approx 10 year heavy drinking history, quit 3 months ago Sx: fibroid removal FH: mom and dad had heart disease Allergies: NKDA Meds: per patient's hand written medication list: xifaxan 550mg BID, spirinolactone 25mg, furosemide 40mg, mag-oxide 400mg, nadolol 20mg, folic acid 1mg, pantoprazole 40mg, colace, trazodone 50mg, benadryl 25mg, Tramadol 25 BID Present on Admission - Present on Admission Any Indicators Present on Admission: No Review of Systems - Constitutional Constitutional: Headache. absent: Fatigue, Fever, Night Sweats, Weight Gain, Weight Loss, Weakness - EENT Eyes: absent: Change in Vision - Cardiovascular Cardiovascular: absent: Chest Pain, Pain Radiating to Arm/Neck/Jaw, Orthopnea - Respiratory Respiratory: absent: Cough, Hemoptysis, Wheezing - Gastrointestinal Gastrointestinal: Abdominal Pain. absent: Constipation, Cramping, Hematemesis, Hematochezia, Nausea - Genitourinary Genitourinary: absent: Dysuria - Musculoskeletal Musculoskeletal: Arthralgias (bilateral knees). absent: Muscle Weakness - Integumentary Integumentary: absent: Pruritus, Swelling, Unusual Bruising, Jaundice - Hematologic/Lymphatic Hematologic: absent: Easy Bruising Past Patient History - Infectious Disease Hx of Infectious Diseases: None - Tetanus Immunizations Tetanus Immunization: Unknown - Past Social History Smoking Status: Never Smoked - CARDIAC Hx Cardiac Disorders: Yes Hx Hypertension: Yes - PULMONARY Hx Respiratory Disorders: No - NEUROLOGICAL Hx Neurological Disorder: No - HEENT Hx HEENT Problems: No - RENAL Hx Chronic Kidney Disease: No - ENDOCRINE/METABOLIC Hx Endocrine Disorders: No - HEMATOLOGICAL/ONCOLOGICAL Hx Blood Disorders: Yes Hx Cirrhosis: Yes - INTEGUMENTARY Hx Dermatological Problems: Yes (GENERALIZED JAUNDICED) - MUSCULOSKELETAL/RHEUMATOLOGICAL Hx Musculoskeletal Disorders: Yes (pt denies r knee/back pain) Hx Falls: Yes (not recent) - GASTROINTESTINAL Hx Gastrointestinal Disorders: Yes (GASTRITIS,ASCITES-H/O OF TAPPING,BOWEL OBSTRUCTION) Hx Liver Failure: Yes (ALCOHOLIC LIVER CIRRHOSIS) - GENITOURINARY/GYNECOLOGICAL Hx Genitourinary Disorders: Yes (MYOMECTOMY-FIBROID) - PSYCHIATRIC Hx Psychophysiologic Disorder: Yes (H/O ETOH ABUSE. DRANK HALF A LITER OF VODKA FOR 6-7 YRS. QUIT 15 JANUARY 2018) Hx Substance Use: No - SURGICAL HISTORY Other/Comment: Fibroids-MYOMECTOMY - ANESTHESIA Hx Anesthesia: Yes Hx Anesthesia Reactions: No Hx Malignant Hyperthermia: No Meds Allergies/Adverse Reactions: Allergies Allergy/AdvReac Type Severity Reaction Status Date / Time No Known Allergies Allergy Verified 11/29/18 23:10 Physical Exam - Constitutional Appears: Non-toxic, Older Than Stated Age - Head Exam Head Exam: ATRAUMATIC, NORMOCEPHALIC - Eye Exam Eye Exam: EOMI, Normal appearance. absent: Periorbital swelling, Scleral icterus Pupil Exam: NORMAL ACCOMODATION, PERRL - ENT Exam ENT Exam: Mucous Membranes Moist - Neck Exam Neck exam: Positive for: Normal Inspection. Negative for: Lymphadenopathy, Thyromegaly - Respiratory Exam Respiratory Exam: Clear to Auscultation Bilateral. absent: Wheezes, Stridor - Cardiovascular Exam Cardiovascular Exam: RRR, +S1, +S2 - GI/Abdominal Exam GI & Abdominal Exam: Normal Bowel Sounds, Soft, Tenderness (R UQ upon deep palpation, minor wince). absent: Guarding, Rebound - Neurological Exam Neurological exam: Alert, CN II-XII Intact, Oriented x3, Reflexes Normal - Psychiatric Exam Psychiatric exam: Normal Affect, Normal Mood - Skin Skin Exam: Dry, Intact, Normal Color Results - Vital Signs Recent Vital Signs: Last Vital Signs Temp 98.5 F 01/08/19 16:45 Pulse 70 01/08/19 17:30 Resp 18 01/08/19 17:30 BP 131/77 01/08/19 17:30 Pulse Ox 99 01/08/19 17:30 - Labs Result Diagrams: 01/08/19 17:55 01/08/19 17:55 Labs: Laboratory Results - last 24 hr 01/08/19 01/08/19 01/08/19 17:55 17:55 20:03 WBC 6.1 RBC 4.03 Hgb 12.0 Hct 36.4 MCV 90.3 MCH 29.8 MCHC 33.0 RDW 14.9 H Plt Count 124 MPV 11.5 H Neut % (Auto) 53.5 Lymph % (Auto) 31.6 Sumner % (Auto) 8.3 H Eos % (Auto) 5.9 H Baso % (Auto) 0.7 Lymph # (Auto) 1.9 Sumner # (Auto) 0.5 Eos # (Auto) 0.4 Baso # (Auto) 0.04 Absolute Neuts (auto) 3.29 Sodium 137 Potassium 4.2 Chloride 102 Carbon Dioxide 26 Anion Gap 14 BUN 7 Creatinine 0.9 Est GFR ( Amer) > 60 Est GFR (Non-Af Amer) > 60 Random Glucose 122 H Calcium 10.4 Total Bilirubin 1.0 AST 36 ALT 6 L Alkaline Phosphatase 101 Lactate Dehydrogenase 383 Total Creatine Kinase 33 L Troponin I < 0.01 Total Protein 8.4 H Albumin 3.8 Globulin 4.6 Albumin/Globulin Ratio 0.8 L Lipase 263 Urine Color Straw Urine Appearance Clear Urine pH 7.0 Ur Specific Albia <= 1.005 Urine Protein Negative Urine Glucose (UA) Negative Urine Ketones Negative Urine Blood Negative Urine Nitrate Negative Urine Bilirubin Negative Urine Urobilinogen 0.2 Ur Leukocyte Esterase Negative Assessment & Plan - Assessment and Plan (Free Text) Assessment: This is a 58 year old female with PMH of former alcohol abuse, alcoholic liver cirrhosis on liver transplant list, hx of SBP and HTN presenting to the ED for two day history of abdominal pain. Abdominal pain -Baseline abdominal pain, no acute increase in quality endorsed -Abd US: no dilatation, no perichole fluid, pos for cholelithiasis -Abd CT: prelim read: possible acute cholecystitis -Flagyl 500mg IVPB q8 -Rocephin 2gm IVPB q24 -Tramadol 25 BID PRN -GenSx [place] Consulted: f/u recs Liver Cirrhosis -Lactulose 10 daily -Lasix 40 daily -MagOx 400 daily -Nadolol 20mg -Rifaximin 550 PO BID -Aldactone 25mg PO BID -Folate 1mg po daily Former alcohol use -UDS pending -alcohol level pending -trazodone 50mg PO HS PPX -PTX 40 <Linda Baker - Last Filed: 01/09/19 06:39> Results - Vital Signs Recent Vital Signs: Last Vital Signs Temp 98.1 F 01/08/19 22:15 Pulse 72 01/08/19 22:15 Resp 18 01/09/19 00:09 BP 137/87 01/08/19 22:15 Pulse Ox 100 01/08/19 22:15 - Labs Result Diagrams: 01/08/19 17:55 01/08/19 17:55 Labs: Laboratory Results - last 24 hr 01/08/19 01/08/19 01/08/19 17:55 17:55 20:03 WBC 6.1 RBC 4.03 Hgb 12.0 Hct 36.4 MCV 90.3 MCH 29.8 MCHC 33.0 RDW 14.9 H Plt Count 124 MPV 11.5 H Neut % (Auto) 53.5 Lymph % (Auto) 31.6 Sumner % (Auto) 8.3 H Eos % (Auto) 5.9 H Baso % (Auto) 0.7 Lymph # (Auto) 1.9 Sumner # (Auto) 0.5 Eos # (Auto) 0.4 Baso # (Auto) 0.04 Absolute Neuts (auto) 3.29 Sodium 137 Potassium 4.2 Chloride 102 Carbon Dioxide 26 Anion Gap 14 BUN 7 Creatinine 0.9 Est GFR ( Amer) > 60 Est GFR (Non-Af Amer) > 60 Random Glucose 122 H Calcium 10.4 Total Bilirubin 1.0 AST 36 ALT 6 L Alkaline Phosphatase 101 Ammonia Lactate Dehydrogenase 383 Total Creatine Kinase 33 L Troponin I < 0.01 Total Protein 8.4 H Albumin 3.8 Globulin 4.6 Albumin/Globulin Ratio 0.8 L Lipase 263 Urine Color Straw Urine Appearance Clear Urine pH 7.0 Ur Specific Albia <= 1.005 Urine Protein Negative Urine Glucose (UA) Negative Urine Ketones Negative Urine Blood Negative Urine Nitrate Negative Urine Bilirubin Negative Urine Urobilinogen 0.2 Ur Leukocyte Esterase Negative Alcohol, Quantitative 01/08/19 01/08/19 21:42 21:42 WBC RBC Hgb Hct MCV MCH MCHC RDW Plt Count MPV Neut % (Auto) Lymph % (Auto) Sumner % (Auto) Eos % (Auto) Baso % (Auto) Lymph # (Auto) Sumner # (Auto) Eos # (Auto) Baso # (Auto) Absolute Neuts (auto) Sodium Potassium Chloride Carbon Dioxide Anion Gap BUN Creatinine Est GFR ( Amer) Est GFR (Non-Af Amer) Random Glucose Calcium Total Bilirubin AST ALT Alkaline Phosphatase Ammonia 20 Lactate Dehydrogenase Total Creatine Kinase Troponin I Total Protein Albumin Globulin Albumin/Globulin Ratio Lipase Urine Color Urine Appearance Urine pH Ur Specific Albia Urine Protein Urine Glucose (UA) Urine Ketones Urine Blood Urine Nitrate Urine Bilirubin Urine Urobilinogen Ur Leukocyte Esterase Alcohol, Quantitative < 10 Attending/Attestation - Attestation I have personally seen and examined this patient.: Yes I have fully participated in the care of the patient.: Yes I have reviewed all pertinent clinical information: Yes Notes (Text): 01/09/19 06:33 Pt seen with the resident by the bedside. Case discussed in detail Note: pt is followed up at [facility] as noted. Agree with rest of documentation,assessment and plan of treatment.
--- NOTE | 2019-01-08 22:11 | CP.PCM.CON ---
History of Present Illness - History of Present Illness History of Present Illness: General Surgery consult note for Dr. Hogan consulted fro possible cholecystitis Patient is 58 yr old female with PMH former alcohol abuse, alcoholic liver cirrhosis on liver transplant list, hx of SBP and HTN who presents to the [facility] with RUQ abdominal pain. She states the pain has been present x 3 days but is no longer present now. She otherwise denies SWIFT, SOb, CP, current abdominal pain, n/v, f/c, stool changes, pain associated with eating and pain/weakness in extremities. PMD: [facility] clinic Dr Baker, GI: Dr Parker PMH:former alcohol abuse, alcoholic liver cirrhosis on liver transplant list, hx of SBP and HTN SH: denies tobacco and drugs. admits to approx 10 year heavy drinking history, quit 3 months ago Sx: fibroid removal FH: mom and dad had heart disease Allergies: NKDA Meds: per patient's hand written medication list: xifaxan 550mg BID, sprinolactone 25mg, furosemide 40mg, mag-oxide 400mg, nadolol 20mg, folic acid 1mg, pantoprazole 40mg, colace, trazodone 50mg, benadryl 25mg Review of Systems - Review of Systems All systems: reviewed and no additional remarkable complaints except Past Patient History - Infectious Disease Hx of Infectious Diseases: None - Tetanus Immunizations Tetanus Immunization: Unknown - Past Social History Smoking Status: Never Smoked - CARDIAC Hx Cardiac Disorders: Yes Hx Hypertension: Yes - PULMONARY Hx Respiratory Disorders: No - NEUROLOGICAL Hx Neurological Disorder: No - HEENT Hx HEENT Problems: No - RENAL Hx Chronic Kidney Disease: No - ENDOCRINE/METABOLIC Hx Endocrine Disorders: No - HEMATOLOGICAL/ONCOLOGICAL Hx Blood Disorders: Yes Hx Cirrhosis: Yes - INTEGUMENTARY Hx Dermatological Problems: Yes (GENERALIZED JAUNDICED) - MUSCULOSKELETAL/RHEUMATOLOGICAL Hx Musculoskeletal Disorders: Yes (pt denies r knee/back pain) Hx Falls: Yes (not recent) - GASTROINTESTINAL Hx Gastrointestinal Disorders: Yes (GASTRITIS,ASCITES-H/O OF TAPPING,BOWEL OBSTRUCTION) Hx Liver Failure: Yes (ALCOHOLIC LIVER CIRRHOSIS) - GENITOURINARY/GYNECOLOGICAL Hx Genitourinary Disorders: Yes (MYOMECTOMY-FIBROID) - PSYCHIATRIC Hx Psychophysiologic Disorder: Yes (H/O ETOH ABUSE. DRANK HALF A LITER OF VODKA FOR 6-7 YRS. QUIT 15 JANUARY 2018) Hx Substance Use: No - SURGICAL HISTORY Other/Comment: Fibroids-MYOMECTOMY - ANESTHESIA Hx Anesthesia: Yes Hx Anesthesia Reactions: No Hx Malignant Hyperthermia: No Meds Allergies/Adverse Reactions: Allergies Allergy/AdvReac Type Severity Reaction Status Date / Time No Known Allergies Allergy Verified 11/29/18 23:10 - Medications Medications: Current Medications Docusate Sodium (Colace) 100 mg PO DAILY [facility] Folic Acid (Folic Acid) 1 mg PO DAILY [facility] Furosemide (Lasix) 40 mg PO DAILY [facility] Lactulose (Enulose) 10 gm PO DAILY [facility] Magnesium Oxide (Mag-Ox) 400 mg PO DAILY [facility] Nadolol (Corgard) 20 mg PO DAILY [facility] Pantoprazole Sodium (Protonix Ec Tab) 40 mg PO DAILY [facility] Rifaximin (Xifaxan) 550 mg PO BID [facility]; Protocol Spironolactone (Aldactone) 25 mg PO BID [facility] Tramadol HCl (Ultram) 25 mg PO BID PRN PRN Reason: Pain, severe (8-10) Trazodone HCl (Desyrel) 50 mg PO HS [facility] Physical Exam - Constitutional Appears: Non-toxic, No Acute Distress, Chronically Ill - Head Exam Head Exam: ATRAUMATIC, NORMOCEPHALIC - Eye Exam Eye Exam: EOMI. absent: Scleral icterus - ENT Exam ENT Exam: Mucous Membranes Moist - Respiratory Exam Respiratory Exam: NORMAL BREATHING PATTERN - Cardiovascular Exam Cardiovascular Exam: REGULAR RHYTHM - GI/Abdominal Exam GI & Abdominal Exam: Soft. absent: Distended, Guarding, Tenderness - Extremities Exam Extremities exam: Positive for: pedal pulses present. Negative for: calf tenderness, pedal edema - Neurological Exam Neurological exam: Alert, Oriented x3 - Psychiatric Exam Psychiatric exam: Normal Affect, Normal Mood - Skin Skin Exam: Dry, Intact, Normal Color, Warm Results - Vital Signs Recent Vital Signs: Last Vital Signs Temp 98.5 F 01/08/19 16:45 Pulse 70 01/08/19 17:30 Resp 18 01/08/19 17:30 BP 131/77 01/08/19 17:30 Pulse Ox 99 01/08/19 17:30 - Labs Result Diagrams: 01/08/19 17:55 01/08/19 17:55 Labs: Laboratory Results - last 24 hr 03/26/19 03/26/19 03/26/19 17:55 17:55 20:03 WBC 6.1 RBC 4.03 Hgb 12.0 Hct 36.4 MCV 90.3 MCH 29.8 MCHC 33.0 RDW 14.9 H Plt Count 124 MPV 11.5 H Neut % (Auto) 53.5 Lymph % (Auto) 31.6 [place] % (Auto) 8.3 H Eos % (Auto) 5.9 H Baso % (Auto) 0.7 Lymph # (Auto) 1.9 [place] # (Auto) 0.5 Eos # (Auto) 0.4 Baso # (Auto) 0.04 Absolute Neuts (auto) 3.29 Sodium 137 Potassium 4.2 Chloride 102 Carbon Dioxide 26 Anion Gap 14 BUN 7 Creatinine 0.9 Est GFR ( Amer) > 60 Est GFR (Non-Af Amer) > 60 Random Glucose 122 H Calcium 10.4 Total Bilirubin 1.0 AST 36 ALT 6 L Alkaline Phosphatase 101 Ammonia Lactate Dehydrogenase 383 Total Creatine Kinase 33 L Troponin I < 0.01 Total Protein 8.4 H Albumin 3.8 Globulin 4.6 Albumin/Globulin Ratio 0.8 L Lipase 263 Urine Color Straw Urine Appearance Clear Urine pH 7.0 Ur Specific [place] <= 1.005 Urine Protein Negative Urine Glucose (UA) Negative Urine Ketones Negative Urine Blood Negative Urine Nitrate Negative Urine Bilirubin Negative Urine Urobilinogen 0.2 Ur Leukocyte Esterase Negative 01/08/19 21:42 WBC RBC Hgb Hct MCV MCH MCHC RDW Plt Count MPV Neut % (Auto) Lymph % (Auto) [place] % (Auto) Eos % (Auto) Baso % (Auto) Lymph # (Auto) [place] # (Auto) Eos # (Auto) Baso # (Auto) Absolute Neuts (auto) Sodium Potassium Chloride Carbon Dioxide Anion Gap BUN Creatinine Est GFR ( Amer) Est GFR (Non-Af Amer) Random Glucose Calcium Total Bilirubin AST ALT Alkaline Phosphatase Ammonia 20 Lactate Dehydrogenase Total Creatine Kinase Troponin I Total Protein Albumin Globulin Albumin/Globulin Ratio Lipase Urine Color Urine Appearance Urine pH Ur Specific [place] Urine Protein Urine Glucose (UA) Urine Ketones Urine Blood Urine Nitrate Urine Bilirubin Urine Urobilinogen Ur Leukocyte Esterase Assessment & Plan - Assessment and Plan (Free Text) Assessment: 58 yr old female with hx of ETOH abuse and liver cirrhosis on transplant list with possible cholecystitis, currently asymptomatic Plan: - NPO - IVF - pain control - zofran PRN - recommend GI consult for further evaluation of pain - discussed with Dr. Hogan, further recs per him Nydia Perdue, PGY 1 - Date & Time Date: 01/08/19 Time: 22:15
[2019-01-09] MEDS ORDERED: Lactated Ringer's 1,000 ML IV SCH (00:05)
[2019-01-09] MEDS: metroNIDAZOLE IV 500 mg/100 ml 500 MG/100 ML BAG IVPB SCH ×2 (05:04→14:37)
[2019-01-09 07:46] LABS: BASO # 0.03 K/mm3 (0.0-2.0); BASO % 0.6 % (0.0-3.0); EOS # 0.3 (0.0-0.7); EOS % 5.6 % (1.5-5.0); HEMOGLOBIN 10.8 g/dL (12.0-16.0); LYMPH # 1.5 (1.2-3.4); LYMPH % 31.8 % (22.0-35.0); MEAN CELL VOLUME 89.8 fl (80.0-105.0); MEAN CORPUSCULAR HEMOGLOBIN 29.1 pg (25.0-35.0); MEAN CORPUSCULAR HGB CONC 32.4 g/dl (31.0-37.0); MEAN PLATELET VOLUME 10.9 fl (7.0-11.0); MONO # 0.3 (0.1-0.6); MONO % 6.7 % (1.0-6.0); RBC 3.71 10^6/uL (3.5-6.1); WHITE BLOOD COUNT 4.7 10^3/uL (4.5-11.0)
[2019-01-09 08:00] VITALS: O2SAT 98
[2019-01-09 08:23] LABS: ALB/GLOB RATIO 0.8 (1.1-1.8); ALBUMIN 3.3 g/dL (3.0-4.8); ALT/SGPT 12 U/L (7-56); AST/SGOT 30 U/L (14-36); BLOOD UREA NITROGEN 5 mg/dL (7-21); GFR NON-AFRICAN AMERICAN > 60
--- NOTE | 2019-01-09 08:41 | CT ---
Date of service: 01/08/2019 PROCEDURE: CT Abdomen and Pelvis with contrast HISTORY: ruq abd pain COMPARISON: None. TECHNIQUE: Contrast dose: Radiation dose: Total exam DLP = 341.13 mGy-cm. This CT exam was performed using one or more of the following dose reduction techniques: Automated exposure control, adjustment of the mA and/or kV according to patient size, and/or use of iterative reconstruction technique. FINDINGS: LOWER THORAX: Unremarkable. LIVER: 1.6 centimeter right hepatic lobe cyst.. No gross lesion or ductal dilatation. GALLBLADDER AND BILE DUCTS: 5 millimeter gallstone with pericholecystic edema suspicious for cholecystitis.. PANCREAS: Unremarkable. No gross lesion or ductal dilatation. SPLEEN: 5 centimeter heterogeneous partially calcified lesion along the anteromedial upper spleen possibly representing an old calcified splenic hemorrhage or hemorrhagic cyst. ADRENALS: Unremarkable. No mass. KIDNEYS AND URETERS: Unremarkable. No hydronephrosis. No solid mass. VASCULATURE: Unremarkable. No aortic aneurysm. No aortic atherosclerotic calcification or mural plaque present. BOWEL: Unremarkable. No obstruction. No gross mural thickening. APPENDIX: Normal appendix. PERITONEUM: Unremarkable. No free fluid. No free air. LYMPH NODES: Unremarkable. No enlarged lymph nodes. BLADDER: Unremarkable. REPRODUCTIVE: Unremarkable. BONES: No acute fracture. OTHER FINDINGS: None. IMPRESSION: 5 millimeter gallstone with pericholecystic edema suspicious for cholecystitis.. 5 centimeter heterogeneous partially calcified lesion along the anteromedial upper spleen possibly representing an old calcified splenic hemorrhage or hemorrhagic cyst.
[2019-01-09] MEDS ORDERED: cefTRIAXone 2 GM IN NS 2 GM/100 ML BAG IVPB SCH (10:00)
[2019-01-09] MEDS ORDERED: Pantoprazole 40 mg EC Tab PO SCH (10:00)
[2019-01-09] MEDS ORDERED: Furosemide 40 mg/5 mL Oral Soln UD PO SCH (10:00)
[2019-01-09] MEDS ORDERED: cefTRIAXone 1 gm 1 GM/100 ML BAG IVPB SCH (10:00)
[2019-01-09] MEDS ORDERED: Magnesium Oxide 400 mg Tab UD PO SCH (10:00)
--- NOTE | 2019-01-09 10:49 | CP.PCM.CON ---
<TrinityNathalie shahja - Last Filed: 01/09/19 17:37> History of Present Illness - History of Present Illness History of Present Illness: Denice Petersen, PGY2, GI Consult for Dr Rhodes: CC: epigastric, RUQ abdominal pain 58 year old female PMH former alcohol abuse, alcoholic liver cirrhosis on liver transplant list, hx of SBP and HTN, is here for abdominal pain for past 2 days. It is located in the epigastric, RUQ region, rates it as burning, constant, nonradiating, rates it as 7-8/10 yesterday. Patient states that she has been having this pain for past year, since her diagnosis of cirrhosis. However, within past 2 days, it got worse and was not controlled with her home pain med Tramadol. Therefore, she decided to come to ED. Denies nausea, vomiting, fevers, chills, diarrhea, constipation, leg swelling, AMS, confusion, jaundice, itching, skin lesions. Patient follows up with [facility] liver transplant center, states that she has only gone for 1 visit so far (3 months ago). Due to insurance issues, she could not follow up further. However, she does have her next appt after 1 month. In ED, imaging showed cholelithiasis, 9 mm stone in gallbladder, no ascites. Patient was given morphine 2 mg IV x2, protonix, flagyl. This morning, patient reports much improved pain, 0/10, states that she is hungry and would like to eat. 12 point ROS obtained and negative, except as per HPI. PMD: [facility] Dr Baker, GI: Dr Parker PMH:former alcohol abuse, alcoholic liver cirrhosis on liver transplant list, hx of SBP and HTN SH: denies tobacco and drugs. admits to approx 10 year heavy drinking history, quit 3 months ago Sx: fibroid removal, EGD+CPSY [address] Turner, "normal" per pt report, FH: mom and dad had heart disease Allergies: NKDA Meds: per patient's hand written medication list: xifaxan 550mg BID, sprinolactone 25mg, furosemide 40mg, mag-oxide 400mg, nadolol 20mg, folic acid 1mg, pantoprazole 40mg, colace, trazodone 50mg, benadryl 25mg Review of Systems - Review of Systems All systems: reviewed and no additional remarkable complaints except Review of Systems: as per HPI Past Patient History - Infectious Disease Hx of Infectious Diseases: None - Tetanus Immunizations Tetanus Immunization: Unknown - Past Social History Smoking Status: Never Smoked - CARDIAC Hx Cardiac Disorders: Yes Hx Hypertension: Yes - PULMONARY Hx Respiratory Disorders: No - NEUROLOGICAL Hx Neurological Disorder: No - HEENT Hx HEENT Problems: No - RENAL Hx Chronic Kidney Disease: No - ENDOCRINE/METABOLIC Hx Endocrine Disorders: No - HEMATOLOGICAL/ONCOLOGICAL Hx Blood Disorders: Yes Hx Cirrhosis: Yes - INTEGUMENTARY Hx Dermatological Problems: Yes (GENERALIZED JAUNDICED) - MUSCULOSKELETAL/RHEUMATOLOGICAL Hx Musculoskeletal Disorders: Yes (pt denies r knee/back pain) Hx Falls: Yes (not recent) - GASTROINTESTINAL Hx Gastrointestinal Disorders: Yes (GASTRITIS,ASCITES-H/O OF TAPPING,BOWEL OBSTRUCTION) Hx Liver Failure: Yes (ALCOHOLIC LIVER CIRRHOSIS) - GENITOURINARY/GYNECOLOGICAL Hx Genitourinary Disorders: Yes (MYOMECTOMY-FIBROID) - PSYCHIATRIC Hx Psychophysiologic Disorder: Yes (H/O ETOH ABUSE. DRANK HALF A LITER OF VODKA FOR 6-7 YRS. QUIT 15 JANUARY 2018) Hx Substance Use: No - SURGICAL HISTORY Other/Comment: Fibroids-MYOMECTOMY - ANESTHESIA Hx Anesthesia: Yes Hx Anesthesia Reactions: No Hx Malignant Hyperthermia: No Meds Home Medications: Home Medication List Medication Instructions Recorded Confirmed Type Lactulose [Enulose] 10 gm PO DAILY 30 Days [facility] [place] 01/09/19 Rx Ursodiol [Actigall] 300 mg PO BID #60 cap 01/09/19 Rx Allergies/Adverse Reactions: Allergies Allergy/AdvReac Type Severity Reaction Status Date / Time No Known Allergies Allergy Verified 11/29/18 23:10 - Medications Medications: Current Medications Docusate Sodium (Colace) 100 mg PO DAILY [facility] Last Admin: 01/09/19 10:00 Dose: 100 mg Folic Acid (Folic Acid) 1 mg PO DAILY [facility] Last Admin: 01/09/19 09:59 Dose: 1 mg Furosemide (Lasix) 40 mg PO DAILY [facility] Last Admin: 01/09/19 10:00 Dose: 40 mg Metronidazole (Flagyl) 500 mg in 100 mls @ 100 mls/hr IVPB Q8 [facility]; Protocol Last Admin: 01/09/19 05:04 Dose: 100 mls/hr Lactated Ringer's (Lactated Ringer's) 1,000 mls @ 125 mls/hr IV .Q8H [facility] Last Admin: 01/09/19 07:52 Dose: 125 mls/hr Ceftriaxone Sodium (Rocephin 1 Gram Ivpb) 1 gm in 100 mls @ 100 mls/hr IVPB DAILY [facility]; Protocol Last Admin: 01/09/19 09:59 Dose: 100 mls/hr Lactulose (Enulose) 10 gm PO DAILY [facility] Last Admin: 01/09/19 10:00 Dose: 10 gm Magnesium Oxide (Mag-Ox) 400 mg PO DAILY [facility] Last Admin: 01/09/19 09:59 Dose: 400 mg Nadolol (Corgard) 20 mg PO DAILY [facility] Last Admin: 01/09/19 10:00 Dose: 20 mg Ondansetron HCl (Zofran Inj) 4 mg IVP Q6H PRN PRN Reason: Nausea/Vomiting Pantoprazole Sodium (Protonix Ec Tab) 40 mg PO DAILY [facility] Last Admin: 01/09/19 09:59 Dose: 40 mg Rifaximin (Xifaxan) 550 mg PO BID [facility]; Protocol Last Admin: 01/09/19 09:59 Dose: 550 mg Spironolactone (Aldactone) 25 mg PO BID [facility] Last Admin: 01/09/19 09:59 Dose: 25 mg Tramadol HCl (Ultram) 25 mg PO BID PRN PRN Reason: Pain, severe (8-10) Last Admin: 01/09/19 08:25 Dose: 25 mg Trazodone HCl (Desyrel) 50 mg PO HS [facility] Last Admin: 01/09/19 00:42 Dose: 50 mg Physical Exam - Constitutional Appears: Non-toxic, No Acute Distress - Head Exam Head Exam: ATRAUMATIC, NORMOCEPHALIC - Eye Exam Eye Exam: EOMI, PERRL. absent: Conjunctival injection, Scleral icterus Pupil Exam: NORMAL ACCOMODATION, PERRL. absent: Miosis, Mydriatic - ENT Exam ENT Exam: Mucous Membranes Moist - Neck Exam Neck exam: Positive for: Full Rom - Respiratory Exam Respiratory Exam: Clear to Auscultation Bilateral, NORMAL BREATHING PATTERN. absent: Respiratory Distress, Stridor - Cardiovascular Exam Cardiovascular Exam: RRR, +S1, +S2. absent: Systolic Murmur - GI/Abdominal Exam GI & Abdominal Exam: Normal Bowel Sounds, Soft. absent: Distended, Firm, Guarding, Rebound, Rigid, Tenderness - Extremities Exam Extremities exam: Positive for: normal inspection. Negative for: calf tenderness, pedal edema - Back Exam Back exam: NORMAL INSPECTION - Neurological Exam Neurological exam: Alert, Oriented x3 - Psychiatric Exam Psychiatric exam: Normal Affect, Normal Mood - Skin Skin Exam: Normal Color, Warm Results - Vital Signs Recent Vital Signs: Last Vital Signs Temp 98 F 01/09/19 06:00 Pulse 73 01/09/19 10:00 Resp 18 01/09/19 06:00 BP 112/74 01/09/19 10:00 Pulse Ox 98 01/09/19 06:00 - Labs Result Diagrams: 01/09/19 06:45 01/09/19 06:45 Labs: Laboratory Results - last 24 hr 01/08/19 01/08/19 01/08/19 17:55 17:55 20:03 WBC 6.1 RBC 4.03 Hgb 12.0 Hct 36.4 MCV 90.3 MCH 29.8 MCHC 33.0 RDW 14.9 H Plt Count 124 MPV 11.5 H Neut % (Auto) 53.5 Lymph % (Auto) 31.6 [place] % (Auto) 8.3 H Eos % (Auto) 5.9 H Baso % (Auto) 0.7 Lymph # (Auto) 1.9 [place] # (Auto) 0.5 Eos # (Auto) 0.4 Baso # (Auto) 0.04 Absolute Neuts (auto) 3.29 APTT Sodium 137 Potassium 4.2 Chloride 102 Carbon Dioxide 26 Anion Gap 14 BUN 7 Creatinine 0.9 Est GFR ( Amer) > 60 Est GFR (Non-Af Amer) > 60 Random Glucose 122 H Calcium 10.4 Phosphorus Magnesium Total Bilirubin 1.0 AST 36 ALT 6 L Alkaline Phosphatase 101 Ammonia Lactate Dehydrogenase 383 Total Creatine Kinase 33 L Troponin I < 0.01 Total Protein 8.4 H Albumin 3.8 Globulin 4.6 Albumin/Globulin Ratio 0.8 L Lipase 263 Urine Color Straw Urine Appearance Clear Urine pH 7.0 Ur Specific [place] <= 1.005 Urine Protein Negative Urine Glucose (UA) Negative Urine Ketones Negative Urine Blood Negative Urine Nitrate Negative Urine Bilirubin Negative Urine Urobilinogen 0.2 Ur Leukocyte Esterase Negative Alcohol, Quantitative 01/08/19 01/08/19 01/09/19 21:42 21:42 06:45 WBC 4.7 D RBC 3.71 Hgb 10.8 L Hct 33.3 L MCV 89.8 MCH 29.1 MCHC 32.4 RDW 15.0 H Plt Count 116 L MPV 10.9 Neut % (Auto) 55.3 Lymph % (Auto) 31.8 [place] % (Auto) 6.7 H Eos % (Auto) 5.6 H Baso % (Auto) 0.6 Lymph # (Auto) 1.5 [place] # (Auto) 0.3 Eos # (Auto) 0.3 Baso # (Auto) 0.03 Absolute Neuts (auto) 2.57 APTT Sodium Potassium Chloride Carbon Dioxide Anion Gap BUN Creatinine Est GFR ( Amer) Est GFR (Non-Af Amer) Random Glucose Calcium Phosphorus Magnesium Total Bilirubin AST ALT Alkaline Phosphatase Ammonia 20 Lactate Dehydrogenase Total Creatine Kinase Troponin I Total Protein Albumin Globulin Albumin/Globulin Ratio Lipase Urine Color Urine Appearance Urine pH Ur Specific [place] Urine Protein Urine Glucose (UA) Urine Ketones Urine Blood Urine Nitrate Urine Bilirubin Urine Urobilinogen Ur Leukocyte Esterase Alcohol, Quantitative < 10 01/09/19 01/09/19 06:45 06:45 WBC RBC Hgb Hct MCV MCH MCHC RDW Plt Count MPV Neut % (Auto) Lymph % (Auto) [place] % (Auto) Eos % (Auto) Baso % (Auto) Lymph # (Auto) [place] # (Auto) Eos # (Auto) Baso # (Auto) Absolute Neuts (auto) APTT 42.9 H Sodium 139 Potassium 4.1 Chloride 106 Carbon Dioxide 25 Anion Gap 13 BUN 5 L Creatinine 0.9 Est GFR ( Amer) > 60 Est GFR (Non-Af Amer) > 60 Random Glucose 99 Calcium 10.0 Phosphorus 3.5 Magnesium 1.7 Total Bilirubin 0.9 AST 30 ALT 12 Alkaline Phosphatase 88 Ammonia Lactate Dehydrogenase Total Creatine Kinase Troponin I Total Protein 7.5 Albumin 3.3 Globulin 4.2 Albumin/Globulin Ratio 0.8 L Lipase Urine Color Urine Appearance Urine pH Ur Specific [place] Urine Protein Urine Glucose (UA) Urine Ketones Urine Blood Urine Nitrate Urine Bilirubin Urine Urobilinogen Ur Leukocyte Esterase Alcohol, Quantitative Assessment & Plan - Assessment and Plan (Free Text) Assessment: This is a 58 year old female with PMH alcoholic liver cirrhosis, cholelothiasis, HTN, is here for acute exacerbation of her chronic abdominal pain: # Abdominal pain (chronic) 2/2 likely cholelthiasis, currently resolved # EtOH Cirrhosis # HTN # History of SBP - F/u Abd US showed cholelithiasis, 9 mm gallstone. no ascites. - CT abd pelvis reviewed - MELD 9 (previously in 09/2018, MELD was 15) - Child Lorenzana 6, class A - Recommend Low Fat, Low Na diet - Cont aldactone, lasix, rifaximin, nadolol, PPI daily - Can take patient off antibiotics. Can start Ursodiol 300 mg PO BID. - Avoid fatty foods. - Okay to discharge from GI standpoint. - Supportive care - Pt will follow up with [facility] for ongoing cirrhosis/transplant treatment and evaluation. Case seen and discussed with Dr Rhodes. <Syed Rhodes V - Last Filed: 01/09/19 23:53> Results - Vital Signs Recent Vital Signs: Last Vital Signs Temp 98.1 F 01/09/19 14:00 Pulse 64 01/09/19 14:00 Resp 16 01/09/19 14:00 BP 107/68 01/09/19 14:00 Pulse Ox 98 01/09/19 14:00 - Labs Result Diagrams: 01/09/19 06:45 01/09/19 06:45 Labs: Laboratory Results - last 24 hr 01/08/19 01/09/19 01/09/19 21:42 06:45 06:45 WBC 4.7 D RBC 3.71 Hgb 10.8 L Hct 33.3 L MCV 89.8 MCH 29.1 MCHC 32.4 RDW 15.0 H Plt Count 116 L MPV 10.9 Neut % (Auto) 55.3 Lymph % (Auto) 31.8 [place] % (Auto) 6.7 H Eos % (Auto) 5.6 H Baso % (Auto) 0.6 Lymph # (Auto) 1.5 [place] # (Auto) 0.3 Eos # (Auto) 0.3 Baso # (Auto) 0.03 Absolute Neuts (auto) 2.57 PT INR APTT 42.9 H Sodium Potassium Chloride Carbon Dioxide Anion Gap BUN Creatinine Est GFR ( Amer) Est GFR (Non-Af Amer) Random Glucose Calcium Phosphorus Magnesium Total Bilirubin AST ALT Alkaline Phosphatase Total Protein Albumin Globulin Albumin/Globulin Ratio Alcohol, Quantitative < 10 01/09/19 01/09/19 06:45 06:45 WBC RBC Hgb Hct MCV MCH MCHC RDW Plt Count MPV Neut % (Auto) Lymph % (Auto) [place] % (Auto) Eos % (Auto) Baso % (Auto) Lymph # (Auto) [place] # (Auto) Eos # (Auto) Baso # (Auto) Absolute Neuts (auto) PT 14.0 H INR 1.24 APTT Sodium 139 Potassium 4.1 Chloride 106 Carbon Dioxide 25 Anion Gap 13 BUN 5 L Creatinine 0.9 Est GFR ( Amer) > 60 Est GFR (Non-Af Amer) > 60 Random Glucose 99 Calcium 10.0 Phosphorus 3.5 Magnesium 1.7 Total Bilirubin 0.9 AST 30 ALT 12 Alkaline Phosphatase 88 Total Protein 7.5 Albumin 3.3 Globulin 4.2 Albumin/Globulin Ratio 0.8 L Alcohol, Quantitative Attending/Attestation - Attestation I have personally seen and examined this patient.: Yes I have fully participated in the care of the patient.: Yes I have reviewed all pertinent clinical information: Yes Notes (Text): This patient was seen and evaluated along with the resident here earlier. This is an addendum to the GI consultation report dictated by the resident. Patient denies any abdominal pain now feels much better clinically more suggestive of biliary colic rather than cholecystitis. We will start the patient on Actigall 300 mg twice daily Patient was advised to follow-up with [facility] liver unit. Continue the diuretics Continue Xifaxan Advised medical follow-up in the clinic in 1 week time and consider repeating electrolytes Discussed with the patient and also patient's family who were at bedside 01/09/19 23:50
--- NOTE | 2019-01-09 10:56 | US ---
Date of service: 01/08/2019 HISTORY: ruq pain COMPARISON: None. TECHNIQUE: Sonographic evaluation of the abdomen. FINDINGS: LIVER: Measures cm. Heterogeneous echogenicity of the liver parenchyma. No mass. No intrahepatic bile duct dilatation. 1.5 centimeter right hepatic cyst. GALLBLADDER: 9 millimeter gallstone. COMMON BILE DUCT: Measures mm. No stones. No dilatation. PANCREAS: Unremarkable as visualized. No mass. No ductal dilatation. RIGHT KIDNEY: Measures cm. Normal echogenicity. No calculus, mass, or hydronephrosis. LEFT KIDNEY: Measures cm. Normal echogenicity. No calculus, mass. Question mild left hydronephrosis.. SPLEEN: Normal in size and contour. No mass. AORTA: No aneurysmal dilatation. IVC: Unremarkable. OTHER FINDINGS: None. IMPRESSION: Cholelithiasis. Right hepatic cyst. Question mild left hydronephrosis.
--- NOTE | 2019-01-09 11:17 | CP.PCM.PN ---
Subjective - Date & Time of Evaluation Date of Evaluation: 01/09/19 Time of Evaluation: 11:13 - Subjective Subjective: Adeel Rosenberg PGY1 Progress Note for Dr. Hogan Pt was examined at bedside this morning. She has no complaints today. She denies fever, chills, nausea, vomiting, diarrhea. Objective - Vital Signs/Intake and Output Vital Signs (last 24 hours): Temp Pulse Resp BP Pulse Ox 98 F 73 18 112/74 98 01/09/19 06:00 01/09/19 10:00 01/09/19 06:00 01/09/19 10:00 01/09/19 06:00 Intake and Output: 01/09/19 01/09/19 06:59 18:59 Intake Total 120 Balance 120 - Medications Medications: Current Medications Docusate Sodium (Colace) 100 mg PO DAILY [facility] Last Admin: 01/09/19 10:00 Dose: 100 mg Folic Acid (Folic Acid) 1 mg PO DAILY [facility] Last Admin: 01/09/19 09:59 Dose: 1 mg Furosemide (Lasix) 40 mg PO DAILY [facility] Last Admin: 01/09/19 10:00 Dose: 40 mg Metronidazole (Flagyl) 500 mg in 100 mls @ 100 mls/hr IVPB Q8 [facility]; Protocol Last Admin: 01/09/19 05:04 Dose: 100 mls/hr Lactated Ringer's (Lactated Ringer's) 1,000 mls @ 125 mls/hr IV .Q8H [facility] Last Admin: 01/09/19 07:52 Dose: 125 mls/hr Ceftriaxone Sodium (Rocephin 1 Gram Ivpb) 1 gm in 100 mls @ 100 mls/hr IVPB DAILY [facility]; Protocol Last Admin: 01/09/19 09:59 Dose: 100 mls/hr Lactulose (Enulose) 10 gm PO DAILY [facility] Last Admin: 01/09/19 10:00 Dose: 10 gm Magnesium Oxide (Mag-Ox) 400 mg PO DAILY [facility] Last Admin: 01/09/19 09:59 Dose: 400 mg Nadolol (Corgard) 20 mg PO DAILY [facility] Last Admin: 01/09/19 10:00 Dose: 20 mg Ondansetron HCl (Zofran Inj) 4 mg IVP Q6H PRN PRN Reason: Nausea/Vomiting Pantoprazole Sodium (Protonix Ec Tab) 40 mg PO DAILY [facility] Last Admin: 01/09/19 09:59 Dose: 40 mg Rifaximin (Xifaxan) 550 mg PO BID [facility]; Protocol Last Admin: 01/09/19 09:59 Dose: 550 mg Spironolactone (Aldactone) 25 mg PO BID [facility] Last Admin: 01/09/19 09:59 Dose: 25 mg Tramadol HCl (Ultram) 25 mg PO BID PRN PRN Reason: Pain, severe (8-10) Last Admin: 01/09/19 08:25 Dose: 25 mg Trazodone HCl (Desyrel) 50 mg PO HS [facility] Last Admin: 01/09/19 00:42 Dose: 50 mg - Labs Labs: 01/09/19 06:45 01/09/19 06:45 APTT 42.9 Seconds (26.9-38.3) H 01/09/19 06:45 - Constitutional Appears: Well, No Acute Distress - Head Exam Head Exam: ATRAUMATIC, NORMOCEPHALIC - Eye Exam Eye Exam: EOMI, Normal appearance - Respiratory Exam Respiratory Exam: NORMAL BREATHING PATTERN. absent: Respiratory Distress - GI/Abdominal Exam GI & Abdominal Exam: Soft. absent: Distended, Guarding, Rigid, Tenderness - Extremities Exam Extremities Exam: Normal Inspection - Neurological Exam Neurological Exam: Alert, Awake, Oriented x3 - Psychiatric Exam Psychiatric exam: Normal Affect, Normal Mood Assessment and Plan - Assessment and Plan (Free Text) Assessment: 58 yr old female with hx of ETOH abuse and liver cirrhosis on transplant list with cholelithiasis. Plan: - advance diet as tolerated - afebrile, no leukocytosis - no surgical intervention at this time - pain control PRN - zofran PRN further recs as per Dr. Hogan
[2019-01-09 11:27] LABS: INR 1.24
[2019-01-09] MEDS ORDERED: Bisacodyl 5mg EC Tab PO ONE (14:13)
--- NOTE | 2019-01-09 17:00 | CP.PCM.DIS ---
<BradleyAydin - Last Filed: 01/09/19 16:50> Provider - Provider Date of Admission: 01/08/19 21:52 Attending physician: Gal Hollis MD Consults: 01/08/19 21:59 General Surgery Consult Stat Comment: Consulting Provider: Denver Hogan Consulting Physician: Denver Hogan Reason for Consult: hx of Cholelithiasis, hx of ETOH Cirrhosis 01/09/19 09:47 Gastroenterology Consult Routine Comment: Consulting Provider: Syed Rhodes V Consulting Physician: Syed Rhodes V Reason for Consult: intractable abdominal pain Time Spent in preparation of Discharge (in minutes): 35 Hospital Course - Lab Results Lab Results: Most Recent Lab Values WBC 4.7 10^3/uL (4.5-11.0) D 01/09/19 06:45 RBC 3.71 10^6/uL (3.5-6.1) 01/09/19 06:45 Hgb 10.8 g/dL (12.0-16.0) L 01/09/19 06:45 Hct 33.3 % (36.0-48.0) L 01/09/19 06:45 MCV 89.8 fl (80.0-105.0) 01/09/19 06:45 MCH 29.1 pg (25.0-35.0) 01/09/19 06:45 MCHC 32.4 g/dl (31.0-37.0) 01/09/19 06:45 RDW 15.0 % (11.5-14.5) H 01/09/19 06:45 Plt Count 116 10^3/uL (120.0-450.0) L 01/09/19 06:45 MPV 10.9 fl (7.0-11.0) 01/09/19 06:45 Neut % (Auto) 55.3 % (50.0-68.0) 01/09/19 06:45 Lymph % (Auto) 31.8 % (22.0-35.0) 01/09/19 06:45 [place] % (Auto) 6.7 % (1.0-6.0) H 01/09/19 06:45 Eos % (Auto) 5.6 % (1.5-5.0) H 01/09/19 06:45 Baso % (Auto) 0.6 % (0.0-3.0) 01/09/19 06:45 Lymph # (Auto) 1.5 (1.2-3.4) 01/09/19 06:45 [place] # (Auto) 0.3 (0.1-0.6) 01/09/19 06:45 Eos # (Auto) 0.3 (0.0-0.7) 01/09/19 06:45 Baso # (Auto) 0.03 K/mm3 (0.0-2.0) 01/09/19 06:45 Absolute Neuts (auto) 2.57 (1.4-6.5) 01/09/19 06:45 PT 14.0 SECONDS (9.4-12.5) H 01/09/19 06:45 INR 1.24 01/09/19 06:45 APTT 42.9 Seconds (26.9-38.3) H 01/09/19 06:45 Sodium 139 mmol/L (132-148) 01/09/19 06:45 Potassium 4.1 mmol/L (3.6-5.0) 01/09/19 06:45 Chloride 106 mmol/L (98-107) 01/09/19 06:45 Carbon Dioxide 25 mmol/L (21-33) 01/09/19 06:45 Anion Gap 13 (10-20) 01/09/19 06:45 BUN 5 mg/dL (7-21) L 01/09/19 06:45 Creatinine 0.9 mg/dl (0.7-1.2) 01/09/19 06:45 Est GFR ( Amer) > 60 01/09/19 06:45 Est GFR (Non-Af Amer) > 60 01/09/19 06:45 Random Glucose 99 mg/dL (70-110) 01/09/19 06:45 Calcium 10.0 mg/dL (8.4-10.5) 01/09/19 06:45 Phosphorus 3.5 mg/dL (2.5-4.5) 01/09/19 06:45 Magnesium 1.7 mg/dL (1.7-2.2) 01/09/19 06:45 Total Bilirubin 0.9 mg/dL (0.2-1.3) 01/09/19 06:45 AST 30 U/L (14-36) 01/09/19 06:45 ALT 12 U/L (7-56) 01/09/19 06:45 Alkaline Phosphatase 88 U/L (38-126) 01/09/19 06:45 Ammonia 20 umol/L (9-33) 01/08/19 21:42 Lactate Dehydrogenase 383 U/L (333-699) 01/08/19 17:55 Total Creatine Kinase 33 U/L (35-230) L 01/08/19 17:55 Troponin I < 0.01 ng/mL 01/08/19 17:55 Total Protein 7.5 g/dL (5.8-8.3) 01/09/19 06:45 Albumin 3.3 g/dL (3.0-4.8) 01/09/19 06:45 Globulin 4.2 gm/dL 01/09/19 06:45 Albumin/Globulin Ratio 0.8 (1.1-1.8) L 01/09/19 06:45 Lipase 263 U/L (23-300) 01/08/19 17:55 Urine Color Straw (YELLOW) 01/08/19 20:03 Urine Appearance Clear (CLEAR) 01/08/19 20:03 Urine pH 7.0 (4.7-8.0) 01/08/19 20:03 Ur Specific [place] <= 1.005 (1.005-1.035) 01/08/19 20:03 Urine Protein Negative mg/dL (<30 mg/dL) 01/08/19 20:03 Urine Glucose (UA) Negative mg/dL (NEGATIVE) 01/08/19 20:03 Urine Ketones Negative mg/dL (NEGATIVE) 01/08/19 20:03 Urine Blood Negative (NEGATIVE) 01/08/19 20:03 Urine Nitrate Negative (NEGATIVE) 01/08/19 20:03 Urine Bilirubin Negative (NEGATIVE) 01/08/19 20:03 Urine Urobilinogen 0.2 E.U./dL (<1 E.U./dL) 01/08/19 20:03 Ur Leukocyte Esterase Negative [place]/uL (NEGATIVE) 01/08/19 20:03 Alcohol, Quantitative < 10 mg/dL (0-10) 01/08/19 21:42 - Hospital Course Hospital Course: Aydin Pal, PGY1 Medicine Discharge Summary for Dr. 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 The pain began 8-9 months ago and is localized mostly to the RUQ and epigastric region. The pain comes randomly and is not associated with palpation, position, motion, or food. Patient takes 1-2 tablets of Tramadol 40mg, which usually relieves the pain but not in this instance. Patient has associated itching throughout her body and right-sided occipital headache that does not radiate. CBC WNL, CMP: Glucose 122, Lipase 263, Troponin WNL, UA WNL. Patient given Protonix, morphine and Benadryl. And normal saline. Abd/Pelvic CT showed Right hepatic lobe cyst, Gallstone (5.2 mm) in Gallbladder with edema. Abdominal US was positive for cholelithiasis. Pt started on Rocephin 1g and Flagyl 500mg during hospital course. However, given findings patient's abdominal pain is chronic in nature. Surgery was on consult given gallstones however no surgical intervention is needed. GI was on consult as well and recommended low Fat, low Na diet; Cont aldactone, lasix, rifaximin, nadolol, PPI daily. [facility] and evaluation. After reviewing all imaging, vitals, labs, and clinical presentation patient is stable for discharge. She is cleared for discharge by GI. Discharge Exam - Head Exam Head Exam: ATRAUMATIC, NORMOCEPHALIC - Eye Exam Eye Exam: EOMI, Normal appearance - Respiratory Exam Respiratory Exam: Clear to PA & Lateral. absent: Accessory Muscle Use, Chest Wall Tenderness, Rales, Rhonchi, Wheezes, Respiratory Distress - Cardiovascular Exam Cardiovascular Exam: RRR, +S1, +S2 - GI/Abdominal Exam GI & Abdominal Exam: absent: Guarding, Rebound, Rigid, Tenderness, Unremarkable - Extremities Exam Extremities exam: normal capillary refill, normal inspection, pedal pulses present - Back Exam Back exam: NORMAL INSPECTION - Neurological Exam Neurological exam: Alert, CN II-XII Intact, Normal Gait, Oriented x3, Reflexes Normal - Psychiatric Exam Psychiatric exam: Normal Affect, Normal Mood - Skin Skin Exam: Dry, Intact, Normal Color, Warm Discharge Plan - Discharge Medications Prescriptions: Lactulose [Enulose] 10 gm PO DAILY 30 Days udc Ursodiol [Actigall] 300 mg PO BID #60 cap - Follow Up Plan Condition: FAIR Disposition: HOME/ ROUTINE Instructions: Cirrhosis (DC) Additional Instructions: Please follow up with the transplant center as scheduled. Please follow up with your Primary Care Doctor within 3-4 days of discharge. Please follow up with Dr. Rhodes (GI) within 1 week of discharge. Please follow up with Dr. Hays (Hepatobiliary Surgeon) within 1 week of discharge. Resume your home medications as prescribed. You are being given a new medication prescription: Ursodiol 300mg twice a day Please return to the nearest emergency department if your symptoms reoccur. Referrals: Michael Garcia MD [Staff Provider] - 7 Days Syed Rhodes MD [Medical Doctor] - 7 Days <Gal Hollis - Last Filed: 01/09/19 18:38> Provider - Provider Date of Admission: 01/08/19 21:52 Attending physician: Gal Hollis MD Consults: 01/08/19 21:59 General Surgery Consult Stat Comment: Consulting Provider: Denver Hogan Consulting Physician: Denver Hogan Reason for Consult: hx of Cholelithiasis, hx of ETOH Cirrhosis 01/09/19 09:47 Gastroenterology Consult Routine Comment: Consulting Provider: Syed Rhodes V Consulting Physician: Syed Rhodes V Reason for Consult: intractable abdominal pain Hospital Course - Lab Results Lab Results: Most Recent Lab Values WBC 4.7 10^3/uL (4.5-11.0) D 01/09/19 06:45 RBC 3.71 10^6/uL (3.5-6.1) 01/09/19 06:45 Hgb 10.8 g/dL (12.0-16.0) L 01/09/19 06:45 Hct 33.3 % (36.0-48.0) L 01/09/19 06:45 MCV 89.8 fl (80.0-105.0) 01/09/19 06:45 MCH 29.1 pg (25.0-35.0) 01/09/19 06:45 MCHC 32.4 g/dl (31.0-37.0) 01/09/19 06:45 RDW 15.0 % (11.5-14.5) H 01/09/19 06:45 Plt Count 116 10^3/uL (120.0-450.0) L 01/09/19 06:45 MPV 10.9 fl (7.0-11.0) 01/09/19 06:45 Neut % (Auto) 55.3 % (50.0-68.0) 01/09/19 06:45 Lymph % (Auto) 31.8 % (22.0-35.0) 01/09/19 06:45 [place] % (Auto) 6.7 % (1.0-6.0) H 01/09/19 06:45 Eos % (Auto) 5.6 % (1.5-5.0) H 01/09/19 06:45 Baso % (Auto) 0.6 % (0.0-3.0) 01/09/19 06:45 Lymph # (Auto) 1.5 (1.2-3.4) 01/09/19 06:45 [place] # (Auto) 0.3 (0.1-0.6) 01/09/19 06:45 Eos # (Auto) 0.3 (0.0-0.7) 01/09/19 06:45 Baso # (Auto) 0.03 K/mm3 (0.0-2.0) 01/09/19 06:45 Absolute Neuts (auto) 2.57 (1.4-6.5) 01/09/19 06:45 PT 14.0 SECONDS (9.4-12.5) H 01/09/19 06:45 INR 1.24 01/09/19 06:45 APTT 42.9 Seconds (26.9-38.3) H 01/09/19 06:45 Sodium 139 mmol/L (132-148) 01/09/19 06:45 Potassium 4.1 mmol/L (3.6-5.0) 01/09/19 06:45 Chloride 106 mmol/L (98-107) 01/09/19 06:45 Carbon Dioxide 25 mmol/L (21-33) 01/09/19 06:45 Anion Gap 13 (10-20) 01/09/19 06:45 BUN 5 mg/dL (7-21) L 01/09/19 06:45 Creatinine 0.9 mg/dl (0.7-1.2) 01/09/19 06:45 Est GFR ( Amer) > 60 01/09/19 06:45 Est GFR (Non-Af Amer) > 60 01/09/19 06:45 Random Glucose 99 mg/dL (70-110) 01/09/19 06:45 Calcium 10.0 mg/dL (8.4-10.5) 01/09/19 06:45 Phosphorus 3.5 mg/dL (2.5-4.5) 01/09/19 06:45 Magnesium 1.7 mg/dL (1.7-2.2) 01/09/19 06:45 Total Bilirubin 0.9 mg/dL (0.2-1.3) 01/09/19 06:45 AST 30 U/L (14-36) 01/09/19 06:45 ALT 12 U/L (7-56) 01/09/19 06:45 Alkaline Phosphatase 88 U/L (38-126) 01/09/19 06:45 Ammonia 20 umol/L (9-33) 01/08/19 21:42 Lactate Dehydrogenase 383 U/L (333-699) 01/08/19 17:55 Total Creatine Kinase 33 U/L (35-230) L 01/08/19 17:55 Troponin I < 0.01 ng/mL 01/08/19 17:55 Total Protein 7.5 g/dL (5.8-8.3) 01/09/19 06:45 Albumin 3.3 g/dL (3.0-4.8) 01/09/19 06:45 Globulin 4.2 gm/dL 01/09/19 06:45 Albumin/Globulin Ratio 0.8 (1.1-1.8) L 01/09/19 06:45 Lipase 263 U/L (23-300) 01/08/19 17:55 Urine Color Straw (YELLOW) 01/08/19 20:03 Urine Appearance Clear (CLEAR) 01/08/19 20:03 Urine pH 7.0 (4.7-8.0) 01/08/19 20:03 Ur Specific [place] <= 1.005 (1.005-1.035) 01/08/19 20:03 Urine Protein Negative mg/dL (<30 mg/dL) 01/08/19 20:03 Urine Glucose (UA) Negative mg/dL (NEGATIVE) 01/08/19 20:03 Urine Ketones Negative mg/dL (NEGATIVE) 01/08/19 20:03 Urine Blood Negative (NEGATIVE) 01/08/19 20:03 Urine Nitrate Negative (NEGATIVE) 01/08/19 20:03 Urine Bilirubin Negative (NEGATIVE) 01/08/19 20:03 Urine Urobilinogen 0.2 E.U./dL (<1 E.U./dL) 01/08/19 20:03 Ur Leukocyte Esterase Negative [place]u/uL (NEGATIVE) 01/08/19 20:03 Alcohol, Quantitative < 10 mg/dL (0-10) 01/08/19 21:42 Attending/Attestation - Attestation I have personally seen and examined this patient.: Yes I have fully participated in the care of the patient.: Yes I have reviewed all pertinent clinical information, including history, physical exam and plan: Yes Notes (Text): 01/09/19 18:31 58 year old female with past medical history of hypertension and end stage liver disease who presented last night with complaint of RUQ / epigastric pain. CT abd/pelvis showed right hepatic lobe cyst and gallstone with ?cholecystitis. US abdomen showed cholelithiasis. However patient's symptoms are chronic and acute cholecystitis was less likely diagnoses. Patient was seen by GI and surgery and no further acute intervention was recommended. Diet was advanced which patient tolerated. Pain improved. She was cleared by GI and surgery with outpatient follow up. Follow up with pmd. Follow up with GI. Follow up with surgery. Follow up at tertiary center. Started on ursodiol. Gal Hollis MD Hospitalist.
[2019-01-09 17:17] VITALS: BP 107/68; PULSE 64; RESP 16; TEMP 98.1
== END 2019-01-09 18:11 | disposition home or self-care (01) ==
LOC: ED 16:35 → ERH 21:52 → INTOOBSV 21:52 → ERH 22:21 → 5RSO 23:14
PROVIDERS: ADMIT Hospitalist; ATTEND Internal Medicine
DX: K70.30 Alcoholic cirrhosis of liver without ascites (principal); I10 Essential (primary) hypertension; Z76.82 Awaiting organ transplant status; K80.20 Calculus of gallbladder without cholecystitis without obstruction; K76.0 Fatty (change of) liver, not elsewhere classified
CPT/HCPCS: 36415; 71045; 74177; 76700; 80053; 80320; 81003; 82140; 82550; 83615; 83690; 83735; 84100; 84484; 85025; 85610; 85730; 87040; 93005; 96365; 96367; 96375; 96376; 99284; C9113; G0378; J0696; J1200; J2270; J2405; J7040; J7120; Q9967

== ENCOUNTER 2019-02-23 01:56 | Observation (INO) | payer BC, MEDICAID, OTHER ==
[2019-02-23 01:57] VITALS: BMI 22.9
--- NOTE | 2019-02-23 02:32 | ED PDOC ---
Arrival/HPI - General Historian: Patient - History of Present Illness Narrative History of Present Illness (Text): 02/23/19 02:24 A 58 year old female, whose past medical history includes cirrhosis secondary to alcohol abuse, presents to the emergency department complaining of abdominal pain since earlier tonight. Patient reports she took tramadol at 10 pm to no relief. Patient denies drinking any alcohol today.Patient notes has seen her commodity manager but has not seen any of the specialists recommended to her in her last ER visit. Patient denies any fever, chills, shortness of breath, chest pain, diarrhea, nausea, vomiting, urinary symptoms, back pain, neck pain, headache, dizziness, or any other complaints. No PMD Time/Duration: Other (earlier tonight) Symptom Onset: Gradual Symptom Course: Unchanged Activities at Onset: Light Context: Home <JulesmarisolFlash - Last Filed: 02/23/19 06:09> <Chantel Zimmer - Last Filed: 02/24/19 10:32> - General Chief Complaint: Abdominal Pain Time Seen by Provider: 02/23/19 01:58 Past Medical History - Provider Review Nursing Documentation Reviewed: Yes - Infectious Disease Hx of Infectious Diseases: None - Tetanus Immunization Tetanus Immunization: Unknown - Cardiac Hx Cardiac Disorders: Yes Hx Hypertension: Yes - Pulmonary Hx Respiratory Disorders: No - Neurological Hx Neurological Disorder: No - HEENT Hx HEENT Disorder: No - Renal Hx Renal Disorder: No - Endocrine/Metabolic Hx Endocrine Disorders: No - Hematological/Oncological Hx Blood Disorders: Yes Hx Cirrhosis: Yes - Integumentary Hx Dermatological Disorder: Yes (GENERALIZED JAUNDICED) - Musculoskeletal/Rheumatological Hx Musculoskeletal Disorders: Yes (pt denies r knee/back pain) Hx Falls: Yes (not recent) - Gastrointestinal Hx Gastrointestinal Disorders: Yes (GASTRITIS,ASCITES-H/O OF TAPPING,BOWEL OBSTRUCTION) Hx Liver Failure: Yes (ALCOHOLIC LIVER CIRRHOSIS) - Genitourinary/Gynecological Hx Genitourinary Disorders: Yes (MYOMECTOMY-FIBROID) - Psychiatric Hx Psychophysiologic Disorder: Yes (H/O ETOH ABUSE. DRANK HALF A LITER OF VODKA FOR 6-7 YRS. QUIT 15 JANUARY 2018) Hx Substance Use: No - Surgical History Other/Comment: Fibroids-MYOMECTOMY - Anesthesia Hx Anesthesia: Yes Hx Anesthesia Reactions: No Hx Malignant Hyperthermia: No - Suicidal Assessment Feels Threatened In Home Enviroment: No <Flash Abrams - Last Filed: 02/23/19 06:09> Family/Social History - Physician Review Nursing Documentation Reviewed: Yes Family/Social History: No Known Family HX Smoking Status: Never Smoked Hx Alcohol Use: Yes (ETOH ABUSE USED TO DRINK DAILY VODKA 1/2 A LITER. FOR 6-7 YRS.LAST DRINK 8M) Hx Substance Use: No <Flash Abrams - Last Filed: 02/23/19 06:09> Allergies/Home Meds <Flash Abrams - Last Filed: 02/23/19 06:09> <GoranChantel - Last Filed: 02/24/19 10:32> Allergies/Adverse Reactions: Allergies No Known Allergies Allergy (Verified 11/29/18 23:10) Home Medications: Home Meds Medication Instructions Recorded Confirmed Magnesium Oxide [Mag-Ox] 1 tab PO DAILY 06/06/18 02/23/19 rifAXIMin [Xifaxan] 550 mg PO BID 07/20/18 02/23/19 traMADol [Ultram] 25 mg PO BID 07/20/18 02/23/19 Review of Systems - Physician Review All systems were reviewed & negative as marked: Yes - Review of Systems Constitutional: absent: Fevers, Other (chills) Respiratory: absent: SOB Cardiovascular: absent: Chest Pain Gastrointestinal: Abdominal Pain. absent: Diarrhea, Nausea, Vomiting Genitourinary Female: absent: Urine Output Changes Musculoskeletal: absent: Back Pain, Neck Pain Neurological: absent: Headache, Dizziness <Flash Abrams - Last Filed: 02/23/19 06:09> Physical Exam Vital Signs Reviewed: Yes Temperature: Hypothermic Blood Pressure: Hypertensive Pulse: Regular Respiratory Rate: Normal Appearance: Positive for: Other (poor dentition) Mental Status: Positive for: Alert and Oriented X 3 - Systems Exam Head: Present: Atraumatic, Normocephalic Pupils: Present: PERRL Extroacular Muscles: Present: EOMI Conjunctiva: Present: Normal Respiratory/Chest: Present: Clear to Auscultation, Good Air Exchange. No: Respiratory Distress, Accessory Muscle Use Abdomen: Present: Tenderness (generalized tenderness), Distention. No: Peritoneal Signs Neurological: Present: GCS=15, CN II-XII Intact, Speech Normal Skin: Present: Warm, Dry, Normal Color. No: Rashes Psychiatric: Present: Alert, Oriented x 3, Normal Insight, Normal Concentration <Flash Abrams - Last Filed: 02/23/19 06:09> Vital Signs Temp Pulse Resp BP Pulse Ox 02/23/19 08:23 98.2 F 72 18 102/55 L 97 02/23/19 07:16 97.9 F 69 18 104/57 L 98 02/23/19 05:37 67 18 118/68 98 02/23/19 02:21 97.5 F L 75 18 155/89 H 100 <Chantel Zimmer - Last Filed: 02/24/19 10:32> Medical Decision Making ED Course and Treatment: 02/23/19 02:24 Impression: 58 year old female presenting to the emergency department complaining of abdominal pain. Plan: -- CT of abdomen and pelvis -- Labs -- CBC -- Urinalysis -- Reassess and disposition Prior Visits: Notes and results from previous visits were reviewed. Progress Notes: 02/23/19 06:09 Labs reviewed with no evidence of leukocytosis, however CT reveals mild colitis, cholelithiasis and diffuse thickening of the gallbladder wall. Abdominal US or dered. Discussed case with Dr. Baptiste(PCP) who accepts admission and requests Dr. Rhodes(GI) and Dr. Grace(general surgery) as consults. - Lab Interpretations Lab Results: 02/23/19 02:45 02/23/19 02:45 Lab Results 02/23/19 02:45: Sodium 137, Potassium 4.8, Chloride 105, Carbon Dioxide 22, Anion Gap 15, BUN 15, Creatinine 0.9, Est GFR ( Amer) > 60, Est GFR (Non- Af Amer) > 60, Random Glucose 110, Calcium 10.0, Magnesium 2.0, Total Bilirubin 1.0, AST 34, ALT 12, Alkaline Phosphatase 92, Troponin I < 0.01, Total Protein 8.2, Albumin 4.0, Globulin 4.2, Albumin/Globulin Ratio 1.0 L, Lipase 324 H 02/23/19 02:45: WBC 5.2, RBC 3.93, Hgb 11.7 L, Hct 35.8 L, MCV 91.1, MCH 29.8, MCHC 32.7, RDW 15.2 H, Plt Count 138, MPV 11.0, Neut % (Auto) 46.2 L, Lymph % (Auto) 39.2 H, Tucker % (Auto) 6.3 H, Eos % (Auto) 7.3 H, Baso % (Auto) 1.0, Lymph # (Auto) 2.0, Tucker # (Auto) 0.3, Eos # (Auto) 0.4, Baso # (Auto) 0.05, Absolute Neuts (auto) 2.40 I have reviewed the lab results: Yes <Flash Abrams - Last Filed: 02/23/19 06:09> - Lab Interpretations Lab Results: Troponin I < 0.01 ng/mL 02/23/19 02:45 Total Bilirubin 1.0 mg/dL (0.2-1.3) 02/23/19 02:45 AST 34 U/L (14-36) 02/23/19 02:45 ALT 12 U/L (7-56) 02/23/19 02:45 Alkaline Phosphatase 92 U/L (38-126) 02/23/19 02:45 Total Protein 8.2 g/dL (5.8-8.3) 02/23/19 02:45 Albumin 4.0 g/dL (3.0-4.8) 02/23/19 02:45 Globulin 4.2 gm/dL 02/23/19 02:45 Albumin/Globulin Ratio 1.0 (1.1-1.8) L 02/23/19 02:45 Lipase 324 U/L (23-300) H 02/23/19 02:45 - RAD Interpretation Radiology Orders: 02/23/19 02:24 ABD PELVIS PO & IV CONTRAST [CT] Stat 02/23/19 06:06 ABDOMEN COMPLETE [US] Stat - Medication Orders Current Medication Orders: Discontinued Medications Diphenhydramine HCl (Benadryl) 50 mg IVP STAT STA Stop: 02/23/19 02:51 Last Admin: 02/23/19 03:49 Dose: 50 mg IVP Administration Document 02/23/19 03:49 IT (Rec: 02/23/19 03:49 IT [id number]) Charges for Administration # of IVP Administrations 1 Hydromorphone HCl (Dilaudid) 1 mg IVP Q4H PRN PRN Reason: Pain, moderate (4-7) Dextrose/Sodium Chloride (Dextrose 5%/0.45% Ns 1000 Ml) 1,000 mls @ 75 mls/hr IV .[id number] [facility] Last Admin: 02/23/19 11:27 Dose: 75 mls/hr eMAR Start Stop Document 02/23/19 11:27 BK (Rec: 02/23/19 11:27 [place] [facility] [id number] Intravenous Solution Start Date 02/23/19 Start Time 11:27 Ketorolac Tromethamine (Toradol) 30 mg IVP STAT STA Stop: 02/23/19 02:27 Last Admin: 02/23/19 02:30 Dose: 30 mg MAR Pain Assessment Document 02/23/19 02:30 AD (Rec: 02/23/19 03:34 [place] [facility] [place] Pain Reassessment Is this a pain reassessment? No Presence of Pain Presence of Pain Yes Pain Scale Used Protocol: PSCALES Pain Scale Used Numeric IVP Administration Document 02/23/19 02:30 AD (Rec: 02/23/19 03:34 AD [facility] [id number] Charges for Administration # of IVP Administrations 1 Metoclopramide HCl (Reglan) 10 mg IVP STAT STA Stop: 02/23/19 02:27 Last Admin: 02/23/19 02:30 Dose: 10 mg IVP Administration Document 02/23/19 02:30 AD (Rec: 02/23/19 03:34 AD [facility] [id number] Charges for Administration # of IVP Administrations 1 Nadolol (Corgard) 20 mg PO DAILY [facility] Last Admin: 02/23/19 11:26 Dose: 20 mg MAR Pulse and Blood Pressure Document 02/23/19 11:26 BK (Rec: 02/23/19 11:26 BK [facility] [id number]) Pulse Pulse Rate (60-90) 60 Blood Pressure Blood Pressure (100/60-150/90) 108/62 Ondansetron HCl (Zofran Inj) 4 mg IVP Q6H PRN PRN Reason: Nausea/Vomiting Pantoprazole Sodium (Protonix Inj) 40 mg IVP DAILY [facility] Last Admin: 02/23/19 11:26 Dose: 40 mg IVP Administration Document 02/23/19 11:26 BK (Rec: 02/23/19 11:27 [id number]) Charges for Administration # of IVP Administrations 1 <Chantel Zimmer - Last Filed: 02/24/19 10:32> - Scribe Statement The provider has reviewed the documentation as recorded by the Jeffery Steward All medical record entries made by the Scribe were at my direction and personally dictated by me. I have reviewed the chart and agree that the record accurately reflects my personal performance of the history, physical exam, me dical decision making, and the department course for this patient. I have also personally directed, reviewed, and agree with the discharge instructions and disposition. <Flash Abrams - Last Filed: 02/23/19 06:09> Disposition/Present on Arrival - Present on Arrival History of DVT/PE: No History of Uncontrolled Diabetes: No Urinary Catheter: No History of Decub. Ulcer: No History Surgical Site Infection Following: None <Flash Abrams - Last Filed: 02/23/19 06:09> <Chantel Zimmer - Last Filed: 02/24/19 10:32> - Disposition Disposition: HOSPITALIZED Condition: GOOD Addendum Addendum: 02/24/19 10:30 No call placed to admitting team or patient. Patient has already undergone abdominal ultrasound and GI/general surgery evaluation. Official Read CT Abd/Pelvis: FINDINGS: LOWER THORAX: The visualized lungs are clear. There is mild cardiomegaly. LIVER: Normal in size with homogeneous enhancement. There is diffuse fatty liver. There are stable few simple cysts, the largest in the right hepatic lobe measures 1.2 cm. No ductal dilatation. GALLBLADDER AND BILE DUCTS: The gallbladder is distended and there is mild diffuse wall thickening. There is a solitary 8 mm gallstone. PANCREAS: Normal in size with homogeneous enhancement. No gross lesion or ductal dilatation. SPLEEN: Normal in size. There is a stable 4.5 x 5.1 cm partially calcified mass in the upper pole of the spleen. ADRENALS: No discrete nodule. KIDNEYS AND URETERS: Normal in size with homogeneous enhancement. No hydronephrosis. No solid mass. VASCULATURE: No aortic aneurysm. There are no aortic atherosclerotic calcifications or mural plaque present. BOWEL: There is mild dilatation and circumferential mural thickening in the proximal small bowel loops. There is moderate dilatation of mid and distal small bowel loops. The ileocecal junction and terminal ileum are normal. There is fluid in the ascending and transverse colon. The left hemicolon is decompressed. APPENDIX: Normal appendix. PERITONEUM: No free fluid. No free air. LYMPH NODES: No enlarged lymph nodes. BLADDER: Well distended and normal in appearance. REPRODUCTIVE: The uterus is normal in size. There are dilated venous collaterals in bilateral adnexa, worse on the left most compatible with pelvic congestion syndrome. BONES: No acute fracture. Degenerative disc disease at L5-S1. OTHER FINDINGS: None. IMPRESSION: 1. Distended gallbladder, mild diffuse wall thickening and solitary gallstone. Please correlate with right upper quadrant ultrasound to evaluate for acute cholecystitis. 2. Mildly dilated mid and distal small bowel loops and fluid in the ascending and transverse colon may represent nonspecific acute infectious/inflammatory colitis. 3. Other stable chronic findings as described above. A preliminary report was provided by [facility] The final report is tagged to the PA review folder. <Chantel Zimmer - Last Filed: 02/24/19 10:32>
[2019-02-23] MEDS ORDERED: DiphenhydrAMINE 50 mg/ml Inj IVP STA (02:50)
[2019-02-23] MEDS ORDERED: Iohexol 240 (50 ml) ONE (02:51)
[2019-02-23] MEDS ORDERED: Iohexol 350 MG/100 ML VIAL ONE (02:51)
[2019-02-23 02:57] LABS: BASO # 0.05 K/mm3 (0.0-2.0); EOS # 0.4 (0.0-0.7); EOS % 7.3 % (1.5-5.0); HEMOGLOBIN 11.7 g/dL (12.0-16.0); LYMPH % 39.2 % (22.0-35.0); MEAN CELL VOLUME 91.1 fl (80.0-105.0); MEAN CORPUSCULAR HEMOGLOBIN 29.8 pg (25.0-35.0); MEAN CORPUSCULAR HGB CONC 32.7 g/dl (31.0-37.0); MONO # 0.3 (0.1-0.6); MONO % 6.3 % (1.0-6.0); RBC 3.93 10^6/uL (3.5-6.1); RED CELL DISTRIBUTION WIDTH 15.2 % (11.5-14.5); WHITE BLOOD COUNT 5.2 10^3/uL (4.5-11.0)
[2019-02-23 03:08] LABS: ALT/SGPT 12 U/L (7-56); AST/SGOT 34 U/L (14-36); BLOOD UREA NITROGEN 15 mg/dL (7-21); GFR NON-AFRICAN AMERICAN > 60; LIPASE 324 U/L (23-300)
[2019-02-23 03:22] LABS: TROPONIN I < 0.01 ng/mL
--- NOTE | 2019-02-23 10:05 | CP.PCM.CON ---
<AnaHaritha - Last Filed: 02/23/19 11:00> History of Present Illness - History of Present Illness History of Present Illness: General Surgery Dr. Grace 58 y/o F w/ PMHx HTN, EtOH cirrhosis presents to the ED c/o abd pain. Pt is well known to the ED for similar symptoms. Pt reports pain began earlier in the day on 02/22. Pt has had similar pain in the past which generally self-resolves. Pain starts in LUQ and migrates down to RLQ/suprapubic. Pain described as gaseous in nature. Pt reports mild associated nausea but denies F/C, vomiting. Pt admits to loose stool that morning w/ normal bowel movements later in the afternoon. Pt denies CP, SOB, dysuria In ED, pt underwent CTAP which [facility] read as cholelithiasis possible colitis for which surgery was consulted. Pt underwent Abd US which shows cholelithiasis w/o cholecystitis. Pt seen and examined @bedside this AM. Pt reports complete resolution of abd pain and nausea. Pt asking for water/juice/PO intake. PMHx: see above, cholelithiasis Meds: reviewed in chart NKDA PSHx: myomectomy SHx: 1/2 liter vodka/day, last drink 8mon ago. denies tobacco, drug use FHx: noncontributory Review of Systems - Review of Systems All systems: reviewed and no additional remarkable complaints except (see HPI) Past Patient History - Infectious Disease Hx of Infectious Diseases: None - Tetanus Immunizations Tetanus Immunization: Unknown - Past Social History Smoking Status: Never Smoked - CARDIAC Hx Cardiac Disorders: Yes Hx Hypertension: Yes - PULMONARY Hx Respiratory Disorders: No - NEUROLOGICAL Hx Neurological Disorder: No - HEENT Hx HEENT Problems: No - RENAL Hx Chronic Kidney Disease: No - ENDOCRINE/METABOLIC Hx Endocrine Disorders: No - HEMATOLOGICAL/ONCOLOGICAL Hx Blood Disorders: Yes Hx Cirrhosis: Yes - INTEGUMENTARY Hx Dermatological Problems: Yes (GENERALIZED JAUNDICED) - MUSCULOSKELETAL/RHEUMATOLOGICAL Hx Musculoskeletal Disorders: Yes (pt denies r knee/back pain) Hx Falls: Yes (not recent) - GASTROINTESTINAL Hx Gastrointestinal Disorders: Yes (GASTRITIS,ASCITES-H/O OF TAPPING,BOWEL OBSTRUCTION) Hx Liver Failure: Yes (ALCOHOLIC LIVER CIRRHOSIS) - GENITOURINARY/GYNECOLOGICAL Hx Genitourinary Disorders: Yes (MYOMECTOMY-FIBROID) - PSYCHIATRIC Hx Psychophysiologic Disorder: Yes (H/O ETOH ABUSE. DRANK HALF A LITER OF VODKA FOR 6-7 YRS. QUIT 15 JANUARY 2018) Hx Substance Use: No - SURGICAL HISTORY Other/Comment: Fibroids-MYOMECTOMY - ANESTHESIA Hx Anesthesia: Yes Hx Anesthesia Reactions: No Hx Malignant Hyperthermia: No Meds Allergies/Adverse Reactions: Allergies Allergy/AdvReac Type Severity Reaction Status Date / Time No Known Allergies Allergy Verified 11/29/18 23:10 Physical Exam - Constitutional Appears: Non-toxic, No Acute Distress - Head Exam Head Exam: NORMAL INSPECTION - Eye Exam Eye Exam: Normal appearance - ENT Exam ENT Exam: Mucous Membranes Moist - Respiratory Exam Respiratory Exam: NORMAL BREATHING PATTERN. absent: Accessory Muscle Use, Respiratory Distress - Cardiovascular Exam Cardiovascular Exam: absent: Bradycardia, Tachycardia - GI/Abdominal Exam GI & Abdominal Exam: Soft. absent: Distended, Firm, Guarding, Rebound, Rigid, Tenderness - Extremities Exam Extremities exam: Positive for: normal inspection - Neurological Exam Neurological exam: Alert, Oriented x3 - Psychiatric Exam Psychiatric exam: Normal Affect, Normal Mood - Skin Skin Exam: Dry, Intact, Normal Color, Warm Results - Vital Signs Recent Vital Signs: Last Vital Signs Temp 98.1 F 02/23/19 08:26 Pulse 71 02/23/19 08:26 Resp 18 02/23/19 08:26 BP 103/59 L 02/23/19 08:26 Pulse Ox 97 02/23/19 08:26 - Labs Result Diagrams: 02/23/19 02:45 02/23/19 02:45 Labs: Laboratory Results - last 24 hr 02/23/19 02/23/19 02:45 02:45 WBC 5.2 RBC 3.93 Hgb 11.7 L Hct 35.8 L MCV 91.1 MCH 29.8 MCHC 32.7 RDW 15.2 H Plt Count 138 MPV 11.0 Neut % (Auto) 46.2 L Lymph % (Auto) 39.2 H Da[place] % (Auto) 6.3 H Eos % (Auto) 7.3 H Baso % (Auto) 1.0 Lymph # (Auto) 2.0 [place]hin # (Auto) 0.3 Eos # (Auto) 0.4 Baso # (Auto) 0.05 Absolute Neuts (auto) 2.40 Sodium 137 Potassium 4.8 Chloride 105 Carbon Dioxide 22 Anion Gap 15 BUN 15 Creatinine 0.9 Est GFR ( Amer) > 60 Est GFR (Non-Af Amer) > 60 Random Glucose 110 Calcium 10.0 Magnesium 2.0 Total Bilirubin 1.0 AST 34 ALT 12 Alkaline Phosphatase 92 Troponin I < 0.01 Total Protein 8.2 Albumin 4.0 Globulin 4.2 Albumin/Globulin Ratio 1.0 L Lipase 324 H - Imaging and Cardiology CT scan - abdomen Status: Image reviewed by me, Report reviewed by me US - abdomen Status: Image reviewed by me, Report reviewed by me Assessment & Plan - Assessment and Plan (Free Text) Assessment: 58 y/o F w/ resolved abd pain 2/2 constipation vs enteritis vs biliary cholic Plan: - NPO/IVF - non-narcotic pain management - monitor bowel fxn - HIDA scan to confirm no cholecystitis - No surgical intervention at this time Pt discussed w/ Dr. Sanjay Perez PGY3 <Julito Grace - Last Filed: 02/24/19 08:57> Results - Vital Signs Recent Vital Signs: Last Vital Signs Temp 98.0 F 02/23/19 14:00 Pulse 62 02/23/19 14:00 Resp 20 02/23/19 14:00 BP 102/66 02/23/19 14:00 Pulse Ox 97 02/23/19 14:00 - Labs Result Diagrams: 02/23/19 02:45 02/23/19 02:45 Assessment & Plan - Assessment and Plan (Free Text) Plan: This consu.lt done under my direct supervision Fabio Grace MD FACS
--- NOTE | 2019-02-23 10:07 | CP.PCM.PCO ---
Physician Communication Note - Physician Communication Note Physician Communication Note: Dx GB Colic-Cirrhossis/No surgery indicated now
--- NOTE | 2019-02-23 10:10 | CT ---
Date of service: 02/23/2019 PROCEDURE: CT Abdomen and Pelvis with contrast HISTORY: Abdominal pain COMPARISON: None available. TECHNIQUE: CT scan of the abdomen and pelvis was performed after administration of intravenous contrast. Oral contrast was administered. Coronal and sagittal reformatted images were obtained. Contrast dose: 100 mL Omnipaque 350 Radiation dose: Total exam DLP = 374.57 mGy-cm. This CT exam was performed using one or more of the following dose reduction techniques: Automated exposure control, adjustment of the mA and/or kV according to patient size, and/or use of iterative reconstruction technique. FINDINGS: LOWER THORAX: The visualized lungs are clear. There is mild cardiomegaly. LIVER: Normal in size with homogeneous enhancement. There is diffuse fatty liver. There are stable few simple cysts, the largest in the right hepatic lobe measures 1.2 cm. No ductal dilatation. GALLBLADDER AND BILE DUCTS: The gallbladder is distended and there is mild diffuse wall thickening. There is a solitary 8 mm gallstone. PANCREAS: Normal in size with homogeneous enhancement. No gross lesion or ductal dilatation. SPLEEN: Normal in size. There is a stable 4.5 x 5.1 cm partially calcified mass in the upper pole of the spleen. ADRENALS: No discrete nodule. KIDNEYS AND URETERS: Normal in size with homogeneous enhancement. No hydronephrosis. No solid mass. VASCULATURE: No aortic aneurysm. There are no aortic atherosclerotic calcifications or mural plaque present. BOWEL: There is mild dilatation and circumferential mural thickening in the proximal small bowel loops. There is moderate dilatation of mid and distal small bowel loops. The ileocecal junction and terminal ileum are normal. There is fluid in the ascending and transverse colon. The left hemicolon is decompressed. APPENDIX: Normal appendix. PERITONEUM: No free fluid. No free air. LYMPH NODES: No enlarged lymph nodes. BLADDER: Well distended and normal in appearance. REPRODUCTIVE: The uterus is normal in size. There are dilated venous collaterals in bilateral adnexa, worse on the left most compatible with pelvic congestion syndrome. BONES: No acute fracture. Degenerative disc disease at L5-S1. OTHER FINDINGS: None. IMPRESSION: 1. Distended gallbladder, mild diffuse wall thickening and solitary gallstone. Please correlate with right upper quadrant ultrasound to evaluate for acute cholecystitis. 2. Mildly dilated mid and distal small bowel loops and fluid in the ascending and transverse colon may represent nonspecific acute infectious/inflammatory colitis. 3. Other stable chronic findings as described above. A preliminary report was provided by [facility] [facility] The final report is tagged to the PA review folder.
[2019-02-23] MEDS ORDERED: HYDROmorphone 2 mg/ml ISec IVP PRN (10:27)
[2019-02-23] MEDS ORDERED: Dextrose 5%/0.45% NS 1,000 ML IV SCH (10:30)
--- NOTE | 2019-02-23 10:40 | US ---
Date of service: 02/23/2019 HISTORY: gallstones w/ ?wall thickening COMPARISON: CT abdomen and pelvis from 02/23/2019. TECHNIQUE: Grayscale imaging was performed. FINDINGS: LIVER: Measures 18.4 cm. Normal echogenicity of the liver parenchyma. There is a 1.7 cm simple cyst in the right hepatic lobe.. No intrahepatic bile duct dilatation. GALLBLADDER: There is a solitary stone in the neck of the gallbladder. No wall thickening or pericholecystic fluid. The sonographic Tolbert's sign is negative. COMMON BILE DUCT: Measures 7.2 mm. Mild diffuse dilatation without sonographic evidence for choledocholithiasis. PANCREAS: Normal in size and echotexture. No mass. No ductal dilatation. RIGHT KIDNEY: Measures 9.8cm. Normal echogenicity. No calculus, mass, or hydronephrosis. LEFT KIDNEY: Measures 10.3cm. Normal echogenicity. No calculus, mass, or hydronephrosis. SPLEEN: Normal in size and contour. Redemonstration of a 4.4 x 5.0 x 4.6 cm calcified mass in the upper pole AORTA: No aneurysmal dilatation. IVC: Unremarkable. OTHER FINDINGS: None. IMPRESSION: 1. Mild hepatomegaly and fatty liver. 2. Cholelithiasis. Mild diffuse dilatation of the common bile duct. Correlation with MRCP may be performed to evaluate for distal stone/obstruction. 3. Stable calcified mass in the upper pole of the spleen.
--- NOTE | 2019-02-23 14:20 | CP.PCM.CON ---
<Donovan Parker - Last Filed: 02/23/19 16:52> History of Present Illness - History of Present Illness History of Present Illness: PGY4 GI fellow consult note 58 year old female PMH former alcohol abuse, alcoholic liver cirrhosis (previously on liver transplant list but removed due to improving meld score), hx of SBPand HE, history of biliary colic and HTN presenting with abdominal pain. she has frequent visits for abdominal pain. She states this episode began earlier on 02/22/19 with left upper quadrant "light" discomfort with some radiation to the right lower quadrant/suprapubic area. She cannot identify any precipitating or alleviating factors. She reported one loose stool the day prior which was brown in color. She reported some mild nausea but denied any weight loss, dysphagia, vomiting, melena, hematochezia. during my encounter this morning, she states her abdominal pain is significantly improved and would like her diet advanced. 12 point ROS negative other than stated above MedHx: see above SurgHx: fibroid removal, EGD+CPSY [address] Turner, "normal" per pt report, Meds: reviewed in chart SocHx: denies tobacco and drugs. admits to approx 10 year heavy drinking history, quit 3 months ago FamHx: mom and dad had heart disease Allergies: NKDA PMD: [facility] Dr Baker, GI: Dr Parker Past Patient History - Infectious Disease Hx of Infectious Diseases: None - Tetanus Immunizations Tetanus Immunization: Unknown - Past Social History Smoking Status: Never Smoked - CARDIAC Hx Cardiac Disorders: Yes Hx Hypertension: Yes - PULMONARY Hx Respiratory Disorders: No - NEUROLOGICAL Hx Neurological Disorder: No - HEENT Hx HEENT Problems: No - RENAL Hx Chronic Kidney Disease: No - ENDOCRINE/METABOLIC Hx Endocrine Disorders: No - HEMATOLOGICAL/ONCOLOGICAL Hx Blood Disorders: Yes Hx Cirrhosis: Yes - INTEGUMENTARY Hx Dermatological Problems: Yes (GENERALIZED JAUNDICED) - MUSCULOSKELETAL/RHEUMATOLOGICAL Hx Musculoskeletal Disorders: Yes (pt denies r knee/back pain) Hx Falls: Yes (not recent) - GASTROINTESTINAL Hx Gastrointestinal Disorders: Yes (GASTRITIS,ASCITES-H/O OF TAPPING,BOWEL OBSTRUCTION) Hx Liver Failure: Yes (ALCOHOLIC LIVER CIRRHOSIS) - GENITOURINARY/GYNECOLOGICAL Hx Genitourinary Disorders: Yes (MYOMECTOMY-FIBROID) - PSYCHIATRIC Hx Psychophysiologic Disorder: Yes (H/O ETOH ABUSE. DRANK HALF A LITER OF VODKA FOR 6-7 YRS. QUIT 15 JANUARY 2018) Hx Substance Use: No - SURGICAL HISTORY Other/Comment: Fibroids-MYOMECTOMY - ANESTHESIA Hx Anesthesia: Yes Hx Anesthesia Reactions: No Hx Malignant Hyperthermia: No Meds Allergies/Adverse Reactions: Allergies Allergy/AdvReac Type Severity Reaction Status Date / Time No Known Allergies Allergy Verified 11/29/18 23:10 - Medications Medications: Current Medications Hydromorphone HCl (Dilaudid) 1 mg IVP Q4H PRN PRN Reason: Pain, moderate (4-7) Dextrose/Sodium Chloride (Dextrose 5%/0.45% Ns 1000 Ml) 1,000 mls @ 75 mls/hr IV .[id number] [facility] Last Admin: 02/23/19 11:27 Dose: 75 mls/hr Nadolol (Corgard) 20 mg PO DAILY [facility] Last Admin: 02/23/19 11:26 Dose: 20 mg Ondansetron HCl (Zofran Inj) 4 mg IVP Q6H PRN PRN Reason: Nausea/Vomiting Pantoprazole Sodium (Protonix Inj) 40 mg IVP DAILY [facility] Last Admin: 02/23/19 11:26 Dose: 40 mg Physical Exam - Constitutional Appears: No Acute Distress, Chronically Ill - Head Exam Head Exam: ATRAUMATIC, NORMAL INSPECTION - Eye Exam Eye Exam: EOMI. absent: Scleral icterus - ENT Exam ENT Exam: Mucous Membranes Moist. absent: Mucous Membranes Dry - Respiratory Exam Respiratory Exam: NORMAL BREATHING PATTERN. absent: Accessory Muscle Use - Cardiovascular Exam Cardiovascular Exam: REGULAR RHYTHM, RRR - GI/Abdominal Exam GI & Abdominal Exam: Normal Bowel Sounds, Soft, Tenderness (mildly tender to palpation in epigastrium without guarding). absent: Bruit, Diminished Bowel Sounds, Distended, Firm, Guarding, Hernia, Mass, Rebound, Rigid - Neurological Exam Neurological exam: Alert, Oriented x3 - Psychiatric Exam Psychiatric exam: Normal Affect, Normal Mood - Skin Skin Exam: Normal Color, Warm Results - Vital Signs Recent Vital Signs: Last Vital Signs Temp 98.3 F 02/23/19 08:30 Pulse 60 02/23/19 11:26 Resp 16 02/23/19 11:07 BP 108/62 02/23/19 11:26 Pulse Ox 98 02/23/19 08:30 - Labs Result Diagrams: 02/23/19 02:45 02/23/19 02:45 Labs: Laboratory Results - last 24 hr 02/23/19 02/23/19 02:45 02:45 WBC 5.2 RBC 3.93 Hgb 11.7 L Hct 35.8 L MCV 91.1 MCH 29.8 MCHC 32.7 RDW 15.2 H Plt Count 138 MPV 11.0 Neut % (Auto) 46.2 L Lymph % (Auto) 39.2 H [place] % (Auto) 6.3 H Eos % (Auto) 7.3 H Baso % (Auto) 1.0 Lymph # (Auto) 2.0 [place] # (Auto) 0.3 Eos # (Auto) 0.4 Baso # (Auto) 0.05 Absolute Neuts (auto) 2.40 Sodium 137 Potassium 4.8 Chloride 105 Carbon Dioxide 22 Anion Gap 15 BUN 15 Creatinine 0.9 Est GFR ( Amer) > 60 Est GFR (Non-Af Amer) > 60 Random Glucose 110 Calcium 10.0 Magnesium 2.0 Total Bilirubin 1.0 AST 34 ALT 12 Alkaline Phosphatase 92 Troponin I < 0.01 Total Protein 8.2 Albumin 4.0 Globulin 4.2 Albumin/Globulin Ratio 1.0 L Lipase 324 H Assessment & Plan - Assessment and Plan (Free Text) Assessment: 57 yo Maur[place] female with EtOH Cirrhosis and cholelithiasis presenting with acute on chronic abd pain # Abd Pain: Exact etiology unclear. Chronic issue for patient, but reassuringly already feeling better. perhaps related to resolving biliary colic he has had had worse episodes in the past. Also, could be a risk for chronic pancreatitis given history of drinking, but has been sober for some time. # EtOH cirrhosis: MELD-Na 11. Follows with [facility]. - Ascites: Suspected h/o SBP, on furosemide and spironolactone as OP - HE:on rifaximin and lactulose as outpatient - EV: reportedly last EGD normal, on nadalol Plan: - Advance diet as tolerated General surgery consulted, HIDA scan negative - Cont diuretics, BB, lactulose and rifaximin - Supportive care - Pt to f/u with [facility] for ongoing cirrhosis/transplant discussions; possible cholecystectomy Pt seen and examined with Dr. Rhodes; please see his attestation for further recs/changes. <Syed Rhodes V - Last Filed: 02/23/19 19:25> Meds - Medications Medications: Current Medications Hydromorphone HCl (Dilaudid) 1 mg IVP Q4H PRN PRN Reason: Pain, moderate (4-7) Nadolol (Corgard) 20 mg PO DAILY [facility] Last Admin: 02/23/19 11:26 Dose: 20 mg Ondansetron HCl (Zofran Inj) 4 mg IVP Q6H PRN PRN Reason: Nausea/Vomiting Pantoprazole Sodium (Protonix Inj) 40 mg IVP DAILY [facility] Last Admin: 02/23/19 11:26 Dose: 40 mg Results - Vital Signs Recent Vital Signs: Last Vital Signs Temp 98.0 F 02/23/19 14:00 Pulse 62 02/23/19 14:00 Resp 20 02/23/19 14:00 BP 102/66 02/23/19 14:00 Pulse Ox 97 02/23/19 14:00 - Labs Result Diagrams: 02/23/19 02:45 02/23/19 02:45 Labs: Laboratory Results - last 24 hr 02/23/19 02/23/19 02:45 02:45 WBC 5.2 RBC 3.93 Hgb 11.7 L Hct 35.8 L MCV 91.1 MCH 29.8 MCHC 32.7 RDW 15.2 H Plt Count 138 MPV 11.0 Neut % (Auto) 46.2 L Lymph % (Auto) 39.2 H [place] % (Auto) 6.3 H Eos % (Auto) 7.3 H Baso % (Auto) 1.0 Lymph # (Auto) 2.0 [place] # (Auto) 0.3 Eos # (Auto) 0.4 Baso # (Auto) 0.05 Absolute Neuts (auto) 2.40 Sodium 137 Potassium 4.8 Chloride 105 Carbon Dioxide 22 Anion Gap 15 BUN 15 Creatinine 0.9 Est GFR ( Amer) > 60 Est GFR (Non-Af Amer) > 60 Random Glucose 110 Calcium 10.0 Magnesium 2.0 Total Bilirubin 1.0 AST 34 ALT 12 Alkaline Phosphatase 92 Troponin I < 0.01 Total Protein 8.2 Albumin 4.0 Globulin 4.2 Albumin/Globulin Ratio 1.0 L Lipase 324 H Attending/Attestation - Attestation I have personally seen and examined this patient.: Yes I have fully participated in the care of the patient.: Yes I have reviewed all pertinent clinical information: Yes Notes (Text): This is an addendum to the GI consultation report dictated by the fellow. The patient was seen and evaluated earlier today along with the GI fellow. Patient's family was at bedside. Patient probably had bili at the attack of biliary colic. Patient in the past hospitalized with the cholecystitis. Cirrhosis of the liver probably secondary to the alcohol. Patient has been followed at the [facility] liver transplant clinic. Patient was also evaluated by the hepato-biliary surgeon at the [facility]. GI perspective recommend cholecystectomy in view of the recurrent admissions for biliary colic and cholecystitis. Patient has been on Actigall advised to continue that Patient was advised regular medical follow-up with Dr. Baptiste follow-up at the liver clinic at the [facility] and follow-up in our office. Patient has history of hepatic encephalopathy on Xifaxan long-term basis advised to continue that Patient had an endoscopy and also colonoscopy done in the past by Dr. Shon Turner Which was reviewed 02/23/19 19:22
[2019-02-23 15:39] VITALS: BP 102/66; PULSE 62; RESP 20; TEMP 98; O2SAT 97
--- NOTE | 2019-02-23 16:01 | NM ---
Date of service: 02/23/2019 PROCEDURE: Nuclear Medicine Hepatobiliary Scan HISTORY: cholelithiasis, biliary cholic COMPARISON: Abdomen and Pelvis CT as well as Abdomen ultrasound 02/23/2019. TECHNIQUE: 5.7 mCi of technetium 99m Mebrofenin was administered intravenously. Planar images of the abdomen were obtained at 5 min intervals to 60 mins. Delayed images were also obtained. FINDINGS: LIVER: Timely and homogenous uptake. COMMON BILE DUCT: identified at 45 mins. GALLBLADDER: identified at 5 mins. SMALL BOWEL: Identified at 45 mins. IMPRESSION: No nuclear evidence of cystic or common bile duct obstruction.
--- NOTE | 2019-02-23 19:31 | HP ---
DATE OF EXAM: 02/23/2019 HISTORY OF PRESENT ILLNESS: The patient is 58 years old known to me from previous admission, came to emergency room because of abdominal pain that started yesterday morning. She had some abdominal discomfort and bloating, because she did not have her regular bowel movement. She took tramadol that she has at home for pain, felt little better. In the evening, it started to have discomfort again that got worse around her bedtime, so she came to emergency room for evaluation. The patient states pain was in the left upper quadrant, migrated to the left lower area and she attributed this to constipation. Denies any fever or chills. No urinary symptoms. No hemoptysis. No hematemesis. PAST MEDICAL HISTORY: Significant for: 1. Cirrhosis liver secondary to alcohol use. 2. History of cholelithiasis. 3. History of hypertension. ALLERGY: SHE IS NOT ALLERGIC TO ANY MEDICATION. PAST SURGICAL HISTORY: Significant for myomectomy. MEDICATIONS AT HOME: She is on tramadol 50 mg twice a day as needed, Xifaxan 550 daily, Actigall 300 twice a day, trazodone at bedtime, Aldactone 25 twice a day, Protonix 40 daily, nadolol 20 mg daily, lactulose 10 g daily, Lasix 40 mg daily, folic acid 1 mg daily, and famotidine. PHYSICAL EXAMINATION: GENERAL: She is awake and alert, able to communicate. VITAL SIGNS: She is afebrile, pulse 60, respirations 18, and blood pressure 108/62. LUNGS: Bilateral fair airflow. No rhonchi or crackles. HEART: S1 and S2 audible. ABDOMEN: Soft and nontender. No rebound. No guarding. NEUROLOGIC: She is awake and alert; able to communicate. LABORATORY DATA: WBC is 5.2, hemoglobin 11.7, hematocrit 35.8, and platelets of 138. Chemistry; sodium 137, potassium 4.8, chloride 105, CO2 of 22, BUN 15, creatinine 0.9, and blood sugar of 110. LFTs are within normal limits. Lipase 324. She had CT scan of the abdomen and pelvis done that shows cholelithiasis, distended bladder, mild diffuse wall thickening and solitary gallstone, mildly dilated mid and the distal small bowel and fluid in the ascending and the transverse colon representing inflammatory colitis, and she had abdominal sonogram done that shows mild hepatomegaly, fatty liver, cholelithiasis, and mild diffuse dilatation of the common bile duct. PLAN: Currently, the patient is on IV fluids, started on clear liquid diet, awaiting HIDA scan, then we will make a disposition plan according to the result. The patient wants to go home. Beryl Baptiste MD
== END 2019-02-23 19:00 | disposition home or self-care (01) ==
LOC: ED 01:56 → INTOOBSV 06:14 → ERH 06:14 → 5RNO 08:27
PROVIDERS: ADMIT Internal Medicine; ATTEND Internal Medicine
DX: K80.20 Calculus of gallbladder without cholecystitis without obstruction (principal); K52.9 Noninfective gastroenteritis and colitis, unspecified; G89.29 Other chronic pain; K70.31 Alcoholic cirrhosis of liver with ascites; I10 Essential (primary) hypertension; K59.00 Constipation, unspecified; K82.8 Other specified diseases of gallbladder; Z79.899 Other long term (current) drug therapy; K76.0 Fatty (change of) liver, not elsewhere classified
CPT/HCPCS: 74177; 76700; 78227; 80053; 83690; 83735; 84484; 85025; 96374; 96375; 99285; A9537; C9113; G0378; J1200; J1885; J2765; J7042; Q9966; Q9967